=== PATIENT | male | born 1945 | race African-American/Black ===

== ENCOUNTER 2016-10-07 14:46 | Inpatient (IN) | payer MEDICARE, OTHER ==
[~2016-10-07] VITALS: Ht 180.3 cm; Wt 69.5 kg
[2016-10-07] VITALS (15 sets, daily range): BP systolic 139–225; BP diastolic 80–153; PULSE 80–150; RESP 17–20; TEMP 97.8–99; O2SAT 0–100
[~2016-10-07 14:46] MED LIST: ALUM5LIQ PO; ASPI1TAB7 PO; CLIN1CAP5 PO; DOCU1CAP39 PO; FINA5TAB77 PO; FOLI1 PO; IBUP600T26 PO; LISI-366 PO; SIME80CH CHEW; TERA10CA3 PO; TYLE3 PO; VIAG100T PO
[2016-10-07] MEDS ORDERED: SODIUM CHLOR 0.9% 1000 ML INJ 1,000 ML IV ONE (14:54)
[2016-10-07] MEDS ORDERED: SODIUM CHLORIDE 0.9% 50 ML BAG IVF ONE (15:15)
[2016-10-07] MEDS ORDERED: ALTEPLASE BOLUS 9 MG/9 ML SYR IV ONE (15:15)
[2016-10-07] MEDS ORDERED: IOHEXOL 350 MG/ML 10 ML VIAL (for RAD DIAG) IV ONE (15:15)
[2016-10-07] MEDS ORDERED: ALTEPLASE DRIP IV ONE (15:15)
[2016-10-07] MEDS ORDERED: MISCELLANEOUS NURSING INFORMATION XX PRN (15:15)
[2016-10-07] MEDS ORDERED: ASPI81CH37 PO (15:16)
--- NOTE | 2016-10-07 15:17 | RADRPT ---
EXAM DATE/TIME: 10/07/2016 14:59 [facility] COMPARISON: No previous studies available for comparison. INDICATIONS : Stroke alert, left sided facial droop. RADIATION DOSE: 38.19 CTDIvol (mGy) This report was called to Dr Shahid at 1510 hours. MEDICAL HISTORY : Non-responsive. SURGICAL HISTORY : Non-responsive. ENCOUNTER: Initial ACUITY: 1 day PAIN SCALE: Non-responsive LOCATION: Bilateral head TECHNIQUE: Multiple contiguous axial images were obtained of the head. Using automated exposure control and adj ustment of the mA and/or kV according to patient size, radiation dose was kept as low as reasonably a chievable to obtain optimal diagnostic quality images. FINDINGS: There is evidence of prior right occipital craniotomy with synthetic flap. There is a area of porenc ephaly deep to the craniotomy site which measures 2.9 cm. There are to small metallic densities ante rior to the craniotomy site. There is also a larger metallic density seen in the left lobe medial te mporal region. There is an old infarction involving the left head of the caudate nucleus and anterio r limb of internal capsule with associated ex vacuo enlargement of the left frontal horn. No evidence of midline shift. No evidence of acute blood products. No extra-axial fluid or blood. There is an air-fluid level in the sphenoid sinus. CONCLUSION: 1. No evidence of acute infarction. 2. 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 3. 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 Mio Coulter MD on October 07, 2016 at 15:08 Board Certified Radiologist. This report was verified electronically.
[2016-10-07 15:22] LABS: I-STAT POTASSIUM 3.1 MMOL/L (3.5-4.9); I-STAT SODIUM 142 MMOL/L (138-146)
[2016-10-07 15:24] LABS: AUTOMATED NEUTROPHIL # 4.1 TH/MM3 (1.8-7.7); BASOPHIL % 0.5 % (0.0-2.0); EOSINOPHIL % 0.3 % (0.0-4.0); HEMATOCRIT 42.4 % (39.0-51.0); HEMO FLAGS DIFF FINAL; LYMPH % 44.5 % (9.0-44.0); LYMPHOCYTE # 3.6 TH/MM3 (1.0-4.8); MEAN CELL VOLUME 74.4 FL (80.0-100.0); MEAN CORPUSCULAR HEMOGLOBIN 24.7 PG (27.0-34.0); MEAN CORPUSCULAR HGB CONC 33.2 % (32.0-36.0); MONO % 4.8 % (0.0-8.0); NEUT % 49.9 % (16.0-70.0); PLATELET COUNT 206 TH/MM3 (150-450); WHITE BLOOD COUNT 8.1 TH/MM3 (4.0-11.0)
[2016-10-07] MEDS: niCARdipine INJ 25 MG in SODIUM CHLOR 0.9% 250 ML INJ 250 ML IV SCH ×4 (15:24→21:29)
[2016-10-07] MEDS ORDERED: LABETALOL HCL 100 MG/20 ML VIAL IV PUSH ONE ×2 (15:30)
[2016-10-07 15:38] LABS: APTT (PATIENT) 28.2 SEC (24.3-30.1); PROTHROMBIN TIME - PATIENT 11.3 SEC (9.8-11.6)
[2016-10-07] MEDS ORDERED: hydrALAZINE HCL 20 MG/ML VIAL IV PUSH ONE (15:45)
--- NOTE | 2016-10-07 15:53 | RADRPT ---
EXAM DATE/TIME: 10/07/2016 15:12 [facility] COMPARISON: No previous studies available for comparison. INDICATIONS : Stroke alert, left sided facial droop. IV CONTRAST: 95 cc Omnipaque 350 (iohexol) IV ; Cumulative dose for multiple exams. RADIATION DOSE: 28.65 CTDIvol (mGy) ; Combined studies MEDICAL HISTORY : Non-responsive. SURGICAL HISTORY : Non-responsive. ENCOUNTER: Initial ACUITY: 1 day PAIN SCALE: Non-responsive LOCATION: Bilateral head TECHNIQUE: Volumetric scanning was performed using a multi-row detector CT scanner. The data was post processed with a variety of visualization algorithms including full volume maximum intensity projection, multi -planar sliding thin slab reformation, curved planar reformation, and surface rendering techniques. Using automated exposure control and adjustment of the mA and/or kV according to patient size, radiat ion dose was kept as low as reasonably achievable to obtain optimal diagnostic quality images. FINDINGS: There is excellent visualization of the major intracranial arteries out to the second-order branch ve ssels. There is no evidence for aneurysm, vessel truncation or stenosis, and no evidence for vascula r malformation. Flow seen in both PCOM. No flow seen in the anterior communicating artery. There are multiple metallic densities in the posterior fossa and occipital region. There is also a l arge metallic density in the left saad-pontine region which obscures a portion of the left posterior cerebral artery. The posterior cerebral artery distal to the metallic density is normal dimension an d the diameter proximal is narrowed. CONCLUSION: 1. No evidence of central truncation or aneurysm. 2. The largest intracranial metallic density, located near the left brain stem obscures a portion of the left posterior cerebral artery. The diameter of the left posterior cerebral artery distal to the metallic density is normal. Mio Coulter MD on October 07, 2016 at 15:47 Board Certified Radiologist. This report was verified electronically.
--- NOTE | 2016-10-07 15:55 | RADRPT ---
EXAM DATE/TIME: 10/07/2016 15:28 [facility] COMPARISON: No previous studies available for comparison. INDICATIONS : Stroke alert. MEDICAL HISTORY : None. SURGICAL HISTORY : None. ENCOUNTER: Initial ACUITY: 1 day PAIN SCORE: Non-responsive. LOCATION: Bilateral chest FINDINGS: A single view of the chest demonstrates the lungs to be symmetrically aerated without evidence of mas s, infiltrate or effusion. The cardiomediastinal contours are unremarkable. There is an asymmetric appearance to the anterior left 1st rib, probably old. There are several metallic densities in the l ow right neck, the largest of which is elongated and measures 1.3 cm in superior/inferior extent. Th ere is also metallic density adjacent to the lateral left 2nd rib.. CONCLUSION: 1. The lungs are clear. 2. Metallic densities in the low right neck and the upper left chest. Mio Coulter MD on October 07, 2016 at 15:52 Board Certified Radiologist. This report was verified electronically.
[2016-10-07 15:57] LABS: CREATINE KINASE 94 U/L (39-308)
--- NOTE | 2016-10-07 15:59 | PD ---
HPI Chief Complaint: Stroke Alert Time Seen by Provider: 14:54 Travel History International Travel<30 days: No Contact w/Intl Traveler<30days: No Traveled to known affect area: No History of Present Illness HPI Patient is a 71 year old male who comes in by EMS as a stroke alert. Patient had onset of left sided weakness around 2:15PM. His says that he was sitting on his porch when a friend came to get her to tell her he was not acting right. She says he was not speaking normally and he was unable to stand. She called 9--1 and he was brought here. He denies any pain. He has not had any recent trauma. He denies any strokes in the past. PFSH Past Medical History Hx Anticoagulant Therapy: Yes (ASA) Cardiovascular Problems: Yes Gastrointestinal Disorders: Yes (hep c) Genitourinary: Yes (bph) Hypertension: Yes Social History Alcohol Use: No Tobacco Use: Yes ("few a day") Substance Use: No Allergies-Medications (Allergen,Severity, Reaction): Coded Allergies: No Known Allergies (Unverified , 11/17/14) Reported Meds & Prescriptions Reported Meds & Active Scripts Active Reported [Folate] 1 Mg PO DAILY Aspirin Low Dose (Aspirin) 81 Mg Chew 81 Mg PO DAILY Review of Systems Except as stated in HPI: all other systems reviewed are Neg General / Constitutional: No: Fever Eyes: No: Blurred Vision HENT: No: Headaches Cardiovascular: No: Chest Pain or Discomfort Respiratory: No: Shortness of Breath Gastrointestinal: No: Nausea, Vomiting Musculoskeletal: No: Pain Skin: No Rash, No Change in Pigmentation Neurologic: Positive: Weakness, Focal Abnormalities, Slurred Speech Physical Exam Narrative GENERAL: Awake and alert, in no acute distress. SKIN: Focused skin assessment warm/dry. HEAD: Atraumatic. Normocephalic. EYES: Pupils equal and round. No scleral icterus. Extraocular movements intact. ENT: Mucous membranes pink and moist. NECK: Trachea midline. No JVD. CARDIOVASCULAR: Regular rate and rhythm. No murmur appreciated. RESPIRATORY: No accessory muscle use. Clear to auscultation. Breath sounds equal bilaterally. GASTROINTESTINAL: Abdomen soft, non-tender, nondistended. MUSCULOSKELETAL: No obvious deformities. No clubbing. No cyanosis. No edema. NEUROLOGICAL: Awake and alert. Left-sided facial droop. Mildly slurred speech. Left arm with no resistance to gravity. One out of 5 product marketing director strength. Left leg with some resistance to gravity. Strength is 2 out of 5 compared to the right leg. PSYCHIATRIC: Appropriate mood and affect; insight and judgment normal. Data Data Last Documented VS Vital Signs Date Time Temp Pulse Resp B/P Pulse Ox O2 Delivery O2 Flow Rate FiO2 10/07/16 16:20 96 18 156/95 100 Room Air 10/07/16 14:53 21 10/07/16 14:47 97.8 Orders Activity Bed Rest (10/07/16 ) I-Stat Creatinine (10/07/16 14:54) I-Stat Profile (10/07/16 14:54) Prothrombin Time / Inr (Pt) (10/07/16 14:54) Act Partial Throm Time (Ptt) (10/07/16 14:54) Complete Blood Count With Diff (10/07/16 14:54) Fibrinogen (10/07/16 14:54) Creatine Kinase (Cpk) (10/07/16 14:54) Troponin I (10/07/16 14:54) Ua Includes Microscopic (10/07/16 14:54) Drug Screen, Random Urine (10/07/16 14:54) Type And Screen (10/07/16 14:54) Ct Brain W/O Iv Contrast(Rout) (10/07/16 ) Chest, Single Ap (10/07/16 ) Cta Brain W Iv Contrast W 3d (10/07/16 14:54) Cta Neck W Iv Contrast W 3d (10/07/16 14:54) Consult Neurology (10/07/16 ) Blood Glucose (10/07/16 14:54) Ecg Monitoring (10/07/16 14:54) Neuro Checks Q2HX12,Q4H (10/07/16 14:54) Nursing Bedside Swallow Assess .ONCE (10/07/16 14:54) Iv Access Insert/Monitor (10/07/16 14:54) NPO (10/07/16 14:54) Oximetry (10/07/16 14:54) Oxygen Administration (10/07/16 14:54) Sodium Chlor 0.9% 1000 Ml Inj (Ns 1000 M (10/07/16 14:54) Resp Oxygen Giuseppe C Titrat 1-4 L (10/07/16 14:54) Cath For Specimen (10/07/16 14:54) Nicardipine Inj (Cardene Inj) (10/07/16 15:00) (Hub Use Only)Inp Phy Cons/Ref (10/07/16 ) Alteplase Bolus (Activase Bolus) (10/07/16 15:15) Alteplase Drip (Activase Drip) (10/07/16 15:15) Sodium Chloride 0.9% Inj (Ns Inj) (10/07/16 15:15) [facility] (10/07/16 15:15) Resp Oxygen Giuseppe C Titrat 1-4 L (10/07/16 ) Iohexol 350 Inj (Omnipaque 350 Inj) (10/07/16 15:15) Labetalol Inj (Trandate Inj) (10/07/16 15:30) Labetalol Inj (Trandate Inj) (10/07/16 15:30) Hydralazine Inj (Apresoline Inj) (10/07/16 15:45) Admit Order (Ed Use Only) (10/07/16 ) Labs Laboratory Tests Test 10/07/16 10/07/16 14:47 15:46 White Blood Count 8.1 TH/MM3 Red Blood Count 5.70 MIL/MM3 Hemoglobin 14.1 GM/DL Bedside Hemoglobin 15.3 G/DL Hematocrit 42.4 % Bedside Hematocrit 45.0 % Mean Corpuscular Volume 74.4 FL Mean Corpuscular Hemoglobin 24.7 PG Mean Corpuscular Hemoglobin 33.2 % Concent Red Cell Distribution Width 15.0 % Platelet Count 206 TH/MM3 Mean Platelet Volume 8.7 FL Neutrophils (%) (Auto) 49.9 % Lymphocytes (%) (Auto) 44.5 % Monocytes (%) (Auto) 4.8 % Eosinophils (%) (Auto) 0.3 % Basophils (%) (Auto) 0.5 % Neutrophils # (Auto) 4.1 TH/MM3 Lymphocytes # (Auto) 3.6 TH/MM3 Monocytes # (Auto) 0.4 TH/MM3 Eosinophils # (Auto) 0.0 TH/MM3 Basophils # (Auto) 0.0 TH/MM3 CBC Comment DIFF FINAL Differential Comment Prothrombin Time 11.3 SEC Prothromb Time International 1.0 RATIO Ratio Activated Partial 28.2 SEC Thromboplast Time Fibrinogen 439 mg/dL Bedside Sodium 142 MMOL/L Bedside Potassium 3.1 MMOL/L Bedside Chloride 107 MMOL/L Bedside Blood Urea Nitrogen 11 MG/DL Bedside Creatinine 1.1 MG/DL Bedside Glucose 120 MG/DL Total Creatine Kinase 94 U/L Troponin I LESS THAN 0.02 NG/ML Triglycerides Level 209 MG/DL Cholesterol Level 144 MG/DL LDL Cholesterol 69 MG/DL HDL Cholesterol 33.2 MG/DL Cholesterol/HDL Ratio 4.33 RATIO Blood Type O NEGATIVE Antibody Screen NEGATIVE Blood Bank Comment Urine Color COLORLESS Urine Turbidity CLEAR Urine pH 7.0 Urine Specific [place] 1.022 Urine Protein NEG mg/dL Urine Glucose (UA) NEG mg/dL Urine Ketones 10 mg/dL Urine Occult Blood NEG Urine Nitrite NEG Urine Bilirubin NEG Urine Urobilinogen LESS THAN 2.0 MG/DL Urine Leukocyte Esterase NEG Urine RBC 2 /hpf Urine WBC 1 /hpf Urine Squamous Epithelial <1 /hpf Cells Urine Opiates Screen NEG Urine Barbiturates Screen NEG Urine Amphetamines Screen NEG Urine Benzodiazepines Screen NEG Urine Cocaine Screen NEG Urine Cannabinoids Screen POS MDM Medical Decision Making Medical Screen Exam Complete: Yes Emergency Medical Condition: Yes Medical Record Reviewed: Yes Differential Diagnosis CVA versus TIA versus hypertensive emergency versus ICH Narrative Course Patient is a 71-year-old male who came in as a stroke alert due to left-sided weakness. Exam shows left-sided facial droop with slurring of his speech as well as weakness of his left arm and leg. Patient connected to the technical services assistant, taken to CT. CT of his head reveals no bleed. Patient was hypertensive on arrival. He was given multiple doses of labetalol and started on a Cardene drip. He was also given hydralazine push. His blood pressure improved to below 180/110. We discussed giving TPA, but when his blood pressure improved, his symptoms resolved, therefore TPA was held. Patient continued on the Cardene drip for blood pressure control. Dr. Roa at bedside for neurology. Patient admitted for hypertensive emergency. Diagnosis Primary Impression: Hypertensive emergency Admitting Information Admitting Physician Requests: Admit Condition: Stable Mariann Shahid MD Oct 07, 2016 15:58
--- NOTE | 2016-10-07 16:08 | RADRPT ---
EXAM DATE/TIME: 10/07/2016 15:12 [facility] COMPARISON: No previous studies available for comparison. INDICATIONS : Stroke alert, left sided facial droop. IV CONTRAST: 95 cc Omnipaque 350 (iohexol) IV ; Cumulative dose for multiple exams. RADIATION DOSE: 28.65 CTDIvol (mGy) ; Combined studies MEDICAL HISTORY : Non-responsive. SURGICAL HISTORY : Non-responsive. ENCOUNTER: Initial ACUITY: 1 day PAIN SCALE: Non-responsive LOCATION: Bilateral neck Elevated flow velocities and ICA/CCA ratios have been found to correlate with increased degrees of vessel stenosis, calculated as percentage of diameter relative to a normal segment of distal ICA/CCA. TECHNIQUE: Volumetric scanning was performed using a multirow detector CT scanner. The data was post processed with a variety of visualization algorithms including full-volume maximum intensity projection, multip lanar sliding thin-slab reformation, curved-planar reformation, and surface-rendering techniques. Us ing automated exposure control and adjustment of the mA and/or kV according to patient size, radiatio n dose was kept as low as reasonably achievable to obtain optimal diagnostic quality images. FINDINGS: AORTIC ARCH: There is a three-vessel origin of the great vessels from the aorta. No evidence of ostial narrowing. RIGHT CAROTID: The common carotid artery is intact. The carotid bulb has a normal configuration without ulceration o r narrowing. The internal carotid artery lumen is smooth without stenosis. The external carotid prieto ry is intact. LEFT CAROTID: The common carotid artery is intact. The carotid bulb has a normal configuration without ulceration or narrowing. There is wall calcification in the carotid bulb without narrowing. The internal carot id artery lumen is smooth without stenosis. The external carotid artery is intact. VERTEBRALS: The vertebral arteries have a symmetric diameter. No stenotic lesions are seen. CONCLUSION: Negative CTA of the carotids. Mio Coulter MD on October 07, 2016 at 16:03 Board Certified Radiologist. This report was verified electronically.
[2016-10-07] MEDS ORDERED: FOLATE PO (16:10)
[2016-10-07 16:26] LABS: BLOOD, URINE NEG (NEG); GLUCOSE,URINE NEG (NEG); KETONE, URINE 10 mg/dL (NEG); NITRITE,URINE NEG (NEG); SQUAMOUS EPITHELIAL CELL URINE <1 /hpf (0-5); URINE COLOR COLORLESS (YELLW/STRAW)
[2016-10-07 16:31] LABS: AMPHETAMINE, URINE NEG (NEG); BARBITURATES, URINE NEG (NEG); COCAINE, URINE NEG (NEG)
--- NOTE | 2016-10-07 16:35 | HHI.HP ---
HPI Service Family Medicine Primary Care Physician Unknown Admission Diagnosis Hypertensive Emergency/TIA Diagnoses: International Travel<30 Days: No Contact w/Intl Traveler<30days: No Known Affected Area: No History of Present Illness Patient is a 71-year-old male with a past medical history of poorly managed hypertension, hepatitis C, depression, PTSD, memory loss, and BPH that presents to the [facility] ED by [facility] as a stroke alert. Patient is a poor historian but based on history provided by him and his family members were at bedside, we understand that he was sitting out on his back porch with a friend, who noticed that something was not quite right with him. The friend called out to the pt's and when she came to the back porch, she saw that he was trying to get up from the chair but was unable to, his speech was slurred and the left side of his body appeared weak. The patient states that he did not black out or lose consciousness, but the weather was very hot. He denies feeling ill in the days leading up to this event and denied any complaints. Patient's states that he was recently diagnosed with [place] [facility] about 2[place]3 weeks ago. He was started on antihypertensive medication which she thinks is lisinopril but she is not sure. The medications are supposed to arrive in the mail but they haven't seen them yet. Patient does not have a clear PCP, he sees multiple people [place] the [facility] - basically whoever is available. Review of Systems Constitutional: DENIES: Fever, Chills Eyes: DENIES: Blurred vision, Vision loss Ears, nose, mouth, throat: DENIES: Nasal discharge, Throat pain, Running Nose Respiratory: DENIES: Cough, Shortness of breath Cardiovascular: COMPLAINS OF: Palpitations (sometimes), DENIES: Chest pain Gastrointestinal: DENIES: Abdominal pain, Bloody stools, Nausea, Vomiting Genitourinary: COMPLAINS OF: Urinary frequency, DENIES: Dysuria Musculoskeletal: DENIES: Joint pain, Muscle aches Integumentary: DENIES: Pruritus, Rash Neurologic: DENIES: Headache, Paresthesias, Seizures Psychiatric: COMPLAINS OF: Anxiety (chronic), DENIES: Confusion Past Family Social History Past Medical History Notably, the patient is a poor historian. Past medical history was mostly gleaned from chart review of patient's previous ED visits Hypertension Depression PTSD BPH Hepatitis C Memory loss Past Surgical History Craniectomy with metal plates placement Patient and family were unable to give additional past surgical history although they stated that he has had multiple procedures in the past Reported Medications Reported Meds & Active Scripts Active Reported [Folate] 1 Mg PO DAILY Aspirin Low Dose (Aspirin) 81 Mg Chew 81 Mg PO DAILY Allergies: Coded Allergies: No Known Allergies (Unverified , 11/17/14) Family History Strong family history of hypertension in siblings and mother Social History Lives at home with and a male family member, no pets [place] Former cigarette smoker - quit many years ago but does not remember when Smokes marijuana daily - family states he needs marijuana to deal with PTSD Physical Exam Vital Signs Vital Signs Date Time Temp Pulse Resp B/P Pulse Ox O2 Delivery O2 Flow Rate FiO2 10/07/16 16:20 96 18 156/95 100 Room Air 10/07/16 16:05 99 18 160/104 100 Room Air 10/07/16 15:50 100 18 165/102 100 Room Air 10/07/16 15:42 98 18 197/136 100 Room Air 10/07/16 15:34 97 18 200/129 100 Room Air 10/07/16 15:24 94 18 214/131 99 Room Air 10/07/16 14:53 99 21 10/07/16 14:50 112 18 100 Room Air 10/07/16 14:47 18 99 Room Air 10/07/16 14:47 97.8 123 18 225/153 99 10/07/16 14:47 99 Room Air Physical Exam GENERAL: This is a well-developed patient, in no apparent respiratory distress. SKIN: No rashes, ecchymoses or lesions. Cool and dry. HEAD: Atraumatic. Metal plate palpated in the occipital skull. No temporal or scalp tenderness. EYES: Pupils equal round and reactive. Extraocular motions intact. No scleral icterus. No injection or drainage. ENT: Nose without bleeding, purulent drainage or septal hematoma. Throat without erythema, tonsillar hypertrophy or exudate. White coating on tongue with halitosis. Uvula midline. Airway patent. NECK: Trachea midline. No JVD or lymphadenopathy. Supple, nontender, no meningeal signs. CARDIOVASCULAR: Tachycardic rate and regular rhythm without murmurs, gallops, or rubs. RESPIRATORY: Clear to auscultation. Breath sounds equal bilaterally. No wheezes , rales, or rhonchi. GASTROINTESTINAL: Abdomen soft, non-tender, nondistended. No hepato-splenomegaly , or palpable masses. No guarding. MUSCULOSKELETAL: Extremities without clubbing, cyanosis, or edema. No joint tenderness, effusion, or edema noted. No calf tenderness. Negative Homans sign bilaterally. NEUROLOGICAL: Awake and alert. Cranial nerves II through XII intact. Motor and sensory grossly within normal limits. Five out of 5 muscle strength in all muscle groups. Able to lift both upper and lower extremities against gravity and maintain against resistance. Intact [id number]. Normal speech. Laboratory Laboratory Tests Test 10/07/16 10/07/16 14:47 15:46 White Blood Count 8.1 Red Blood Count 5.70 Hemoglobin 14.1 Bedside Hemoglobin 15.3 Hematocrit 42.4 Bedside Hematocrit 45.0 Mean Corpuscular Volume 74.4 Mean Corpuscular Hemoglobin 24.7 Mean Corpuscular Hemoglobin 33.2 Concent Red Cell Distribution Width 15.0 Platelet Count 206 Mean Platelet Volume 8.7 Neutrophils (%) (Auto) 49.9 Lymphocytes (%) (Auto) 44.5 Monocytes (%) (Auto) 4.8 Eosinophils (%) (Auto) 0.3 Basophils (%) (Auto) 0.5 Neutrophils # (Auto) 4.1 Lymphocytes # (Auto) 3.6 Monocytes # (Auto) 0.4 Eosinophils # (Auto) 0.0 Basophils # (Auto) 0.0 CBC Comment DIFF FINAL Differential Comment Prothrombin Time 11.3 Prothromb Time International 1.0 Ratio Activated Partial 28.2 Thromboplast Time Fibrinogen 439 Bedside Sodium 142 Bedside Potassium 3.1 Bedside Chloride 107 Bedside Blood Urea Nitrogen 11 Bedside Creatinine 1.1 Bedside Glucose 120 Total Creatine Kinase 94 Troponin I LESS THAN 0.02 Blood Type O NEGATIVE Antibody Screen NEGATIVE Blood Bank Comment Urine Color COLORLESS Urine Turbidity CLEAR Urine pH 7.0 Urine Specific [place] 1.022 Urine Protein NEG Urine Glucose (UA) NEG Urine Ketones 10 Urine Occult Blood NEG Urine Nitrite NEG Urine Bilirubin NEG Urine Urobilinogen LESS THAN 2.0 Urine Leukocyte Esterase NEG Urine RBC 2 Urine WBC 1 Urine Squamous Epithelial <1 Cells Result Diagram: 10/07/16 1447 Imaging Last Impressions Neck CTA 10/07/16 7034 Signed Impressions: Service Date/Time: SundayOctober 07, 2016 15:12 - CONCLUSION: Negative CTA of the carotids. Mio Coulter MD Head CTA 10/07/16 1454 Signed Impressions: Service Date/Time: Friday, October 07, 2016 15:12 - CONCLUSION: 1. No evidence of central truncation or aneurysm. 2. The largest intracranial metallic density , located near the left brain stem obscures a portion of the left posterior cerebral artery. The diameter of the left posterior cerebral artery distal to the metallic density is normal. Mio Coulter MD Head CT 10/07/16 0000 Signed Impressions: Service Date/Time: Friday, October 07, 2016 14:59 - CONCLUSION: 1. No evidence of acute infarction. 2. 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 3. 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 Mio Coulter MD Chest X-Ray 10/07/16 0000 Signed Impressions: Service Date/Time: Friday, October 07, 2016 15:28 - CONCLUSION: 1. The lungs are clear. 2. Metallic densities in the low right neck and the upper left chest. Mio Coulter MD Course Report from the ED physician states that the patient arrived as a stroke alert. His blood pressure was elevated up to 225/153. A noncontrast CT scan was performed which did not show acute bleed. The decision was made to give him TPA. He was started on a nicardipine drip in order to lower his blood pressure before TPA administration. However, once his blood pressure was lowered, his symptoms spontaneously resolved with complete resolution of the slurred speech and left-sided weakness. Consequently, it is thought that he may have had an hypertensive emergency. Septic Shock Reassessment Heart: Regular rate and rhythm Lungs: Clear Skin: Warm Capillary Refill: Brisk Assessment and Plan Assessment and Plan Patient is a 71-year-old male with a past medical history of poorly managed hypertension, hepatitis C, depression, PTSD, memory loss, and BPH that presented to the [facility] ED with slurry speech and left-sided hemiparesis. Differential diagnosis includes stroke/TIA, hypertensive emergency , seizure, arrhythmia. BP on admission was 225/153 which responded to nicardipine drip with complete resolution of symptoms thereafter. The patient will be admitted to the ICU with continuation of the nicardipine drip and will be worked up for stroke during this admission. Code Status Full code Discussed Condition With Seen and discussed with Dr. Monk. Will discuss with Dr. Ash. Problem List: (1) Hypertensive emergency Status: Acute Plan: * BP 225/153 on arrival to the ED, decreased to 155/95 at 1600 * Considering left-sided hemiparesis and slurred speech at presentation, will perform stroke workup * Neurology consulted, appreciate recommendations * Lipid profile pending * Hemoglobin A1C pending * Echo pending * Initial troponin less than 0.02 * Initial EKG shows rate of 127, sinus rhythm with occasional premature ventricular contractions, no signs of ACS * Repeat Troponin, CPK, and EKG 2 at 2100 and 0300 * Continue nicardipine drip, titrate per protocol * Normal saline at 70 mLs per hour * Aspirin 81 mg by mouth daily * Tylenol 650 mg by mouth every 4 hours when necessary temperature greater than 101F, headache * Zofran 4 mg every 6 hours IV when necessary nausea vomiting * [place] when necessary for pain * Restoril 15 mg by mouth at bedtime when necessary insomnia (2) BPH (benign prostatic hyperplasia) Status: Acute Plan: * Patient reports history of urinary urgency and was incontinent of urine in the ED * Unsure of what medications he takes for BPH if any * Will consider Flomax during this hospitalization * Patient will benefit from urology consultation - family states that he may have a urologist [place] [facility] but they are not sure (3) Chronic Medical Problems Status: Acute Plan: * Hypertension: Currently on nicardipine drip. Will try to figure out what antihypertensive medication he is on at home * Hepatitis C: Will order hepatitis profile * PTSD/anxiety: Currently not on any medications. May start Ativan when necessary as needed (4) FEN/DVT PPX/GI PPX/Nursing Orders Status: Acute Plan: Fluids: NS @ 75 mls/hr IV Electrolytes: Will monitor and replace as needed Nutrition: Heart-healthy diet DVT Prophylaxis: Bilateral SCDs GI Prophylaxis: Not required -Vitals Q4h -Monitor I's and O's -Fall precautions -monitoring specialist with telemetry with continuous vital signs -Activity bed rest Disposition: Possibly in the next 1-2 days, pending neurology assessment and recommendations Case management has been consulted to assist with disposition needs PT has been consulted to assist with mobility and disposition needs Stephani Palomo MD R1 Oct 07, 2016 16:35
[2016-10-07] MEDS ORDERED: niCARdipine INJ 25 MG in SODIUM CHLOR 0.9% 250 ML INJ 250 ML IV ONE (16:45)
[2016-10-07] MEDS ORDERED: SODIUM CHLORIDE 0.9% FLUSH 10 ML FLUSH IV FLUSH PRN (16:45)
[2016-10-07] MEDS ORDERED: ACETAMINOPHEN 325 MG TAB PO PRN (16:45)
[2016-10-07] MEDS: SODIUM CHLOR 0.9% 1000 ML INJ 1,000 ML IV SCH (16:49)
[2016-10-07] MEDS ORDERED: HEPARIN SODIUM - SQ 10,000 UNITS/ML VIAL SQ SCH (17:00)
[2016-10-07] MEDS ORDERED: MAGNESIUM HYDROXIDE SUSP 30 ML CUP PO PRN (17:00)
[2016-10-07] MEDS ORDERED: SENNOSIDES 8.6 MG TAB PO PRN (17:00)
[2016-10-07] MEDS ORDERED: BISACODYL 10 MG SUPP RECTAL PRN (17:00)
[2016-10-07] MEDS ORDERED: LACTULOSE SYRUP 20 GM/30 ML CUP PO PRN (17:00)
[2016-10-07] MEDS ORDERED: ONDANSETRON HCL 4 MG/2 ML VIAL IVP PRN (17:00)
[2016-10-07 18:14] LABS: HDL CHOLESTEROL 33.2 MG/DL (40.0-60.0)
[2016-10-07] MEDS: SODIUM CHLORIDE 0.9% FLUSH 10 ML FLUSH IV FLUSH SCH (20:22)
[2016-10-07] MEDS: DOCUSATE SODIUM 50 MG/SENNA 8.6 MG TAB PO SCH (20:22)
[2016-10-07] MEDS: TEMAZEPAM 15 MG CAP PO PRN (20:22)
[2016-10-08] VITALS (14 sets, daily range): BP systolic 130–186; BP diastolic 87–116; PULSE 69–137; RESP 17–48; TEMP 97.6–98.8; O2SAT 97–100
[2016-10-08] MEDS ORDERED: LABETALOL HCL 100 MG/20 ML VIAL ONE (00:15)
[2016-10-08] MEDS ORDERED: cloNIDine HCL 0.1 MG TAB PO PRN (00:30)
[2016-10-08] MEDS ORDERED: LABETALOL HCL 100 MG/20 ML VIAL IV PRN (00:30)
[2016-10-08] MEDS ORDERED: hydrALAZINE HCL 20 MG/ML VIAL IV PRN (00:30)
--- NOTE | 2016-10-08 00:44 | HHI.FPPN ---
Addendum to progress note ADDENDUM Reason for addendum: Additonal documentation Additional information S: Residents were paged at 0000 for the patient having worsening blood pressure and complaining of worsening shortness of breath. This was concerned that he also might be showing renewed signs of left-sided facial droop and left-sided weakness. Went to evaluate the patient, while the nursing staff called the neurologist. Patient reported that he was feeling short of breath and anxious. He denied any left-sided weakness. He denied any chest pain. He said he was concerned because of his shortness of breath. Spoke with the neurologist who recommended holding the nicardipine drip and providing the patient with labetalol 10 mg IV. Neurologist also recommended consulting the mine environmental engineer. Working diagnosis is still hypertensive emergency O: GENERAL: Thin, anxious -[place] male SKIN: Warm and dry. No rash. EYES: No scleral icterus. No injection or drainage. PERRLA. EOMI. HENT: Normocephalic. Atraumatic. MMM. NECK: No visible JVD or lymphadenopathy. CARDIOVASCULAR: Tachycardic without murmurs rubs or gallops RESPIRATORY: Clear to auscultation bilaterally, increased respiratory effort GASTROINTESTINAL: Abdomen nondistended. MUSCULOSKELETAL: 4 out of 5 strength bilaterally. No notable facial droop on exam. Sensation intact in the face arms and leg. BACK: Without obvious deformity. NEURO/PSYCH: Afocal. Awake, alert, and oriented x3. A/P: Patient is a 71-year-old male with a past medical history of poorly managed hypertension, hepatitis C, depression, PTSD, memory loss, and BPH, admitted for hypertensive emergency. At time of page she was having worsening of his hypertension. * Neurology was called, and recommendations were appreciated * Started labetalol 10 mg daily 20: Patient's overall symptoms improved after delivery of 1 dose * Hydralazine per protocol * Clonidine per protocol * Held nicardipine drip * Head of bed flat * Cool compress to head and neck * Consulted critical care for hypertensive emergency * Oxygen as needed * CT pulm * DuoNebs wdw: Dr. Ash (Elan Monk MD R2) Additional information This was discussed with me at the time we examined the patient together this a.m. 10-08-16. (Nicole Ash MD) Elan Monk MD R2 Oct 08, 2016 00:44 Nicole Ash MD Oct 08, 2016 12:44
[2016-10-08] MEDS: LABETALOL HCL 100 MG/20 ML VIAL IV PUSH PRN (02:00)
[2016-10-08] MEDS ORDERED: RESP: ALBUTEROL 2.5 MG/IPRATROPIUM 0.5 MG NEB (PRN) NEB (02:15)
[2016-10-08] MEDS ORDERED: HALOPERIDOL LACTATE 5 MG/ML AMP IV ONE (03:00)
[2016-10-08] MEDS ORDERED: IOHEXOL 350 MG/ML 10 ML VIAL (for RAD DIAG) IV ONE (03:13)
--- NOTE | 2016-10-08 03:24 | RADRPT ---
EXAM DATE/TIME: 10/08/2016 02:55 [facility] COMPARISON: CT BRAIN W/O CONTRAST, October 07, 2016, 14:59. INDICATIONS : Increased left sided weakness. RADIATION DOSE: 56.35 CTDIvol (mGy) MEDICAL HISTORY : Hypertension. Hepatitis C. Cardiovascular diseaseHead trauma. SURGICAL HISTORY : None. ENCOUNTER: Subsequent ACUITY: 1 day PAIN SCALE: 0/10 LOCATION: cranial TECHNIQUE: Multiple contiguous axial images were obtained of the head. Using automated exposure control and adjustment of the mA and/or kV according to patient size, radiation dose was kept as low as reasonably achievable to obtain optimal diagnostic quality images. FINDINGS: There is no evidence for intracranial hemorrhage, mass effect, mass lesions, or edema. The visualize d bony structures appear intact. Slight degree of brain atrophy is seen. Slight periventricular whit e matter changes are seen nonspecific mostly consistent with chronic small vessel ischemic changes. There are no signs of acute infarction for technique. There is old encephalomalacia in the right occi pital lobe and evidence for prior craniotomy and metallic densities identified within the CSF space s cattered not significantly changed. CONCLUSION: Chronic changes without hemorrhage or mass effect. Jed Jacobson MD on October 08, 2016 at 3:21 Board Certified Radiologist. This report was verified electronically.
--- NOTE | 2016-10-08 03:27 | RADRPT ---
EXAM DATE/TIME: 10/08/2016 03:02 [facility] COMPARISON: No previous studies available for comparison. INDICATIONS : Short of breath. IV CONTRAST: 75 cc Omnipaque 350 (iohexol) IV RADIATION DOSE: 10.04 CTDIvol (mGy) MEDICAL HISTORY : Hepatitis C. Hypertension. Cardiovascular diseaseHead trauma. SURGICAL HISTORY : None. ENCOUNTER: Initial ACUITY: 1 day PAIN SCALE: 0/10 LOCATION: chest TECHNIQUE: Volumetric scanning of the chest was performed using a pulmonary embolism protocol MIP images were re constructed. Using automated exposure control and adjustment of the mA and/or kV according to patien t size, radiation dose was kept as low as reasonably achievable to obtain optimal diagnostic quality images. FINDINGS: The lungs are clear without infiltrate, nodule, or mass except for slight scarring in right lung base and scattered COPD changes. There is no pleural effusion. No appreciable pathological adenopathy i s seen within the mediastinum. There is no evidence for PE for technique. Coronary artery calcificati ons are seen typically seen with CAD and need to be evaluated clinically. CONCLUSION: There is no evidence for PE for technique. Jed Jacobson MD on October 08, 2016 at 3:23 Board Certified Radiologist. This report was verified electronically.
--- NOTE | 2016-10-08 03:41 | PD.CONS ---
HPI Service Critical Care Medicine Consult Requested By Primary Care Physician Unknown History of Present Illness 71-year-old male with a poorly managed hypertension, hepatitis C, depression, PTSD, memory loss, and BPH that presents as a stroke alert. He was sitting out on his back porch with a friend, who noticed that something was not quite right with him. The friend called out to the patient's and she saw that he was trying to get up from the chair but was unable to do so, his speech was slurred and the left side of his body appeared weak. [facility]. He was started on antihypertensive medication which she thinks is lisinopril. Review of Systems ROS Unable to obtain patient is poor historian Past Family Social History Allergies: Coded Allergies: No Known Allergies (Unverified , 11/17/14) Past Medical History Hypertension Depression PTSD BPH Hepatitis C Memory loss Past Surgical History Craniectomy with metal plates placement Reported Medications Reported Meds & Active Scripts Active Reported [Folate] 1 Mg PO DAILY Aspirin Low Dose (Aspirin) 81 Mg Chew 81 Mg PO DAILY Active Ordered Medications Current Medications Medications (Trade) Dose Ordered Sig/Percy Route PRN Reason Start Time Stop Time Status Last Admin Dose Admin Sodium Chloride (NS 1000 ml Inj) 1,000 ml @ 75 mls/hr [id number] IV 10/07/16 17:00 10/07/16 16:49 Sodium Chloride (NS Flush) 2 ml UNSCH PRN IV FLUSH FLUSH AFTER USING IV ACCESS 10/07/16 16:45 Sodium Chloride (NS Flush) 2 ml BID IV FLUSH 10/07/16 21:00 10/07/16 20:22 Aspirin (Aspirin Chew) 81 mg DAILY PO 10/08/16 09:00 Folic Acid (Folate) 1 mg DAILY PO 10/08/16 09:00 Acetaminophen (Tylenol) 650 mg Q4H PRN PO TEMP>101F, HEADACHE 10/07/16 16:45 Acetaminophen/ Hydrocodone Bitart ([place] 5-325 Mg) 1 tab Q6HR PRN PO PAIN SCALE 1 TO 5 10/07/16 16:45 Acetaminophen/ Hydrocodone Bitart ([place] 10-325 Mg) 1 tab Q6H PRN PO PAIN SCALE 6 TO 10 10/07/16 16:45 Ondansetron HCl (Zofran Inj) 4 mg Q6H PRN IVP NAUSEA OR VOMITING 10/07/16 17:00 Temazepam (Restoril) 15 mg HS PRN PO INSOMNIA 10/07/16 17:00 10/07/16 20:22 Senna/Docusate Sodium (Gilda-Colace) 1 tab BID PO 10/07/16 21:00 10/07/16 20:22 Magnesium Hydroxide (Milk Of Magnesia Liq) 30 ml Q12H PRN PO MILD - MODERATE CONSTIPATION 10/07/16 17:00 Sennosides (Senokot) 17.2 mg Q12H PRN PO MODERATE - SEVERE CONSTIPATION 10/07/16 17:00 Bisacodyl (Dulcolax Supp) 10 mg DAILY PRN RECTAL SEVERE CONSITIPATION 10/07/16 17:00 Lactulose (Lactulose Liq) 30 ml DAILY PRN PO SEVERE CONSITIPATION 10/07/16 17:00 Hydralazine HCl (Apresoline Inj) 10 mg Q4HR PRN IV SBP> OR = 180, DBP> OR = 100 10/08/16 00:30 10/08/16 00:51 Clonidine (Catapres) 0.1 mg Q6H PRN PO SBP> OR = 180, DBP> OR = 100 10/08/16 00:30 Labetalol HCl 10 mg 10 mg Q20M PRN IV PUSH SBP>180, DBP>100, HR>65 10/08/16 01:00 10/08/16 02:00 Nicardipine HCl/ Sodium Chloride (Cardene Inj/NS 250 ml Inj) 260 ml @ 0 mls/hr TITRATE IV 10/08/16 03:00 Family History Noncontributory Social History Tobacco use quit many years ago No alcohol or illicit drug abuse Smokes Cannabis Sativa daily in in need to treat his posttraumatic stress disorder Physical Exam Vital Signs Vital Signs Date Time Temp Pulse Resp B/P Pulse Ox O2 Delivery O2 Flow Rate FiO2 10/07/16 22:00 80 10/07/16 20:00 99.0 106 20 145/85 99 10/07/16 20:00 100 10/07/16 19:00 100 Room Air 10/07/16 18:18 96 17 148/88 100 10/07/16 17:30 98.0 94 17 139/80 100 Room Air 10/07/16 16:51 97.8 98 17 155/95 100 Room Air 10/07/16 16:35 97 17 161/93 100 Room Air 10/07/16 16:20 96 18 156/95 100 Room Air 10/07/16 16:05 99 18 160/104 100 Room Air 10/07/16 15:50 100 18 165/102 100 Room Air 10/07/16 15:42 98 18 197/136 100 Room Air 10/07/16 15:34 97 18 200/129 100 Room Air 10/07/16 15:24 94 18 214/131 99 Room Air 10/07/16 14:53 99 21 10/07/16 14:50 112 18 100 Room Air 10/07/16 14:47 18 99 Room Air 10/07/16 14:47 97.8 123 18 225/153 99 10/07/16 14:47 99 Room Air Physical Exam GENERAL: Well-nourished, well-developed patient. SKIN: Warm and dry. HEAD: Normocephalic. EYES: No scleral icterus. No injection or drainage. NECK: Supple, trachea midline. No JVD or lymphadenopathy. CARDIOVASCULAR: Regular rate and rhythm without murmurs, gallops, or rubs. RESPIRATORY: Breath sounds equal bilaterally. No accessory muscle use. GASTROINTESTINAL: Abdomen soft, non-tender, nondistended. MUSCULOSKELETAL: No cyanosis, or edema. BACK: Nontender without obvious deformity. No CVA tenderness. EXTREMITIES: No clubbing cyanosis or edema, left upper extremity weakness, Laboratory Laboratory Tests Test 10/07/16 10/07/16 10/07/16 14:47 15:46 21:18 White Blood Count 8.1 Red Blood Count 5.70 Hemoglobin 14.1 Bedside Hemoglobin 15.3 Hematocrit 42.4 Bedside Hematocrit 45.0 Mean Corpuscular Volume 74.4 Mean Corpuscular Hemoglobin 24.7 Mean Corpuscular Hemoglobin 33.2 Concent Red Cell Distribution Width 15.0 Platelet Count 206 Mean Platelet Volume 8.7 Neutrophils (%) (Auto) 49.9 Lymphocytes (%) (Auto) 44.5 Monocytes (%) (Auto) 4.8 Eosinophils (%) (Auto) 0.3 Basophils (%) (Auto) 0.5 Neutrophils # (Auto) 4.1 Lymphocytes # (Auto) 3.6 Monocytes # (Auto) 0.4 Eosinophils # (Auto) 0.0 Basophils # (Auto) 0.0 CBC Comment DIFF FINAL Differential Comment Prothrombin Time 11.3 Prothromb Time International 1.0 Ratio Activated Partial 28.2 Thromboplast Time Fibrinogen 439 Bedside Sodium 142 Bedside Potassium 3.1 Bedside Chloride 107 Bedside Blood Urea Nitrogen 11 Bedside Creatinine 1.1 Bedside Glucose 120 Total Creatine Kinase 94 110 Troponin I LESS THAN 0.02 0.07 Triglycerides Level 209 Cholesterol Level 144 LDL Cholesterol 69 HDL Cholesterol 33.2 Cholesterol/HDL Ratio 4.33 Blood Type O NEGATIVE Antibody Screen NEGATIVE Blood Bank Comment Urine Color COLORLESS Urine Turbidity CLEAR Urine pH 7.0 Urine Specific [place] 1.022 Urine Protein NEG Urine Glucose (UA) NEG Urine Ketones 10 Urine Occult Blood NEG Urine Nitrite NEG Urine Bilirubin NEG Urine Urobilinogen LESS THAN 2.0 Urine Leukocyte Esterase NEG Urine RBC 2 Urine WBC 1 Urine Squamous Epithelial <1 Cells Urine Opiates Screen NEG Urine Barbiturates Screen NEG Urine Amphetamines Screen NEG Urine Benzodiazepines Screen NEG Urine Cocaine Screen NEG Urine Cannabinoids Screen POS Result Diagram: 10/07/16 1447 Imaging Last 24 hours Impressions Neck CTA 10/07/161453 Signed Impressions: Service Date/Time: Friday, October 07, 2016 15:12 - CONCLUSION: Negative CTA of the carotids. Mio Coulter MD Head CTA 10/07/163 Signed Impressions: Service Date/Time: Friday, October 07, 2016 15:12 - CONCLUSION: 1. No evidence of central truncation or aneurysm. 2. The largest intracranial metallic density , located near the left brain stem obscures a portion of the left posterior cerebral artery. The diameter of the left posterior cerebral artery distal to the metallic density is normal. Mio Coulter MD Assessment and Plan Assessment and Plan 71-year-old gentleman with the hypertensive urgency, and altered mental status with left upper extremity weakness Hypertension - Cardene drip - Patient presented with a blood pressure initially at 220s, I would not recommend to lower the blood pressure more than by 20% in first 24 hours - SBP goal 160-180 today further lowering with the next 24 hours - Clonidine and labetalol Altered mental status - Due to uncontrolled blood pressure - Considering withdrawal from Cannabis - CT head including CTA negative - [facility] protocol - Neurology consult appreciated - Precedex for agitation Depression - Paroxetine PTSD - Start Paxil BPH - Flomax Hepatitis C - Chronic - No acute issues - Supportive care DVT GI prophylaxis - Teds SCDs - Pepcid - Subcutaneous heparin Critical Care: The total critical care time was 35 minutes. Time to perform other separately billable procedures was not included in the critical care time. Noe Painting MD Oct 08, 2016 03:41
[2016-10-08 04:19] LABS: AUTOMATED NEUTROPHIL # 9.5 TH/MM3 (1.8-7.7); BASOPHIL % 0.3 % (0.0-2.0); HEMATOCRIT 39.5 % (39.0-51.0); HEMO FLAGS DIFF FINAL; LYMPH % 8.8 % (9.0-44.0); MEAN CELL VOLUME 74.2 FL (80.0-100.0); MEAN CORPUSCULAR HEMOGLOBIN 23.8 PG (27.0-34.0); MONO % 5.2 % (0.0-8.0); NEUT % 85.7 % (16.0-70.0); PLATELET COUNT 176 TH/MM3 (150-450); RED BLOOD COUNT 5.32 MIL/MM3 (4.50-5.90); RED CELL DISTRIBUTION WIDTH 14.5 % (11.6-17.2); WHITE BLOOD COUNT 11.1 TH/MM3 (4.0-11.0)
[2016-10-08 04:57] LABS: BICARBONATE 20.3 MEQ/L (21.0-32.0); HDL CHOLESTEROL 33.2 MG/DL (40.0-60.0)
[2016-10-08 05:00] LABS: POTASSIUM 2.9 MEQ/L (3.5-5.1)
[2016-10-08] MEDS ORDERED: LORazepam 2 MG/ML VIAL IV PUSH PRN ×4 (05:30)
[2016-10-08] MEDS ORDERED: FLUMAZENIL 0.5 MG/5 ML VIAL IV PUSH PRN (05:30)
[2016-10-08] MEDS ORDERED: LORazepam 1 MG TAB PO PRN (05:30)
[2016-10-08] MEDS ORDERED: LORazepam 2 MG TAB PO PRN (05:30)
[2016-10-08] MEDS: DEXMEDETOMIDINE INJ 200 MCG in SODIUM CHLORIDE 0.9% INJ 50 ML IV SCH ×2 (05:37→14:28)
[2016-10-08] MEDS: niCARdipine 25 MG/NS 250 ML Vial2Bag or IV room IV SCH ×2 (05:37)
[2016-10-08] MEDS ORDERED: POTASSIUM CHLORIDE 25 MEQ EFFERVESCENT TAB PO PRN ×2 (06:30→06:45)
[2016-10-08] MEDS ORDERED: SODIUM PHOSPHATE INJ 30 MMOL in SODIUM CHLOR 0.9% 250 ML INJ 240 ML IV PRN ×2 (06:30→06:45)
[2016-10-08] MEDS ORDERED: POTASSIUM PHOSPHATE MONOBASIC 500 MG TAB PO PRN ×2 (06:30→06:45)
[2016-10-08] MEDS ORDERED: POTASSIUM PHOSPHATE INJ 30 MMOL in SODIUM CHLOR 0.9% 250 ML INJ 250 ML IV PRN (06:30)
[2016-10-08] MEDS ORDERED: POTASSIUM CHLOR 20 MEQ PREMIX 100 ML IV PRN ×3 (06:30→06:45)
[2016-10-08] MEDS ORDERED: MAGNESIUM SULFATE INJ 4 GM in SODIUM CHLORIDE 0.9% INJ 92 ML IV PRN ×2 (06:30→06:45)
[2016-10-08] MEDS ORDERED: MAGNESIUM SULFATE INJ 2 GM in SODIUM CHLORIDE 0.9% INJ 96 ML IV PRN ×2 (06:30→06:45)
[2016-10-08] MEDS ORDERED: POTASSIUM CHLOR 40 MEQ PREMIX 100 ML IV PRN ×4 (06:30→06:45)
[2016-10-08] MEDS ORDERED: MAGNESIUM OXIDE 400 MG TAB PO PRN ×2 (06:30→06:45)
[2016-10-08] MEDS ORDERED: POTASSIUM PHOSPHATE MONOBASIC 500 MG TAB PO/TUBE PRN ×2 (06:30→06:45)
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
[2016-10-08] MEDS: SODIUM CHLOR 0.9% 1000 ML INJ 1,000 ML IV SCH ×2 (06:44→21:21)
--- NOTE | 2016-10-08 07:59 | HHI.CCPN ---
Subjective Remarks/Hospital Course 71-year-old male with a poorly managed hypertension, hepatitis C, depression, PTSD, memory loss, and BPH that presents as a stroke alert. He was sitting out on his back porch with a friend, who noticed that something was not quite right with him. The friend called out to the patient's and she saw that he was trying to get up from the chair but was unable to do so, his speech was slurred and the left side of his body appeared weak. He was recently diagnosed with hypertension at the [place] about 2-3 weeks ago. He was started on antihypertensive medication which she thinks is lisinopril. 10/08: Flaccid left arm, weak left leg, left facial droop. Out of window for tPA and BP not easily controlled last night apparently. Objective Vital Signs Date Time Temp Pulse Resp B/P Pulse Ox O2 Delivery O2 Flow Rate FiO2 10/08/16 07:35 100 Nasal Cannula 2.00 10/08/16 06:00 93 10/08/16 04:00 98.7 40 186/115 10/07/16 14:53 21 Intake and Output 10/07/16 10/07/16 10/08/16 08:00 16:00 00:00 Intake Total 1494 ml Output Total 800 ml Balance 694 ml Result Diagram: 10/08/16 0355 10/08/16 0355 Imaging Last 24 hours Impressions Neck CTA 10/07/16 1454 Signed Impressions: Service Date/Time: Friday, October 07, 2016 15:12 - CONCLUSION: Negative CTA of the carotids. Mio Coulter MD Head CTA 10/07/16 1454 Signed Impressions: Service Date/Time: Friday, October 07, 2016 15:12 - CONCLUSION: 1. No evidence of central truncation or aneurysm. 2. The largest intracranial metallic density , located near the left brain stem obscures a portion of the left posterior cerebral artery. The diameter of the left posterior cerebral artery distal to the metallic density is normal. Mio Coulter MD Objective Remarks GENERAL: Well-nourished, well-developed patient. SKIN: Warm and dry. HEAD: Normocephalic. EYES: No scleral icterus. No injection or drainage. NECK: Supple, trachea midline. Airway open but some secretions. CARDIOVASCULAR: Regular rate and rhythm without murmurs, gallops, or rubs. RESPIRATORY: Breath sounds equal bilaterally. Few rhonchi. GASTROINTESTINAL: Abdomen soft, non-tender, nondistended. MUSCULOSKELETAL: No cyanosis, or edema. BACK: Nontender without obvious deformity. No CVA tenderness. EXTREMITIES: No clubbing cyanosis or edema, left upper extremity weakness, NEURO: Flaccid left arm, weak left leg, left facial droop. Speech slurred. Follows commands. Toes down right, up left. DTRs patellar 3+ deepa. No clonus. A/P Assessment and Plan 71-year-old gentleman with the hypertensive urgency, and altered mental status with left upper extremity weakness Hypertension - Cardene drip - Patient presented with a blood pressure initially at 220s, I would not recommend to lower the blood pressure more than by 20% in first 24 hours - SBP goal 160-180 today further lowering with the next 24 hours - Clonidine and labetalol Altered mental status - Due to uncontrolled blood pressure - Considering withdrawal from Cannabis - CT head including CTA negative - [facility] protocol - Neurology consult appreciated - Precedex for agitation Depression - Paroxetine PTSD - Start Paxil BPH - Flomax Hepatitis C - Chronic - No acute issues - Supportive care DVT GI prophylaxis - Teds SCDs - Pepcid - Subcutaneous heparin Overall impression: Right handed man with probable CVA affecting left side motor function and speech. Plate in head from [place] prevents MRI. Head CT and CTA negative. Aris Brooks MD Oct 08, 2016 07:59
[2016-10-08] MEDS: POTASSIUM CHLOR 20 MEQ PREMIX 100 ML IV PRN ×4 (08:39→12:46)
[2016-10-08] MEDS: DOCUSATE SODIUM 50 MG/SENNA 8.6 MG TAB PO SCH ×2 (09:00→21:00)
[2016-10-08] MEDS: PARoxetine HCL SUSP 20 MG/10 ML UDC NG SCH (09:00)
[2016-10-08] MEDS: FOLIC ACID 1 MG TAB PO SCH (09:00)
[2016-10-08] MEDS ORDERED: ASPIRIN 81 MG CHEW TAB PO SCH (09:00)
[2016-10-08] MEDS: SODIUM CHLORIDE 0.9% FLUSH 10 ML FLUSH IV FLUSH SCH ×2 (09:15→21:21)
[2016-10-08 10:05] LABS: HEMOGLOBIN A1a 1.6 %; HEMOGLOBIN A1b 1.6 %
[2016-10-08 10:06] LABS: HEMOGLOBIN Ao 84.9 %; HEMOGLOBIN LA1C 2.1 %; HEMOGLOBIN P3 5.5 %
[2016-10-08 10:58] LABS: AUTOMATED NEUTROPHIL # 10.2 TH/MM3 (1.8-7.7); BASOPHIL % 0.3 % (0.0-2.0); HEMATOCRIT 39.7 % (39.0-51.0); HEMO FLAGS DIFF FINAL; LYMPH % 11.8 % (9.0-44.0); LYMPHOCYTE # 1.5 TH/MM3 (1.0-4.8); MEAN CELL VOLUME 74.1 FL (80.0-100.0); MEAN CORPUSCULAR HEMOGLOBIN 24.1 PG (27.0-34.0); MEAN CORPUSCULAR HGB CONC 32.5 % (32.0-36.0); MONO % 5.4 % (0.0-8.0); NEUT % 82.5 % (16.0-70.0); PLATELET COUNT 180 TH/MM3 (150-450); RED BLOOD COUNT 5.35 MIL/MM3 (4.50-5.90); RED CELL DISTRIBUTION WIDTH 14.6 % (11.6-17.2); WHITE BLOOD COUNT 12.4 TH/MM3 (4.0-11.0)
[2016-10-08 11:26] LABS: BICARBONATE 21.5 MEQ/L (21.0-32.0); POTASSIUM 3.4 MEQ/L (3.5-5.1)
--- NOTE | 2016-10-08 11:37 | HHI.FPPN ---
Subjective Remarks Patient appeared very uncomfortable this morning. He was very restless and very incoherent speech. Positive left facial droop, left arm and left leg weakness. ( Eko,Stephani U R1) Objective Vitals Vital Signs Date Time Temp Pulse Resp B/P Pulse Ox O2 Delivery O2 Flow Rate FiO2 10/08/16 07:35 100 Nasal Cannula 2.00 10/08/16 07:00 100 Nasal Cannula 2.00 10/08/16 06:00 93 10/08/16 04:00 130 10/08/16 04:00 98.7 130 40 186/115 97 10/08/16 02:00 132 10/08/16 00:00 98.7 137 30 174/87 99 10/08/16 00:00 137 10/07/16 23:37 150 10/07/16 22:00 80 10/07/16 20:00 99.0 106 20 145/85 99 10/07/16 20:00 100 10/07/16 19:00 100 Room Air 10/07/16 18:18 96 17 148/88 100 10/07/16 17:30 98.0 94 17 139/80 100 Room Air 10/07/16 16:51 97.8 98 17 155/95 100 Room Air 10/07/16 16:35 97 17 161/93 100 Room Air 10/07/16 16:20 96 18 156/95 100 Room Air 10/07/16 16:05 99 18 160/104 100 Room Air 10/07/16 15:50 100 18 165/102 100 Room Air 10/07/16 15:42 98 18 197/136 100 Room Air 10/07/16 15:34 97 18 200/129 100 Room Air 10/07/16 15:24 94 18 214/131 99 Room Air 10/07/16 14:53 99 21 10/07/16 14:50 112 18 100 Room Air 10/07/16 14:47 18 99 Room Air 10/07/16 14:47 97.8 123 18 225/153 99 10/07/16 14:47 99 Room Air I/O 10/07/16 10/07/16 10/07/16 10/08/16 10/08/16 10/08/16 07:00 15:00 23:00 07:00 15:00 23:00 Intake Total 1494 ml 1152 ml Output Total 800 ml 800 ml Balance 694 ml 352 ml Intake Oral 720 ml 0 ml IV Total 774 ml 1152 ml Output Urine Total 800 ml 800 ml Stool Total 0 ml # Bowel Movements 0 (Eko,Stephani U R1) Result Diagram: 10/08/16 1048 10/08/[address] 10/08/16 0000 Signed Impressions: Service Date/Time: Saturday, October 08, 2016 02:55 - CONCLUSION: Chronic changes without hemorrhage or mass effect. Jed Jacobson MD CT Angiography 10/08/16 0000 Signed Impressions: Service Date/Time: Saturday, October 08, 2016 03:02 - CONCLUSION: There is no evidence for PE for technique. Jed Jacobson MD Neck CTA 10/07/16 1454 Signed Impressions: Service Date/Time: Friday, October 07, 2016 15:12 - CONCLUSION: Negative CTA of the carotids. Mio Coulter MD Head CTA 10/07/16 1454 Signed Impressions: Service Date/Time: Friday, October 07, 2016 15:12 - CONCLUSION: 1. No evidence of central truncation or aneurysm. 2. The largest intracranial metallic density , located near the left brain stem obscures a portion of the left posterior cerebral artery. The diameter of the left posterior cerebral artery distal to the metallic density is normal. Mio Coulter MD Head CT 10/07/16 0000 Signed Impressions: Service Date/Time: Friday, October 07, 2016 14:59 - CONCLUSION: 1. No evidence of acute infarction. 2. 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 3. 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 Mio Coulter MD Chest X-Ray 10/07/16 0000 Signed Impressions: Service Date/Time: Friday, October 07, 2016 15:28 - CONCLUSION: 1. The lungs are clear. 2. Metallic densities in the low right neck and the upper left chest. Mio Coulter MD Objective Remarks GENERAL: Well-developed, thin, -[place] male, appears anxious and restless SKIN: Warm and dry. No rashes. EYES: No scleral icterus. No injection or drainage. PERRLA. EOMI. HENT: Atraumatic. Dry mucous membranes with drooling down the right side of his mouth. NECK: No visible JVD or lymphadenopathy. CARDIOVASCULAR: Tachycardic without murmurs rubs or gallops RESPIRATORY: Clear to auscultation bilaterally GASTROINTESTINAL: Abdomen nondistended. MUSCULOSKELETAL: Left facial droop. Left arm and left leg weakness BACK: Without obvious deformity. NEURO/PSYCH: Afocal. Awake, alert, and oriented x3. Responds to commands with slurred, incoherent speech (Stephani Palomo MD R1) Vann insert reason: Measure Accurate Output (EkStephani knowles MD R1) A/P Assessment and Plan Patient is a 71-year-old male with a past medical history of poorly managed hypertension, hepatitis C, depression, PTSD, memory loss, and BPH that presented to the [place] ED with slurry speech and left-sided hemiparesis. Differential diagnosis includes stroke/TIA, hypertensive emergency , seizure, arrhythmia. BP on admission was 225/153 which responded to nicardipine drip with complete resolution of symptoms thereafter. The patient was be admitted to the ICU for continuation of the nicardipine drip and stroke work up. Overnight, the patient's blood pressure worsened and he complained of shortness of breath. The resident's consulted the neurologist who recommended holding Nicardipine drip and providing the patient with labetalol 10 mg IV. The ship's captain was also consulted at that time. Seen and examined with Dr. Ash, Dr. Kat, Dr. Monk, and Dr. Todd Discharge Planning Uncertain, pending clinical improvement and neurology recommendations (Stephani Palomo MD R1) Attending Attestation Patient seen and examined. Case reviewed and discussed with the resident team. Agree with plan of care as discussed with me and documented in the resident note. (Nicole Ash MD) Problem List: (1) Acute ischemic stroke Status: Acute Plan: -Evidence of left facial droop and left hemiparesis on exam -CT head 2 negative for acute bleed -CTA carotids within normal limits -Unable to perform MRI due to metallic plate in cranium -Neurology consulted for recommendations Neurochecks every hour Continuous cardiac telemetry 2-D Echo pending Maintain BP at 145/65-80 -Lipid profile only significant for 33.2 HDL, triglycerides, cholesterol, and LDL cholesterol WNL -Hemoglobin A1C mom AT 5.4 -Initial troponin less than 0.02, then 0.07, 0.10, 0.12 - suspect related to elevated BP and acute stroke, no signs of ACS on initial and repeat EKG, elevated heart rate noted -Continue normal saline at 70 mLs per hour -Aspirin 81 mg by mouth daily -Tylenol 650 mg by mouth every 4 hours when necessary temperature greater than 101F, headache -Zofran 4 mg every 6 hours IV when necessary nausea vomiting -[place] when necessary for pain -Restoril 15 mg by mouth at bedtime when necessary insomnia (2) Hypertensive emergency Status: Acute Plan: -SBP goal of 160-180 see today -Continue labetalol 10 mg IV every 20 minutes PRN SBP greater than 180, DBP greater than 100, HR >65 See plan for Acute stroke above (3) Altered mental status Status: Acute Plan: * Most likely related to acute stroke and uncontrolled blood pressure * CIWA protocol * Precedex for agitation (4) BPH (benign prostatic hyperplasia) Status: Acute Plan: * Patient reports history of urinary urgency and was incontinent of urine in the ED * Unsure of what medications he takes for BPH if any * Will consider Flomax once patient is tolerating by mouth * Patient will benefit from urology consultation - family states that he may have a urologist at the [facility] but they are not sure (5) Chronic Medical Problems Status: Acute Plan: * Hypertension: Treatment as above for hypertensive emergency. Will try to figure out what antihypertensive medication he is on at home * Hepatitis C: Hepatitis profile pending, supportive care as needed * PTSD/anxiety: Paroxetine 20mg NG daily when tolerating by mouth (6) FEN/DVT PPX/GI PPX/Nursing Orders Status: Acute Plan: Fluids: NS @ 75 mls/hr IV Electrolytes: Will monitor and replace as needed. On ICU electrolyte replacement protocol Nutrition: Nothing by mouth due to AMS DVT Prophylaxis: Bilateral SCDs GI Prophylaxis: Famotidine 20 mg IV twice a day -Vitals Q4h -Monitor I's and O's -Fall precautions -youth nutritional monitor with telemetry with continuous vital signs -Activity bed rest Case management has been consulted to assist with disposition needs PT has been consulted to assist with mobility and disposition needs (Stephani Palomo MD R1) Stephani Palomo MD R1 Oct 08, 2016 11:37 Nicole Ash MD Oct 08, 2016 13:16
--- NOTE | 2016-10-08 12:19 | HHI.FPPN ---
Subjective Remarks Patient seen, examined and discussed with the medicine team. This is a 71-year-old male who was admitted for hypertensive emergency. He has a history of hypertension, hepatitis C, BPH and tobacco use disorder. He is followed by the [facility], and has been placed on a medication for his blood pressure but the name of this medication is unknown. Apparently he developed symptoms at home and had some slurred speech and left-sided weakness but no loss of consciousness. He was brought to the emergency department and initially was thought to have a stroke but his blood pressure was managed and his symptoms resolved. Medications are folate and aspirin, he does use tobacco and marijuana. Patient is a ,, has had multiple surgeries including a craniectomy and has a metal plate in the occipital area. Thus, unable to receive MRI. At the time of admission, his blood pressure was 225/153 but he was satting on 99% on room air. He was neurologically intact with strength 5 out of 5 both upper and lower extremities. Decision was made to not give TPA. He was admitted for hypertensive emergency. See history and physical examination for this admission for additional historical details including past, family, social history and review of systems at the time of admission. When seen this morning, patient is nonverbal, exhibiting some snoring behavior, and has left-sided upper and lower extremity flaccidity as well as facial drooping on the left and deviation of his tongue to the right. Patient is unable to verbalize any symptoms, unable to move his arm or leg on the left. Per report from the resident physicians, they were called to see this patient on more than one occasion overnight, and his symptoms at this time are completely different than they were at those encounters. He has been seen by neurology and the intensivists, but because of our observation of a change in status, we ordered a stroke alert. Objective Vitals Vital Signs Date Time Temp Pulse Resp B/P Pulse Ox O2 Delivery O2 Flow Rate FiO2 10/08/16 07:35 100 Nasal Cannula 2.00 10/08/16 07:00 100 Nasal Cannula 2.00 10/08/16 06:00 93 10/08/16 04:00 130 10/08/16 04:00 98.7 130 40 186/115 97 10/08/16 02:00 132 10/08/16 00:00 98.7 137 30 174/87 99 10/08/16 00:00 137 10/07/16 23:37 150 10/07/16 22:00 80 10/07/16 20:00 99.0 106 20 145/85 99 10/07/16 20:00 100 10/07/16 19:00 100 Room Air 10/07/16 18:18 96 17 148/88 100 10/07/16 17:30 98.0 94 17 139/80 100 Room Air 10/07/16 16:51 97.8 98 17 155/95 100 Room Air 10/07/16 16:35 97 17 161/93 100 Room Air 10/07/16 16:20 96 18 156/95 100 Room Air 10/07/16 16:05 99 18 160/104 100 Room Air 10/07/16 15:50 100 18 165/102 100 Room Air 10/07/16 15:42 98 18 197/136 100 Room Air 10/07/16 15:34 97 18 200/129 100 Room Air 10/07/16 15:24 94 18 214/131 99 Room Air 10/07/16 14:53 99 21 10/07/16 14:50 112 18 100 Room Air 10/07/16 14:47 18 99 Room Air 10/07/16 14:47 97.8 123 18 225/153 99 10/07/16 14:47 99 Room Air I/O 10/07/16 10/07/16 10/07/16 10/08/16 10/08/16 10/08/16 07:00 15:00 23:00 07:00 15:00 23:00 Intake Total 1494 ml 1152 ml Output Total 800 ml 800 ml Balance 694 ml 352 ml Intake Oral 720 ml 0 ml IV Total 774 ml 1152 ml Output Urine Total 800 ml 800 ml Stool Total 0 ml # Bowel Movements 0 Result Diagram: 10/08/16 1048 10/08/16 1048 Other Results Laboratory Tests Test 10/07/16 10/07/16 10/07/16 10/08/16 14:47 15:46 21:18 03:55 White Blood Count 8.1 TH/MM3 11.1 TH/MM3 Red Blood Count 5.70 MIL/MM3 5.32 MIL/MM3 Hemoglobin 14.1 GM/DL 12.6 GM/DL Bedside Hemoglobin 15.3 G/DL Hematocrit 42.4 % 39.5 % Bedside Hematocrit 45.0 % Mean Corpuscular Volume 74.4 FL 74.2 FL Mean Corpuscular Hemoglobin 24.7 PG 23.8 PG Mean Corpuscular Hemoglobin 33.2 % 32.0 % Concent Red Cell Distribution Width 15.0 % 14.5 % Platelet Count 206 TH/MM3 176 TH/MM3 Mean Platelet Volume 8.7 FL 8.0 FL Neutrophils (%) (Auto) 49.9 % 85.7 % Lymphocytes (%) (Auto) 44.5 % 8.8 % Monocytes (%) (Auto) 4.8 % 5.2 % Eosinophils (%) (Auto) 0.3 % 0.0 % Basophils (%) (Auto) 0.5 % 0.3 % Neutrophils # (Auto) 4.1 TH/MM3 9.5 TH/MM3 Lymphocytes # (Auto) 3.6 TH/MM3 1.0 TH/MM3 Monocytes # (Auto) 0.4 TH/MM3 0.6 TH/MM3 Eosinophils # (Auto) 0.0 TH/MM3 0.0 TH/MM3 Basophils # (Auto) 0.0 TH/MM3 0.0 TH/MM3 CBC Comment DIFF FINAL DIFF FINAL Differential Comment Prothrombin Time 11.3 SEC Prothromb Time International 1.0 RATIO Ratio Activated Partial 28.2 SEC Thromboplast Time Fibrinogen 439 mg/dL Bedside Sodium 142 MMOL/L Bedside Potassium 3.1 MMOL/L Bedside Chloride 107 MMOL/L Bedside Blood Urea Nitrogen 11 MG/DL Bedside Creatinine 1.1 MG/DL Bedside Glucose 120 MG/DL Total Creatine Kinase 94 U/L 110 U/L 180 U/L Troponin I LESS THAN 0.02 0.07 NG/ML 0.10 NG/ML NG/ML Triglycerides Level 209 MG/DL 57 MG/DL Cholesterol Level 144 MG/DL 124 MG/DL LDL Cholesterol 69 MG/DL 79 MG/DL HDL Cholesterol 33.2 MG/DL 33.2 MG/DL Cholesterol/HDL Ratio 4.33 RATIO 3.73 RATIO Blood Type O NEGATIVE Antibody Screen NEGATIVE Blood Bank Comment Hemoglobin A1c 5.4 % Urine Color COLORLESS Urine Turbidity CLEAR Urine pH 7.0 Urine Specific [place] 1.022 Urine Protein NEG mg/dL Urine Glucose (UA) NEG mg/dL Urine Ketones 10 mg/dL Urine Occult Blood NEG Urine Nitrite NEG Urine Bilirubin NEG Urine Urobilinogen LESS THAN 2.0 MG/DL Urine Leukocyte Esterase NEG Urine RBC 2 /hpf Urine WBC 1 /hpf Urine Squamous Epithelial <1 /hpf Cells Urine Opiates Screen NEG Urine Barbiturates Screen NEG Urine Amphetamines Screen NEG Urine Benzodiazepines Screen NEG Urine Cocaine Screen NEG Urine Cannabinoids Screen POS Sodium Level 140 MEQ/L Potassium Level 2.9 MEQ/L Chloride Level 107 MEQ/L Carbon Dioxide Level 20.3 MEQ/L Anion Gap 13 MEQ/L Blood Urea Nitrogen 9 MG/DL Creatinine 0.96 MG/DL Estimat Glomerular Filtration 94 ML/MIN Rate Random Glucose 156 MG/DL Calcium Level 8.5 MG/DL Phosphorus Level 1.6 MG/DL Test 10/08/16 10:48 White Blood Count 12.4 TH/MM3 Red Blood Count 5.35 MIL/MM3 Hemoglobin 12.9 GM/DL Hematocrit 39.7 % Mean Corpuscular Volume 74.1 FL Mean Corpuscular Hemoglobin 24.1 PG Mean Corpuscular Hemoglobin 32.5 % Concent Red Cell Distribution Width 14.6 % Platelet Count 180 TH/MM3 Mean Platelet Volume 8.2 FL Neutrophils (%) (Auto) 82.5 % Lymphocytes (%) (Auto) 11.8 % Monocytes (%) (Auto) 5.4 % Eosinophils (%) (Auto) 0.0 % Basophils (%) (Auto) 0.3 % Neutrophils # (Auto) 10.2 TH/MM3 Lymphocytes # (Auto) 1.5 TH/MM3 Monocytes # (Auto) 0.7 TH/MM3 Eosinophils # (Auto) 0.0 TH/MM3 Basophils # (Auto) 0.0 TH/MM3 CBC Comment DIFF FINAL Differential Comment Sodium Level 140 MEQ/L Potassium Level 3.4 MEQ/L Chloride Level 110 MEQ/L Carbon Dioxide Level 21.5 MEQ/L Anion Gap 9 MEQ/L Blood Urea Nitrogen 8 MG/DL Creatinine 0.85 MG/DL Estimat Glomerular Filtration 108 ML/MIN Rate Random Glucose 122 MG/DL Calcium Level 9.0 MG/DL Phosphorus Level 1.9 MG/DL Magnesium Level 2.0 MG/DL Troponin I 0.12 NG/ML Imaging Last Impressions Head CT 10/08/16 0000 Signed Impressions: Service Date/Time: Saturday, October 08, 2016 02:55 - CONCLUSION: Chronic changes without hemorrhage or mass effect. Jed Jacobson MD CT Angiography 10/08/16 0000 Signed Impressions: Service Date/Time: Saturday, October 08, 2016 03:02 - CONCLUSION: There is no evidence for PE for avni. Rubi. Dg Jacobson MD Neck CTA 10/07/16 1454 Signed Impressions: Service Date/Time: Friday, October 07, 2016 15:12 - CONCLUSION: Negative CTA of the carotids. Mio Coulter MD Head CTA 10/07/16 1454 Signed Impressions: Service Date/Time: Friday, October 07, 2016 15:12 - CONCLUSION: 1. No evidence of central truncation or aneurysm. 2. The largest intracranial metallic density , located near the left brain stem obscures a portion of the left posterior cerebral artery. The diameter of the left posterior cerebral artery distal to the metallic density is normal. Mio Coulter MD Chest X-Ray 10/07/16 0000 Signed Impressions: Service Date/Time: Friday, October 07, 2016 15:28 - CONCLUSION: 1. The lungs are clear. 2. Metallic densities in the low right neck and the upper left chest. Mio Coulter MD Objective Remarks O. CONSTITUTIONAL/GEN: normally nourished, in obvious distress, unable to communicate with us, snoring, writhing in the bed. Eyes: conjunctiva injected, rolling his eyes ENT: Flat nasolabial fold on the left, tongue deviated to the right NECK: Supple, no mass palpable LUNGS: clear A-P, respiratory effort is normal. CARDIOVASCULAR: RR without murmur or gallop. No significant edema. GI/ABD: Difficult exam, as patient is moving around in the bed. NEURO: Left upper and lower extremities flaccid, left side of his face is drooping, speech unintelligible SKIN: color normal, no rashes noted. HEME/LYMPH: no bruising, petechia or significant adenopathy MUSC: No evidence of atrophy PSYCH/MENTAL STATUS: Unable to communicate A/P Assessment and Plan Patient is a 71-year-old male with a past medical history of poorly managed hypertension, hepatitis C, depression, PTSD, memory loss, and BPH that presented to the [place] ED with slurry speech and left-sided hemiparesis. Differential diagnosis includes stroke/TIA, hypertensive emergency , seizure, arrhythmia. BP on admission was 225/153 which responded to nicardipine drip with complete resolution of symptoms thereafter. The patient will be admitted to the ICU and will be worked up for stroke during this admission. When seen this morning, symptoms of left-sided weakness, unable to communicate with us, deviation of his tongue to the right and left facial droop prompted us to call for stroke alert. Attending Attestation Patient seen and examined. Case reviewed and discussed with the resident team. Agree with plan of care as discussed with me and documented in the resident note. Patient was seen and examined with Drs. Pooja Kat, Stephani Palomo, Elan Monk and Odin Todd. Problem List: (1) Acute left hemiparesis Status: Acute Plan: Stroke alert was called this a.m. as this is new from overnight. Requested neurology to evaluate. Patient has been seen by coil inspector. (2) Hypertensive emergency Status: Acute Plan: * BP 225/153 on arrival to the ED, decreased to 155/95 at 1600 * Considering left-sided hemiparesis and slurred speech at presentation, will perform stroke workup * Neurology consulted, appreciate recommendations * Lipid profile pending * Hemoglobin A1C 5.4 * Echo pending * Initial troponin less than 0.02 * Initial EKG shows rate of 127, sinus rhythm with occasional premature ventricular contractions, no signs of ACS * Repeat Troponin, CPK, and EKG 2 at 2100 and 0300 * Stopped nicardipine this morning * Normal saline at 70 mLs per hour * Aspirin 81 mg by mouth daily * Tylenol 650 mg by mouth every 4 hours when necessary temperature greater than 101F, headache * Zofran 4 mg every 6 hours IV when necessary nausea vomiting * [place] when necessary for pain * Restoril 15 mg by mouth at bedtime when necessary insomnia (3) BPH (benign prostatic hyperplasia) Status: Acute Plan: * Patient reports history of urinary urgency and was incontinent of urine in the ED * Unsure of what medications he takes for BPH if any * Will consider Flomax during this hospitalization * Patient will benefit from urology consultation - family states that he may have a urologist at the [facility] but they are not sure (4) Chronic Medical Problems Status: Acute Plan: * Hypertension: No longer on on nicardipine drip. Will try to figure out what antihypertensive medication he is on at home * Hepatitis C: Will order hepatitis profile * PTSD/anxiety: Currently not on any medications. May start Ativan when necessary as needed (5) FEN/DVT PPX/GI PPX/Nursing Orders Status: Acute Plan: Fluids: NS @ 75 mls/hr IV Electrolytes: Will monitor and replace as needed Nutrition: Heart-healthy diet DVT Prophylaxis: Bilateral SCDs GI Prophylaxis: Not required -Vitals Q4h -Monitor I's and O's -Fall precautions -monitor and storage bin tender with telemetry with continuous vital signs -Activity bed rest Disposition: Possibly in the next 1-2 days, pending neurology assessment and recommendations Case management has been consulted to assist with disposition needs PT has been consulted to assist with mobility and disposition needs Nicole Ash MD Oct 08, 2016 12:19
--- NOTE | 2016-10-08 12:43 | HHI.PR ---
Review/Management Diagnosis Acute ischemic stroke Hypertensive urgency. TIA. History of craniotomy, status post traumatic brain injury. Plan Neuro checks q. 1 hourly. Allow permissive hypertension, treat BP > 220/[address] scan at 4:00 pm Swallow and speech eval Cardiac echo. Telemetry. DVT prophylaxis Heprain 5000 units Q 12h GI prophylaxis. I explained to family at length the current neurologic status, plan of care, they understand and agree to intubation if patient becomes hypoxic and irritable. Diagnosis/Plan: Subjective Subjective Comments Patient with left sided weakness, slurred speech, left facial droop, agitated A spike of BP overnight Family at bed side A follow up head CT scan at midnight with no evidence of an acute intracranial abnormality Active Medications Current Medications Medications (Trade) Dose Ordered Sig/Percy Route Start Time Stop Time Status Last Admin (NS 1000 ml Inj) 1,000 ml @ 75 mls/hr [id number] IV 10/07/16 17:00 10/08/16 06:44 (NS Flush) 2 ml UNSCH PRN IV FLUSH 10/07/16 16:45 (NS Flush) 2 ml BID IV FLUSH 10/07/16 21:00 10/08/16 09:15 (Folate) 1 mg DAILY PO 10/08/16 09:00 (Tylenol) 650 mg Q4H PRN PO 10/07/16 16:45 ([place] 5-325 Mg) 1 tab Q6HR PRN PO 10/07/16 16:45 ([place] 10-325 Mg) 1 tab Q6H PRN PO 10/07/16 16:45 (Zofran Inj) 4 mg Q6H PRN IVP 10/07/16 17:00 (Restoril) 15 mg HS PRN PO 10/07/16 17:00 10/07/16 20:22 (Gilda-Colace) 1 tab BID PO 10/07/16 21:00 10/07/16 20:22 (Milk Of Magnesia Liq) 30 ml Q12H PRN PO 10/07/16 17:00 (Senokot) 17.2 mg Q12H PRN PO 10/07/16 17:00 (Dulcolax Supp) 10 mg DAILY PRN RECTAL 10/07/16 17:00 (Lactulose Liq) 30 ml DAILY PRN PO 10/07/16 17:00 (Catapres) 0.1 mg Q6H PRN PO 10/08/16 00:30 Labetalol HCl 10 mg 10 mg Q20M PRN IV PUSH 10/08/16 01:00 10/08/16 02:00 Nicardipine HCl 25 mg/Sodium Chloride 260 ml @ 0 mls/hr TITRATE IV 10/08/16 03:00 10/08/16 05:37 (Precedex Inj/NS Inj) 52 ml @ 0 mls/hr TITRATE IV 10/08/16 05:30 10/08/16 05:37 (Romazicon Inj) 0.2 mg Q1M PRN IV PUSH 10/08/16 05:30 (Ativan) 1 mg Q4H PRN PO 10/08/16 05:30 (Ativan Inj) 1 mg Q4H PRN IV PUSH 10/08/16 05:30 (Ativan) 2 mg Q2H PRN PO 10/08/16 05:30 (Ativan Inj) 2 mg Q2H PRN IV PUSH 10/08/16 05:30 (Ativan Inj) 2 mg Q1H PRN IV PUSH 10/08/16 05:30 10/08/16 05:41 (Ativan Inj) 2 mg Q15M PRN IV PUSH 10/08/16 05:30 Paroxetine HCl 20 mg 20 mg DAILY NG 10/08/16 09:00 Potassium Chloride 100 ml @ 50 mls/hr Q2H PRN IV 10/08/16 06:45 (KCl 20 Meq Premix Inj) 100 ml @ 50 mls/hr Q2H PRN IV 10/08/16 06:45 10/08/16 11:12 Potassium Bicarb/ Potassium Chloride 50 meq 50 meq UNSCH PRN PO 10/08/16 06:45 Potassium Chloride 100 ml @ 25 mls/hr UNSCH PRN IV 10/08/16 06:45 Potassium Chloride 100 ml @ 50 mls/hr Q2H PRN IV 10/08/16 06:45 (Magnesium Sulfate Inj/NS Inj) 100 ml @ 50 mls/hr UNSCH PRN IV 10/08/16 06:45 Magnesium Oxide 800 mg 800 mg UNSCH PRN PO 10/08/16 06:45 (Magnesium Sulfate Inj/NS Inj) 100 ml @ 50 mls/hr UNSCH PRN IV 10/08/16 06:45 Potassium Phosphate 2000 mg 2,000 mg Q4H PRN PO 10/08/16 06:45 (Sodium Phosphate Inj/NS 250 ml Inj) 250 ml @ 42 mls/hr UNSCH PRN IV 10/08/16 06:45 Potassium Phosphate 2000 mg 2,000 mg UNSCH PRN PO/TUBE 10/08/16 06:45 (Potassium Phosphate Inj/NS 250 ml Inj) 260 ml @ 42 mls/hr UNSCH PRN IV 10/08/16 06:45 (Heparin Inj) 5,000 units BID SQ 10/08/16 13:00 Allergies Allergies Coded Allergies No Known Allergies (Unverified11/17/14) Exam I&O / VS 10/07/16 10/07/16 10/08/16 15:00 23:00 07:00 Intake Total 1494 ml 1152 ml Output Total 800 ml 800 ml Balance 694 ml 352 ml Intake Oral 720 ml 0 ml IV Total 774 ml 1152 ml Output Urine Total 800 ml 800 ml Stool Total 0 ml # Bowel Movements 0 Vital Signs Date Time Temp Pulse Resp B/P Pulse Ox O2 Delivery O2 Flow Rate FiO2 10/08/16 07:35 100 Nasal Cannula 2.00 10/08/16 07:00 100 Nasal Cannula 2.00 10/08/16 06:00 93 10/08/16 04:00 130 10/08/16 04:00 98.7 130 40 186/115 97 10/08/16 02:00 132 10/08/16 00:00 98.7 137 30 174/87 99 10/08/16 00:00 137 10/07/16 23:37 150 10/07/16 22:00 80 10/07/16 20:00 99.0 106 20 145/85 99 10/07/16 20:00 100 10/07/16 19:00 100 Room Air 10/07/16 18:18 96 17 148/88 100 10/07/16 17:30 98.0 94 17 139/80 100 Room Air 10/07/16 16:51 97.8 98 17 155/95 100 Room Air 10/07/16 16:35 97 17 161/93 100 Room Air 10/07/16 16:20 96 18 156/95 100 Room Air 10/07/16 16:05 99 18 160/104 100 Room Air 10/07/16 15:50 100 18 165/102 100 Room Air 10/07/16 15:42 98 18 197/136 100 Room Air 10/07/16 15:34 97 18 200/129 100 Room Air 10/07/16 15:24 94 18 214/131 99 Room Air 10/07/16 14:53 99 21 10/07/16 14:50 112 18 100 Room Air 10/07/16 14:47 18 99 Room Air 10/07/16 14:47 97.8 123 18 225/153 99 10/07/16 14:47 99 Room Air Exam Comments General: Awake, alert, poor historian.agitated at times HEENT: Atraumatic, normocephalic. Injected eyes, intact hearing. Intact vision. Neck: Supple. No signs of meningeal irritation. Cardiovascular: Regular rate and rhythm. Respiratory: Clear to auscultation. No wheezes. Gastrointestinal: Soft abdomen, nontender. Musculoskeletal: Moves all extremities, no edema. No clubbing. Neurological: Awake, alert, dysarthria, dysphagia, left facial weakness, left sided hemiparesis, right side is normal. Objective Radiology Results Last [address] 10/08/16 0000 Signed Impressions: Service Date/Time: Saturday, October 08, 2016 02:55 - CONCLUSION: Chronic changes without hemorrhage or mass effect. Jed Jacobson MD CT Angiography 10/08/16 0000 Signed Impressions: Service Date/Time: Saturday, October 08, 2016 03:02 - CONCLUSION: There is no evidence for PE for technique. Jed Jacobson MD Neck CTA 10/07/16 1454 Signed Impressions: Service Date/Time: Friday, October 07, 2016 15:12 - CONCLUSION: Negative CTA of the carotids. Mio Coulter MD Head CTA 10/07/16 1454 Signed Impressions: Service Date/Time: Friday, October 07, 2016 15:12 - CONCLUSION: 1. No evidence of central truncation or aneurysm. 2. The largest intracranial metallic density , located near the left brain stem obscures a portion of the left posterior cerebral artery. The diameter of the left posterior cerebral artery distal to the metallic density is normal. Mio Coulter MD Head CT 10/07/16 0000 Signed Impressions: Service Date/Time: Friday, October 07, 2016 14:59 - CONCLUSION: 1. No evidence of acute infarction. 2. 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 3. 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 Mio Coulter MD Chest X-Ray 10/07/16 0000 Signed Impressions: Service Date/Time: Friday, October 07, 2016 15:28 - CONCLUSION: 1. The lungs are clear. 2. Metallic densities in the low right neck and the upper left chest. Mio Coulter MD Micro and Labs Laboratory Tests Test 10/07/16 10/07/16 10/07/16 10/08/16 14:47 15:46 21:18 03:55 White Blood Count 8.1 11.1 Red Blood Count 5.70 5.32 Hemoglobin 14.1 12.6 Bedside Hemoglobin 15.3 Hematocrit 42.4 39.5 Bedside Hematocrit 45.0 Mean Corpuscular Volume 74.4 74.2 Mean Corpuscular Hemoglobin 24.7 23.8 Mean Corpuscular Hemoglobin 33.2 32.0 Concent Red Cell Distribution Width 15.0 14.5 Platelet Count 206 176 Mean Platelet Volume 8.7 8.0 Neutrophils (%) (Auto) 49.9 85.7 Lymphocytes (%) (Auto) 44.5 8.8 Monocytes (%) (Auto) 4.8 5.2 Eosinophils (%) (Auto) 0.3 0.0 Basophils (%) (Auto) 0.5 0.3 Neutrophils # (Auto) 4.1 9.5 Lymphocytes # (Auto) 3.6 1.0 Monocytes # (Auto) 0.4 0.6 Eosinophils # (Auto) 0.0 0.0 Basophils # (Auto) 0.0 0.0 CBC Comment DIFF FINAL DIFF FINAL Differential Comment Prothrombin Time 11.3 Prothromb Time International 1.0 Ratio Activated Partial 28.2 Thromboplast Time Fibrinogen 439 Bedside Sodium 142 Bedside Potassium 3.1 Bedside Chloride 107 Bedside Blood Urea Nitrogen 11 Bedside Creatinine 1.1 Bedside Glucose 120 Total Creatine Kinase 94 110 180 Troponin I LESS THAN 0.02 0.07 0.10 Triglycerides Level 209 57 Cholesterol Level 144 124 LDL Cholesterol 69 79 HDL Cholesterol 33.2 33.2 Cholesterol/HDL Ratio 4.33 3.73 Blood Type O NEGATIVE Antibody Screen NEGATIVE Blood Bank Comment Hemoglobin A1c 5.4 Urine Color COLORLESS Urine Turbidity CLEAR Urine pH 7.0 Urine Specific [place] 1.022 Urine Protein NEG Urine Glucose (UA) NEG Urine Ketones 10 Urine Occult Blood NEG Urine Nitrite NEG Urine Bilirubin NEG Urine Urobilinogen LESS THAN 2.0 Urine Leukocyte Esterase NEG Urine RBC 2 Urine WBC 1 Urine Squamous Epithelial <1 Cells Urine Opiates Screen NEG Urine Barbiturates Screen NEG Urine Amphetamines Screen NEG Urine Benzodiazepines Screen NEG Urine Cocaine Screen NEG Urine Cannabinoids Screen POS Sodium Level 140 Potassium Level 2.9 Chloride Level 107 Carbon Dioxide Level 20.3 Anion Gap 13 Blood Urea Nitrogen 9 Creatinine 0.96 Estimat Glomerular Filtration 94 Rate Random Glucose 156 Calcium Level 8.5 Phosphorus Level 1.6 Test 10/08/16 10:48 White Blood Count 12.4 Red Blood Count 5.35 Hemoglobin 12.9 Hematocrit 39.7 Mean Corpuscular Volume 74.1 Mean Corpuscular Hemoglobin 24.1 Mean Corpuscular Hemoglobin 32.5 Concent Red Cell Distribution Width 14.6 Platelet Count 180 Mean Platelet Volume 8.2 Neutrophils (%) (Auto) 82.5 Lymphocytes (%) (Auto) 11.8 Monocytes (%) (Auto) 5.4 Eosinophils (%) (Auto) 0.0 Basophils (%) (Auto) 0.3 Neutrophils # (Auto) 10.2 Lymphocytes # (Auto) 1.5 Monocytes # (Auto) 0.7 Eosinophils # (Auto) 0.0 Basophils # (Auto) 0.0 CBC Comment DIFF FINAL Differential Comment Sodium Level 140 Potassium Level 3.4 Chloride Level 110 Carbon Dioxide Level 21.5 Anion Gap 9 Blood Urea Nitrogen 8 Creatinine 0.85 Estimat Glomerular Filtration 108 Rate Random Glucose 122 Calcium Level 9.0 Phosphorus Level 1.9 Magnesium Level 2.0 Troponin I 0.12 Alla Ponce MD Oct 08, 2016 12:43 Alla Ponce MD Oct 08, 2016 12:43
[2016-10-08] MEDS: FAMOTIDINE 20 MG/2 ML VIAL IV PUSH SCH (14:27)
[2016-10-08] MEDS: HEPARIN SODIUM - SQ 10,000 UNITS/ML VIAL SQ SCH ×2 (14:28→21:20)
--- NOTE | 2016-10-08 14:49 | EKG ---
Date Performed: 10/07/2016 Time Performed: 23:46:42 PTAGE: 71 years EKG: Sinus tachycardia with PVC(s). Lead(s) unsuitable for analysis: V6 Compared to PREVIOUS TRACING , no significant change Normal ECG except for rate PREVIOUS TRACIN07/2016 14.51 DOCTOR: Dayo Ovalle Interpretating Date/Time 10/08/2016 14:48:20
--- NOTE | 2016-10-08 14:49 | EKG ---
Date Performed: 10/07/2016 Time Performed: 14:51:09 PTAGE: 71 years EKG: SINUS TACHYCARDIA WITH OCCASIONAL SUPRAVENTRICULAR PREMATURE COMPLEXES NONSPECIFIC ST & [address] ABNORMALITY Compared to previous tracing, HR is faster ABNORMAL RHYTHM ECG INTERPRETATION BASED O N A DEFAULT AGE OF 42 YEARS NO PREVIOUS TRACING DOCTOR: Dayo Ovalle Interpretating Date/Time 10/08/2016 14:47:56
--- NOTE | 2016-10-08 16:09 | EC ---
Study Study Date:10/08/2016 STUDY CONCLUSIONS SUMMARY - Left ventricle: The cavity size was normal. Wall thickness was normal. Systolic function was normal. The estimated ejection fraction was in the range of 50% to 55%. Wall motion was normal; there were no regional wall motion abnormalities. Doppler parameters are consistent with abnormal left ventricular relaxation (grade 1 diastolic dysfunction). - Left atrium: The atrium was mildly dilated. - Pulmonary arteries: PA peak pressure: 32mm Hg (S). If LV function is below 40, please consider prescribing an ACEI or ARB or document rationale for non-use. PROCEDURE DATA STUDY STATUS: Elective. Procedure: Transthoracic echocardiography. Image quality was good. Scanning was performed from the parasternal, apical, and subcostal acoustic windows. Study completion: The patient tolerated the procedure well. Transthoracic echocardiography. M-mode, complete 2D, complete spectral Doppler, and color Doppler. Patient status: Inpatient. CARDIAC ANATOMY LEFT VENTRICLE: The cavity size was normal. Wall thickness was normal. Systolic function was normal. The estimated ejection fraction was in the range of 50% to 55%. Wall motion was normal; there were no regional wall motion abnormalities. Doppler parameters are consistent with abnormal left ventricular relaxation (grade 1 diastolic dysfunction). AORTIC VALVE: Trileaflet; normal thickness leaflets. Doppler: Transvalvular velocity was within the normal range. There was no stenosis. No regurgitation. AORTA: Aortic root: The aortic root was normal in size. MITRAL VALVE: Mildly thickened leaflets, . Doppler: Transvalvular velocity was within the normal range. There was no evidence for stenosis. No regurgitation. LEFT ATRIUM: The atrium was mildly dilated. RIGHT VENTRICLE: The cavity size was normal. Wall thickness was normal. PULMONIC VALVE: Doppler: Transvalvular velocity was within the normal range. There was no evidence for stenosis. No regurgitation. TRICUSPID VALVE: Structurally normal valve. Doppler: Transvalvular velocity was within the normal range. Trace regurgitation. PULMONARY ARTERY: The main pulmonary artery was normal-sized. Systolic pressure was within the normal range. RIGHT ATRIUM: The atrium was normal in size. PERICARDIUM: There was no pericardial effusion. SYSTEMIC VEINS: Inferior vena cava: The vessel was normal in size. BASIC MEASUREMENTS ADULT NORMAL Left ventricle LV internal dimension, ED, chordal level, 45.5 mm 43-52 PLAX LV internal dimension, ES, chordal level, 36 mm 23-38 PLAX Fractional shortening, chordal level, PLAX *21 % >29 LV posterior wall thickness, ED 12.3 mm IVS/LVPW ratio, ED 0.78 <1.3 Ventricular septum Septal thickness, ED 9.59 mm Aortic valve Leaflet separation 19 mm 15-26 Right ventricle RV internal dimension, ED, PLAX 22.3 mm 19-38 BASIC MEASUREMENTS ADULT NORMAL Aortic valve Leaflet separation 19 mm 15-26 Aorta Root diameter, ED 30 mm 20-37 Left atrium Anterior-posterior dimension, ES *44 mm 19-40 LA/aortic root ratio 1.47 DOPPLER MEASUREMENTS ADULT NORMAL Main pulmonary artery Pressure, S *32 mm Hg =30 Tricuspid valve Regurgitant peak velocity 232 cm/s Peak RV-RA gradient, S 22 mm Hg Maximal regurgitant velocity 232 cm/s Systemic veins Estimated CVP 10 mm Hg Right ventricle RV pressure, S *32 mm Hg <30 LEGEND: Mean values are shown as u=mean value. Asterisk (*) moulton values outside specified normal range. Prepared and signed by Elan Fuentes [id number]
--- NOTE | 2016-10-08 16:31 | RADRPT ---
EXAM DATE/TIME: 10/08/2016 16:10 [facility] COMPARISON: CT BRAIN W/O CONTRAST, October 08, 2016, 2:55. INDICATIONS : Post stroke alert; 24 hours. RADIATION DOSE: 56.35 CTDIvol (mGy) MEDICAL HISTORY : Stroke. Hypertension. SURGICAL HISTORY : None. ENCOUNTER: Initial ACUITY: 1 day PAIN SCALE: Non-responsive LOCATION: cranial TECHNIQUE: Multiple contiguous axial images were obtained of the head. Using automated exposure control and adj ustment of the mA and/or kV according to patient size, radiation dose was kept as low as reasonably a chievable to obtain optimal diagnostic quality images. FINDINGS: CEREBRUM: Common areas of low-attenuation are again seen throughout the white matter. Encephalomalacia in the r ight occipital lobe. The ventricles are normal for age. No evidence of midline shift, mass lesion, h emorrhage or acute infarction. No extra-axial fluid collections are seen. POSTERIOR FOSSA: The cerebellum and brainstem are intact. The 4th ventricle is midline. The cerebellopontine angle i s unremarkable. EXTRACRANIAL: The visualized portion of the orbits is intact. SKULL: Right-sided craniotomy posteriorly in the occipital/parietal calvarium. Metallic densities again seen adjacent to the brainstem at the skull base. CONCLUSION: 1. Prominent nonspecific white matter changes. 2. Old area of encephalomalacia in the occipital/parietal lobe. 3. No hemorrhage. Morales Pendleton MD on October 08, 2016 at 16:27 Board Certified Radiologist. This report was verified electronically.
[2016-10-09] VITALS (14 sets, daily range): BP systolic 129–199; BP diastolic 95–126; PULSE 68–126; RESP 15–28; TEMP 97.6–99.6; O2SAT 98–100
[2016-10-09] MEDS: FAMOTIDINE 20 MG/2 ML VIAL IV PUSH SCH ×2 (01:01→12:12)
[2016-10-09] MEDS: LABETALOL HCL 100 MG/20 ML VIAL IV PUSH PRN (01:51)
[2016-10-09] MEDS: DEXMEDETOMIDINE INJ 200 MCG in SODIUM CHLORIDE 0.9% INJ 50 ML IV SCH ×2 (01:51→12:16)
[2016-10-09] MEDS: POTASSIUM PHOSPHATE INJ 30 MMOL in SODIUM CHLOR 0.9% 250 ML INJ 250 ML IV PRN (03:44)
[2016-10-09 04:04] LABS: HEMATOCRIT 39.5 % (39.0-51.0); MEAN CELL VOLUME 73.2 FL (80.0-100.0); MEAN CORPUSCULAR HEMOGLOBIN 24.7 PG (27.0-34.0); MEAN CORPUSCULAR HGB CONC 33.8 % (32.0-36.0); PLATELET COUNT 194 TH/MM3 (150-450); REVIEW FLAG FINAL; WHITE BLOOD COUNT 7.6 TH/MM3 (4.0-11.0)
[2016-10-09 04:20] LABS: BICARBONATE 21.6 MEQ/L (21.0-32.0); MAGNESIUM 2.1 MG/DL (1.5-2.5); POTASSIUM 3.7 MEQ/L (3.5-5.1)
[2016-10-09] MEDS: DOCUSATE SODIUM 50 MG/SENNA 8.6 MG TAB PO SCH ×2 (09:00→22:28)
[2016-10-09] MEDS: SODIUM CHLOR 0.9% 1000 ML INJ 1,000 ML IV SCH ×2 (09:00→22:57)
[2016-10-09] MEDS: PARoxetine HCL SUSP 20 MG/10 ML UDC NG SCH (09:00)
[2016-10-09] MEDS: FOLIC ACID 1 MG TAB PO SCH (09:00)
[2016-10-09] MEDS: SODIUM CHLORIDE 0.9% FLUSH 10 ML FLUSH IV FLUSH SCH ×2 (09:00→22:28)
--- NOTE | 2016-10-09 10:12 | HHI.CCPN ---
Subjective Remarks/Hospital Course 71-year-old male with a poorly managed hypertension, hepatitis C, depression, PTSD, memory loss, and BPH that presents as a stroke alert. He was sitting out on his back porch with a friend, who noticed that something was not quite right with him. The friend called out to the patient's and she saw that he was trying to get up from the chair but was unable to do so, his speech was slurred and the left side of his body appeared weak. He was recently diagnosed with hypertension at the [facility] about 2-3 weeks ago. He was started on antihypertensive medication which she thinks is lisinopril. 10/08: Flaccid left arm, weak left leg, left facial droop. Out of window for tPA and BP not easily controlled last night apparently. Subjective 10/09: Transmitted upper airway sounds noted. He is suctioning himself using [place] with right hand. Continues flaccid left upper extremity, weak left lower extremity and left facial droop. Objective Vital Signs Date Time Temp Pulse Resp B/P Pulse Ox O2 Delivery O2 Flow Rate FiO2 10/09/16 09:00 98 21 10/09/16 06:00 79 10/09/16 04:00 97.6 22 199/126 10/08/16 19:00 Room Air 10/08/16 07:35 2.00 Intake and Output 10/08/16 10/08/16 10/09/16 08:00 16:00 00:00 Intake Total 1152 ml 948 ml 650 ml Output Total 800 ml 1275 ml 1100 ml Balance 352 ml -327 ml -450 ml Result Diagram: 10/09/16 0349 10/09/16 0349 Imaging Last Impressions Head CT 10/08/16 1600 Signed Impressions: Service Date/Time: Saturday, October 08, 2016 16:10 - CONCLUSION: 1. Prominent nonspecific white matter changes. 2. Old area of encephalomalacia in the occipital/parietal lobe. 3. No hemorrhage. Morales Pendleton MD CT Angiography 10/08/16 0000 Signed Impressions: Service Date/Time: Saturday, October 08, 2016 03:02 - CONCLUSION: There is no evidence for PE for technique. K. Dg Jacobosn MD Neck CTA 10/07/16 1454 Signed Impressions: Service Date/Time: Friday, October 07, 2016 15:12 - CONCLUSION: Negative CTA of the carotids. Mio Coulter MD Head CTA 10/07/16 1454 Signed Impressions: Service Date/Time: Friday, October 07, 2016 15:12 - CONCLUSION: 1. No evidence of central truncation or aneurysm. 2. The largest intracranial metallic density , located near the left brain stem obscures a portion of the left posterior cerebral artery. The diameter of the left posterior cerebral artery distal to the metallic density is normal. Mio Coulter MD Chest X-Ray 10/07/16 0000 Signed Impressions: Service Date/Time: Friday, October 07, 2016 15:28 - CONCLUSION: 1. The lungs are clear. 2. Metallic densities in the low right neck and the upper left chest. Mio Coulter MD Objective Remarks GENERAL: 71-year-old male, critically ill currently resting in bed SKIN: Warm and dry. HEAD: Normocephalic. EYES: Pupils are equally reactive 3 mm bilaterally. Right deviation of right eye No scleral icterus. No injection or drainage. NECK: Supple, trachea midline. Airway open but some secretions. CARDIOVASCULAR: Regular rate and rhythm without murmurs, gallops, or rubs. RESPIRATORY: Breath sounds equal bilaterally. Transmitted upper airway sounds. Few scattered rhonchi. GASTROINTESTINAL: Abdomen soft, non-tender, nondistended. MUSCULOSKELETAL: No significant peripheral edema. BACK: Nontender without obvious deformity. No CVA tenderness. EXTREMITIES: No clubbing cyanosis or edema, left upper extremity weakness, NEURO: Flaccid left arm, weak left leg, left facial droop. Vision field cut left-sided. Speech slurred. Follows commands. Toes down right, up left. DTRs patellar 3+ deepa. No clonus. 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 No acute intra-abnormality CTA head and neck 10/07 revealed no focal stenosis or aneurysms Followed by Dr. Ponce/neurology On Paxil 20 mg by mouth daily for anxiety Currently on Precedex 0.2 g [place] for pain management CV: Hypertensive urgency History dyslipidemia Likely chronic diastolic heart failure Elevated troponin 0.12 Currently on Cardene drip at 5 milligrams an hour to keep systolic blood pressure less than 180 Current systolic goal around 160-180 With CVA gentle decrease in blood pressure. 2-D echocardiogram revealed EF 50-55%. Grade 1 diastolic dysfunction. Left atrium mildly dilated. DAYAN 32 mmHg Elevated troponin likely straindemand ischemia secondary to hypertension. No indication for intervention at this time Resp: Nasal cannula to maintain saturations currently 92% Incentive or on entry while awake Strict aspiration precautions GI: Hepatitis C Gastroesophageal reflux disease Ask RN to place Dobbhoff tube to initiate tube feedings Pepcid for GI prophylaxis Gilda-Colace for bowel regimen : BPH Vann if indicated for accurate I's and O's in a critically ill patient Endo: Sliding-scale insulin if indicated to maintain euglycemia Renal: Monitor urine output Accurate I's and O's Heme: CBC within normal limits ID: Monitor for infection MSK: PT/OT evaluate and treat FEN: Hypophosphatemia 15 mmol sodium phosphorus IV 1 now. 25 mEq KCl by tube once now. Recheck in a.m. Access - Utilize peripheral IV. Central line if indicated Prophylaxis - GI - Protonix - DVT - SCD/heparin subcutaneous Critical Care: The total critical care time was 35 minutes. Time to perform other separately billable procedures was not included in the critical care time. Addendum D/W Dr. Ponce. We'll start on low-dose beta mariposa and CON inhibitor as time for permissive hypertension has past. Rickey Barraza MD Oct 09, 2016 10:12 - Paroxetine PTSD - Start Paxil BPH - Flomax Hepatitis C - Chronic - No acute issues - Supportive care DVT GI prophylaxis - Teds SCDs - Pepcid - Subcutaneous heparin Overall impression: Right handed man with probable CVA affecting left side motor function and speech. Plate in head from [place] prevents MRI. Head CT and CTA negative. Rickey Barraza MD Oct 09, 2016 10:12
[2016-10-09] MEDS ORDERED: POTASSIUM CHLORIDE 25 MEQ EFFERVESCENT TAB PO ONE (11:00)
[2016-10-09] MEDS ORDERED: SODIUM PHOSPHATE INJ 15 MMOL in SODIUM CHLORIDE 0.9% INJ 150 ML IV ONE (12:00)
[2016-10-09] MEDS: niCARdipine 25 MG/NS 250 ML Vial2Bag or IV room IV SCH ×2 (12:10)
[2016-10-09] MEDS: HEPARIN SODIUM - SQ 10,000 UNITS/ML VIAL SQ SCH ×2 (12:13→22:27)
--- NOTE | 2016-10-09 12:35 | RADRPT ---
EXAM DATE/TIME: 10/09/2016 10:07 [facility] COMPARISON: No previous studies available for comparison. INDICATIONS : Confirm nasogastric tube placement. MEDICAL HISTORY : Hepatitis C. Hypertension Cardiovascular disease. SURGICAL HISTORY : None. ENCOUNTER: Initial ACUITY: 2 days PAIN SCORE: Non-responsive. LOCATION: Bilateral abdomen FINDINGS: Single AP view of the abdomen. Feeding tube is in place with the tip in the mid stomach. CONCLUSION: Feeding tube tip in the mid stomach. Allen Hubbard MD on October 09, 2016 at 12:32 Board Certified Radiologist. This report was verified electronically.
[2016-10-09] MEDS: ASPIRIN 81 MG CHEW TAB CHEW SCH (15:00)
--- NOTE | 2016-10-09 16:02 | HHI.FPPN ---
Subjective Remarks Lying in bed, no distress. Tracking with his eyes. by bedside, reports continued left sided weakness. Had some miniscule movement of left lower extremity last night. Also attempting to talk, but not very successful. Attempted to say his 's name. Not swallowing well with plan for Dobbhoff tube placement today. (Javier Canseco MD R2) Objective Vitals Vital Signs Date Time Temp Pulse Resp B/P Pulse Ox O2 Delivery O2 Flow Rate FiO2 10/09/16 09:00 98 21 10/09/16 06:00 79 10/09/16 04:00 97.6 93 22 199/126 100 10/09/16 04:00 93 10/09/16 02:00 93 10/09/16 00:00 68 10/09/16 00:00 97.9 68 15 129/100 100 10/08/16 22:00 69 10/08/16 20:14 100 10/08/16 20:00 97.6 78 17 130/105 100 10/08/16 20:00 77 10/08/16 19:00 100 Room Air 10/08/16 18:00 80 10/08/16 16:00 82 10/08/16 16:00 97.8 84 20 156/102 100 I/O 10/08/16 10/08/16 10/08/16 10/09/16 10/09/16 10/09/16 07:00 15:00 23:00 07:00 15:00 23:00 Intake Total 1152 ml 948 ml 650 ml 871 ml Output Total 800 ml 1275 ml 1100 ml 1300 ml Balance 352 ml -327 ml -450 ml -429 ml Intake Oral 0 ml 0 ml 0 ml IV Total 1152 ml 948 ml 650 ml 871 ml Output Urine Total 800 ml 1275 ml 1100 ml 1300 ml Stool Total 0 ml # Bowel Movements 0 0 (Javier Canseco MD R2) Result Diagram: 10/09/16 03410/[id number]/16348 Objective Remarks GENERAL: Lying in bed, tracking with eyes to some degree, not verbalizing, does follow commands SKIN: Warm and dry. No rashes. EYES: No scleral icterus. No injection or drainage. PERRLA. EOMI. HENT: Atraumatic. Moist mucous membranes. NECK: No visible JVD or lymphadenopathy. CARDIOVASCULAR: Tachycardic without murmurs rubs or gallops RESPIRATORY: Clear to auscultation bilaterally. Transmitted upper airway sounds. GASTROINTESTINAL: Abdomen nondistended. MUSCULOSKELETAL: Left facial droop. Left arm and left leg weakness BACK: Without obvious deformity. NEURO/PSYCH: Afocal. Awake, alert, and oriented x3. PERRLA. Tracking with eyes. Slurred speech, not verbalizing much. Left side remains weak. Left facial droop persistent. Following simple commands. (Javier Canseco MD R2) A/P Assessment and Plan 71-year-old male with a past medical history of poorly managed hypertension, hepatitis C, depression, PTSD, memory loss, and BPH that presented to the [facility] ED with slurred speech and left-sided hemiparesis. Differential diagnosis includes stroke/TIA, hypertensive emergency, seizure, arrhythmia. BP on admission was 225/153 which responded to nicardipine drip with complete resolution of symptoms thereafter. The patient was be admitted to the ICU for continuation of the nicardipine drip and stroke work up. Overnight, the patient's blood pressure worsened and he complained of shortness of breath. The residents consulted the neurologist who recommended holding Nicardipine drip and providing the patient with labetalol 10 mg IV. The logging engineer was also consulted at that time. Discussed with Dr. Todd, Dr. Ash Discharge Planning Pending clinical improvement and neurology recommendations, will likely require intensive rehab. (Javier Canseco MD R2) Attending Attestation Patient seen and examined. Case reviewed and discussed with the resident team. Agree with plan of care as discussed with me and documented in the resident note. (Nicole Ash MD) Problem List: (1) Acute ischemic stroke Status: Acute Plan: Evidence of left facial droop and left hemiparesis on exam. CT head 2 negative for acute bleed. CTA carotids within normal limits. Unable to perform MRI due to metallic plate in cranium. ECHO with grade 1 diastolic dysfunction. Lipid profile only significant for 33.2 HDL, triglycerides, cholesterol, and LDL cholesterol WNL. A1C 5.4. - Neurology consulted - Critical care consulted - Regular neuro checks - Cardiac telemetry - Aspirin 81 mg by mouth daily - BP goal of systolic 160-180, currently on Cardene drip. Avoid aggressive blood pressure control due to ischemia. (2) Altered mental status Status: Acute Plan: * Most likely related to acute stroke and uncontrolled blood pressure * CIWA protocol * Precedex for agitation (3) Chronic Medical Problems Status: Acute Plan: * Hypertension: Will try to figure out what antihypertensive medication he is on at home * Hepatitis C: Hepatitis profile pending, supportive care as needed * PTSD/anxiety: Paroxetine 20mg NG daily when tolerating by mouth (4) FEN/DVT PPX/GI PPX/Nursing Orders Status: Acute Plan: Fluids: NS @ 75 mls/hr IV Electrolytes: Will monitor and replace as needed. On ICU electrolyte replacement protocol Nutrition: Dobhoff tube due to aspiration risk DVT Prophylaxis: Bilateral SCDs GI Prophylaxis: Famotidine 20 mg IV twice a day Case management has been consulted to assist with disposition needs PT has been consulted to assist with mobility and disposition needs (Javier Canseco MD R2) Javier Canseco MD R2 Oct 09, 2016 16:02 Nicole Ash MD Oct 09, 2016 16:18
--- NOTE | 2016-10-09 17:21 | HHI.PR ---
Review/Management Diagnosis Acute ischemic stroke Hypertensive urgency. TIA. History of craniotomy, status post traumatic brain injury. Plan Neuro checks q. 1 hourly. Treat BP, completed the period of permissive hypertension B mariposa and Lisinopril Consult cardiology, family very adamant about it Swallow and speech eval DVT prophylaxis Heprain 5000 units Q 12h GI prophylaxis. I explained to family at length the current neurologic status, plan of care, they understand and agree Diagnosis/Plan: Subjective Subjective Comments Patient failed swallow test Dobhoff tube in place Calm, reportedly slept well at night Communicates with family in writing PT/OT, was cooperative Bouts of tachycardia Cardiac ECHO EF 50% Active Medications Current Medications Medications (Trade) Dose Ordered Sig/Percy Route Start Time Stop Time Status Last Admin (NS 1000 ml Inj) 1,000 ml @ 75 mls/hr [id number] IV 10/07/16 17:00 10/09/16 09:00 (NS Flush) 2 ml UNSCH PRN IV FLUSH 10/07/16 16:45 (NS Flush) 2 ml BID IV FLUSH 10/07/16 21:00 10/09/16 09:00 (Folate) 1 mg DAILY PO 10/08/16 09:00 (Tylenol) 650 mg Q4H PRN PO 10/07/16 16:45 ([place] 5-325 Mg) 1 tab Q6HR PRN PO 10/07/16 16:45 ([place] 10-325 Mg) 1 tab Q6H PRN PO 10/07/16 16:45 (Zofran Inj) 4 mg Q6H PRN IVP 10/07/16 17:00 (Restoril) 15 mg HS PRN PO 10/07/16 17:00 10/07/16 20:22 (Gilda-Colace) 1 tab BID PO 10/07/16 21:00 10/07/16 20:22 (Milk Of Magnesia Liq) 30 ml Q12H PRN PO 10/07/16 17:00 (Senokot) 17.2 mg Q12H PRN PO 10/07/16 17:00 (Dulcolax Supp) 10 mg DAILY PRN RECTAL 10/07/16 17:00 (Lactulose Liq) 30 ml DAILY PRN PO 10/07/16 17:00 Clonidine 0.1 mg 0.1 mg Q6H PRN PO 10/08/16 00:30 (Precedex Inj/NS Inj) 52 ml @ 0 mls/hr TITRATE IV 10/08/16 05:30 10/09/16 12:16 Paroxetine HCl 20 mg 20 mg DAILY NG 10/08/16 09:00 Potassium Chloride 100 ml @ 50 mls/hr Q2H PRN IV 10/08/16 06:45 (KCl 20 Meq Premix Inj) 100 ml @ 50 mls/hr Q2H PRN IV 10/08/16 06:45 10/08/16 12:46 Potassium Bicarb/ Potassium Chloride 50 meq 50 meq UNSCH PRN PO 10/08/16 06:45 Potassium Chloride 100 ml @ 25 mls/hr UNSCH PRN IV 10/08/16 06:45 Potassium Chloride 100 ml @ 50 mls/hr Q2H PRN IV 10/08/16 06:45 (Magnesium Sulfate Inj/NS Inj) 100 ml @ 50 mls/hr UNSCH PRN IV 10/08/16 06:45 Magnesium Oxide 800 mg 800 mg UNSCH PRN PO 10/08/16 06:45 (Magnesium Sulfate Inj/NS Inj) 100 ml @ 50 mls/hr UNSCH PRN IV 10/08/16 06:45 Potassium Phosphate 2000 mg 2,000 mg Q4H PRN PO 10/08/16 06:45 (Sodium Phosphate Inj/NS 250 ml Inj) 250 ml @ 42 mls/hr UNSCH PRN IV 10/08/16 06:45 Potassium Phosphate 2000 mg 2,000 mg UNSCH PRN PO/TUBE 10/08/16 06:45 (Potassium Phosphate Inj/NS 250 ml Inj) 260 ml @ 42 mls/hr UNSCH PRN IV 10/08/16 06:45 10/09/16 03:44 (Heparin Inj) 5,000 units BID SQ 10/08/16 13:00 10/09/16 12:13 (Pepcid Inj) 20 mg Q12H IV PUSH 10/08/16 13:00 10/09/16 12:12 (Trandate Inj) 10 mg Q1HR PRN IV PUSH 10/09/16 11:00 Hydralazine HCl 10 mg 10 mg Q1HR PRN IV PUSH 10/09/16 10:30 (Cardene Inj/NS 250 ml Inj) 260 ml @ 0 mls/hr TITRATE IV 10/09/16 13:30 (Aspirin Chew) 81 mg DAILY CHEW 10/09/16 15:00 (Lipitor) 10 mg HS PO 10/09/16 21:00 Allergies Allergies Coded Allergies No Known Allergies (Unverified11/17/14) Exam I&O / VS 10/08/16 10/08/16 10/09/16 15:00 23:00 07:00 Intake Total 948 ml 650 ml 871 ml Output Total 1275 ml 1100 ml 1300 ml Balance -327 ml -450 ml -429 ml Intake Oral 0 ml 0 ml IV Total 948 ml 650 ml 871 ml Output Urine Total 1275 ml 1100 ml 1300 ml # Bowel Movements 0 0 Vital Signs Date Time Temp Pulse Resp B/P Pulse Ox O2 Delivery O2 Flow Rate FiO2 10/09/16 16:00 116 10/09/16 14:00 112 10/09/16 12:00 116 10/09/16 10:00 118 10/09/16 09:00 98 21 10/09/16 08:00 104 10/09/16 07:00 100 Room Air 10/09/16 06:00 79 10/09/16 04:00 97.6 93 22 199/126 100 10/09/16 04:00 93 10/09/16 02:00 93 10/09/16 00:00 68 10/09/16 00:00 97.9 68 15 129/100 100 10/08/16 22:00 69 10/08/16 20:14 100 10/08/16 20:00 97.6 78 17 130/105 100 10/08/16 20:00 77 10/08/16 19:00 100 Room Air 10/08/16 18:00 80 Exam Comments General: Awake, alert, poor historian.calm, Dobhoff tube in place HEENT: Atraumatic, normocephalic. Injected eyes, intact hearing. Intact vision. Neck: Supple. No signs of meningeal irritation. Cardiovascular: Regular rate and rhythm, tachycardia. Respiratory: Clear to auscultation. No wheezes. Gastrointestinal: Soft abdomen, nontender. Musculoskeletal: Moves all extremities, no edema. No clubbing. Neurological: Awake, alert, dysarthria, dysphagia, left facial weakness, left sided hemiparesis, right side is normal. Objective Radiology Results Last 72 hours Impressions Abdomen X-Ray 10/09/16 0000 Signed Impressions: Service Date/Time: Sunday, October 09, 2016 10:07 - CONCLUSION: Feeding tube tip in the mid stomach. Allen Hubbard MD Head CT 10/08/16 1600 Signed Impressions: Service Date/Time: Saturday, October 08, 2016 16:10 - CONCLUSION: 1. Prominent nonspecific white matter changes. 2. Old area of encephalomalacia in the occipital/parietal lobe. 3. No hemorrhage. Morales Pendleton MD Head CT 10/08/16 0000 Signed Impressions: Service Date/Time: Saturday, October 08, 2016 02:55 - CONCLUSION: Chronic changes without hemorrhage or mass effect. Jed Jacobson MD CT Angiography 10/08/16 0000 Signed Impressions: Service Date/Time: Saturday, October 08, 2016 03:02 - CONCLUSION: There is no evidence for PE for technique. Jed Jacobson MD Neck CTA 10/07/16 1454 Signed Impressions: Service Date/Time: Friday, October 07, 2016 15:12 - CONCLUSION: Negative CTA of the carotids. Mio Coulter MD Head CTA 10/07/16 1454 Signed Impressions: Service Date/Time: Friday, October 07, 2016 15:12 - CONCLUSION: 1. No evidence of central truncation or aneurysm. 2. The largest intracranial metallic density , located near the left brain stem obscures a portion of the left posterior cerebral artery. The diameter of the left posterior cerebral artery distal to the metallic density is normal. Mio Coulter MD Head CT 10/07/16 0000 Signed Impressions: Service Date/Time: Friday, October 07, 2016 14:59 - CONCLUSION: 1. No evidence of acute infarction. 2. 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 3. 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 Mio Coulter MD Chest X-Ray 10/07/16 0000 Signed Impressions: Service Date/Time: Friday, October 07, 2016 15:28 - CONCLUSION: 1. The lungs are clear. 2. Metallic densities in the low right neck and the upper left chest. Mio Coulter MD Micro and Labs Laboratory Tests Test 10/08/16 10/08/16 10/09/16 21:18 21:22 03:49 Potassium Level 3.9 3.7 Lab Scanned Report Lab Reports - Other White Blood Count 7.6 Red Blood Count 5.40 Hemoglobin 13.4 Hematocrit 39.5 Mean Corpuscular Volume 73.2 Mean Corpuscular Hemoglobin 24.7 Mean Corpuscular Hemoglobin 33.8 Concent Red Cell Distribution Width 15.0 Platelet Count 194 Mean Platelet Volume 8.5 Sodium Level 143 Chloride Level 113 Carbon Dioxide Level 21.6 Anion Gap 8 Blood Urea Nitrogen 8 Creatinine 0.89 Estimat Glomerular Filtration 103 Rate Random Glucose 99 Calcium Level 9.1 Phosphorus Level 2.4 Magnesium Level 2.1 Alla Ponce MD Oct 09, 2016 17:21
[2016-10-09] MEDS: LISINOPRIL 5 MG TAB PO SCH (17:30)
[2016-10-09] MEDS: niCARdipine INJ 25 MG in SODIUM CHLOR 0.9% 250 ML INJ 250 ML IV SCH (17:35)
--- NOTE | 2016-10-09 17:37 | RADRPT ---
EXAM DATE/TIME: 10/09/2016 16:54 [facility] COMPARISON: ABDOMEN SINGLE VIEW, October 09, 2016, 10:07. INDICATIONS : Evaluate nasogastric tube placement MEDICAL HISTORY : Hepatitis C. Hypertension Cardiovascular disease. SURGICAL HISTORY : None. ENCOUNTER: Initial ACUITY: 2 days PAIN SCORE: Non-responsive. LOCATION: Bilateral Abdomen FINDINGS: The examination demonstrates a weighted feeding tube within the abdomen. The distal tip of the tube i s in the distal antrum. The bowel gas pattern is within normal limits There degenerative changes within the spine. CONCLUSION: 1. The tip of the feeding tube is in the distal antrum. Reggie Conner MD on October 09, 2016 at 17:34 Board Certified Radiologist. This report was verified electronically.
[2016-10-09] MEDS ORDERED: PILL SPLITTER OTHER PRN (18:00)
[2016-10-09] MEDS: METOPROLOL TARTRATE 5 MG/5 ML VIAL IV PUSH SCH (18:00)
[2016-10-09] MEDS ORDERED: ATORVASTATIN 10 MG TAB PO SCH (21:00)
[2016-10-10] VITALS (14 sets, daily range): BP systolic 133–181; BP diastolic 87–115; PULSE 64–92; RESP 16–24; TEMP 98.4–99.4; O2SAT 98–100
[2016-10-10] MEDS: METOPROLOL TARTRATE 5 MG/5 ML VIAL IV PUSH SCH ×4 (01:29→17:26)
[2016-10-10] MEDS: FAMOTIDINE 20 MG/2 ML VIAL IV PUSH SCH ×2 (01:29→13:48)
[2016-10-10] MEDS: DEXMEDETOMIDINE INJ 200 MCG in SODIUM CHLORIDE 0.9% INJ 50 ML IV SCH ×3 (01:57→20:24)
[2016-10-10 04:35] LABS: HEMATOCRIT 38.5 % (39.0-51.0); MEAN CELL VOLUME 73.5 FL (80.0-100.0); MEAN CORPUSCULAR HEMOGLOBIN 24.4 PG (27.0-34.0); MEAN CORPUSCULAR HGB CONC 33.3 % (32.0-36.0); PLATELET COUNT 188 TH/MM3 (150-450); RED BLOOD COUNT 5.24 MIL/MM3 (4.50-5.90); RED CELL DISTRIBUTION WIDTH 14.7 % (11.6-17.2); REVIEW FLAG FINAL; WHITE BLOOD COUNT 8.8 TH/MM3 (4.0-11.0)
[2016-10-10 04:59] LABS: BICARBONATE 21.6 MEQ/L (21.0-32.0); MAGNESIUM 2.2 MG/DL (1.5-2.5); POTASSIUM 3.7 MEQ/L (3.5-5.1)
[2016-10-10 05:01] LABS: INDIRECT BILIRUBIN 0.6 MG/DL (0.0-0.8); TOTAL BILIRUBIN ADULT 0.8 MG/DL (0.2-1.0)
--- NOTE | 2016-10-10 06:23 | RADRPT ---
EXAM DATE/TIME: 10/10/2016 04:51 [facility] COMPARISON: CHEST SINGLE AP, October 07, 2016, 15:28. INDICATIONS : Shortness of breath. MEDICAL HISTORY : Hepatitis C. Hypertension. Cardiovascular disease. SURGICAL HISTORY : None. ENCOUNTER: Subsequent ACUITY: 4 - 6 days PAIN SCORE: Non-responsive. LOCATION: Bilateral chest FINDINGS: A single view of the chest demonstrates the lungs to be symmetrically aerated without evidence of mas s, infiltrate or effusion. The cardiomediastinal contours are unremarkable. Osseous structures are intact. CONCLUSION: Normal examination. Feeding tube enters the stomach. Apolinar Koch MD on October 10, 2016 at 6:21 Board Certified Radiologist. This report was verified electronically.
--- NOTE | 2016-10-10 06:23 | RADRPT ---
EXAM DATE/TIME: 10/10/2016 04:56 [facility] COMPARISON: ABDOMEN SINGLE VIEW, October 09, 2016, 16:54. INDICATIONS : Dobhoff placement. MEDICAL HISTORY : Hepatitis C. Hypertension Cardiovascular disease. SURGICAL HISTORY : None. ENCOUNTER: Subsequent ACUITY: 3 days PAIN SCORE: Non-responsive. LOCATION: Bilateral abdomen FINDINGS: Examination of the abdomen demonstrates a normal bowel gas pattern. No free air is identified. No o rganomegaly is evident. Osseous structures are intact. CONCLUSION: No evidence of obstruction. Feeding tube enters the stomach. Apolinar Koch MD on October 10, 2016 at 6:22 Board Certified Radiologist. This report was verified electronically.
[2016-10-10] MEDS: DOCUSATE SODIUM 50 MG/SENNA 8.6 MG TAB PO SCH ×2 (09:00→20:26)
[2016-10-10] MEDS: SODIUM CHLORIDE 0.9% FLUSH 10 ML FLUSH IV FLUSH SCH ×2 (09:00→20:26)
[2016-10-10] MEDS: LISINOPRIL 5 MG TAB PO SCH (09:24)
[2016-10-10] MEDS: FOLIC ACID 1 MG TAB PO SCH (09:24)
[2016-10-10] MEDS: ASPIRIN 81 MG CHEW TAB CHEW SCH (09:25)
[2016-10-10] MEDS: HEPARIN SODIUM - SQ 10,000 UNITS/ML VIAL SQ SCH ×2 (09:25→20:24)
[2016-10-10] MEDS: PARoxetine HCL SUSP 20 MG/10 ML UDC NG SCH (09:26)
--- NOTE | 2016-10-10 10:40 | HHI.FPPN ---
Subjective Remarks Patient not verbalizing much, continues to have drooling and left facial droop. Writing to communicate. Tracking on right side of body. Attempting to communicate with hand motions. Moving right side, left side remains weak. Has in Dobhoff tube. (Javier Canseco MD R2) Objective Vitals Vital Signs Date Time Temp Pulse Resp B/P Pulse Ox O2 Delivery O2 Flow Rate FiO2 10/10/16 08:13 99 Nasal Cannula 1.50 10/10/16 08:00 64 10/10/16 07:00 100 Nasal Cannula 2.00 10/10/16 06:00 64 10/10/16 04:00 66 10/10/16 04:00 98.7 66 16 139/87 100 10/10/16 02:00 74 10/10/16 00:00 99.4 92 22 133/93 100 10/10/16 00:00 92 10/10/16 00:00 99 Nasal Cannula 2.00 10/09/16 22:00 110 10/09/16 20:35 98 10/09/16 20:00 103 10/09/16 20:00 99.6 110 20 140/95 98 10/09/16 19:00 98 Room Air 10/09/16 18:00 100 10/09/16 16:00 99.0 116 22 159/114 100 10/09/16 16:00 116 10/09/16 14:00 112 10/09/16 12:00 116 10/09/16 12:00 99.2 126 28 165/114 100 I/O 10/09/16 10/09/16 10/09/16 10/10/16 10/10/16 10/10/16 07:00 15:00 23:00 07:00 15:00 23:00 Intake Total 871 ml 1192 ml 1010 ml 664 ml Output Total 1300 ml 950 ml 500 ml 300 ml Balance -429 ml 242 ml 510 ml 364 ml Intake Oral 0 ml 0 ml IV Total 871 ml 1192 ml 1010 ml 664 ml Output Urine Total 1300 ml 950 ml 500 ml 300 ml # Bowel Movements 0 0 0 0 (Javier Canseco MD R2) Result Diagram: 10/10/16 0338 10/10/16 0338 Objective Remarks GENERAL: Lying in bed, tracking with eyes on right side, following commands, writes to communicate SKIN: Warm and dry. No rashes. EYES: No scleral icterus. No injection or drainage. PERRLA. EOMI. HENT: Atraumatic. Moist mucous membranes. NECK: No visible JVD or lymphadenopathy. CARDIOVASCULAR: Tachycardic without murmurs rubs or gallops RESPIRATORY: Clear to auscultation bilaterally. Transmitted upper airway sounds. GASTROINTESTINAL: Abdomen nondistended. MUSCULOSKELETAL: Left facial droop. Left arm and left leg weakness BACK: Without obvious deformity. NEURO/PSYCH: Afocal. Awake, alert, and oriented x3. PERRLA. Tracking with eyes. Slurred speech, not verbalizing much. Left side remains weak. Left facial droop persistent. Minimal twitching of left foot. Not moving left arm. Following simple commands. (Javier Canseco MD R2) A/P Assessment and Plan 71-year-old male with a past medical history of poorly managed hypertension, hepatitis C, depression, PTSD, memory loss, and BPH that presented to the [facility] ED with slurred speech and left-sided hemiparesis. Differential diagnosis includes stroke/TIA, hypertensive emergency, seizure, arrhythmia. BP on admission was 225/153 which responded to nicardipine drip with complete resolution of symptoms thereafter. The patient was be admitted to the ICU for continuation of the nicardipine drip and stroke work up. Overnight, the patient's blood pressure worsened and he complained of shortness of breath. The residents consulted the neurologist who recommended holding Nicardipine drip and providing the patient with labetalol 10 mg IV. The pipe organ mechanic apprentice was also consulted at that time. Discussed with Dr. Todd, Dr. Ash Discharge Planning Pending clinical improvement and neurology recommendations, will likely require intensive rehab. (Javier Canseco MD R2) Attending Attestation Patient seen and examined. Case reviewed and discussed with the resident team. Agree with plan of care as discussed with me and documented in the resident note. Patient sister in the room and reports a little bit of improvement. Their goal is to ultimately take him home so that he can sit on his back porch and enjoy his backyard. (Nicole Ash MD) Problem List: (1) Acute ischemic stroke Status: Acute Plan: Evidence of left facial droop and left hemiparesis on exam. CT head 2 negative for acute bleed. CTA carotids within normal limits. Unable to perform MRI due to metallic plate in cranium. ECHO with grade 1 diastolic dysfunction. Lipid profile only significant for 33.2 HDL, triglycerides, cholesterol, and LDL cholesterol WNL. A1C 5.4. - Neurology consulted - Critical care consulted - Cardiology consulted - Regular neuro checks - Cardiac telemetry - Aspirin 81 mg by mouth daily - Started beta [place], lisinopril - Cardene drip discontinued - Requiring Dobhoff for feeding due to swallowing difficulties - Aspiration precautions, speech therapy on board - Discontinue restraints as much as possible - Blinds open in day, dark and quiet at night - Likely rehab at discharge (2) Chronic Medical Problems Status: Acute Plan: * Hepatitis C: Hepatitis C positive * PTSD/anxiety: Paroxetine 20mg NG daily when tolerating by mouth (3) FEN/DVT PPX/GI PPX/Nursing Orders Status: Acute Plan: Fluids: NS @ 75 mls/hr IV Electrolytes: Will monitor and replace as needed. On ICU electrolyte replacement protocol Nutrition: Dobhoff tube due to aspiration risk DVT Prophylaxis: Bilateral SCDs GI Prophylaxis: Famotidine 20 mg IV twice a day Case management has been consulted to assist with disposition needs PT has been consulted to assist with mobility and disposition needs (Javier Canseco MD R2) Javier Canseco MD R2 Oct 10, 2016 10:40 Nicole Ash MD Oct 10, 2016 15:23
[2016-10-10] MEDS: SODIUM CHLOR 0.9% 1000 ML INJ 1,000 ML IV SCH (11:40)
[2016-10-10] MEDS: amLODIPine BESYLATE 5 MG TAB PO SCH (11:46)
--- NOTE | 2016-10-10 11:55 | MB ---
cc: DAMIAN AMOS DO DATE OF CONSULTATION October 10, 2016 REASON FOR CONSULTATION CVA. Elevated troponin. HISTORY OF PRESENT ILLNESS Cb Garcia is a pleasant 71-year-old male who originally presented to [facility] on October 07, 2016, as a Stroke Alert. He started having left-sided weakness as he was sitting on the porch. He started not acting right and so a friend came in and got his . She states that he was not speaking normally at the time and was unable to stand. 9-1-1 was called. On arrival it was felt that he had hypertensive urgency with possibility of CVA versus TIA. Since that time he has been admitted to the ICU and still has flaccid left arm and left leg with left-sided facial droop. A Dobbhoff tube has been placed as he has failed a swallow test. He previously was on a Cardene drip but this has been stopped. His blood pressure has been somewhat better controlled. Labs were checked during the event and he was found to have an elevated troponin 0.12. PAST MEDICAL HISTORY 1. Hypertension which was newly diagnosed at the [facility] around [id number] weeks ago. 2. Depression. 3. PTSD. 4. BPH. 5. Hepatitis C. PAST SURGICAL HISTORY Craniectomy with metal plates placed. ALLERGIES No known drug allergies. MEDICATIONS 1. Aspirin 81 mg daily 2. The patient's believed that he was started on lisinopril for antihypertensive medication. FAMILY HISTORY Positive for hypertension in his siblings and his mother. Denies premature coronary artery disease or sudden cardiac within the family. SOCIAL HISTORY The patient is a [place] . He lives at home with his . Previously he smoked but quit many years ago. He smokes marijuana daily. Marijuana is used to deal with his PTSD. REVIEW OF SYSTEMS 14-systems were reviewed including osteopathic pertinent positives and negatives above, otherwise negative. PHYSICAL EXAMINATION VITAL SIGNS: Temperature 98.7, heart rate 66, blood pressure 138/90, respirations 18, pulse ox 99% on 2 liters. IN GENERAL: The patient appears well, in no acute distress. Extraocular muscles intact. Mucous membranes moist. Dobbhoff tube in place. NECK: Supple. No JVD at 45 degrees. No carotid bruits heard bilaterally. Carotid upstroke is brisk in nature. HEART: Regular rate and rhythm. Positive first and second heart sounds with a 1/6 crescendo-decrescendo murmur to the right sternal border. LUNGS: Clear to auscultation bilaterally. No wheezes, rales or rhonchi. ABDOMEN: Soft, non-tender, non-distended. No organomegaly noted. EXTREMITIES: No clubbing, cyanosis or edema. SKIN: Warm dry and intact. NEUROLOGIC: Left-sided facial droop with left arm and left leg flaccid. OSTEOPATHIC EXAM: No kyphoscoliosis, lordosis or paraspinal tender points. LABORATORY FINDINGS Hemoglobin 12.8, hematocrit 38.5, platelets 188. Potassium 3.7, BUN 9, creatinine 0.9. Troponin 0.12. Triglycerides 57, total cholesterol 124, LDL 79, HDL 33.2. ELECTROCARDIOGRAM (October 07, 2016, at a 23:46) Sinus tachycardia with PVCs, V6 not recorded, no acute ST-T wave changes. IMPRESSIONS 1. Acute CVA most likely of the middle cerebral artery on the right side. 2. History of traumatic brain injury. 3. Elevated troponin type 2 in nature. 4. Post-traumatic stress disorder. 5. Marijuana use. 6. Hypertensive urgency. 7. History of dyslipidemia. 8. Hepatitis C. 9. BPH. 10. Remote history of tobacco abuse, quitting a number of years ago. 11. Ejection fraction 50-55% with normal wall motion. Grade 1 diastolic dysfunction by echocardiogram (October 08, 2016). RECOMMENDATIONS 1. Mr. Garcia appears to have an ischemic stroke due to his hypertensive urgency. We will continue with blood pressure control. 2. Per Neurology, he is through his period of permissive hypertension and so we will plan on adding Norvasc to help with blood pressure as well as vascular disease. 3. Elevated troponin secondary to overall acute neurologic disease with CVA. No further workup of this is needed at this time. 4. We will continue him on aspirin 81 mg daily. 5. Overall consider increasing his statin therapy to Lipitor 80 mg daily. 6. Further recommendations will be made based on the hospital course. Thank you for allowing me to see Cb Garcia. If there are any questions, please do not hesitate to call. Damian Amos DO VGP/SSB /10:59 AM /11:40 AM
--- NOTE | 2016-10-10 12:16 | HHI.CCPN ---
Subjective Remarks/Hospital Course 71-year-old male with a poorly managed hypertension, hepatitis C, depression, PTSD, memory loss, and BPH that presents as a stroke alert. He was sitting out on his back porch with a friend, who noticed that something was not quite right with him. The friend called out to the patient's and she saw that he was trying to get up from the chair but was unable to do so, his speech was slurred and the left side of his body appeared weak. He was recently diagnosed with hypertension at the [facility] about 2-3 weeks ago. He was started on antihypertensive medication which she thinks is lisinopril. 10/08: Flaccid left arm, weak left leg, left facial droop. Out of window for tPA and BP not easily controlled last night apparently. 10/09: Transmitted upper airway sounds noted. He is suctioning himself using Yankauer with right hand. Continues flaccid left upper extremity, weak left lower extremity and left facial droop. Subjective 10/10: Required additional Precedex overnight due to agitation but slept well. Protecting airway adequately. Denies chest pain. Seen by Dr. Stoner/ cardiology this AM. Added Norvasc. Objective Vital Signs Date Time Temp Pulse Resp B/P Pulse Ox O2 Delivery O2 Flow Rate FiO2 10/10/16 10:00 66 10/10/16 08:13 99 Nasal Cannula 1.50 10/10/16 08:00 98.7 18 138/90 10/09/16 09:00 21 Intake and Output 10/09/16 10/09/16 10/10/16 08:00 16:00 00:00 Intake Total 871 ml 1192 ml 1010 ml Output Total 1300 ml 950 ml 500 ml Balance -429 ml 242 ml 510 ml Result Diagram: 10/10/16 0338 10/10/16 0338 Imaging Last Impressions Chest X-Ray 10/10/16 0600 Signed Impressions: Service Date/Time: Monday, October 10, 2016 04:51 - CONCLUSION: Normal examination. Feeding tube enters the stomach. Apolinar Koch MD Abdomen X-Ray 10/10/16 0000 Signed Impressions: Service Date/Time: Monday, October 10, 2016 04:56 - CONCLUSION: No evidence of obstruction. Feeding tube enters the stomach. Apolinar Koch MD Head CT 10/08/16 1600 Signed Impressions: Service Date/Time: Saturday, October 08, 2016 16:10 - CONCLUSION: 1. Prominent nonspecific white matter changes. 2. Old area of encephalomalacia in the occipital/parietal lobe. 3. No hemorrhage. Morales Pendleton MD CT Angiography 10/08/16 0000 Signed Impressions: Service Date/Time: Saturday, October 08, 2016 03:02 - CONCLUSION: There is no evidence for PE for technique. RubiMatt Jacobson MD Neck CTA 10/07/16 1454 Signed Impressions: Service Date/Time: Friday, October 07, 2016 15:12 - CONCLUSION: Negative CTA of the carotids. Mio Coulter MD Head CTA 10/07/16 1454 Signed Impressions: Service Date/Time: Friday, October 07, 2016 15:12 - CONCLUSION: 1. No evidence of central truncation or aneurysm. 2. The largest intracranial metallic density , located near the left brain stem obscures a portion of the left posterior cerebral artery. The diameter of the left posterior cerebral artery distal to the metallic density is normal. Mio Coulter MD Objective Remarks GENERAL: 71-year-old male, critically ill currently resting in bed SKIN: Warm and dry. HEAD: Normocephalic. EYES: Pupils are equally reactive 3 mm bilaterally. Right deviation of right eye No scleral icterus. No injection or drainage. NECK: Supple, trachea midline. Airway open but some secretions. CARDIOVASCULAR: Regular rate and rhythm without murmurs, gallops, or rubs. RESPIRATORY: Breath sounds equal bilaterally. Transmitted upper airway sounds. Few scattered rhonchi. GASTROINTESTINAL: Abdomen soft, non-tender, nondistended. MUSCULOSKELETAL: No significant peripheral edema. BACK: Nontender without obvious deformity. No CVA tenderness. EXTREMITIES: No clubbing cyanosis or edema, left upper extremity weakness, NEURO: Flaccid left arm, weak left leg, left facial droop. Vision field cut left-sided. Speech slurred. Follows commands. Toes down right, up left. DTRs patellar 3+ deepa. No clonus. 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 No acute intra-abnormality CTA head and neck 10/07 revealed no focal stenosis or aneurysms Followed by Dr. Ponce/neurology On Paxil 20 mg by mouth daily for anxiety Currently on Precedex 0.5 g Aspirin 81 mg by mouth daily [place] for pain management CV: Hypertensive urgency History dyslipidemia Likely chronic diastolic heart failure Elevated troponin 0.12 Off Cardene drip to keep systolic blood pressure less than 180 Current allow permissive hypertension On Lopressor 2.5 IV every 6, Norvasc 5 daily and lisinopril 2.5 daily. With CVA gentle decrease in blood pressure. 2-D echocardiogram revealed EF 50-55%. Grade 1 diastolic dysfunction. Left atrium mildly dilated. DAYAN 32 mmHg Elevated troponin likely straindemand ischemia secondary to hypertension. No indication for intervention at this time Seen by DR. Chaidez.cardiology. Start Lipitor 80 mg at night for dyslipidemia Resp: Nasal cannula to maintain saturations currently 92% Incentive or on entry while awake Strict aspiration precautions GI: Hepatitis C Gastroesophageal reflux disease Continue Dobbhoff tube to initiate tube feedings vital 1.5 goal 55 cc an hour Dietary consultation tube feed recommendations. As above Pepcid for GI prophylaxis Gilda-Colace for bowel regimen : BPH Vann if indicated for accurate I's and O's in a critically ill patient Endo: Sliding-scale insulin if indicated to maintain euglycemia Renal: Monitor urine output Accurate I's and O's Heme: Microcytic anemia CBC recheck in a.m. ID: Monitor for infection MSK: PT/OT evaluate and treat FEN: Electrolytes Recheck in a.m. Access - Utilize peripheral IV. Central line if indicated Prophylaxis - GI - Protonix - DVT - SCD/heparin subcutaneous Critical Care: The totall care time was 35 minutes. Time to perform other separately billable procedures was not included in the critical care time. Rickey Barraza MD Oct 10, 2016 12:15 Rickey Barraza MD Oct 10, 2016 12:15
[2016-10-10] MEDS: hydrALAZINE HCL 20 MG/ML VIAL IV PUSH PRN (16:12)
--- NOTE | 2016-10-10 18:01 | HHI.PR ---
Review/Management Diagnosis Acute ischemic stroke Hypertensive urgency. TIA. History of craniotomy, status post traumatic brain injury. Plan Neuro checks q. 1 hourly. Continue antihypertensive medications B mariposa and Lisinopril, Amlodipine added by cardiology Swallow and speech evaluation DVT prophylaxis, Heprain 5000 units Q 12h GI prophylaxis. 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 with periods of agitation Still legibly communicates by writing, as per , does not like to talk Active Medications Current Medications Medications (Trade) Dose Ordered Sig/Percy Route Start Time Stop Time Status Last Admin (NS 1000 ml Inj) 1,000 ml @ 75 mls/hr [id number] IV 10/07/16 17:00 10/10/16 11:40 (NS Flush) 2 ml UNSCH PRN IV FLUSH 10/07/16 16:45 (NS Flush) 2 ml BID IV FLUSH 10/07/16 21:00 10/09/16 22:28 (Folate) 1 mg DAILY PO 10/08/16 09:00 10/10/16 09:24 (Tylenol) 650 mg Q4H PRN PO 10/07/16 16:45 ([place] 5-325 Mg) 1 tab Q6HR PRN PO 10/07/16 16:45 ([place] 10-325 Mg) 1 tab Q6H PRN PO 10/07/16 16:45 (Zofran Inj) 4 mg Q6H PRN IVP 10/07/16 17:00 (Restoril) 15 mg HS PRN PO 10/07/16 17:00 10/07/16 20:22 (Gilda-Colace) 1 tab BID PO 10/07/16 21:00 10/10/16 09:00 (Milk Of Magnesia Liq) 30 ml Q12H PRN PO 10/07/16 17:00 (Senokot) 17.2 mg Q12H PRN PO 10/07/16 17:00 (Dulcolax Supp) 10 mg DAILY PRN RECTAL 10/07/16 17:00 (Lactulose Liq) 30 ml DAILY PRN PO 10/07/16 17:00 Clonidine 0.1 mg 0.1 mg Q6H PRN PO 10/08/16 00:30 (Precedex Inj/NS Inj) 52 ml @ 0 mls/hr TITRATE IV 10/08/16 05:30 10/10/16 10:52 Paroxetine HCl 20 mg 20 mg DAILY NG 10/08/16 09:00 10/10/16 09:26 Potassium Chloride 100 ml @ 50 mls/hr Q2H PRN IV 10/08/16 06:45 (KCl 20 Meq Premix Inj) 100 ml @ 50 mls/hr Q2H PRN IV 10/08/16 06:45 10/08/16 12:46 Potassium Bicarb/ Potassium Chloride 50 meq 50 meq UNSCH PRN PO 10/08/16 06:45 Potassium Chloride 100 ml @ 25 mls/hr UNSCH PRN IV 10/08/16 06:45 Potassium Chloride 100 ml @ 50 mls/hr Q2H PRN IV 10/08/16 06:45 (Magnesium Sulfate Inj/NS Inj) 100 ml @ 50 mls/hr UNSCH PRN IV 10/08/16 06:45 Magnesium Oxide 800 mg 800 mg UNSCH PRN PO 10/08/16 06:45 (Magnesium Sulfate Inj/NS Inj) 100 ml @ 50 mls/hr UNSCH PRN IV 10/08/16 06:45 Potassium Phosphate 2000 mg 2,000 mg Q4H PRN PO 10/08/16 06:45 (Sodium Phosphate Inj/NS 250 ml Inj) 250 ml @ 42 mls/hr UNSCH PRN IV 10/08/16 06:45 Potassium Phosphate 2000 mg 2,000 mg UNSCH PRN PO/TUBE 10/08/16 06:45 (Potassium Phosphate Inj/NS 250 ml Inj) 260 ml @ 42 mls/hr UNSCH PRN IV 10/08/16 06:45 10/09/16 03:44 (Heparin Inj) 5,000 units BID SQ 10/08/16 13:00 10/10/16 09:25 (Pepcid Inj) 20 mg Q12H IV PUSH 10/08/16 13:00 10/10/16 13:48 (Trandate Inj) 10 mg Q1HR PRN IV PUSH 10/09/16 11:00 Hydralazine HCl 10 mg 10 mg Q1HR PRN IV PUSH 10/09/16 10:30 10/10/16 16:12 (Cardene Inj/NS 250 ml Inj) 260 ml @ 0 mls/hr TITRATE IV 10/09/16 13:30 10/09/16 17:35 (Aspirin Chew) 81 mg DAILY CHEW 10/09/16 15:00 10/10/16 09:25 (Lopressor Inj) 2.5 mg Q6H IV PUSH 10/09/16 18:00 10/10/16 17:26 (Prinivil) 2.5 mg DAILY PO 10/09/16 17:30 10/10/16 09:24 (Pill Splitter) 1 ea UNSCH PRN OTHER 10/09/16 18:00 (Lipitor) 80 mg HS PO 10/10/16 21:00 (Norvasc) 5 mg DAILY PO 10/10/16 12:00 10/10/16 11:46 Allergies Allergies Coded Allergies No Known Allergies (Unverified11/17/14) Exam I&O / VS 10/09/16 10/09/16 10/10/16 15:00 23:00 07:00 Intake Total 1192 ml 1010 ml 664 ml Output Total 950 ml 500 ml 300 ml Balance 242 ml 510 ml 364 ml Intake Oral 0 ml IV Total 1192 ml 1010 ml 664 ml Output Urine Total 950 ml 500 ml 300 ml # Bowel Movements 0 0 0 Vital Signs Date Time Temp Pulse Resp B/P Pulse Ox O2 Delivery O2 Flow Rate FiO2 10/10/16 16:00 64 10/10/16 16:00 98.4 84 24 147/87 100 10/10/16 14:00 66 10/10/16 12:00 91 10/10/16 12:00 98.4 91 24 181/115 100 10/10/16 10:00 66 10/10/16 08:13 99 Nasal Cannula 1.50 10/10/16 08:00 98.7 66 18 138/90 100 10/10/16 08:00 64 10/10/16 07:00 100 Nasal Cannula 2.00 10/10/16 06:00 64 10/10/16 04:00 66 10/10/16 04:00 98.7 66 16 139/87 100 10/10/16 02:00 74 10/10/16 00:00 99.4 92 22 133/93 100 10/10/16 00:00 92 10/10/16 00:00 99 Nasal Cannula 2.00 10/09/16 22:00 110 10/09/16 20:35 98 10/09/16 20:00 103 10/09/16 20:00 99.6 110 20 140/95 98 10/09/16 19:00 98 Room Air Exam Comments General: Sleepy during most of the encounter, Dobhoff tube in place HEENT: Atraumatic, normocephalic. Injected eyes, intact hearing. Intact vision. Neck: Supple. No signs of meningeal irritation. Cardiovascular: Regular rate and rhythm, tachycardia. Respiratory: Clear to auscultation. No wheezes. Gastrointestinal: Soft abdomen, nontender. Musculoskeletal: Moves extremities on the right side, hemiplegic on the right. Neurological: Sleeping [received Precedex ], dysarthria, dysphagia, left facial weakness, left sided hemiparesis, right side is normal. Objective Radiology Results Last 72 hours Impressions Chest X-Ray 10/10/16 0600 Signed Impressions: Service Date/Time: Monday, October 10, 2016 04:51 - CONCLUSION: Normal examination. Feeding tube enters the stomach. Apolinar Koch MD Abdomen X-Ray 10/10/16 0000 Signed Impressions: Service Date/Time: Monday, October 10, 2016 04:56 - CONCLUSION: No evidence of obstruction. Feeding tube enters the stomach. Apolinar Koch MD Abdomen X-Ray 10/09/16 0000 Signed Impressions: Service Date/Time: Sunday, October 09, 2016 16:54 - CONCLUSION: 1. The tip of the feeding tube is in the distal antrum. Reggie Conner MD Abdomen X-Ray 10/09/16 0000 Signed Impressions: Service Date/Time: Sunday, October 09, 2016 10:07 - CONCLUSION: Feeding tube tip in the mid stomach. Allen Hubbard MD Head CT 10/08/16 1600 Signed Impressions: Service Date/Time: Saturday, October 08, 2016 16:10 - CONCLUSION: 1. Prominent nonspecific white matter changes. 2. Old area of encephalomalacia in the occipital/parietal lobe. 3. No hemorrhage. Morales Pendleton MD Head CT 10/08/16 0000 Signed Impressions: Service Date/Time: Saturday, October 08, 2016 02:55 - CONCLUSION: Chronic changes without hemorrhage or mass effect. Jed Jacobson MD CT Angiography 10/08/16 0000 Signed Impressions: Service Date/Time: Saturday, October 08, 2016 03:02 - CONCLUSION: There is no evidence for PE for technique. Jed Jacobson MD Micro and Labs Laboratory Tests Test 10/10/16 03:38 White Blood Count 8.8 Red Blood Count 5.24 Hemoglobin 12.8 Hematocrit 38.5 Mean Corpuscular Volume 73.5 Mean Corpuscular Hemoglobin 24.4 Mean Corpuscular Hemoglobin 33.3 Concent Red Cell Distribution Width 14.7 Platelet Count 188 Mean Platelet Volume 9.0 Sodium Level 144 Potassium Level 3.7 Chloride Level 114 Carbon Dioxide Level 21.6 Anion Gap 8 Blood Urea Nitrogen 9 Creatinine 0.90 Estimat Glomerular Filtration 101 Rate Random Glucose 109 Calcium Level 8.6 Phosphorus Level 2.6 Magnesium Level 2.2 Total Bilirubin 0.8 Direct Bilirubin 0.2 Indirect Bilirubin 0.6 Aspartate Amino Transf 22 (AST/SGOT) Alanine Aminotransferase 13 (ALT/SGPT) Alkaline Phosphatase 73 Total Protein 7.0 Albumin 3.1 Alla Ponce MD Oct 10, 2016 18:00
[2016-10-10] MEDS: ATORVASTATIN 80 MG TAB PO SCH (20:25)
[2016-10-10] MEDS: niCARdipine INJ 25 MG in SODIUM CHLOR 0.9% 250 ML INJ 250 ML IV SCH (20:25)
[2016-10-10] MEDS ORDERED: FOLI1TAB6 PO (22:24)
[2016-10-11] VITALS (14 sets, daily range): BP systolic 117–166; BP diastolic 89–104; PULSE 54–93; RESP 12–22; TEMP 97.7–99.4; O2SAT 99–100
[2016-10-11] MEDS: SODIUM CHLOR 0.9% 1000 ML INJ 1,000 ML IV SCH ×2 (01:25→15:07)
[2016-10-11] MEDS: FAMOTIDINE 20 MG/2 ML VIAL IV PUSH SCH ×2 (02:38→12:21)
[2016-10-11] MEDS: DEXMEDETOMIDINE INJ 200 MCG in SODIUM CHLORIDE 0.9% INJ 50 ML IV SCH ×2 (02:41→15:04)
[2016-10-11 05:03] LABS: AUTOMATED NEUTROPHIL # 5.8 TH/MM3 (1.8-7.7); BASOPHIL % 0.3 % (0.0-2.0); EOSINOPHIL % 0.1 % (0.0-4.0); HEMATOCRIT 38.4 % (39.0-51.0); HEMO FLAGS DIFF FINAL; LYMPH % 22.4 % (9.0-44.0); LYMPHOCYTE # 1.8 TH/MM3 (1.0-4.8); MEAN CELL VOLUME 74.4 FL (80.0-100.0); MEAN CORPUSCULAR HEMOGLOBIN 23.7 PG (27.0-34.0); MEAN CORPUSCULAR HGB CONC 31.9 % (32.0-36.0); MONO % 6.8 % (0.0-8.0); NEUT % 70.4 % (16.0-70.0); PLATELET COUNT 159 TH/MM3 (150-450); RED BLOOD COUNT 5.16 MIL/MM3 (4.50-5.90); RED CELL DISTRIBUTION WIDTH 14.5 % (11.6-17.2); WHITE BLOOD COUNT 8.3 TH/MM3 (4.0-11.0)
[2016-10-11 05:27] LABS: MAGNESIUM 2.3 MG/DL (1.5-2.5); POTASSIUM 3.5 MEQ/L (3.5-5.1)
--- NOTE | 2016-10-11 05:58 | RADRPT ---
EXAM DATE/TIME: 10/11/2016 04:28 [place] COMPARISON: CHEST SINGLE AP, October 10, 2016, 4:51. INDICATIONS : Shortness of breath. MEDICAL HISTORY : Hypertension. Hepatitis C. Cardiovascular disease. SURGICAL HISTORY : None. ENCOUNTER: Subsequent ACUITY: 4 - 6 days PAIN SCORE: Non-responsive. LOCATION: Bilateral chest FINDINGS: A single view of the chest demonstrates the lungs to be symmetrically aerated without evidence of mas s, infiltrate or effusion. The cardiomediastinal contours are unremarkable. Osseous structures are intact. CONCLUSION: Normal examination. Feeding tube in good position Apolinar Koch MD on October 11, 2016 at 5:57 Board Certified Radiologist. This report was verified electronically.
[2016-10-11] MEDS: METOPROLOL TARTRATE 5 MG/5 ML VIAL IV PUSH SCH ×4 (06:00→18:33)
[2016-10-11] MEDS: amLODIPine BESYLATE 5 MG TAB PO SCH (08:33)
[2016-10-11] MEDS: ASPIRIN 81 MG CHEW TAB CHEW SCH (08:33)
[2016-10-11] MEDS: HEPARIN SODIUM - SQ 10,000 UNITS/ML VIAL SQ SCH ×2 (08:33→20:54)
[2016-10-11] MEDS: LISINOPRIL 5 MG TAB PO SCH (08:33)
[2016-10-11] MEDS: PARoxetine HCL SUSP 20 MG/10 ML UDC NG SCH (08:33)
[2016-10-11] MEDS: SODIUM CHLORIDE 0.9% FLUSH 10 ML FLUSH IV FLUSH SCH ×2 (08:34→20:55)
[2016-10-11] MEDS: FOLIC ACID 1 MG TAB PO SCH (08:34)
[2016-10-11] MEDS: DOCUSATE SODIUM 50 MG/SENNA 8.6 MG TAB PO SCH ×2 (08:34→20:54)
--- NOTE | 2016-10-11 08:46 | HHI.PR ---
Review/Management Diagnosis Acute ischemic stroke Hypertensive urgency. TIA. History of craniotomy, status post traumatic brain injury. Plan Neuro checks q. 1 hourly. Continue antihypertensive medications B mariposa and Lisinopril, Amlodipine added by cardiology Swallow and speech evaluation DVT prophylaxis, Heprain 5000 units Q 12h GI prophylaxis. PT/OT, recommendations are appreciated Gradually wean off Precedex May add Seroquel 25mg for bouts of agitation Diagnosis/Plan: Subjective Subjective Comments No acute events reported overnight Calm, responds by talking, and voicing words Moves right sie , flaccid left side DobHoff in place No breathing difficulty Active Medications Current Medications Medications (Trade) Dose Ordered Sig/Percy Route Start Time Stop Time Status Last Admin (NS 1000 ml Inj) 1,000 ml @ 75 mls/hr [id number] IV 10/07/16 17:00 10/11/16 01:25 (NS Flush) 2 ml UNSCH PRN IV FLUSH 10/07/16 16:45 (NS Flush) 2 ml BID IV FLUSH 10/07/16 21:00 10/10/16 20:26 (Folate) 1 mg DAILY PO 10/08/16 09:00 10/11/16 08:34 (Tylenol) 650 mg Q4H PRN PO 10/07/16 16:45 ([place] 5-325 Mg) 1 tab Q6HR PRN PO 10/07/16 16:45 ([place] 10-325 Mg) 1 tab Q6H PRN PO 10/07/16 16:45 (Zofran Inj) 4 mg Q6H PRN IVP 10/07/16 17:00 (Restoril) 15 mg HS PRN PO 10/07/16 17:00 10/07/16 20:22 (Gilda-Colace) 1 tab BID PO 10/07/16 21:00 10/10/16 20:26 (Milk Of Magnesia Liq) 30 ml Q12H PRN PO 10/07/16 17:00 (Senokot) 17.2 mg Q12H PRN PO 10/07/16 17:00 (Dulcolax Supp) 10 mg DAILY PRN RECTAL 10/07/16 17:00 (Lactulose Liq) 30 ml DAILY PRN PO 10/07/16 17:00 Clonidine 0.1 mg 0.1 mg Q6H PRN PO 10/08/16 00:30 (Precedex Inj/NS Inj) 52 ml @ 0 mls/hr TITRATE IV 10/08/16 05:30 10/11/16 02:41 Paroxetine HCl 20 mg 20 mg DAILY NG 10/08/16 09:00 10/11/16 08:33 Potassium Chloride 100 ml @ 50 mls/hr Q2H PRN IV 10/08/16 06:45 (KCl 20 Meq Premix Inj) 100 ml @ 50 mls/hr Q2H PRN IV 10/08/16 06:45 10/08/16 12:46 Potassium Bicarb/ Potassium Chloride 50 meq 50 meq UNSCH PRN PO 10/08/16 06:45 Potassium Chloride 100 ml @ 25 mls/hr UNSCH PRN IV 10/08/16 06:45 Potassium Chloride 100 ml @ 50 mls/hr Q2H PRN IV 10/08/16 06:45 (Magnesium Sulfate Inj/NS Inj) 100 ml @ 50 mls/hr UNSCH PRN IV 10/08/16 06:45 Magnesium Oxide 800 mg 800 mg UNSCH PRN PO 10/08/16 06:45 (Magnesium Sulfate Inj/NS Inj) 100 ml @ 50 mls/hr UNSCH PRN IV 10/08/16 06:45 Potassium Phosphate 2000 mg 2,000 mg Q4H PRN PO 10/08/16 06:45 (Sodium Phosphate Inj/NS 250 ml Inj) 250 ml @ 42 mls/hr UNSCH PRN IV 10/08/16 06:45 Potassium Phosphate 2000 mg 2,000 mg UNSCH PRN PO/TUBE 10/08/16 06:45 (Potassium Phosphate Inj/NS 250 ml Inj) 260 ml @ 42 mls/hr UNSCH PRN IV 10/08/16 06:45 10/09/16 03:44 (Heparin Inj) 5,000 units BID SQ 10/08/16 13:00 10/11/16 08:33 (Pepcid Inj) 20 mg Q12H IV PUSH 10/08/16 13:00 10/11/16 02:38 (Trandate Inj) 10 mg Q1HR PRN IV PUSH 10/09/16 11:00 Hydralazine HCl 10 mg 10 mg Q1HR PRN IV PUSH 10/09/16 10:30 10/10/16 16:12 (Cardene Inj/NS 250 ml Inj) 260 ml @ 0 mls/hr TITRATE IV 10/09/16 13:30 10/10/16 20:25 (Aspirin Chew) 81 mg DAILY CHEW 10/09/16 15:00 10/11/16 08:33 (Lopressor Inj) 2.5 mg Q6H IV PUSH 10/09/16 18:00 10/10/16 17:26 (Prinivil) 2.5 mg DAILY PO 10/09/16 17:30 10/11/16 08:33 (Pill Splitter) 1 ea UNSCH PRN OTHER 10/09/16 18:00 (Lipitor) 80 mg HS PO 10/10/16 21:00 10/10/16 20:25 (Norvasc) 5 mg DAILY PO 10/10/16 12:00 10/11/16 08:33 Allergies Allergies Coded Allergies No Known Allergies (Unverified11/17/14) Exam I&O / VS 10/10/16 10/10/16 10/11/16 15:00 23:00 07:00 Intake Total 582 ml 1016 ml 858 ml Output Total 575 ml 900 ml 350 ml Balance 7 ml 116 ml 508 ml IV Total 582 ml 710 ml 631 ml Tube Feeding 216 ml 227 ml Other 90 ml 0 ml Output Urine Total 575 ml 900 ml 350 ml # Bowel Movements 1 0 0 Vital Signs Date Time Temp Pulse Resp B/P Pulse Ox O2 Delivery O2 Flow Rate FiO2 10/11/16 08:18 100 Nasal Cannula 2.00 10/11/16 07:00 100 Nasal Cannula 2.00 10/11/16 06:00 57 10/11/16 04:00 57 10/11/16 04:00 97.9 57 12 117/89 100 10/11/16 02:00 60 10/11/16 00:00 54 10/11/16 00:00 97.7 54 14 135/93 99 10/10/16 22:00 65 10/10/16 20:00 72 10/10/16 20:00 98.7 92 22 142/90 99 10/10/16 19:15 98 2.00 10/10/16 19:00 100 Nasal Cannula 2.00 10/10/16 18:00 67 10/10/16 16:00 64 10/10/16 16:00 98.4 84 24 147/87 100 10/10/16 14:00 66 10/10/16 12:00 91 10/10/16 12:00 98.4 91 24 181/115 100 10/10/16 10:00 66 Exam Comments General: Sleepy during most of the encounter, Dobhoff tube in place HEENT: Atraumatic, normocephalic. Injected eyes, intact hearing. Intact vision. Neck: Supple. No signs of meningeal irritation. Cardiovascular: Regular rate and rhythm, tachycardia. Respiratory: Clear to auscultation. No wheezes. Gastrointestinal: Soft abdomen, nontender. Musculoskeletal: Moves extremities on the right side, hemiplegic on the right. Neurological: awake, alert, speaks and voice words, soft voice, mild dysarthria , dysphagia, left facial weakness, left sided hemiparesis, right side is normal. Objective Radiology Results Last 72 hours Impressions Chest X-Ray 10/11/16 0600 Signed Impressions: Service Date/Time: Tuesday, October 11, 2016 04:28 - CONCLUSION: Normal examination. Feeding tube in good position Apolinar Koch MD Chest X-Ray 10/10/16 0600 Signed Impressions: Service Date/Time: Monday, October 10, 2016 04:51 - CONCLUSION: Normal examination. Feeding tube enters the stomach. Apolinar Koch MD Abdomen X-Ray 10/10/16 0000 Signed Impressions: Service Date/Time: Monday, October 10, 2016 04:56 - CONCLUSION: No evidence of obstruction. Feeding tube enters the stomach. Apolinar Koch MD Abdomen X-Ray 10/09/16 0000 Signed Impressions: Service Date/Time: Sunday, October 09, 2016 16:54 - CONCLUSION: 1. The tip of the feeding tube is in the distal antrum. Reggie Conner MD Abdomen X-Ray 10/09/16 0000 Signed Impressions: Service Date/Time: Sunday, October 09, 2016 10:07 - CONCLUSION: Feeding tube tip in the mid stomach. Allen Hubbard MD Head CT 10/08/16 1600 Signed Impressions: Service Date/Time: Saturday, October 08, 2016 16:10 - CONCLUSION: 1. Prominent nonspecific white matter changes. 2. Old area of encephalomalacia in the occipital/parietal lobe. 3. No hemorrhage. Morales Pendleton MD Micro and Labs Laboratory Tests Test 10/11/16 04:00 White Blood Count 8.3 Red Blood Count 5.16 Hemoglobin 12.2 Hematocrit 38.4 Mean Corpuscular Volume 74.4 Mean Corpuscular Hemoglobin 23.7 Mean Corpuscular Hemoglobin 31.9 Concent Red Cell Distribution Width 14.5 Platelet Count 159 Mean Platelet Volume 9.0 Neutrophils (%) (Auto) 70.4 Lymphocytes (%) (Auto) 22.4 Monocytes (%) (Auto) 6.8 Eosinophils (%) (Auto) 0.1 Basophils (%) (Auto) 0.3 Neutrophils # (Auto) 5.8 Lymphocytes # (Auto) 1.8 Monocytes # (Auto) 0.6 Eosinophils # (Auto) 0.0 Basophils # (Auto) 0.0 CBC Comment DIFF FINAL Differential Comment Sodium Level 143 Potassium Level 3.5 Chloride Level 113 Carbon Dioxide Level 22.0 Anion Gap 8 Blood Urea Nitrogen 13 Creatinine 0.89 Estimat Glomerular Filtration 103 Rate Random Glucose 125 Calcium Level 8.9 Phosphorus Level 2.3 Magnesium Level 2.3 Alla Ponce MD Oct 11, 2016 08:46
[2016-10-11] MEDS: POTASSIUM PHOSPHATE INJ 30 MMOL in SODIUM CHLOR 0.9% 250 ML INJ 250 ML IV PRN (10:14)
--- NOTE | 2016-10-11 10:26 | HHI.CCPN ---
Subjective Remarks/Hospital Course 71-year-old male with a poorly managed hypertension, hepatitis C, depression, PTSD, memory loss, and BPH that presents as a stroke alert. He was sitting out on his back porch with a friend, who noticed that something was not quite right with him. The friend called out to the patient's and she saw that he was trying to get up from the chair but was unable to do so, his speech was slurred and the left side of his body appeared weak. He was recently diagnosed with hypertension at the [facility] about 2-3 weeks ago. He was started on antihypertensive medication which she thinks is lisinopril. 10/08: Flaccid left arm, weak left leg, left facial droop. Out of window for tPA and BP not easily controlled last night apparently. 10/09: Transmitted upper airway sounds noted. He is suctioning himself using Y[place]auer with right hand. Continues flaccid left upper extremity, weak left lower extremity and left facial droop. 10/10: Required additional Precedex overnight due to agitation but slept well. Protecting airway adequately. Denies chest pain. Seen by Dr. Chaidez/ cardiology this AM. Added Norvasc. Subjective 10/11: Continues on low-dose Precedex at 0.3. Left upper extremity s remains o flaccid. Flat affect. Tolerating tube feeding. Objective Vital Signs Date Time Temp Pulse Resp B/P Pulse Ox O2 Delivery O2 Flow Rate FiO2 10/11/16 10:00 93 10/11/16 08:18 100 Nasal Cannula 2.00 10/11/16 08:00 97.8 17 166/99 10/09/16 09:00 21 Intake and Output 10/10/16 10/10/16 10/11/16 08:00 16:00 00:00 Intake Total 664 ml 582 ml 1016 ml Output Total 300 ml 575 ml 900 ml Balance 364 ml 7 ml 116 ml Result Diagram: 10/11/16 0400 10/11/16 0400 Imaging Last Impressions Chest X-Ray 10/11/16 0600 Signed Impressions: Service Date/Time: Tuesday, October 11, 2016 04:28 - CONCLUSION: Normal examination. Feeding tube in good position Apolinar Koch MD Abdomen X-Ray 10/10/16 0000 Signed Impressions: Service Date/Time: Monday, October 10, 2016 04:56 - CONCLUSION: No evidence of obstruction. Feeding tube enters the stomach. Apolinar Koch MD Head CT 10/08/16 1600 Signed Impressions: Service Date/Time: Saturday, October 08, 2016 16:10 - CONCLUSION: 1. Prominent nonspecific white matter changes. 2. Old area of encephalomalacia in the occipital/parietal lobe. 3. No hemorrhage. Morales Pendleton MD CT Angiography 10/08/16 0000 Signed Impressions: Service Date/Time: Saturday, October 08, 2016 03:02 - CONCLUSION: There is no evidence for PE for technique. KMatt Jacobson MD Neck CTA 10/07/16 1454 Signed Impressions: Service Date/Time: Friday, October 07, 2016 15:12 - CONCLUSION: Negative CTA of the carotids. Mio Coulter MD Head CTA 10/07/16 1454 Signed Impressions: Service Date/Time: Friday, October 07, 2016 15:12 - CONCLUSION: 1. No evidence of central truncation or aneurysm. 2. The largest intracranial metallic density , located near the left brain stem obscures a portion of the left posterior cerebral artery. The diameter of the left posterior cerebral artery distal to the metallic density is normal. Mio Coulter MD Objective Remarks GENERAL: 71-year-old male, critically ill currently resting in bed SKIN: Warm and dry. HEAD: Normocephalic. EYES: Pupils are equally reactive 3 mm bilaterally. Right deviation of right eye No scleral icterus. No injection or drainage. NECK: Supple, trachea midline. Airway open but some secretions. CARDIOVASCULAR: Regular rate and rhythm without murmurs, gallops, or rubs. RESPIRATORY: Breath sounds equal bilaterally. Transmitted upper airway sounds. Few scattered rhonchi. GASTROINTESTINAL: Abdomen soft, non-tender, nondistended. MUSCULOSKELETAL: No significant peripheral edema. BACK: Nontender without obvious deformity. No CVA tenderness. EXTREMITIES: No clubbing cyanosis or edema, left upper extremity weakness, NEURO: Flaccid left arm, weak left leg, left facial droop. Vision field cut left-sided. Speech slurred. Follows commands. Toes down right, up left. DTRs patellar 3+ deepa. No clonus. 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 No acute intra-abnormality CTA head and neck 10/07 revealed no focal stenosis or aneurysms Followed by Dr. Ponce/neurology On Paxil 20 mg by mouth daily for anxiety Currently on Precedex 0.3 g Aspirin 81 mg by mouth daily [place] for pain management Discuss with neurology. Acute for low-dose Seroquel started 25 twice a day for agitation attempt to wean off Precedex. CV: Hypertensive urgency History dyslipidemia Likely chronic diastolic heart failure Elevated troponin 0.12 Off Cardene drip to keep systolic blood pressure less than 180 Current allow permissive hypertension On Lopressor 2.5 IV every 6, Norvasc 5 daily and lisinopril 2.5 daily. With CVA gentle decrease in blood pressure. 2-D echocardiogram revealed EF 50-55%. Grade 1 diastolic dysfunction. Left atrium mildly dilated. DAYAN 32 mmHg Elevated troponin likely straindemand ischemia secondary to hypertension. No indication for intervention at this time Seen by DR. Chaidez.cardiology. Continue Lipitor 80 mg at night for dyslipidemia Resp: Nasal cannula to maintain saturations currently 92% Incentive or on entry while awake Strict aspiration precautions GI: Hepatitis C Gastroesophageal reflux disease Continue Dobbhoff tube to initiate tube feedings vital 1.5 goal 55 cc an hour Dietary consultation tube feed recommendations. As above Pepcid for GI prophylaxis Gilda-Colace for bowel regimen Speech therapy swallow evaluation : BPH Vann if indicated for accurate I's and O's in a critically ill patient Endo: Sliding-scale insulin if indicated to maintain euglycemia Renal: Monitor urine output Accurate I's and O's Heme: Microcytic anemia CBC recheck in a.m. ID: Monitor for infection MSK: PT/OT evaluate and treat FEN: Electrolytes Recheck in a.m. Access - Utilize peripheral IV. Central line if indicated Prophylaxis - GI - Protonix - DVT - SCD/heparin subcutaneous Critical Care: The totall care time was 35 minutes. Time to perform other separately billable procedures was not included in the critical care time. Rickey Barraza MD Oct 11, 2016 10:26
--- NOTE | 2016-10-11 10:29 | PD.CARD.PN ---
Subjective Subjective Remarks No events over night Denies chest pain, no shortness of breath Objective Medications Current Medications Medications (Trade) Dose Ordered Sig/Percy Route Start Time Stop Time Status Last Admin (NS 1000 ml Inj) 1,000 ml @ 75 mls/hr [id number] IV 10/07/16 17:00 10/11/16 01:25 (NS Flush) 2 ml UNSCH PRN IV FLUSH 10/07/16 16:45 (NS Flush) 2 ml BID IV FLUSH 10/07/16 21:00 10/10/16 20:26 (Folate) 1 mg DAILY PO 10/08/16 09:00 10/11/16 08:34 (Tylenol) 650 mg Q4H PRN PO 10/07/16 16:45 ([place] 5-325 Mg) 1 tab Q6HR PRN PO 10/07/16 16:45 ([place] 10-325 Mg) 1 tab Q6H PRN PO 10/07/16 16:45 (Zofran Inj) 4 mg Q6H PRN IVP 10/07/16 17:00 (Restoril) 15 mg HS PRN PO 10/07/16 17:00 10/07/16 20:22 (Gilda-Colace) 1 tab BID PO 10/07/16 21:00 10/10/16 20:26 (Milk Of Magnesia Liq) 30 ml Q12H PRN PO 10/07/16 17:00 (Senokot) 17.2 mg Q12H PRN PO 10/07/16 17:00 (Dulcolax Supp) 10 mg DAILY PRN RECTAL 10/07/16 17:00 (Lactulose Liq) 30 ml DAILY PRN PO 10/07/16 17:00 Clonidine 0.1 mg 0.1 mg Q6H PRN PO 10/08/16 00:30 (Precedex Inj/NS Inj) 52 ml @ 0 mls/hr TITRATE IV 10/08/16 05:30 10/11/16 02:41 Paroxetine HCl 20 mg 20 mg DAILY NG 10/08/16 09:00 10/11/16 08:33 Potassium Chloride 100 ml @ 50 mls/hr Q2H PRN IV 10/08/16 06:45 (KCl 20 Meq Premix Inj) 100 ml @ 50 mls/hr Q2H PRN IV 10/08/16 06:45 10/08/16 12:46 Potassium Bicarb/ Potassium Chloride 50 meq 50 meq UNSCH PRN PO 10/08/16 06:45 Potassium Chloride 100 ml @ 25 mls/hr UNSCH PRN IV 10/08/16 06:45 Potassium Chloride 100 ml @ 50 mls/hr Q2H PRN IV 10/08/16 06:45 (Magnesium Sulfate Inj/NS Inj) 100 ml @ 50 mls/hr UNSCH PRN IV 10/08/16 06:45 Magnesium Oxide 800 mg 800 mg UNSCH PRN PO 10/08/16 06:45 (Magnesium Sulfate Inj/NS Inj) 100 ml @ 50 mls/hr UNSCH PRN IV 10/08/16 06:45 Potassium Phosphate 2000 mg 2,000 mg Q4H PRN PO 10/08/16 06:45 (Sodium Phosphate Inj/NS 250 ml Inj) 250 ml @ 42 mls/hr UNSCH PRN IV 10/08/16 06:45 Potassium Phosphate 2000 mg 2,000 mg UNSCH PRN PO/TUBE 10/08/16 06:45 (Potassium Phosphate Inj/NS 250 ml Inj) 260 ml @ 42 mls/hr UNSCH PRN IV 10/08/16 06:45 10/11/16 10:14 (Heparin Inj) 5,000 units BID SQ 10/08/16 13:00 10/11/16 08:33 (Pepcid Inj) 20 mg Q12H IV PUSH 10/08/16 13:00 10/11/16 02:38 (Trandate Inj) 10 mg Q1HR PRN IV PUSH 10/09/16 11:00 Hydralazine HCl 10 mg 10 mg Q1HR PRN IV PUSH 10/09/16 10:30 10/10/16 16:12 (Cardene Inj/NS 250 ml Inj) 260 ml @ 0 mls/hr TITRATE IV 10/09/16 13:30 10/10/16 20:25 (Aspirin Chew) 81 mg DAILY CHEW 10/09/16 15:00 10/11/16 08:33 (Lopressor Inj) 2.5 mg Q6H IV PUSH 10/09/16 18:00 10/10/16 17:26 (Prinivil) 2.5 mg DAILY PO 10/09/16 17:30 10/11/16 08:33 (Pill Splitter) 1 ea UNSCH PRN OTHER 10/09/16 18:00 (Lipitor) 80 mg HS PO 10/10/16 21:00 10/10/16 20:25 (Norvasc) 5 mg DAILY PO 10/10/16 12:00 10/11/16 08:33 (SEROquel) 25 mg BID PO 10/11/16 10:30 UNV Vital Signs / I&O Vital Signs Date Time Temp Pulse Resp B/P Pulse Ox O2 Delivery O2 Flow Rate FiO2 10/11/16 10:00 93 10/11/16 08:18 100 Nasal Cannula 2.00 10/11/16 08:00 62 10/11/16 08:00 97.8 62 17 166/99 100 10/11/16 07:00 100 Nasal Cannula 2.00 10/11/16 06:00 57 10/11/16 04:00 57 10/11/16 04:00 97.9 57 12 117/89 100 10/11/16 02:00 60 10/11/16 00:00 54 10/11/16 00:00 97.7 54 14 135/93 99 10/10/16 22:00 65 10/10/16 20:00 72 10/10/16 20:00 98.7 92 22 142/90 99 10/10/16 19:15 98 2.00 10/10/16 19:00 100 Nasal Cannula 2.00 10/10/16 18:00 67 10/10/16 16:00 64 10/10/16 16:00 98.4 84 24 147/87 100 10/10/16 14:00 66 10/10/16 12:00 91 10/10/16 12:00 98.4 91 24 181/115 100 I/O 10/10/16 10/10/16 10/10/16 10/11/16 10/11/16 10/11/16 07:00 15:00 23:00 07:00 15:00 23:00 Intake Total 664 ml 582 ml 1016 ml 858 ml Output Total 300 ml 575 ml 900 ml 350 ml Balance 364 ml 7 ml 116 ml 508 ml IV Total 664 ml 582 ml 710 ml 631 ml Tube Feeding 216 ml 227 ml Other 90 ml 0 ml Output Urine Total 300 ml 575 ml 900 ml 350 ml # Bowel Movements 0 1 0 0 Physical Exam GENERAL: NAD SKIN: Warm and dry. HEAD: Atraumatic. Normocephalic. EYES: Pupils equal and round. No scleral icterus. No injection or drainage. ENT: No nasal bleeding or discharge. Mucous membranes pink and moist. NECK: Trachea midline. No JVD. CARDIOVASCULAR: Regular rate and rhythm. RESPIRATORY: No accessory muscle use. Clear to auscultation. Breath sounds equal bilaterally. GASTROINTESTINAL: Abdomen soft, non-tender, nondistended. Hepatic and splenic margins not palpable. MUSCULOSKELETAL: Extremities without clubbing, cyanosis, or edema. No obvious deformities. NEUROLOGICAL: Awake and alert. Left facial droop. Left arm/leg flaccid PSYCHIATRIC: Appropriate mood and affect; insight and judgment normal. Laboratory Laboratory Tests Test 10/11/16 04:00 White Blood Count 8.3 TH/MM3 Red Blood Count 5.16 MIL/MM3 Hemoglobin 12.2 GM/DL Hematocrit 38.4 % Mean Corpuscular Volume 74.4 FL Mean Corpuscular Hemoglobin 23.7 PG Mean Corpuscular Hemoglobin 31.9 % Concent Red Cell Distribution Width 14.5 % Platelet Count 159 TH/MM3 Mean Platelet Volume 9.0 FL Neutrophils (%) (Auto) 70.4 % Lymphocytes (%) (Auto) 22.4 % Monocytes (%) (Auto) 6.8 % Eosinophils (%) (Auto) 0.1 % Basophils (%) (Auto) 0.3 % Neutrophils # (Auto) 5.8 TH/MM3 Lymphocytes # (Auto) 1.8 TH/MM3 Monocytes # (Auto) 0.6 TH/MM3 Eosinophils # (Auto) 0.0 TH/MM3 Basophils # (Auto) 0.0 TH/MM3 CBC Comment DIFF FINAL Differential Comment Sodium Level 143 MEQ/L Potassium Level 3.5 MEQ/L Chloride Level 113 MEQ/L Carbon Dioxide Level 22.0 MEQ/L Anion Gap 8 MEQ/L Blood Urea Nitrogen 13 MG/DL Creatinine 0.89 MG/DL Estimat Glomerular Filtration 103 ML/MIN Rate Random Glucose 125 MG/DL Calcium Level 8.9 MG/DL Phosphorus Level 2.3 MG/DL Magnesium Level 2.3 MG/DL Assessment and Plan Problem List: (1) Acute ischemic stroke (2) Acute left hemiparesis (3) Hypertensive emergency (4) BPH (benign prostatic hyperplasia) (5) Elevated troponin Assessment and Plan 1) HTN emergency/Acute ischemic CVA 2) Attempt BP control, added Norvasc yesterday Continue to watch, still somewhat elevated today If still elevated, Norvasc or Lisinopril can be increased 3) Troponin elevation Type 2 due to emergency HTN/Acute CVA 4) EF 50-55%, Stage 1 DD Damian Chaidez DO Oct 11, 2016 10:29
[2016-10-11] MEDS: QUEtiapine FUMARATE 25 MG TAB PO SCH ×2 (11:05→20:54)
[2016-10-11] MEDS: hydrALAZINE HCL 20 MG/ML VIAL IV PUSH PRN (12:37)
[2016-10-11] MEDS ORDERED: ZIPRASIDONE MESYLATE 20 MG VIAL IM ONE (13:45)
--- NOTE | 2016-10-11 15:01 | RADRPT ---
EXAM DATE/TIME: 10/11/2016 13:45 [facility] COMPARISON: CHEST SINGLE AP, October 11, 2016, 4:28. INDICATIONS : Short of breath. Best image possible due to patient condition and per Dr. Barraza no repeat necessary. MEDICAL HISTORY : Hepatitis C. Hypertension Cardiovascular disease. SURGICAL HISTORY : None. ENCOUNTER: Subsequent ACUITY: 4 - 6 days PAIN SCORE: 0/10 LOCATION: Bilateral chest FINDINGS: Interval removal of feeding type nasoenteric catheter. No significant new pleural or parenchymal opac ities. Cardiomediastinal contours are within normal limits. Remainder of the exam is unchanged. CONCLUSION: 1. Interval removal of feeding type nasoenteric catheter. 2. Otherwise, no significant interval change. Aaron Mejia MD on October 11, 2016 at 14:57 Board Certified Radiologist. This report was verified electronically.
--- NOTE | 2016-10-11 15:42 | HHI.FPPN ---
Subjective Remarks No acute events. Patient still not moving left side much at all. He is starting to acknowledge the left side of the room more. He is communicating by writing. Still not verbalizing much. Still has left face drooping. He has Dobhoff tube in place and is tolerating feeds. Plan is to wean off Precedex and start Seroquel at night for agitation. He did well overnight and did not have significant agitation. (Javier Canseco MD R2) Objective Vitals Vital Signs Date Time Temp Pulse Resp B/P Pulse Ox O2 Delivery O2 Flow Rate FiO2 10/11/16 14:00 85 10/11/16 12:00 68 10/11/16 12:00 99.1 68 15 160/102 100 10/11/16 10:00 93 10/11/16 08:18 100 Nasal Cannula 2.00 10/11/16 08:00 62 10/11/16 08:00 97.8 62 17 166/99 100 10/11/16 07:00 100 Nasal Cannula 2.00 10/11/16 06:00 57 10/11/16 04:00 57 10/11/16 04:00 97.9 57 12 117/89 100 10/11/16 02:00 60 10/11/16 00:00 54 10/11/16 00:00 97.7 54 14 135/93 99 10/10/16 22:00 65 10/10/16 20:00 72 10/10/16 20:00 98.7 92 22 142/90 99 10/10/16 19:15 98 2.00 10/10/16 19:00 100 Nasal Cannula 2.00 10/10/16 18:00 67 10/10/16 16:00 64 10/10/16 16:00 98.4 84 24 147/87 100 I/O 10/10/16 10/10/16 10/10/16 10/11/16 10/11/16 10/11/16 07:00 15:00 23:00 07:00 15:00 23:00 Intake Total 664 ml 582 ml 1016 ml 858 ml 1352 ml Output Total 300 ml 575 ml 900 ml 350 ml 1100 ml Balance 364 ml 7 ml 116 ml 508 ml 252 ml IV Total 664 ml 582 ml 710 ml 631 ml 983 ml Tube Feeding 216 ml 227 ml 369 ml Other 90 ml 0 ml Output Urine Total 300 ml 575 ml 900 ml 350 ml 1100 ml # Bowel Movements 0 1 0 0 0 (Javier Canseco MD R2) Result Diagram: 10/11/16 0400 10/11/16 0400 Imaging Last 72 hours Impressions Chest X-Ray 10/11/16 0600 Signed Impressions: Service Date/Time: Tuesday, October 11, 2016 04:28 - CONCLUSION: Normal examination. Feeding tube in good position Apolinar Koch MD Chest X-Ray 10/11/16 0000 Signed Impressions: Service Date/Time: Tuesday, October 11, 2016 13:45 - CONCLUSION: 1. Interval removal of feeding type nasoenteric catheter. 2. Otherwise, no significant interval change. Aaron Mejia MD Chest X-Ray 10/10/16 0600 Signed Impressions: Service Date/Time: Monday, October 10, 2016 04:51 - CONCLUSION: Normal examination. Feeding tube enters the stomach. Apolinar Koch MD Abdomen X-Ray 10/10/16 0000 Signed Impressions: Service Date/Time: Monday, October 10, 2016 04:56 - CONCLUSION: No evidence of obstruction. Feeding tube enters the stomach. Apolinar Koch MD Abdomen X-Ray 10/09/16 0000 Signed Impressions: Service Date/Time: Sunday, October 09, 2016 16:54 - CONCLUSION: 1. The tip of the feeding tube is in the distal antrum. Reggie Conner MD Abdomen X-Ray 10/09/16 0000 Signed Impressions: Service Date/Time: Sunday, October 09, 2016 10:07 - CONCLUSION: Feeding tube tip in the mid stomach. Allen Hubbard MD Head CT 10/08/16 1600 Signed Impressions: Service Date/Time: Saturday, October 08, 2016 16:10 - CONCLUSION: 1. Prominent nonspecific white matter changes. 2. Old area of encephalomalacia in the occipital/parietal lobe. 3. No hemorrhage. Morales Pendleton MD Objective Remarks GENERAL: Lying in bed, tracking with eyes on right side, some on the left side now, following commands, writes to communicate SKIN: Warm and dry. No rashes. EYES: No scleral icterus. No injection or drainage. PERRLA. EOMI. HENT: Atraumatic. Moist mucous membranes. NECK: No visible JVD or lymphadenopathy. CARDIOVASCULAR: Tachycardic without murmurs rubs or gallops RESPIRATORY: Clear to auscultation bilaterally. Transmitted upper airway sounds. GASTROINTESTINAL: Abdomen nondistended. MUSCULOSKELETAL: Left facial droop. Left arm and left leg weakness BACK: Without obvious deformity. NEURO/PSYCH: Awake, alert, and oriented x3. PERRLA. Tracking with eyes. Slurred speech, not verbalizing much. Left side upper and lower extremity not moving much. Left facial droop persistent. Minimal twitching of left foot. Not moving left arm. Following commands. (Javier Canseco MD R2) A/P Assessment and Plan 71-year-old male with acute CVA and left sided weakness. Discussed with Dr. Todd, Dr. Ash Discharge Planning Pending clinical improvement and neurology recommendations, will likely require intensive rehab. (Javier Canseco MD R2) Attending Attestation Patient seen and examined. Case reviewed and discussed with the resident team. Agree with plan of care as discussed with me and documented in the resident note. Family requested that we obtain medication list from [place]. Consent was obtained; given to cemetery warden to fax to [place]. (Nicole Ash MD) Problem List: (1) Acute ischemic stroke Status: Acute Plan: Evidence of left facial droop and left hemiparesis on exam. CT head 2 negative for acute bleed. CTA carotids within normal limits. Unable to perform MRI due to metallic plate in cranium. ECHO with grade 1 diastolic dysfunction. Lipid profile only significant for 33.2 HDL, triglycerides, cholesterol, and LDL cholesterol WNL. A1C 5.4. - Neurology consulted - Critical care consulted - Cardiology consulted - Regular neuro checks - Cardiac telemetry - Aspirin 81 mg by mouth daily - Started beta mariposa, lisinopril, amlodipine. Titrate up to effect. - Requiring Dobhoff for feeding due to swallowing difficulties. Speech therapy on board. - Aspiration precautions - Avoid restraints as much as possible - Blinds open in day, dark and quiet at night - Wean off Precedex drip and start on low dose Seroquel - Likely rehab at discharge (2) Chronic Medical Problems Status: Acute Plan: * Hepatitis C: Hepatitis C positive * PTSD/anxiety: Paroxetine 20mg NG daily when tolerating by mouth, Seroquel low dose started today (3) FEN/DVT PPX/GI PPX/Nursing Orders Status: Acute Plan: Fluids: NS @ 75 mls/hr IV Electrolytes: Will monitor and replace as needed. On ICU electrolyte replacement protocol Nutrition: Dobhoff tube due to aspiration risk, speech therapy on board DVT Prophylaxis: Bilateral SCDs GI Prophylaxis: Famotidine 20 mg IV twice a day Case management has been consulted to assist with disposition needs PT has been consulted to assist with mobility and disposition needs Likely will need PT at rehab (Javier Canseco MD R2) Javier Canseco MD R2 Oct 11, 2016 15:42 Nicole Ash MD Oct 11, 2016 15:53
[2016-10-11] MEDS: LABETALOL HCL 100 MG/20 ML VIAL IV PUSH PRN (16:44)
--- NOTE | 2016-10-11 18:34 | RADRPT ---
EXAM DATE/TIME: 10/11/2016 17:20 [facility] COMPARISON: ABDOMEN SINGLE VIEW, October 10, 2016, 4:56. INDICATIONS : Dobhoff tube placement. MEDICAL HISTORY : None. SURGICAL HISTORY : None. ENCOUNTER: Initial ACUITY: 1 day PAIN SCORE: Non-responsive. LOCATION: Bilateral upper quadrant abdomen. FINDINGS: A single AP supine portable view of the upper abdomen was obtained and demonstrates a Dobbhoff feedin g tube with the tip coiled in the stomach. The bowel gas pattern remains unremarkable. There is mild patchy opacity at the left lung base. There is no free air. The bony structures are intact. CONCLUSION: Feeding tube with the tip coiled in the stomach. Javier Baltazar MD on October 11, 2016 at 18:31 Board Certified Radiologist. This report was verified electronically.
--- NOTE | 2016-10-11 20:13 | EKG ---
Date Performed: 10/10/2016 Time Performed: 09:38:32 PTAGE: 71 years EKG: Sinus rhythm . Poor R wave progression - probable normal variant Lateral ST elevation, consider acute infarct vs e ortiz repolarization Abnormal ECG Compared to the PREVIOUS TRACING from 10/07/16, previously sinus tachycardia with baseline artifact affect ing comparison DOCTOR: Damian Chaidez Interpretating Date/Time 10/11/2016 20:13:14
[2016-10-11] MEDS: ATORVASTATIN 80 MG TAB PO SCH (20:54)
[2016-10-11] MEDS: GABAPENTIN 250 MG/5 ML UDC NG SCH (20:57)
[2016-10-12] VITALS (15 sets, daily range): BP systolic 81–210; BP diastolic 48–107; PULSE 51–80; RESP 12–24; TEMP 98–99; O2SAT 97–100
[2016-10-12] MEDS: METOPROLOL TARTRATE 5 MG/5 ML VIAL IV PUSH SCH ×2 (00:29→05:57)
[2016-10-12] MEDS: FAMOTIDINE 20 MG/2 ML VIAL IV PUSH SCH (00:36)
[2016-10-12] MEDS: SODIUM CHLOR 0.9% 1000 ML INJ 1,000 ML IV SCH ×2 (01:30→15:43)
[2016-10-12 04:12] LABS: HEMATOCRIT 37.6 % (39.0-51.0); MEAN CELL VOLUME 74.8 FL (80.0-100.0); MEAN CORPUSCULAR HEMOGLOBIN 24.4 PG (27.0-34.0); MEAN CORPUSCULAR HGB CONC 32.6 % (32.0-36.0); PLATELET COUNT 167 TH/MM3 (150-450); RED BLOOD COUNT 5.03 MIL/MM3 (4.50-5.90); RED CELL DISTRIBUTION WIDTH 14.6 % (11.6-17.2); REVIEW FLAG FINAL; WHITE BLOOD COUNT 8.6 TH/MM3 (4.0-11.0)
[2016-10-12 04:46] LABS: POTASSIUM 3.5 MEQ/L (3.5-5.1)
[2016-10-12] MEDS: DEXMEDETOMIDINE INJ 200 MCG in SODIUM CHLORIDE 0.9% INJ 50 ML IV SCH ×3 (07:18→23:24)
[2016-10-12] MEDS: SODIUM CHLORIDE 0.9% FLUSH 10 ML FLUSH IV FLUSH SCH ×2 (09:00→21:21)
--- NOTE | 2016-10-12 09:05 | HHI.PR ---
Review/Management Diagnosis Acute ischemic stroke Hypertensive urgency. TIA. History of craniotomy, status post traumatic brain injury. Plan Neuro checks q. 1 hourly. Continue antihypertensive medications B mariposa and Lisinopril, Amlodipine Swallow and speech evaluation DVT prophylaxis, Heprain 5000 units Q 12h GI prophylaxis. PT/OT, recommendations are appreciated Gradually wean off Precedex Seroquel 25mg bid I discussed the case and plan of care with Operations Asst, Dr. Barraza. Diagnosis/Plan: Subjective Subjective Comments No acute events reported Awake, calm Voices a few words NG tube in place Low dose of Precedex BP and HR under good control overnight Active Medications Current Medications Medications (Trade) Dose Ordered Sig/Percy Route Start Time Stop Time Status Last Admin (NS 1000 ml Inj) 1,000 ml @ 75 mls/hr [id number] IV 10/07/16 17:00 10/12/16 01:30 (NS Flush) 2 ml UNSCH PRN IV FLUSH 10/07/16 16:45 (NS Flush) 2 ml BID IV FLUSH 10/07/16 21:00 10/11/16 20:55 (Folate) 1 mg DAILY PO 10/08/16 09:00 10/11/16 08:34 (Tylenol) 650 mg Q4H PRN PO 10/07/16 16:45 ([place] 5-325 Mg) 1 tab Q6HR PRN PO 10/07/16 16:45 ([place] 10-325 Mg) 1 tab Q6H PRN PO 10/07/16 16:45 (Zofran Inj) 4 mg Q6H PRN IVP 10/07/16 17:00 (Restoril) 15 mg HS PRN PO 10/07/16 17:00 10/07/16 20:22 (Gilda-Colace) 1 tab BID PO 10/07/16 21:00 10/11/16 20:54 (Milk Of Magnesia Liq) 30 ml Q12H PRN PO 10/07/16 17:00 (Senokot) 17.2 mg Q12H PRN PO 10/07/16 17:00 (Dulcolax Supp) 10 mg DAILY PRN RECTAL 10/07/16 17:00 (Lactulose Liq) 30 ml DAILY PRN PO 10/07/16 17:00 Clonidine 0.1 mg 0.1 mg Q6H PRN PO 10/08/16 00:30 (Precedex Inj/NS Inj) 52 ml @ 0 mls/hr TITRATE IV 10/08/16 05:30 10/12/16 07:18 Paroxetine HCl 20 mg 20 mg DAILY NG 10/08/16 09:00 10/11/16 08:33 Potassium Chloride 100 ml @ 50 mls/hr Q2H PRN IV 10/08/16 06:45 (KCl 20 Meq Premix Inj) 100 ml @ 50 mls/hr Q2H PRN IV 10/08/16 06:45 10/08/16 12:46 Potassium Bicarb/ Potassium Chloride 50 meq 50 meq UNSCH PRN PO 10/08/16 06:45 Potassium Chloride 100 ml @ 25 mls/hr UNSCH PRN IV 10/08/16 06:45 Potassium Chloride 100 ml @ 50 mls/hr Q2H PRN IV 10/08/16 06:45 (Magnesium Sulfate Inj/NS Inj) 100 ml @ 50 mls/hr UNSCH PRN IV 10/08/16 06:45 Magnesium Oxide 800 mg 800 mg UNSCH PRN PO 10/08/16 06:45 (Magnesium Sulfate Inj/NS Inj) 100 ml @ 50 mls/hr UNSCH PRN IV 10/08/16 06:45 Potassium Phosphate 2000 mg 2,000 mg Q4H PRN PO 10/08/16 06:45 (Sodium Phosphate Inj/NS 250 ml Inj) 250 ml @ 42 mls/hr UNSCH PRN IV 10/08/16 06:45 Potassium Phosphate 2000 mg 2,000 mg UNSCH PRN PO/TUBE 10/08/16 06:45 (Potassium Phosphate Inj/NS 250 ml Inj) 260 ml @ 42 mls/hr UNSCH PRN IV 10/08/16 06:45 10/11/16 10:14 (Heparin Inj) 5,000 units BID SQ 10/08/16 13:00 10/11/16 20:54 (Pepcid Inj) 20 mg Q12H IV PUSH 10/08/16 13:00 10/12/16 00:36 (Trandate Inj) 10 mg Q1HR PRN IV PUSH 10/09/16 11:00 10/11/16 16:44 Hydralazine HCl 10 mg 10 mg Q1HR PRN IV PUSH 10/09/16 10:30 10/11/16 12:37 (Cardene Inj/NS 250 ml Inj) 260 ml @ 0 mls/hr TITRATE IV 10/09/16 13:30 10/10/16 20:25 (Aspirin Chew) 81 mg DAILY CHEW 10/09/16 15:00 10/11/16 08:33 (Lopressor Inj) 2.5 mg Q6H IV PUSH 10/09/16 18:00 10/12/16 05:57 (Prinivil) 2.5 mg DAILY PO 10/09/16 17:30 10/11/16 08:33 (Pill Splitter) 1 ea UNSCH PRN OTHER 10/09/16 18:00 (Lipitor) 80 mg HS PO 10/10/16 21:00 10/11/16 20:54 (Norvasc) 5 mg DAILY PO 10/10/16 12:00 10/11/16 08:33 (SEROquel) 25 mg BID PO 10/11/16 11:00 10/11/16 20:54 (Neurontin Liq) 600 mg DAILY@1600 NG 10/11/16 16:00 10/11/16 20:57 (Neurontin Liq) 300 mg DAILY NG 10/12/16 09:00 (Neurontin Liq) 300 mg DAILY@12 NG 10/12/16 12:00 Allergies Allergies Coded Allergies No Known Allergies (Unverified11/17/14) Exam I&O / VS 10/11/16 10/11/16 10/12/16 15:00 23:00 07:00 Intake Total 1352 ml 659 ml 1114 ml Output Total 1100 ml Balance 252 ml 659 ml 1114 ml IV Total 983 ml 659 ml 1114 ml Tube Feeding 369 ml 0 ml Output Urine Total 1100 ml # Bowel Movements 0 1 2 Vital Signs Date Time Temp Pulse Resp B/P Pulse Ox O2 Delivery O2 Flow Rate FiO2 10/12/16 08:19 100 Nasal Cannula 2.00 10/12/16 07:00 100 Nasal Cannula 2.00 10/12/16 06:00 62 10/12/16 04:00 62 10/12/16 04:00 98.0 60 20 120/82 100 10/12/16 02:00 59 10/12/16 00:00 66 10/12/16 00:00 99.0 62 12 108/64 100 10/11/16 22:00 61 10/11/16 20:00 61 10/11/16 20:00 99.4 61 22 144/92 100 10/11/16 19:13 100 Nasal Cannula 2.00 10/11/16 19:00 100 Nasal Cannula 2.00 10/11/16 18:00 62 10/11/16 16:00 98.0 70 16 152/104 100 10/11/16 16:00 70 10/11/16 14:00 85 10/11/16 12:00 68 10/11/16 12:00 99.1 68 15 160/102 100 10/11/16 10:00 93 Exam Comments General: awake, alert, voices a few words,Dobhoff tube in place HEENT: Atraumatic, normocephalic. Injected eyes, intact hearing. Intact vision. Neck: Supple. No signs of meningeal irritation. Cardiovascular: Regular rate and rhythm, tachycardia. Respiratory: Clear to auscultation. No wheezes. Gastrointestinal: Soft abdomen, nontender. Musculoskeletal: Moves extremities on the right side, hemiplegic on the right. Neurological: awake, alert, speaks and voices words, soft voice, mild dysarthria , dysphagia, less pronounced left facial weakness, left sided hemiparesis, right side is normal. Objective Radiology Results Last 72 hours Impressions Chest X-Ray 10/11/16 06 Signed Impressions: Service Date/Time: Tuesday, October 11, 2016 04:28 - CONCLUSION: Normal examination. Feeding tube in good position Apolinar Koch MD Chest X-Ray 10/11/16 0000 Signed Impressions: Service Date/Time: Tuesday, October 11, 2016 13:45 - CONCLUSION: 1. Interval removal of feeding type nasoenteric catheter. 2. Otherwise, no significant interval change. Aaron Mejia MD Abdomen X-Ray 10/11/16 0000 Signed Impressions: Service Date/Time: Tuesday, October 11, 2016 17:20 - CONCLUSION: Feeding tube with the tip coiled in the stomach. Javier Baltazar MD Chest X-Ray 10/10/16 0600 Signed Impressions: Service Date/Time: Monday, October 10, 2016 04:51 - CONCLUSION: Normal examination. Feeding tube enters the stomach. Apolinar Koch MD Abdomen X-Ray 10/10/16 0000 Signed Impressions: Service Date/Time: Monday, October 10, 2016 04:56 - CONCLUSION: No evidence of obstruction. Feeding tube enters the stomach. Apolinar Koch MD Micro and Labs Laboratory Tests Test 10/11/16 10/12/16 16:01 03:42 Troponin I 0.02 White Blood Count 8.6 Red Blood Count 5.03 Hemoglobin 12.3 Hematocrit 37.6 Mean Corpuscular Volume 74.8 Mean Corpuscular Hemoglobin 24.4 Mean Corpuscular Hemoglobin 32.6 Concent Red Cell Distribution Width 14.6 Platelet Count 167 Mean Platelet Volume 8.5 Sodium Level 145 Potassium Level 3.5 Chloride Level 111 Carbon Dioxide Level 24.0 Anion Gap 10 Blood Urea Nitrogen 11 Creatinine 0.92 Estimat Glomerular Filtration 99 Rate Random Glucose 97 Calcium Level 8.7 Alla Ponce MD Oct 12, 2016 09:05
--- NOTE | 2016-10-12 09:08 | HHI.CCPN ---
Subjective Remarks/Hospital Course 71-year-old male with a poorly managed hypertension, hepatitis C, depression, PTSD, memory loss, and BPH that presents as a stroke alert. He was sitting out on his back porch with a friend, who noticed that something was not quite right with him. The friend called out to the patient's and she saw that he was trying to get up from the chair but was unable to do so, his speech was slurred and the left side of his body appeared weak. He was recently diagnosed with hypertension at the [place] about 2-3 weeks ago. He was started on antihypertensive medication which she thinks is lisinopril. 10/08: Flaccid left arm, weak left leg, left facial droop. Out of window for tPA and BP not easily controlled last night apparently. 10/09: Transmitted upper airway sounds noted. He is suctioning himself using Yankauer with right hand. Continues flaccid left upper extremity, weak left lower extremity and left facial droop. 10/10: Required additional Precedex overnight due to agitation but slept well. Protecting airway adequately. Denies chest pain. Seen by Dr. Chaidez/ cardiology this AM. Added Norvasc. 10/11: Continues on low-dose Precedex at 0.3. Left upper extremity s remains o flaccid. Flat affect. Tolerating tube feeding. Subjective 10/12: Continues on low-dose Precedex. Mentation improved today. He was agitated yesterday lasting out requiring Geodon IM 10 milligrams 1. Family convinced going to cannabis withdrawal. Objective Vital Signs Date Time Temp Pulse Resp B/P Pulse Ox O2 Delivery O2 Flow Rate FiO2 10/12/16 08:19 100 Nasal Cannula 2.00 10/12/16 06:00 62 10/12/16 04:00 98.0 20 120/82 10/09/16 09:00 21 Intake and Output 10/11/16 10/11/16 10/12/16 08:00 16:00 00:00 Intake Total 858 ml 1352 ml 659 ml Output Total 350 ml 1100 ml Balance 508 ml 252 ml 659 ml Result Diagram: 10/12/16 0342 10/12/16 0342 Imaging Last Impressions Chest X-Ray 10/11/16 0600 Signed Impressions: Service Date/Time: SundayOctober 11, 2016 04:28 - CONCLUSION: Normal examination. Feeding tube in good position Apolinar Koch MD Abdomen X-Ray 10/11/16 0000 Signed Impressions: Service Date/Time: Tuesday, October 11, 2016 17:20 - CONCLUSION: Feeding tube with the tip coiled in the stomach. Javier Baltazar MD Head CT 10/08/16 1600 Signed Impressions: Service Date/Time: Saturday, October 08, 2016 16:10 - CONCLUSION: 1. Prominent nonspecific white matter changes. 2. Old area of encephalomalacia in the occipital/parietal lobe. 3. No hemorrhage. Morales Pendleton MD CT Angiography 10/08/16 0000 Signed Impressions: Service Date/Time: Saturday, October 08, 2016 03:02 - CONCLUSION: There is no evidence for PE for technique. Jed Jacobson MD Neck CTA 10/07/16 1454 Signed Impressions: Service Date/Time: Friday, October 07, 2016 15:12 - CONCLUSION: Negative CTA of the carotids. Mio Coulter MD Head CTA 10/07/16 1454 Signed Impressions: Service Date/Time: Friday, October 07, 2016 15:12 - CONCLUSION: 1. No evidence of central truncation or aneurysm. 2. The largest intracranial metallic density , located near the left brain stem obscures a portion of the left posterior cerebral artery. The diameter of the left posterior cerebral artery distal to the metallic density is normal. Mio Coulter MD Objective Remarks GENERAL: 71-year-old male, critically ill currently resting in bed SKIN: Warm and dry. HEAD: Normocephalic. EYES: Pupils are equally reactive 3 mm bilaterally. Right deviation of right eye No scleral icterus. No injection or drainage. NECK: Supple, trachea midline. Airway open but some secretions. CARDIOVASCULAR: Regular rate and rhythm without murmurs, gallops, or rubs. RESPIRATORY: Breath sounds equal bilaterally. Transmitted upper airway sounds. Few scattered rhonchi. GASTROINTESTINAL: Abdomen soft, non-tender, nondistended. MUSCULOSKELETAL: No significant peripheral edema. BACK: Nontender without obvious deformity. No CVA tenderness. EXTREMITIES: No clubbing cyanosis or edema, left upper extremity weakness, NEURO: Flaccid left arm, weak left leg, left facial droop. Vision field cut left-sided. Speech slurred. Follows commands. Toes down right, up left. DTRs patellar 3+ deepa. No clonus. 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 No acute intra-abnormality CTA head and neck 10/07 revealed no focal stenosis or aneurysms Followed by Dr. Ponce/neurology On Paxil 20 mg by mouth daily for anxiety Currently on Precedex 0.4 g Aspirin 81 mg by mouth daily [place] for pain management Discuss with neurology. Started low-dose Seroquel started 25 twice a day for agitation attempt to wean off Precedex. On Neurontin 300 mg a.m., 3 mg in 600 mg at night for cannabis withdrawal CV: Hypertensive urgency History dyslipidemia Likely chronic diastolic heart failure Elevated troponin 0.12 Off Cardene drip to keep systolic blood pressure less than 180 Current allow permissive hypertension On Norvasc 5 twice a day and lisinopril 2.5 daily. With CVA gentle decrease in blood pressure. 2-D echocardiogram revealed EF 50-55%. Grade 1 diastolic dysfunction. Left atrium mildly dilated. DAYAN 32 mmHg Elevated troponin likely straindemand ischemia secondary to hypertension. No indication for intervention at this time Seen by Dr. Chaidez.cardiology. Continue Lipitor 80 mg at night for dyslipidemia Resp: Nasal cannula to maintain saturations currently 92% Incentive or on entry while awake Strict aspiration precautions GI: Hepatitis C Gastroesophageal reflux disease Continue Dobbhoff tube to initiate tube feedings vital 1.5 goal 55 cc an hour Dietary consultation tube feed recommendations. As above Pepcid for GI prophylaxis Gilda-Colace for bowel regimen Speech therapy swallow evaluation : BPH Vann if indicated for accurate I's and O's in a critically ill patient Endo: Sliding-scale insulin if indicated to maintain euglycemia Renal: Monitor urine output Accurate I's and O's Heme: Microcytic anemia CBC recheck in a.m. ID: Monitor for infection MSK: PT/OT evaluate and treat FEN: Electrolytes Recheck in a.m. Access - Utilize peripheral IV. Central line if indicated Prophylaxis - GI - Protonix - DVT - SCD/heparin subcutaneous Critical Care: The totall care time was 35 minutes. Time to perform other separately billable procedures was not included in the critical care time. Rickey Barraza MD Oct 12, 2016 09:08
[2016-10-12] MEDS ORDERED: POTASSIUM CHLORIDE 25 MEQ EFFERVESCENT TAB NG ONE (09:15)
[2016-10-12] MEDS: DOCUSATE SODIUM 50 MG/SENNA 8.6 MG TAB PO SCH ×2 (10:07→21:20)
[2016-10-12] MEDS: LISINOPRIL 5 MG TAB PO SCH (10:08)
[2016-10-12] MEDS: QUEtiapine FUMARATE 25 MG TAB PO SCH ×2 (10:08→21:20)
[2016-10-12] MEDS: ASPIRIN 81 MG CHEW TAB CHEW SCH (10:08)
[2016-10-12] MEDS: FOLIC ACID 1 MG TAB PO SCH (10:08)
[2016-10-12] MEDS: HEPARIN SODIUM - SQ 10,000 UNITS/ML VIAL SQ SCH ×2 (10:08→21:20)
[2016-10-12] MEDS: PARoxetine HCL SUSP 20 MG/10 ML UDC NG SCH (10:09)
[2016-10-12] MEDS: GABAPENTIN 250 MG/5 ML UDC NG SCH ×3 (10:09→15:43)
--- NOTE | 2016-10-12 11:12 | RADRPT ---
EXAM DATE/TIME: 10/12/2016 10:24 [place] COMPARISON: ABDOMEN SINGLE VIEW, October 11, 2016, 17:20. INDICATIONS : Confirm NG tube placement. MEDICAL HISTORY : Stroke. Hypertension. SURGICAL HISTORY : None. ENCOUNTER: Subsequent ACUITY: 1 day PAIN SCORE: Non-responsive. LOCATION: Abdomen, upper quadrant. FINDINGS: Dobbhoff catheter is coiled in the stomach with the metallic tip directed superior new the region of the fundus. Gas is seen in nondistended loops of small and large bowel. CONCLUSION: Dobbhoff catheter tip remains within the stomach. Mio Coulter MD on October 12, 2016 at 11:07 Board Certified Radiologist. This report was verified electronically.
--- NOTE | 2016-10-12 12:41 | PD.CARD.PN ---
Subjective Subjective Remarks More lethargic today but arousable No chest pain, no shortness of breath Objective Medications Current Medications Medications (Trade) Dose Ordered Sig/Percy Route Start Time Stop Time Status Last Admin (NS 1000 ml Inj) 1,000 ml @ 75 mls/hr [id number] IV 10/07/16 17:00 10/12/16 01:30 (NS Flush) 2 ml UNSCH PRN IV FLUSH 10/07/16 16:45 (NS Flush) 2 ml BID IV FLUSH 10/07/16 21:00 10/11/16 20:55 (Folate) 1 mg DAILY PO 10/08/16 09:00 10/12/16 10:08 (Tylenol) 650 mg Q4H PRN PO 10/07/16 16:45 ([place] 5-325 Mg) 1 tab Q6HR PRN PO 10/07/16 16:45 ([place] 10-325 Mg) 1 tab Q6H PRN PO 10/07/16 16:45 (Zofran Inj) 4 mg Q6H PRN IVP 10/07/16 17:00 (Restoril) 15 mg HS PRN PO 10/07/16 17:00 10/07/16 20:22 (Gilda-Colace) 1 tab BID PO 10/07/16 21:00 10/12/16 10:07 (Milk Of Magnesia Liq) 30 ml Q12H PRN PO 10/07/16 17:00 (Senokot) 17.2 mg Q12H PRN PO 10/07/16 17:00 (Dulcolax Supp) 10 mg DAILY PRN RECTAL 10/07/16 17:00 (Lactulose Liq) 30 ml DAILY PRN PO 10/07/16 17:00 Clonidine 0.1 mg 0.1 mg Q6H PRN PO 10/08/16 00:30 (Precedex Inj/NS Inj) 52 ml @ 0 mls/hr TITRATE IV 10/08/16 05:30 10/12/16 07:18 Paroxetine HCl 20 mg 20 mg DAILY NG 10/08/16 09:00 10/12/16 10:09 Potassium Chloride 100 ml @ 50 mls/hr Q2H PRN IV 10/08/16 06:45 (KCl 20 Meq Premix Inj) 100 ml @ 50 mls/hr Q2H PRN IV 10/08/16 06:45 10/08/16 12:46 Potassium Bicarb/ Potassium Chloride 50 meq 50 meq UNSCH PRN PO 10/08/16 06:45 Potassium Chloride 100 ml @ 25 mls/hr UNSCH PRN IV 10/08/16 06:45 Potassium Chloride 100 ml @ 50 mls/hr Q2H PRN IV 10/08/16 06:45 (Magnesium Sulfate Inj/NS Inj) 100 ml @ 50 mls/hr UNSCH PRN IV 10/08/16 06:45 Magnesium Oxide 800 mg 800 mg UNSCH PRN PO 10/08/16 06:45 (Magnesium Sulfate Inj/NS Inj) 100 ml @ 50 mls/hr UNSCH PRN IV 10/08/16 06:45 Potassium Phosphate 2000 mg 2,000 mg Q4H PRN PO 10/08/16 06:45 (Sodium Phosphate Inj/NS 250 ml Inj) 250 ml @ 42 mls/hr UNSCH PRN IV 10/08/16 06:45 Potassium Phosphate 2000 mg 2,000 mg UNSCH PRN PO/TUBE 10/08/16 06:45 (Potassium Phosphate Inj/NS 250 ml Inj) 260 ml @ 42 mls/hr UNSCH PRN IV 10/08/16 06:45 10/11/16 10:14 (Heparin Inj) 5,000 units BID SQ 10/08/16 13:00 10/12/16 10:08 (Trandate Inj) 10 mg Q1HR PRN IV PUSH 10/09/16 11:00 10/11/16 16:44 Hydralazine HCl 10 mg 10 mg Q1HR PRN IV PUSH 10/09/16 10:30 10/11/16 12:37 (Cardene Inj/NS 250 ml Inj) 260 ml @ 0 mls/hr TITRATE IV 10/09/16 13:30 10/10/16 20:25 (Aspirin Chew) 81 mg DAILY CHEW 10/09/16 15:00 10/12/16 10:08 (Prinivil) 2.5 mg DAILY PO 10/09/16 17:30 10/12/16 10:08 (Pill Splitter) 1 ea UNSCH PRN OTHER 10/09/16 18:00 (Lipitor) 80 mg HS PO 10/10/16 21:00 10/11/16 20:54 (SEROquel) 25 mg BID PO 10/11/16 11:00 10/12/16 10:08 (Neurontin Liq) 600 mg DAILY@1600 NG 10/11/16 16:00 10/11/16 20:57 (Neurontin Liq) 300 mg DAILY NG 10/12/16 09:00 10/12/16 10:09 (Neurontin Liq) 300 mg DAILY@12 NG 10/12/16 12:00 (Norvasc) 5 mg BID PO 10/12/16 21:00 (Prevacid Odt) 30 mg DAILY NG 10/13/16 09:00 Vital Signs / I&O Vital Signs Date Time Temp Pulse Resp B/P Pulse Ox O2 Delivery O2 Flow Rate FiO2 10/12/16 12:00 70 10/12/16 12:00 98.0 70 19 146/101 100 10/12/16 10:00 69 10/12/16 08:19 100 Nasal Cannula 2.00 10/12/16 08:00 51 10/12/16 08:00 98.2 51 15 149/80 100 10/12/16 07:00 100 Nasal Cannula 2.00 10/12/16 06:00 62 10/12/16 04:00 62 10/12/16 04:00 98.0 60 20 120/82 100 10/12/16 02:00 59 10/12/16 00:00 66 10/12/16 00:00 99.0 62 12 108/64 100 10/11/16 22:00 61 10/11/16 20:00 61 10/11/16 20:00 99.4 61 22 144/92 100 10/11/16 19:13 100 Nasal Cannula 2.00 10/11/16 19:00 100 Nasal Cannula 2.00 10/11/16 18:00 62 10/11/16 16:00 98.0 70 16 152/104 100 10/11/16 16:00 70 10/11/16 14:00 85 I/O 10/11/16 10/11/16 10/11/16 10/12/16 10/12/16 10/12/16 07:00 15:00 23:00 07:00 15:00 23:00 Intake Total 858 ml 1352 ml 659 ml 1114 ml Output Total 350 ml 1100 ml Balance 508 ml 252 ml 659 ml 1114 ml IV Total 631 ml 983 ml 659 ml 1114 ml Tube Feeding 227 ml 369 ml 0 ml Other 0 ml Output Urine Total 350 ml 1100 ml # Bowel Movements 0 0 1 2 Physical Exam GENERAL: NAD SKIN: Warm and dry. HEAD: Atraumatic. Normocephalic. EYES: Pupils equal and round. No scleral icterus. No injection or drainage. ENT: No nasal bleeding or discharge. Mucous membranes pink and moist. NECK: Trachea midline. No JVD. CARDIOVASCULAR: Regular rate and rhythm. RESPIRATORY: No accessory muscle use. Clear to auscultation. Breath sounds equal bilaterally. GASTROINTESTINAL: Abdomen soft, non-tender, nondistended. Hepatic and splenic margins not palpable. MUSCULOSKELETAL: Extremities without clubbing, cyanosis, or edema. No obvious deformities. NEUROLOGICAL: Awake and alert. Left facial droop. Left arm/leg flaccid PSYCHIATRIC: Appropriate mood and affect; insight and judgment normal. Laboratory Laboratory Tests Test 10/11/16 10/12/16 16:01 03:42 Troponin I 0.02 NG/ML White Blood Count 8.6 TH/MM3 Red Blood Count 5.03 MIL/MM3 Hemoglobin 12.3 GM/DL Hematocrit 37.6 % Mean Corpuscular Volume 74.8 FL Mean Corpuscular Hemoglobin 24.4 PG Mean Corpuscular Hemoglobin 32.6 % Concent Red Cell Distribution Width 14.6 % Platelet Count 167 TH/MM3 Mean Platelet Volume 8.5 FL Sodium Level 145 MEQ/L Potassium Level 3.5 MEQ/L Chloride Level 111 MEQ/L Carbon Dioxide Level 24.0 MEQ/L Anion Gap 10 MEQ/L Blood Urea Nitrogen 11 MG/DL Creatinine 0.92 MG/DL Estimat Glomerular Filtration 99 ML/MIN Rate Random Glucose 97 MG/DL Calcium Level 8.7 MG/DL Assessment and Plan Problem List: (1) Acute ischemic stroke (2) Acute left hemiparesis (3) Hypertensive emergency (4) BPH (benign prostatic hyperplasia) (5) Elevated troponin Assessment and Plan 1) HTN emergency/Acute ischemic CVA 2) Attempt BP control Mostly controlled, will not change meds at this time to avoid hypotension If still elevated, Norvasc or Lisinopril can be increased 3) Troponin elevation Type 2 due to emergency HTN/Acute CVA 4) EF 50-55%, Stage 1 DD 5) Will see PRN, call with questions Damian Chaidez DO Oct 12, 2016 12:41
--- NOTE | 2016-10-12 14:34 | EKG ---
Date Performed: 10/11/2016 Time Performed: 15:47:10 PTAGE: 71 years EKG: Sinus rhythm POSSIBLE RIGHT VENTRICULAR CONDUCTION DELAY VOLTAGE CRITERIA FOR LVH ABNORMAL ECG PREVIOUS TRACING : 10/10/2016 09.38 J point elevation is seen in leads V3-V6, also seen on prio r EKG. Likely due to early repolarization, but consider acute infarct.DOCTOR: Elan Fuentes In terpretating Date/Time 10/12/2016 14:32:50
[2016-10-12] MEDS: LABETALOL HCL 100 MG/20 ML VIAL IV PUSH PRN ×2 (15:21→19:03)
--- NOTE | 2016-10-12 15:45 | HHI.FPPN ---
Subjective Remarks Patient seen and evaluated this morning by medical team with family at bedside this morning. No acute events overnight with vital signs stable. Family reports patient moved left upper extremity spontaneously very short distance this morning, however during medical team's interview patient does not move with his left side at all. He doesn't knowledge examine her standing on left side of the bed. He is still unable to verbalize, but does communicate by writing. Dobbhoff tube in place and tolerating feeds well. Patient currently on Precedex with one episode of agitation yesterday requiring Geodon administration. (Odin Todd MD R1) Objective Vitals Vital Signs Date Time Temp Pulse Resp B/P Pulse Ox O2 Delivery O2 Flow Rate FiO2 10/12/16 14:00 56 10/12/16 12:00 70 10/12/16 12:00 98.0 70 19 146/101 100 10/12/16 10:00 69 10/12/16 08:19 100 Nasal Cannula 2.00 10/12/16 08:00 51 10/12/16 08:00 98.2 51 15 149/80 100 10/12/16 07:00 100 Nasal Cannula 2.00 10/12/16 06:00 62 10/12/16 04:00 62 10/12/16 04:00 98.0 60 20 120/82 100 10/12/16 02:00 59 10/12/16 00:00 66 10/12/16 00:00 99.0 62 12 108/64 100 10/11/16 22:00 61 10/11/16 20:00 61 10/11/16 20:00 99.4 61 22 144/92 100 10/11/16 19:13 100 Nasal Cannula 2.00 10/11/16 19:00 100 Nasal Cannula 2.00 10/11/16 18:00 62 10/11/16 16:00 98.0 70 16 152/104 100 10/11/16 16:00 70 I/O 10/11/16 10/11/16 10/11/16 10/12/16 10/12/16 10/12/16 07:00 15:00 23:00 07:00 15:00 23:00 Intake Total 858 ml 1352 ml 659 ml 1114 ml 857 ml Output Total 350 ml 1100 ml Balance 508 ml 252 ml 659 ml 1114 ml 857 ml IV Total 631 ml 983 ml 659 ml 1114 ml 738 ml Tube Feeding 227 ml 369 ml 0 ml 59 ml Tube Irrigant 60 ml Other 0 ml Output Urine Total 350 ml 1100 ml # Voids 3 # Bowel Movements 0 0 1 2 (Odin Todd MD R1) Result Diagram: 10/12/1634110/12/16341 Objective Remarks GENERAL: Lying in bed, tracking with eyes on right side, some on the left side now, following commands, writes to communicate. SKIN: Warm and dry. No rashes. EYES: No scleral icterus. No injection or drainage. PERRLA. EOMI. HENT: Atraumatic. Moist mucous membranes. NECK: No visible JVD or lymphadenopathy. CARDIOVASCULAR:RRR without murmurs rubs or gallops RESPIRATORY: Clear to auscultation bilaterally. Transmitted upper airway sounds. GASTROINTESTINAL: Abdomen nondistended, nontender with +BS. MUSCULOSKELETAL: Left facial droop. Left arm and left leg weakness BACK: Without obvious deformity. NEURO/PSYCH: Awake, alert, and oriented x3. PERRLA. Tracking with eyes. Slurred speech, not verbalizing unless instructed to. Left side upper and lower extremity not moving much. Left facial droop persistent. Minimal twitching of left foot. Not moving left arm. Following commands. (Odin Todd MD R1) A/P Assessment and Plan 71-year-old male with acute CVA and left sided weakness. Discharge Planning Pending clinical improvement and neurology recommendations, will likely require intensive rehab. (Odin Todd MD R1) Attending Attestation Patient seen and examined. Case reviewed and discussed with the resident team. Agree with plan of care as discussed with me and documented in the resident note. (Nicole Ash MD) Problem List: (1) Acute ischemic stroke Status: Acute Plan: Evidence of left facial droop and left hemiparesis on exam. CT head 2 negative for acute bleed. CTA carotids within normal limits. Unable to perform MRI due to metallic plate in cranium. ECHO with grade 1 diastolic dysfunction. Lipid profile only significant for 33.2 HDL, triglycerides, cholesterol, and LDL cholesterol WNL. A1C 5.4. - Neurology consulted - Critical care consulted - Cardiology consulted - Regular neuro checks - Cardiac telemetry - Aspirin 81 mg by mouth daily - Started beta [place], lisinopril, amlodipine. Titrate up to effect. - Requiring Dobhoff for feeding due to swallowing difficulties. Speech therapy on board. - Aspiration precautions - Avoid restraints as much as possible - Blinds open in day, dark and quiet at night - Wean off Precedex drip and start on low dose Seroquel with Geodon when necessary - Likely rehab at discharge (2) Chronic Medical Problems Status: Acute Plan: * Hepatitis C: Hepatitis C positive * PTSD/anxiety: Paroxetine 20mg NG daily when tolerating by mouth, Seroquel low dose started today (3) FEN/DVT PPX/GI PPX/Nursing Orders Status: Acute Plan: Fluids: NS @ 75 mls/hr IV Electrolytes: Will monitor and replace as needed. On ICU electrolyte replacement protocol Nutrition: Dobhoff tube due to aspiration risk, speech therapy on board DVT Prophylaxis: Bilateral SCDs GI Prophylaxis: Famotidine 20 mg IV twice a day Cannabis withdrawal: Neurontin 300 mg every morning and 600 mg at 1600 Case management has been consulted to assist with disposition needs PT has been consulted to assist with mobility and disposition needs Likely will need PT at rehab (Odin Todd MD R1) Odin Todd MD R1 Oct 12, 2016 15:45 Nicole Ash MD Oct 12, 2016 17:55
[2016-10-12] MEDS: hydrALAZINE HCL 20 MG/ML VIAL IV PUSH PRN ×2 (16:10→17:21)
[2016-10-12] MEDS ORDERED: ZIPRASIDONE MESYLATE 20 MG VIAL IM ONE (17:00)
[2016-10-12] MEDS: niCARdipine INJ 25 MG in SODIUM CHLOR 0.9% 250 ML INJ 250 ML IV SCH (17:21)
[2016-10-12] MEDS: amLODIPine BESYLATE 5 MG TAB PO SCH (21:00)
[2016-10-12] MEDS: ATORVASTATIN 80 MG TAB PO SCH (21:20)
[2016-10-13] VITALS (14 sets, daily range): BP systolic 97–168; BP diastolic 57–109; PULSE 62–91; RESP 16–25; TEMP 97.8–99; O2SAT 99–100
[2016-10-13] MEDS ORDERED: NITROGLYCERIN 2% OINT 1 GM PACKET TOPICAL PRN (06:30)
--- NOTE | 2016-10-13 06:32 | HHI.CCPN ---
Subjective Remarks/Hospital Course 71-year-old male with a poorly managed hypertension, hepatitis C, depression, PTSD, memory loss, and BPH that presents as a stroke alert. He was sitting out on his back porch with a friend, who noticed that something was not quite right with him. The friend called out to the patient's and she saw that he was trying to get up from the chair but was unable to do so, his speech was slurred and the left side of his body appeared weak. He was recently diagnosed with hypertension at the [facility] about 2-3 weeks ago. He was started on antihypertensive medication which she thinks is lisinopril. 10/08: Flaccid left arm, weak left leg, left facial droop. Out of window for tPA and BP not easily controlled last night apparently. 10/09: Transmitted upper airway sounds noted. He is suctioning himself using Yankauer with right hand. Continues flaccid left upper extremity, weak left lower extremity and left facial droop. 10/10: Required additional Precedex overnight due to agitation but slept well. Protecting airway adequately. Denies chest pain. Seen by Dr. Chaidez/ cardiology this AM. Added Norvasc. 10/11: Continues on low-dose Precedex at 0.3. Left upper extremity s remains o flaccid. Flat affect. Tolerating tube feeding. 10/12: Continues on low-dose Precedex. Mentation improved today. He was agitated yesterday lasting out requiring Geodon IM 10 milligrams 1. Family convinced going to cannabis withdrawal. Subjective 10/13: Afebrile. Precedex reinitiated last night due to severe agitation. Seroquel increased to 50 twice a day. 1 dose of Geodon last night. Remains on Neurontin for cannabis withdrawal protocol. Tolerating tube feeding. Positive BM. Objective Vital Signs Date Time Temp Pulse Resp B/P Pulse Ox O2 Delivery O2 Flow Rate FiO2 10/13/16 04:00 64 10/13/16 04:00 98.0 20 97/60 99 10/12/16 21:35 21 10/12/16 19:00 Nasal Cannula 2.00 Intake and Output 10/12/16 10/12/16 10/13/16 08:00 16:00 00:00 Intake Total 1114 ml 857 ml 778 ml Output Total 200 ml Balance 1114 ml 857 ml 578 ml Result Diagram: 10/12/16 0342 10/12/16 0342 Imaging Last Impressions Chest X-Ray 10/11/16 0600 Signed Impressions: Service Date/Time: Tuesday, October 11, 2016 04:28 - CONCLUSION: Normal examination. Feeding tube in good position Apolinar Koch MD Abdomen X-Ray 10/11/16 0000 Signed Impressions: Service Date/Time: Tuesday, October 11, 2016 17:20 - CONCLUSION: Feeding tube with the tip coiled in the stomach. Javier Baltazar MD Head CT 10/08/16 1600 Signed Impressions: Service Date/Time: Saturday, October 08, 2016 16:10 - CONCLUSION: 1. Prominent nonspecific white matter changes. 2. Old area of encephalomalacia in the occipital/parietal lobe. 3. No hemorrhage. Morales Pendleton MD CT Angiography 10/08/16 0000 Signed Impressions: Service Date/Time: Saturday, October 08, 2016 03:02 - CONCLUSION: There is no evidence for PE for technique. K. Dg Jacobson MD Neck CTA 10/07/16 1454 Signed Impressions: Service Date/Time: Friday, October 07, 2016 15:12 - CONCLUSION: Negative CTA of the carotids. Mio Coulter MD Head CTA 10/07/16 1454 Signed Impressions: Service Date/Time: Friday, October 07, 2016 15:12 - CONCLUSION: 1. No evidence of central truncation or aneurysm. 2. The largest intracranial metallic density , located near the left brain stem obscures a portion of the left posterior cerebral artery. The diameter of the left posterior cerebral artery distal to the metallic density is normal. Mio Coulter MD Objective Remarks GENERAL: 71-year-old male, critically ill currently resting in bed SKIN: Warm and dry. HEAD: Normocephalic. EYES: Pupils are equally reactive 3 mm bilaterally. Right deviation of right eye No scleral icterus. No injection or drainage. NECK: Supple, trachea midline. Airway open but some secretions. CARDIOVASCULAR: Regular rate and rhythm without murmurs, gallops, or rubs. RESPIRATORY: Breath sounds equal bilaterally. Transmitted upper airway sounds. Few scattered rhonchi. GASTROINTESTINAL: Abdomen soft, non-tender, nondistended. MUSCULOSKELETAL: No significant peripheral edema. BACK: Nontender without obvious deformity. No CVA tenderness. EXTREMITIES: No clubbing cyanosis or edema, left upper extremity weakness, NEURO: Flaccid left arm, weak left leg, left facial droop. Vision field cut left-sided. Speech slurred. Follows commands. Toes down right, up left. DTRs patellar 3+ deepa. No clonus. 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 No acute intra-abnormality CTA head and neck 10/07 revealed no focal stenosis or aneurysms Followed by Dr. Ponce/neurology On Paxil 20 mg by mouth daily for anxiety Currently on Precedex 0.4 g Aspirin 81 mg by mouth daily [facility] for pain management Discuss with neurology. Started low-dose Seroquel started 25 twice a day for agitation attempt to wean off Precedex. On 10/11. Increased to 50 twice a day by 10/13 On Neurontin 300 mg a.m., 300 mg at noon and 600 mg at night for cannabis withdrawal CV: Hypertensive urgency History dyslipidemia Likely chronic diastolic heart failure Elevated troponin 0.12 On Norvasc 5 twice a day and lisinopril 2.5 daily. With CVA gentle decrease in blood pressure. 2-D echocardiogram revealed EF 50-55%. Grade 1 diastolic dysfunction. Left atrium mildly dilated. DAYAN 32 mmHg Elevated troponin likely straindemand ischemia secondary to hypertension. No indication for intervention at this time Seen by Dr. Chaidez.cardiology. Continue Lipitor 80 mg at night for dyslipidemia Resp: Nasal cannula to maintain saturations currently 92% Incentive or on entry while awake Strict aspiration precautions GI: Hepatitis C Gastroesophageal reflux disease Continue Dobbhoff tube to initiate tube feedings vital 1.5 goal 55 cc an hour Dietary consultation tube feed recommendations. As above Pepcid for GI prophylaxis Gilda-Colace for bowel regimen Speech therapy swallow evaluation : BPH Vann if indicated for accurate I's and O's in a critically ill patient Endo: Sliding-scale insulin if indicated to maintain euglycemia Renal: Monitor urine output Accurate I's and O's Heme: Microcytic anemia CBC recheck in a.m. ID: Monitor for infection MSK: PT/OT evaluate and treat FEN: Electrolytes Recheck in a.m. Access - Utilize peripheral IV. Central line if indicated Prophylaxis - GI - Protonix - DVT - SCD/heparin subcutaneous Critical Care: The totall care time was 35 minutes. Time to perform other separately billable procedures was not included in the critical care time. Level II Rickey Barraza MD Oct 13, 2016 06:32
[2016-10-13] MEDS: DEXMEDETOMIDINE INJ 200 MCG in SODIUM CHLORIDE 0.9% INJ 50 ML IV SCH (06:55)
[2016-10-13] MEDS: SODIUM CHLORIDE 0.9% FLUSH 10 ML FLUSH IV FLUSH SCH ×2 (08:06→20:13)
[2016-10-13] MEDS: HEPARIN SODIUM - SQ 10,000 UNITS/ML VIAL SQ SCH ×2 (08:07→20:12)
[2016-10-13] MEDS: GABAPENTIN 250 MG/5 ML UDC NG SCH ×3 (08:07→15:09)
[2016-10-13] MEDS: PARoxetine HCL SUSP 20 MG/10 ML UDC NG SCH (08:07)
[2016-10-13] MEDS: FOLIC ACID 1 MG TAB PO SCH (08:08)
[2016-10-13] MEDS: LANSOPRAZOLE SOLUTAB 30 MG TAB NG SCH (08:08)
[2016-10-13] MEDS: DOCUSATE SODIUM 50 MG/SENNA 8.6 MG TAB PO SCH ×2 (08:09→20:13)
[2016-10-13] MEDS: LISINOPRIL 5 MG TAB PO SCH (08:09)
[2016-10-13] MEDS: amLODIPine BESYLATE 5 MG TAB PO SCH ×2 (08:09→20:12)
[2016-10-13] MEDS: QUEtiapine FUMARATE 25 MG TAB PO SCH ×2 (08:09→20:13)
[2016-10-13] MEDS: ASPIRIN 81 MG CHEW TAB CHEW SCH (08:09)
[2016-10-13 10:19] LABS: HEMATOCRIT 37.3 % (39.0-51.0); MEAN CELL VOLUME 73.7 FL (80.0-100.0); MEAN CORPUSCULAR HEMOGLOBIN 24.4 PG (27.0-34.0); MEAN CORPUSCULAR HGB CONC 33.1 % (32.0-36.0); PLATELET COUNT 166 TH/MM3 (150-450); RED BLOOD COUNT 5.06 MIL/MM3 (4.50-5.90); RED CELL DISTRIBUTION WIDTH 14.6 % (11.6-17.2); REVIEW FLAG FINAL; WHITE BLOOD COUNT 7.5 TH/MM3 (4.0-11.0)
[2016-10-13 10:40] LABS: BICARBONATE 25.4 MEQ/L (21.0-32.0); POTASSIUM 3.2 MEQ/L (3.5-5.1)
--- NOTE | 2016-10-13 14:09 | HHI.FPPN ---
Subjective Remarks No acute events. Still minimal function of the left arm and leg. Has left side facial drooping, appears slightly better. Continued agitation at night. Seroquel increased, and back on Precedex drip. Patient is awake and alert, and attempting to communicate via body language. He is tracking well and following all commands. Continued drooling from the mouth, and has Dobhoff tube for feedings. Tolerating feeds. Placed on THC withdrawal protocol with neurontin. ( Javier Canseco MD R2) Objective Vitals Vital Signs Date Time Temp Pulse Resp B/P Pulse Ox O2 Delivery O2 Flow Rate FiO2 10/13/16 12:00 64 10/13/16 12:00 98.2 66 18 143/71 100 10/13/16 11:02 100 21 10/13/16 10:00 72 10/13/16 08:00 99.0 77 22 157/85 99 10/13/16 08:00 72 10/13/16 07:00 98 Room Air 10/13/16 06:00 62 10/13/16 04:00 64 10/13/16 04:00 98.0 64 20 97/60 99 10/13/16 02:00 67 10/13/16 00:00 97.8 69 16 97/57 99 10/13/16 00:00 69 10/12/16 22:30 91/63 10/12/16 22:00 62 14 81/54 98 10/12/16 22:00 62 10/12/16 21:35 97 21 10/12/16 20:00 98.0 66 18 129/48 97 10/12/16 20:00 72 10/12/16 19:00 100 Nasal Cannula 2.00 10/12/16 18:00 79 10/12/16 16:00 98.3 80 24 210/107 100 10/12/16 16:00 80 I/O 10/12/16 10/12/16 10/12/16 10/13/16 10/13/16 10/13/16 07:00 15:00 23:00 07:00 15:00 23:00 Intake Total 1114 ml 857 ml 778 ml 664 ml Output Total 200 ml 400 ml Balance 1114 ml 857 ml 578 ml 264 ml IV Total 1114 ml 738 ml 536 ml 262 ml Tube Feeding 59 ml 182 ml 342 ml Tube Irrigant 60 ml Other 60 ml 60 ml Output Urine Total 200 ml 400 ml # Voids 3 1 # Bowel Movements 2 1 0 0 (Javier Canseco MD R2) Result Diagram: 10/13/16 0945 10/13/16 0945 Imaging Last 72 hours Impressions Abdomen X-Ray 10/12/16 0000 Signed Impressions: Service Date/Time: October 10:24 - CONCLUSION: Dobbhoff catheter tip remains within the stomach. Mio Coulter MD Chest X-Ray 10/11/16 0600 Signed Impressions: Service Date/Time: Tuesday, October 11, 2016 04:28 - CONCLUSION: Normal examination. Feeding tube in good position Apolinar Koch MD Chest X-Ray 10/11/16 0000 Signed Impressions: Service Date/Time: Tuesday, October 11, 2016 13:45 - CONCLUSION: 1. Interval removal of feeding type nasoenteric catheter. 2. Otherwise, no significant interval change. Aaron Mejia MD Abdomen X-Ray 10/11/16 0000 Signed Impressions: Service Date/Time: Tuesday, October 11, 2016 17:20 - CONCLUSION: Feeding tube with the tip coiled in the stomach. Javier Baltazar MD Objective Remarks GENERAL: Lying in bed, tracking with eyes on right side, some on the left side now, following commands, writes to communicate, using body language. SKIN: Warm and dry. No rashes. EYES: No scleral icterus. No injection or drainage. PERRLA. EOMI. HENT: Atraumatic. Moist mucous membranes. NECK: No visible JVD or lymphadenopathy. CARDIOVASCULAR:RRR without murmurs rubs or gallops RESPIRATORY: Clear to auscultation bilaterally. Transmitted upper airway sounds. GASTROINTESTINAL: Abdomen nondistended, nontender with +BS. MUSCULOSKELETAL: Left facial droop. Left arm and left leg weakness that is significant. BACK: Without obvious deformity. NEURO/PSYCH: Awake, alert, and oriented x3. PERRLA. Tracking with eyes. Slurred speech, not verbalizing unless instructed to. Left side upper and lower extremity not moving much, strength 1/5. Left facial droop persistent. Minimal twitching of left foot. Not moving left arm. Following commands. (Javier Canseco MD R2) A/P Assessment and Plan 71-year-old male with acute CVA and left sided weakness. Discharge Planning Pending clinical improvement and neurology recommendations, will likely require intensive rehab. (Javier Canseco MD R2) Attending Attestation Patient seen and examined. Case reviewed and discussed with the resident team. Agree with plan of care as discussed with me and documented in the resident note. (Nicole Ash MD) Problem List: (1) Acute ischemic stroke Status: Acute Plan: Evidence of left facial droop and left hemiparesis on exam. CT head 2 negative for acute bleed. CTA carotids within normal limits. Unable to perform MRI due to metallic plate in cranium. ECHO with grade 1 diastolic dysfunction. Lipid profile only significant for 33.2 HDL, triglycerides, cholesterol, and LDL cholesterol WNL. A1C 5.4. - Neurology consulted - Critical care consulted - Cardiology consulted - Regular neuro checks - Cardiac telemetry - Aspirin 81 mg by mouth daily - Started beta mariposa, lisinopril, amlodipine. Titrate up to effect. - Requiring Dobhoff for feeding due to swallowing difficulties. Speech therapy on board. - Aspiration precautions - Avoid restraints as much as possible - Blinds open in day, dark and quiet at night - Precedex drip, and increased Seroquel (50 mg bid) for agitation (history of PTSD, also some delirium) - Delirium precautions - THC withdrawal protocol with Neurontin - Likely rehab at discharge (2) Chronic Medical Problems Status: Acute Plan: * Hepatitis C: Hepatitis C positive * PTSD/anxiety: Paroxetine 20mg NG daily when tolerating by mouth, Seroquel, Geodon (3) FEN/DVT PPX/GI PPX/Nursing Orders Status: Acute Plan: Fluids: NS @ 75 mls/hr IV Electrolytes: Will monitor and replace as needed. On ICU electrolyte replacement protocol Nutrition: Dobhoff tube due to aspiration risk, speech therapy on board DVT Prophylaxis: Bilateral SCDs GI Prophylaxis: Famotidine 20 mg IV twice a day Cannabis withdrawal: Neurontin 300 mg every morning and 600 mg at 1600 Case management has been consulted to assist with disposition needs PT has been consulted to assist with mobility and disposition needs Likely will need PT at rehab (Javier Canseco MD R2) Javier Canseco MD R2 Oct 13, 2016 14:08 Nicole Ash MD Oct 13, 2016 15:48
[2016-10-13] MEDS: hydrALAZINE HCL 20 MG/ML VIAL IV PUSH PRN (15:09)
[2016-10-13] MEDS: POTASSIUM CHLOR 20 MEQ PREMIX 100 ML IV PRN (15:12)
--- NOTE | 2016-10-13 17:49 | HHI.PR ---
Review/Management Diagnosis Acute ischemic stroke Hypertensive urgency, resolved. TIA. History of craniotomy, status post traumatic brain injury Cannabis Withdrawal Plan Neuro checks q. 1 hourly. Continue antihypertensive medications B mariposa and Lisinopril, Amlodipine Swallow and speech evaluation DVT prophylaxis, Heprain 5000 units Q 12h GI prophylaxis. PT/OT, recommendations are appreciated Gradually wean off Precedex Seroquel 25mg bid Diagnosis/Plan: Subjective Subjective Comments An episode of agitation last night Precedex was reinitiated Stable Still not able to swallow Communicates by writing at bed side Sleepy during the encounter Active Medications Current Medications Medications (Trade) Dose Ordered Sig/Percy Route Start Time Stop Time Status Last Admin (NS Flush) 2 ml UNSCH PRN IV FLUSH 10/07/16 16:45 (NS Flush) 2 ml BID IV FLUSH 10/07/16 21:00 10/13/16 08:06 (Folate) 1 mg DAILY PO 10/08/16 09:00 10/13/16 08:08 (Tylenol) 650 mg Q4H PRN PO 10/07/16 16:45 ([place] 5-325 Mg) 1 tab Q6HR PRN PO 10/07/16 16:45 ([place] 10-325 Mg) 1 tab Q6H PRN PO 10/07/16 16:45 (Zofran Inj) 4 mg Q6H PRN IVP 10/07/16 17:00 (Restoril) 15 mg HS PRN PO 10/07/16 17:00 10/07/16 20:22 (Gilda-Colace) 1 tab BID PO 10/07/16 21:00 10/13/16 08:09 (Milk Of Magnesia Liq) 30 ml Q12H PRN PO 10/07/16 17:00 (Senokot) 17.2 mg Q12H PRN PO 10/07/16 17:00 (Dulcolax Supp) 10 mg DAILY PRN RECTAL 10/07/16 17:00 (Lactulose Liq) 30 ml DAILY PRN PO 10/07/16 17:00 Clonidine 0.1 mg 0.1 mg Q6H PRN PO 10/08/16 00:30 (Precedex Inj/NS Inj) 52 ml @ 0 mls/hr TITRATE IV 10/08/16 05:30 10/13/16 06:55 Paroxetine HCl 20 mg 20 mg DAILY NG 10/08/16 09:00 10/13/16 08:07 Potassium Chloride 100 ml @ 50 mls/hr Q2H PRN IV 10/08/16 06:45 (KCl 20 Meq Premix Inj) 100 ml @ 50 mls/hr Q2H PRN IV 10/08/16 06:45 10/13/16 15:12 Potassium Bicarb/ Potassium Chloride 50 meq 50 meq UNSCH PRN PO 10/08/16 06:45 Potassium Chloride 100 ml @ 25 mls/hr UNSCH PRN IV 10/08/16 06:45 Potassium Chloride 100 ml @ 50 mls/hr Q2H PRN IV 10/08/16 06:45 (Magnesium Sulfate Inj/NS Inj) 100 ml @ 50 mls/hr UNSCH PRN IV 10/08/16 06:45 Magnesium Oxide 800 mg 800 mg UNSCH PRN PO 10/08/16 06:45 (Magnesium Sulfate Inj/NS Inj) 100 ml @ 50 mls/hr UNSCH PRN IV 10/08/16 06:45 Potassium Phosphate 2000 mg 2,000 mg Q4H PRN PO 10/08/16 06:45 (Sodium Phosphate Inj/NS 250 ml Inj) 250 ml @ 42 mls/hr UNSCH PRN IV 10/08/16 06:45 Potassium Phosphate 2000 mg 2,000 mg UNSCH PRN PO/TUBE 10/08/16 06:45 (Potassium Phosphate Inj/NS 250 ml Inj) 260 ml @ 42 mls/hr UNSCH PRN IV 10/08/16 06:45 10/11/16 10:14 (Heparin Inj) 5,000 units BID SQ 10/08/16 13:00 10/13/16 08:07 (Trandate Inj) 10 mg Q1HR PRN IV PUSH 10/09/16 11:00 10/12/16 19:03 Hydralazine HCl 10 mg 10 mg Q1HR PRN IV PUSH 10/09/16 10:30 10/13/16 15:09 (Cardene Inj/NS 250 ml Inj) 260 ml @ 0 mls/hr TITRATE IV 10/09/16 13:30 10/12/16 17:21 (Aspirin Chew) 81 mg DAILY CHEW 10/09/16 15:00 10/13/16 08:09 (Prinivil) 2.5 mg DAILY PO 10/09/16 17:30 10/13/16 08:09 (Pill Splitter) 1 ea UNSCH PRN OTHER 10/09/16 18:00 (Lipitor) 80 mg HS PO 10/10/16 21:00 10/12/16 21:20 (Neurontin Liq) 600 mg DAILY@1600 NG 10/11/16 16:00 10/13/16 15:09 (Neurontin Liq) 300 mg DAILY NG 10/12/16 09:00 10/13/16 08:07 (Neurontin Liq) 300 mg DAILY@12 NG 10/12/16 12:00 10/13/16 11:15 (Norvasc) 5 mg BID PO 10/12/16 21:00 10/13/16 08:09 (Prevacid Odt) 30 mg DAILY NG 10/13/16 09:00 10/13/16 08:08 (SEROquel) 50 mg BID PO 10/12/16 21:00 10/13/16 08:09 (Nitroglycerin 2% Oint) 2 inch Q6HR PRN TOPICAL 10/13/16 06:30 Allergies Allergies Coded Allergies No Known Allergies (Unverified11/17/14) Exam I&O / VS 10/12/16 10/12/16 10/13/16 15:00 23:00 07:00 Intake Total 857 ml 778 ml 664 ml Output Total 200 ml 400 ml Balance 857 ml 578 ml 264 ml IV Total 738 ml 536 ml 262 ml Tube Feeding 59 ml 182 ml 342 ml Tube Irrigant 60 ml Other 60 ml 60 ml Output Urine Total 200 ml 400 ml # Voids 3 1 # Bowel Movements 1 0 0 Vital Signs Date Time Temp Pulse Resp B/P Pulse Ox O2 Delivery O2 Flow Rate FiO2 10/13/16 16:00 83 10/13/16 16:00 98.7 81 25 168/109 100 10/13/16 14:00 91 10/13/16 12:00 64 10/13/16 12:00 98.2 66 18 143/71 100 10/13/16 11:02 100 21 10/13/16 10:00 72 10/13/16 08:00 99.0 77 22 157/85 99 10/13/16 08:00 72 10/13/16 07:00 98 Room Air 6/9/17 06:00 62 10/13/16 04:00 64 10/13/16 04:00 98.0 64 20 97/60 99 10/13/16 02:00 67 10/13/16 00:00 97.8 69 16 97/57 99 10/13/16 00:00 69 10/12/16 22:30 91/63 10/12/16 22:00 62 14 81/54 98 10/12/16 22:00 62 10/12/16 21:35 97 21 10/12/16 20:00 98.0 66 18 129/48 97 10/12/16 20:00 72 10/12/16 19:00 100 Nasal Cannula 2.00 10/12/16 18:00 79 Exam Comments General: awake, alert, voices a few words,Dobhoff tube in place HEENT: Atraumatic, normocephalic. Injected eyes, intact hearing. Intact vision. Neck: Supple. No signs of meningeal irritation. Cardiovascular: Regular rate and rhythm, tachycardia. Respiratory: Clear to auscultation. No wheezes. Gastrointestinal: Soft abdomen, nontender. Musculoskeletal: Moves extremities on the right side, hemiplegic on the right. Neurological: awake, alert, speaks and voices words, soft voice, mild dysarthria , dysphagia, less pronounced left facial weakness, left sided hemiparesis, right side is normal. Objective Micro and Labs Laboratory Tests Test 10/13/16 09:45 White Blood Count 7.5 Red Blood Count 5.06 Hemoglobin 12.3 Hematocrit 37.3 Mean Corpuscular Volume 73.7 Mean Corpuscular Hemoglobin 24.4 Mean Corpuscular Hemoglobin 33.1 Concent Red Cell Distribution Width 14.6 Platelet Count 166 Mean Platelet Volume 8.4 Sodium Level 145 Potassium Level 3.2 Chloride Level 111 Carbon Dioxide Level 25.4 Anion Gap 9 Blood Urea Nitrogen 27 Creatinine 1.43 Estimat Glomerular Filtration 59 Rate Random Glucose 114 Calcium Level 9.0 Diagnostic Tests Last 72 hours Impressions Abdomen X-Ray 10/12/16 0000 Signed Impressions: Service Date/Time: October 10:24 - CONCLUSION: Dobbhoff catheter tip remains within the stomach. Mio Coulter MD Chest X-Ray 10/11/16 0600 Signed Impressions: Service Date/Time: Tuesday, October 11, 2016 04:28 - CONCLUSION: Normal examination. Feeding tube in good position Apolinar Koch MD Chest X-Ray 10/11/16 0000 Signed Impressions: Service Date/Time: Tuesday, October 11, 2016 13:45 - CONCLUSION: 1. Interval removal of feeding type nasoenteric catheter. 2. Otherwise, no significant interval change. Aaron Mejia MD Abdomen X-Ray 10/11/16 0000 Signed Impressions: Service Date/Time: Tuesday, October 11, 2016 17:20 - CONCLUSION: Feeding tube with the tip coiled in the stomach. Javier Baltazar MD OssiAlla MD Oct 13, 2016 17:49
[2016-10-13] MEDS: ATORVASTATIN 80 MG TAB PO SCH (20:12)
[2016-10-14] VITALS (16 sets, daily range): BP systolic 107–192; BP diastolic 66–114; PULSE 58–95; RESP 14–21; TEMP 98–98.7; O2SAT 96–100
[2016-10-14] MEDS: DEXMEDETOMIDINE INJ 200 MCG in SODIUM CHLORIDE 0.9% INJ 50 ML IV SCH ×2 (01:22→07:09)
[2016-10-14 04:30] LABS: HEMATOCRIT 37.4 % (39.0-51.0); MEAN CELL VOLUME 75.1 FL (80.0-100.0); MEAN CORPUSCULAR HEMOGLOBIN 23.7 PG (27.0-34.0); MEAN CORPUSCULAR HGB CONC 31.6 % (32.0-36.0); PLATELET COUNT 167 TH/MM3 (150-450); RED BLOOD COUNT 4.98 MIL/MM3 (4.50-5.90); RED CELL DISTRIBUTION WIDTH 14.6 % (11.6-17.2); REVIEW FLAG FINAL; WHITE BLOOD COUNT 7.2 TH/MM3 (4.0-11.0)
[2016-10-14 04:58] LABS: POTASSIUM 3.8 MEQ/L (3.5-5.1)
--- NOTE | 2016-10-14 08:21 | HHI.CCPN ---
Subjective Remarks/Hospital Course 71-year-old male with a poorly managed hypertension, hepatitis C, depression, PTSD, memory loss, and BPH that presents as a stroke alert. He was sitting out on his back porch with a friend, who noticed that something was not quite right with him. The friend called out to the patient's and she saw that he was trying to get up from the chair but was unable to do so, his speech was slurred and the left side of his body appeared weak. He was recently diagnosed with hypertension at the OR about 2-3 weeks ago. He was started on antihypertensive medication which she thinks is lisinopril. 10/08: Flaccid left arm, weak left leg, left facial droop. Out of window for tPA and BP not easily controlled last night apparently. 10/09: Transmitted upper airway sounds noted. He is suctioning himself using Yankauer with right hand. Continues flaccid left upper extremity, weak left lower extremity and left facial droop. 10/10: Required additional Precedex overnight due to agitation but slept well. Protecting airway adequately. Denies chest pain. Seen by Dr. Chaidez/ cardiology this AM. Added Norvasc. 10/11: Continues on low-dose Precedex at 0.3. Left upper extremity s remains o flaccid. Flat affect. Tolerating tube feeding. 10/12: Continues on low-dose Precedex. Mentation improved today. He was agitated yesterday lasting out requiring Geodon IM 10 milligrams 1. Family convinced going to cannabis withdrawal. 10/13: Afebrile. Precedex reinitiated last night due to severe agitation. Seroquel increased to 50 twice a day. 1 dose of Geodon last night. Remains on Neurontin for cannabis withdrawal protocol. Tolerating tube feeding. Positive BM. Subjective 10/14: Afebrile. Precedex at 0.4. Becomes agitated intermittently with systolic blood pressure rising to the 200s. We'll attempt again to wean office Precedex as he did yesterday for short period of time. Tolerating tube feeding. Positive BM. Objective Vital Signs Date Time Temp Pulse Resp B/P Pulse Ox O2 Delivery O2 Flow Rate FiO2 10/14/16 06:00 62 10/14/16 04:00 98.3 18 122/78 100 10/13/16 19:00 Room Air 6/9/17 11:02 21 10/12/16 19:00 2.00 Intake and Output 10/13/16 10/13/16 10/14/16 08:00 16:00 00:00 Intake Total 664 ml 560 ml 1681 ml Output Total 400 ml 500 ml 450 ml Balance 264 ml 60 ml 1231 ml Result Diagram: 10/14/16 0402 10/14/16 0402 Imaging Last Impressions Abdomen X-Ray 10/12/16 0000 Signed Impressions: Service Date/Time: October 10:24 - CONCLUSION: Dobbhoff catheter tip remains within the stomach. Mio Coulter MD Chest X-Ray 10/11/16 0600 Signed Impressions: Service Date/Time: Tuesday, October 11, 2016 04:28 - CONCLUSION: Normal examination. Feeding tube in good position Apolinar Koch MD Head CT 10/08/16 1600 Signed Impressions: Service Date/Time: Saturday, October 08, 2016 16:10 - CONCLUSION: 1. Prominent nonspecific white matter changes. 2. Old area of encephalomalacia in the occipital/parietal lobe. 3. No hemorrhage. Morales Pendleton MD CT Angiography 10/08/16 0000 Signed Impressions: Service Date/Time: Saturday, October 08, 2016 03:02 - CONCLUSION: There is no evidence for PE for technique. KMatt Jacobson MD Neck CTA 10/07/16 1454 Signed Impressions: Service Date/Time: Friday, October 07, 2016 15:12 - CONCLUSION: Negative CTA of the carotids. Mio Coulter MD Head CTA 10/07/16 1454 Signed Impressions: Service Date/Time: Friday, October 07, 2016 15:12 - CONCLUSION: 1. No evidence of central truncation or aneurysm. 2. The largest intracranial metallic density , located near the left brain stem obscures a portion of the left posterior cerebral artery. The diameter of the left posterior cerebral artery distal to the metallic density is normal. Mio Coulter MD Objective Remarks GENERAL: 71-year-old male, critically ill currently resting in bed SKIN: Warm and dry. HEAD: Normocephalic. EYES: Pupils are equally reactive 3 mm bilaterally. Right deviation of right eye No scleral icterus. No injection or drainage. NECK: Supple, trachea midline. Airway open but some secretions. CARDIOVASCULAR: Regular rate and rhythm without murmurs, gallops, or rubs. RESPIRATORY: Breath sounds equal bilaterally. Transmitted upper airway sounds. Few scattered rhonchi. GASTROINTESTINAL: Abdomen soft, non-tender, nondistended. MUSCULOSKELETAL: No significant peripheral edema. BACK: Nontender without obvious deformity. No CVA tenderness. EXTREMITIES: No clubbing cyanosis or edema, left upper extremity weakness, NEURO: Flaccid left arm, weak left leg, left facial droop. Vision field cut left-sided. Speech slurred. Follows commands. Toes down right, up left. DTRs patellar 3+ deepa. No clonus. 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 No acute intra-abnormality CTA head and neck 10/07 revealed no focal stenosis or aneurysms Followed by Dr. Ponce/neurology On Paxil 20 mg by mouth daily for anxiety Currently on Precedex 0.4 g given overnight. Aspirin 81 mg by mouth daily [place] for pain management Discussed with neurology. Started low-dose Seroquel started 25 twice a day for agitation attempt to wean off Precedex on 10/11. Increased to 50 milligrams twice a day on 10/13 On Neurontin 300 mg a.m., 300 mg at noon and 600 mg at night for cannabis withdrawal CV: Hypertensive urgency History dyslipidemia Likely chronic diastolic heart failure Elevated troponin 0.12 On Norvasc 5 twice a day and lisinopril 2.5 daily. With CVA gentle decrease in blood pressure. 2-D echocardiogram revealed EF 50-55%. Grade 1 diastolic dysfunction. Left atrium mildly dilated. DAYAN 32 mmHg Elevated troponin likely straindemand ischemia secondary to hypertension. No indication for intervention at this time Seen by Dr. Chaidez.cardiology. Continue Lipitor 80 mg at night for dyslipidemia Resp: Nasal cannula to maintain saturations currently 92% Incentive or on entry while awake Strict aspiration precautions GI: Hepatitis C Gastroesophageal reflux disease Continue Dobbhoff tube to initiate tube feedings vital 1.5 goal 55 cc an hour Dietary consultation tube feed recommendations. As above Pepcid for GI prophylaxis Gilda-Colace for bowel regimen. Adequate bowel movements Speech therapy swallow evaluation : BPH Vann if indicated for accurate I's and O's in a critically ill patient Endo: Sliding-scale insulin if indicated to maintain euglycemia Renal: Monitor urine output Accurate I's and O's Heme: Microcytic anemia CBC recheck in a.m. ID: Monitor for infection MSK: PT/OT evaluate and treat FEN: Electrolytes Recheck in a.m. Access - Utilize peripheral IV. Central line if indicated Prophylaxis - GI - Protonix - DVT - SCD/heparin subcutaneous Critical Care: The totall care time was 35 minutes. Time to perform other separately billable procedures was not included in the critical care time. Level II Rickey Barraza MD Oct 14, 2016 08:21
[2016-10-14] MEDS: LISINOPRIL 5 MG TAB PO SCH (10:03)
[2016-10-14] MEDS: ASPIRIN 81 MG CHEW TAB CHEW SCH (10:03)
[2016-10-14] MEDS: QUEtiapine FUMARATE 25 MG TAB PO SCH ×2 (10:03→20:28)
[2016-10-14] MEDS: FOLIC ACID 1 MG TAB PO SCH (10:03)
[2016-10-14] MEDS: DOCUSATE SODIUM 50 MG/SENNA 8.6 MG TAB PO SCH ×2 (10:03→20:28)
[2016-10-14] MEDS: LANSOPRAZOLE SOLUTAB 30 MG TAB NG SCH (10:03)
[2016-10-14] MEDS: GABAPENTIN 250 MG/5 ML UDC NG SCH ×3 (10:04→16:00)
[2016-10-14] MEDS: SODIUM CHLORIDE 0.9% FLUSH 10 ML FLUSH IV FLUSH SCH (10:04)
[2016-10-14] MEDS: amLODIPine BESYLATE 5 MG TAB PO SCH ×2 (10:04→20:28)
[2016-10-14] MEDS: HEPARIN SODIUM - SQ 10,000 UNITS/ML VIAL SQ SCH ×2 (10:05→20:28)
[2016-10-14] MEDS: PARoxetine HCL SUSP 20 MG/10 ML UDC NG SCH (10:07)
--- NOTE | 2016-10-14 11:04 | HHI.FPPN ---
Subjective Remarks Patient seen and examined this morning. No acute events overnight. Vital signs stable. Patient's brother is at bedside who reports no status change. He continues to have left facial drooping with minimal left arm and leg function. Per nursing report patient had one episode of agitation last night. Currently Precedex running and 0.4 per hour. Patient is awake and alert. He communicates with his brother and myself through body language and right upper extremity motions. He is able to follow commands and suction his mouth independently. Dobbhoff tube in place with tube feeds currently running. When asked about complaints he motions to his abdomen, but does indicate he is not in pain. He denied any chest pain, shortness of breath, or extremity pain. (Odin Todd MD R1) Objective Vitals Vital Signs Date Time Temp Pulse Resp B/P Pulse Ox O2 Delivery O2 Flow Rate FiO2 10/14/16 09:01 96 Nasal Cannula 3.00 10/14/16 08:59 100 21 10/14/16 06:00 62 10/14/16 04:00 79 10/14/16 04:00 98.3 79 18 122/78 100 10/14/16 02:00 66 10/14/16 00:00 67 10/14/16 00:00 98.5 69 14 115/82 97 10/13/16 22:00 69 10/13/16 21:12 99 10/13/16 20:00 83 10/13/16 20:00 98.6 83 16 138/92 100 10/13/16 19:00 99 Room Air 10/13/16 18:00 63 10/13/16 16:00 83 10/13/16 16:00 98.7 81 25 168/109 100 10/13/16 14:00 91 10/13/16 12:00 64 10/13/16 12:00 98.2 66 18 143/71 100 10/13/16 11:02 100 21 I/O 10/13/16 10/13/16 10/13/16 10/14/16 10/14/16 10/14/16 07:00 15:00 23:00 07:00 15:00 23:00 Intake Total 664 ml 560 ml 1681 ml 797 ml Output Total 400 ml 500 ml 450 ml 400 ml Balance 264 ml 60 ml 1231 ml 397 ml IV Total 262 ml 717 ml 329 ml Tube Feeding 342 ml 440 ml 904 ml 408 ml Other 60 ml 120 ml 60 ml 60 ml Output Urine Total 400 ml 500 ml 450 ml 400 ml # Bowel Movements 0 0 1 1 (Odin Todd MD R1) Result Diagram: 10/14/1640110/14/16401 Objective Remarks GENERAL: 71-year-old male lying in bed in no acute distress. He is tracking with eyes on right side, some on the left side now, following commands, writes to communicate, using body language. SKIN: Warm and dry. No rashes. HEENT: Atraumatic, normocephalic with EOMI. Left-sided facial droop without change. Oropharynx clear. No LAD or JVD appreciated. CARDIOVASCULAR:RRR without murmurs rubs or gallops RESPIRATORY: Clear to auscultation bilaterally. Transmitted upper airway sounds. GASTROINTESTINAL: Abdomen nondistended, nontender with +BS. MUSCULOSKELETAL: Left facial droop. Left arm and left leg weakness that is significant. NEURO/PSYCH: Awake, alert, and oriented x3. PERRLA. Tracking with eyes. Not verbalizing unless instructed to. Left side upper and lower extremity not moving much, strength 1/5. Left facial droop persistent. Minimal twitching of left foot. Not moving left arm. Following commands. (Odin Todd MD R1) A/P Assessment and Plan 71-year-old male with acute CVA and left sided weakness. Discharge Planning Pending clinical improvement and neurology recommendations, will likely require intensive rehab. (Odin Todd MD R1) Attending Attestation Patient seen and examined. Case reviewed and discussed with the resident team. Agree with plan of care as discussed with me and documented in the resident note. (Nicole Ash MD) Problem List: (1) Acute ischemic stroke Status: Acute Plan: Evidence of left facial droop and left hemiparesis on exam. CT head 2 negative for acute bleed. CTA carotids within normal limits. Unable to perform MRI due to metallic plate in cranium. ECHO with grade 1 diastolic dysfunction. Lipid profile only significant for 33.2 HDL, triglycerides, cholesterol, and LDL cholesterol WNL. A1C 5.4. - Neurology consulted - Critical care consulted - Cardiology consulted - Regular neuro checks - Cardiac telemetry - Aspirin 81 mg by mouth daily - Started beta [place], lisinopril, amlodipine. Titrate up to effect. - Requiring Dobhoff for feeding due to swallowing difficulties. Speech therapy on board. - Aspiration precautions - Avoid restraints as much as possible - Blinds open in day, dark and quiet at night - Precedex drip to be weaned off today pending clinical course - Increased Seroquel (50 mg bid) for agitation (history of PTSD, also some delirium) - Delirium precautions - THC withdrawal protocol with Neurontin - Likely rehab at discharge, case management consulted (2) Chronic Medical Problems Status: Acute Plan: Hepatitis C: Hepatitis C positive PTSD/anxiety: Paroxetine 20mg NG daily when tolerating by mouth, Seroquel, Geodon (3) FEN/DVT PPX/GI PPX/Nursing Orders Status: Acute Plan: Fluids: NS @ 75 mls/hr IV Electrolytes: Will monitor and replace as needed. On ICU electrolyte replacement protocol Nutrition: Dobhoff tube due to aspiration risk running at 55/hr, speech therapy on board DVT Prophylaxis: Bilateral SCDs GI Prophylaxis: Lansoprazole 30mg QD Cannabis withdrawal: Neurontin 300 mg every morning and 600 mg at 1600 Case management has been consulted to assist with disposition needs PT has been consulted to assist with mobility and disposition needs Likely will need PT at rehab (Odin Todd MD R1) Odin Todd MD R1 Oct 14, 2016 11:04 Nicole Ash MD Oct 14, 2016 13:32
[2016-10-14] MEDS: LABETALOL HCL 100 MG/20 ML VIAL IV PUSH PRN (19:26)
[2016-10-14] MEDS: ATORVASTATIN 80 MG TAB PO SCH (20:28)
[2016-10-14] MEDS: ACETAMINOPHEN/HYDROcodone 325 MG/10 MG TAB PO PRN (20:29)
[2016-10-14] MEDS: TEMAZEPAM 15 MG CAP PO PRN (22:25)
[2016-10-15] VITALS (13 sets, daily range): BP systolic 145–175; BP diastolic 83–99; PULSE 58–81; RESP 14–26; TEMP 98–99.5; O2SAT 97–99
[2016-10-15] MEDS: ACETAMINOPHEN/HYDROcodone 325 MG/10 MG TAB PO PRN ×2 (02:34→20:46)
[2016-10-15] MEDS: LABETALOL HCL 100 MG/20 ML VIAL IV PUSH PRN ×3 (04:34→17:44)
--- NOTE | 2016-10-15 08:02 | HHI.CCPN ---
Subjective Remarks/Hospital Course 71-year-old male with a poorly managed hypertension, hepatitis C, depression, PTSD, memory loss, and BPH that presents as a stroke alert. He was sitting out on his back porch with a friend, who noticed that something was not quite right with him. The friend called out to the patient's and she saw that he was trying to get up from the chair but was unable to do so, his speech was slurred and the left side of his body appeared weak. He was recently diagnosed with hypertension at the [facility] about 2-3 weeks ago. He was started on antihypertensive medication which she thinks is lisinopril. 10/08: Flaccid left arm, weak left leg, left facial droop. Out of window for tPA and BP not easily controlled last night apparently. 10/09: Transmitted upper airway sounds noted. He is suctioning himself using Yankauer with right hand. Continues flaccid left upper extremity, weak left lower extremity and left facial droop. 10/10: Required additional Precedex overnight due to agitation but slept well. Protecting airway adequately. Denies chest pain. Seen by Dr. Chaidez/ cardiology this AM. Added Norvasc. 10/11: Continues on low-dose Precedex at 0.3. Left upper extremity s remains o flaccid. Flat affect. Tolerating tube feeding. 10/12: Continues on low-dose Precedex. Mentation improved today. He was agitated yesterday lasting out requiring Geodon IM 10 milligrams 1. Family convinced going to cannabis withdrawal. 10/13: Afebrile. Precedex reinitiated last night due to severe agitation. Seroquel increased to 50 twice a day. 1 dose of Geodon last night. Remains on Neurontin for cannabis withdrawal protocol. Tolerating tube feeding. Positive BM. 10/14: Afebrile. Precedex at 0.4. Becomes agitated intermittently with systolic blood pressure rising to the 200s. We'll attempt again to wean office Precedex as he did yesterday for short period of time. Tolerating tube feeding. Positive BM. Subjective 10/15: Afebrile. Off Precedex overnight. Tolerating tube feeds. Up to chair yesterday with a brighter affect. Objective Vital Signs Date Time Temp Pulse Resp B/P Pulse Ox O2 Delivery O2 Flow Rate FiO2 10/15/16 04:00 66 10/15/16 04:00 98.2 20 168/83 97 10/15/16 00:00 Bi-Pap 10/14/16 21:24 21 10/14/16 09:01 3.00 Intake and Output 10/14/16 10/14/16 10/15/16 08:00 16:00 00:00 Intake Total 797 ml 420 ml 775 ml Output Total 400 ml 450 ml 350 ml Balance 397 ml -30 ml 425 ml Result Diagram: 10/14/16 0402 10/14/16 0402 Imaging Last Impressions Abdomen X-Ray 10/12/16 0000 Signed Impressions: Service Date/Time: October 10:24 - CONCLUSION: Dobbhoff catheter tip remains within the stomach. Mio Coulter MD Chest X-Ray 10/11/16 0600 Signed Impressions: Service Date/Time: Tuesday, October 11, 2016 04:28 - CONCLUSION: Normal examination. Feeding tube in good position Apolinar Koch MD Head CT 10/08/16 1600 Signed Impressions: Service Date/Time: Saturday, October 08, 2016 16:10 - CONCLUSION: 1. Prominent nonspecific white matter changes. 2. Old area of encephalomalacia in the occipital/parietal lobe. 3. No hemorrhage. Morales Pendleton MD CT Angiography 10/08/16 0000 Signed Impressions: Service Date/Time: Saturday, October 08, 2016 03:02 - CONCLUSION: There is no evidence for PE for technique. KMatt Jacobson MD Neck CTA 10/07/16 1454 Signed Impressions: Service Date/Time: Friday, October 07, 2016 15:12 - CONCLUSION: Negative CTA of the carotids. Mio Coulter MD Head CTA 10/07/16 1454 Signed Impressions: Service Date/Time: Friday, October 07, 2016 15:12 - CONCLUSION: 1. No evidence of central truncation or aneurysm. 2. The largest intracranial metallic density , located near the left brain stem obscures a portion of the left posterior cerebral artery. The diameter of the left posterior cerebral artery distal to the metallic density is normal. Mio Coulter MD Objective Remarks GENERAL: 71-year-old male, critically ill currently resting in bed SKIN: Warm and dry. HEAD: Normocephalic. EYES: Pupils are equally reactive 3 mm bilaterally. Right deviation of right eye No scleral icterus. No injection or drainage. NECK: Supple, trachea midline. Airway open but some secretions. CARDIOVASCULAR: Regular rate and rhythm without murmurs, gallops, or rubs. RESPIRATORY: Breath sounds equal bilaterally. Transmitted upper airway sounds. Few scattered rhonchi. GASTROINTESTINAL: Abdomen soft, non-tender, nondistended. MUSCULOSKELETAL: No significant peripheral edema. BACK: Nontender without obvious deformity. No CVA tenderness. EXTREMITIES: No clubbing cyanosis or edema, left upper extremity weakness, NEURO: Flaccid left arm, weak left leg, left facial droop. Vision field cut left-sided. Speech slurred. Follows commands. Toes down right, up left. DTRs patellar 3+ deepa. No clonus. 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 No acute intra-abnormality CTA head and neck 10/07 revealed no focal stenosis or aneurysms Followed by Dr. Ponce/neurology On Paxil 20 mg by mouth daily for anxiety Currently off Precedex drip Aspirin 81 mg by mouth daily [place] 5/325-10/325 every 6 hours as needed for pain management Acetaminophen for fever/headache Discussed with neurology. Started low-dose Seroquel started 25 twice a day for agitation attempt to wean off Precedex on 10/11. Increased to 50 milligrams twice a day on 10/13 On Neurontin 300 mg a.m., 300 mg at noon and 600 mg at night for cannabis withdrawal CV: Hypertensive urgency History dyslipidemia Likely chronic diastolic heart failure Elevated troponin 0.12 On Norvasc 5 twice a day and lisinopril 2.5 twice daily. With CVA gentle decrease in blood pressure. 2-D echocardiogram revealed EF 50-55%. Grade 1 diastolic dysfunction. Left atrium mildly dilated. DAYAN 32 mmHg Elevated troponin likely straindemand ischemia secondary to hypertension. No indication for intervention at this time Seen by Dr. Chaidez.cardiology. Continue Lipitor 80 mg at night for dyslipidemia Resp: Nasal cannula to maintain saturations currently 92% Incentive or on entry while awake Strict aspiration precautions GI: Hepatitis C Gastroesophageal reflux disease Continue Dobbhoff tube to initiate tube feedings vital 1.5 goal 55 cc an hour Dietary consultation tube feed recommendations. As above Prevacid for GI prophylaxis Gilda-Colace for bowel regimen. Adequate bowel movements Speech therapy swallow evaluation : BPH Vann if indicated for accurate I's and O's in a critically ill patient Endo: Sliding-scale insulin if indicated to maintain euglycemia Renal: Monitor urine output Accurate I's and O's Heme: Microcytic anemia CBC recheck in a.m. ID: Monitor for infection MSK: PT/OT evaluate and treat FEN: Electrolytes Recheck in a.m. Access - Utilize peripheral IV. Central line if indicated Prophylaxis - GI -Prevacid - DVT - SCD/heparin subcutaneous Critical Care: The totall care time was 35 minutes. Time to perform other separately billable procedures was not included in the critical care time. Level II Lab holiday today. Recheck laboratories in AM. Rickey Barraza MD Oct 15, 2016 08:02
[2016-10-15] MEDS: SODIUM CHLORIDE 0.9% FLUSH 10 ML FLUSH IV FLUSH SCH ×2 (08:34→20:48)
[2016-10-15] MEDS: QUEtiapine FUMARATE 25 MG TAB PO SCH ×2 (08:34→20:47)
[2016-10-15] MEDS: FOLIC ACID 1 MG TAB PO SCH (08:34)
[2016-10-15] MEDS: ASPIRIN 81 MG CHEW TAB CHEW SCH (08:35)
[2016-10-15] MEDS: DOCUSATE SODIUM 50 MG/SENNA 8.6 MG TAB PO SCH ×2 (08:35→20:47)
[2016-10-15] MEDS: amLODIPine BESYLATE 5 MG TAB PO SCH ×2 (08:35→20:47)
[2016-10-15] MEDS: LANSOPRAZOLE SOLUTAB 30 MG TAB NG SCH (08:35)
[2016-10-15] MEDS: GABAPENTIN 250 MG/5 ML UDC NG SCH ×3 (08:36→17:45)
[2016-10-15] MEDS: PARoxetine HCL SUSP 20 MG/10 ML UDC NG SCH (08:36)
[2016-10-15] MEDS: HEPARIN SODIUM - SQ 10,000 UNITS/ML VIAL SQ SCH ×2 (08:37→20:46)
--- NOTE | 2016-10-15 08:51 | HHI.FPPN ---
Subjective Remarks No acute events. Blood pressures running high. Still not moving the left side. Left leg and arm have virtually no movement. He has NG tube in for feeding. He is not verbalizing but does communicate well nonverbally. He is following all commands. He is not agitated in the day but gets agitated in the night. He is on Precedex with plan to wean as tolerated. (Javier Canseco MD R2) Objective Vitals Vital Signs Date Time Temp Pulse Resp B/P Pulse Ox O2 Delivery O2 Flow Rate FiO2 10/15/16 04:00 66 10/15/16 04:00 98.2 66 20 168/83 97 10/15/16 03:34 20 10/15/16 02:00 58 10/15/16 00:00 Bi-Pap 10/15/16 00:00 98.0 68 20 175/87 97 10/15/16 00:00 68 10/14/16 22:00 84 10/14/16 21:24 98 21 10/14/16 21:00 131/88 10/14/16 20:00 98.0 82 20 192/114 100 10/14/16 20:00 82 10/14/16 20:00 98 Room Air 10/14/16 18:00 78 10/14/16 16:00 98.0 95 20 158/81 99 10/14/16 16:00 95 10/14/16 14:00 63 10/14/16 12:00 98.3 58 17 107/66 99 10/14/16 12:00 58 10/14/16 10:00 65 10/14/16 09:01 96 Nasal Cannula 3.00 10/14/16 08:59 100 21 I/O 10/14/16 10/14/16 10/14/16 10/15/16 10/15/16 10/15/16 07:00 15:00 23:00 07:00 15:00 23:00 Intake Total 797 ml 420 ml 775 ml 443 ml Output Total 400 ml 450 ml 350 ml Balance 397 ml -30 ml 425 ml 443 ml IV Total 329 ml Tube Feeding 408 ml 420 ml 655 ml 343 ml Other 60 ml 120 ml 100 ml Output Urine Total 400 ml 450 ml 350 ml # Voids 3 # Bowel Movements 1 1 (Javier Canseco MD R2) Result Diagram: 6/02/20 40210/14/16401 Objective Remarks GENERAL: 71-year-old male lying in bed in no acute distress. He is tracking well with eyes, some on the left side now, following commands, writes to communicate, using body language. NG tube in place. SKIN: Warm and dry. No rashes. Dry lips. HEENT: Atraumatic, normocephalic with EOMI. Left-sided facial droop without change. Oropharynx clear. No LAD or JVD appreciated. CARDIOVASCULAR:RRR without murmurs rubs or gallops RESPIRATORY: Clear to auscultation bilaterally. Transmitted upper airway sounds. GASTROINTESTINAL: Abdomen nondistended, nontender with +BS. MUSCULOSKELETAL: Left facial droop. Left arm and left leg weakness that is significant. 0-1/5 strength in left upper and lower extremity. NEURO/PSYCH: Awake, alert, and oriented x3. PERRLA. Tracking with eyes. Not verbalizing unless instructed to. Left side upper and lower extremity not moving much, strength 0-1/5. Left facial droop persistent. Minimal twitching of left foot. Not moving left arm. Following commands. (Javier Canseco MD R2) A/P Assessment and Plan 71-year-old male with acute CVA and left sided weakness. Discharge Planning Pending clinical improvement and neurology recommendations, will likely require intensive rehab. (Javier Canseco MD R2) Attending Attestation Patient seen and examined. Case reviewed and discussed with the resident team. Agree with plan of care as discussed with me and documented in the resident note. (Nicole Ash MD) Problem List: (1) Acute ischemic stroke Status: Acute Plan: Evidence of left facial droop and left hemiparesis on exam. CT head 2 negative for acute bleed. CTA carotids within normal limits. Unable to perform MRI due to metallic plate in cranium. ECHO with grade 1 diastolic dysfunction. Lipid profile only significant for 33.2 HDL, triglycerides, cholesterol, and LDL cholesterol WNL. A1C 5.4. - Neurology consulted - Critical care consulted - Cardiology consulted - Regular neuro checks - Cardiac telemetry - Aspirin 81 mg by mouth daily - Started beta mariposa, lisinopril, amlodipine. Titrate up to effect. - Increased lisinopril from 2.5 bid to 5 bid - Requiring Dobhoff for feeding due to swallowing difficulties. Speech therapy on board. - Aspiration precautions - Avoid restraints as much as possible - Blinds open in day, dark and quiet at night - Precedex drip to be weaned as tolerated (on for agitation) - Increased Seroquel (50 mg bid) for agitation (history of PTSD, also some delirium) - Delirium precautions - THC withdrawal protocol with Neurontin - Likely rehab at discharge, case management consulted (2) Chronic Medical Problems Status: Acute Plan: Hepatitis C: Hepatitis C positive PTSD/anxiety: Paroxetine 20mg NG daily when tolerating by mouth, Seroquel, Geodon (3) FEN/DVT PPX/GI PPX/Nursing Orders Status: Acute Plan: Fluids: NS @ 75 mls/hr IV Electrolytes: Will monitor and replace as needed. On ICU electrolyte replacement protocol Nutrition: Dobhoff tube due to aspiration risk running at 55/hr, speech therapy on board DVT Prophylaxis: Bilateral SCDs GI Prophylaxis: Lansoprazole 30mg QD Cannabis withdrawal: Neurontin 300 mg every morning and 600 mg at 1600 Case management has been consulted to assist with disposition needs PT has been consulted to assist with mobility and disposition needs Likely will need PT at rehab (Javier Canseco MD R2) Javier Canseco MD R2 Oct 15, 2016 08:51 Nicole Ash MD Oct 15, 2016 14:37
[2016-10-15] MEDS: LISINOPRIL 5 MG TAB PO SCH ×2 (08:57→20:47)
[2016-10-15] MEDS ORDERED: LISINOPRIL 5 MG TAB PO SCH (09:00)
[2016-10-15] MEDS: ACETAMINOPHEN/HYDROcodone 325 MG/5 MG TAB PO PRN (10:57)
[2016-10-15] MEDS: ATORVASTATIN 80 MG TAB PO SCH (20:47)
[2016-10-15] MEDS: TEMAZEPAM 15 MG CAP PO PRN (20:47)
[2016-10-16] VITALS (14 sets, daily range): BP systolic 109–154; BP diastolic 69–99; PULSE 80–106; RESP 18–28; TEMP 97.5–99.3; O2SAT 96–100
[2016-10-16 04:41] LABS: AUTOMATED NEUTROPHIL # 7.3 TH/MM3 (1.8-7.7); BASOPHIL # 0.1 TH/MM3 (0-0.2); BASOPHIL % 0.5 % (0.0-2.0); EOSINOPHIL # 0.2 TH/MM3 (0-0.4); EOSINOPHIL % 1.6 % (0.0-4.0); HEMO FLAGS DIFF FINAL; LYMPH % 13.9 % (9.0-44.0); LYMPHOCYTE # 1.4 TH/MM3 (1.0-4.8); MEAN CELL VOLUME 74.4 FL (80.0-100.0); MEAN CORPUSCULAR HEMOGLOBIN 23.6 PG (27.0-34.0); MEAN CORPUSCULAR HGB CONC 31.7 % (32.0-36.0); MONO % 10.2 % (0.0-8.0); NEUT % 73.8 % (16.0-70.0); PLATELET COUNT 175 TH/MM3 (150-450); RED BLOOD COUNT 5.24 MIL/MM3 (4.50-5.90); RED CELL DISTRIBUTION WIDTH 14.8 % (11.6-17.2)
[2016-10-16 04:48] LABS: ANION GAP 9 MEQ/L (5-15); AST (GOT) 46 U/L (15-37); BICARBONATE 24.6 MEQ/L (21.0-32.0); BLOOD UREA NITROGEN 18 MG/DL (7-18); CHLORIDE 112 MEQ/L (98-107); GLOMERULAR FILTRATION RATE 94 ML/MIN (>89); MAGNESIUM 2.3 MG/DL (1.5-2.5); SODIUM (NA) 146 MEQ/L (136-145)
[2016-10-16 04:51] LABS: ALKALINE PHOSPHATASE 67 U/L (45-117); ALT (GPT) 32 U/L (12-78); TOTAL BILIRUBIN ADULT 0.3 MG/DL (0.2-1.0)
[2016-10-16] MEDS: LABETALOL HCL 100 MG/20 ML VIAL IV PUSH PRN (05:24)
[2016-10-16] MEDS: SODIUM CHLORIDE 0.9% FLUSH 10 ML FLUSH IV FLUSH SCH ×2 (09:00→21:00)
--- NOTE | 2016-10-16 09:12 | HHI.PR ---
Review/Management Diagnosis Acute ischemic stroke Hypertensive urgency, resolved. TIA. History of craniotomy, status post traumatic brain injury Cannabis Withdrawal Plan Neuro checks q. 1 hourly. Continue antihypertensive medications B mariposa and Lisinopril, Amlodipine Swallow and speech evaluation, may consider PEG if he continues to fails swallow test DVT prophylaxis, Heprain 5000 units Q 12h Aspirin 81mg daily Seroquel 50mg bid D/C Precedex Gabapentin 300mg am, 300 mg noon, 600mg pm GI prophylaxis. PT/OT, recommendations are appreciated Diagnosis/Plan: Subjective Subjective Comments No acute events reported Stable neurologic status BP and HR under control during the weekend Active Medications Current Medications Medications (Trade) Dose Ordered Sig/Percy Route Start Time Stop Time Status Last Admin (NS Flush) 2 ml UNSCH PRN IV FLUSH 10/07/16 16:45 (NS Flush) 2 ml BID IV FLUSH 10/07/16 21:00 10/15/16 20:48 (Folate) 1 mg DAILY PO 10/08/16 09:00 10/15/16 08:34 (Tylenol) 650 mg Q4H PRN PO 10/07/16 16:45 ([place] 5-325 Mg) 1 tab Q6HR PRN PO 10/07/16 16:45 10/15/16 10:57 ([place] 10-325 Mg) 1 tab Q6H PRN PO 10/07/16 16:45 10/15/16 20:46 (Zofran Inj) 4 mg Q6H PRN IVP 10/07/16 17:00 10/15/16 03:03 (Restoril) 15 mg HS PRN PO 10/07/16 17:00 10/15/16 20:47 (Gilda-Colace) 1 tab BID PO 10/07/16 21:00 10/15/16 20:47 (Milk Of Magnesia Liq) 30 ml Q12H PRN PO 10/07/16 17:00 (Senokot) 17.2 mg Q12H PRN PO 10/07/16 17:00 (Dulcolax Supp) 10 mg DAILY PRN RECTAL 10/07/16 17:00 (Lactulose Liq) 30 ml DAILY PRN PO 10/07/16 17:00 Clonidine 0.1 mg 0.1 mg Q6H PRN PO 10/08/16 00:30 (Precedex Inj/NS Inj) 52 ml @ 0 mls/hr TITRATE IV 10/08/16 05:30 10/14/16 07:09 Paroxetine HCl 20 mg 20 mg DAILY NG 10/08/16 09:00 10/15/16 08:36 Potassium Chloride 100 ml @ 50 mls/hr Q2H PRN IV 10/08/16 06:45 (KCl 20 Meq Premix Inj) 100 ml @ 50 mls/hr Q2H PRN IV 10/08/16 06:45 10/13/16 15:12 Potassium Bicarb/ Potassium Chloride 50 meq 50 meq UNSCH PRN PO 10/08/16 06:45 Potassium Chloride 100 ml @ 25 mls/hr UNSCH PRN IV 10/08/16 06:45 Potassium Chloride 100 ml @ 50 mls/hr Q2H PRN IV 10/08/16 06:45 (Magnesium Sulfate Inj/NS Inj) 100 ml @ 50 mls/hr UNSCH PRN IV 10/08/16 06:45 Magnesium Oxide 800 mg 800 mg UNSCH PRN PO 10/08/16 06:45 (Magnesium Sulfate Inj/NS Inj) 100 ml @ 50 mls/hr UNSCH PRN IV 10/08/16 06:45 Potassium Phosphate 2000 mg 2,000 mg Q4H PRN PO 10/08/16 06:45 (Sodium Phosphate Inj/NS 250 ml Inj) 250 ml @ 42 mls/hr UNSCH PRN IV 10/08/16 06:45 Potassium Phosphate 2000 mg 2,000 mg UNSCH PRN PO/TUBE 10/08/16 06:45 (Potassium Phosphate Inj/NS 250 ml Inj) 260 ml @ 42 mls/hr UNSCH PRN IV 10/08/16 06:45 10/11/16 10:14 (Heparin Inj) 5,000 units BID SQ 10/08/16 13:00 10/15/16 20:46 (Trandate Inj) 10 mg Q1HR PRN IV PUSH 10/09/16 11:00 10/16/16 05:24 Hydralazine HCl 10 mg 10 mg Q1HR PRN IV PUSH 10/09/16 10:30 10/13/16 15:09 (Cardene Inj/NS 250 ml Inj) 260 ml @ 0 mls/hr TITRATE IV 10/09/16 13:30 10/12/16 17:21 (Aspirin Chew) 81 mg DAILY CHEW 10/09/16 15:00 10/15/16 08:35 (Pill Splitter) 1 ea UNSCH PRN OTHER 10/09/16 18:00 (Lipitor) 80 mg HS PO 10/10/16 21:00 10/15/16 20:47 (Neurontin Liq) 600 mg DAILY@1600 NG 10/11/16 16:00 10/15/16 17:45 (Neurontin Liq) 300 mg DAILY NG 10/12/16 09:00 10/15/16 08:36 (Neurontin Liq) 300 mg DAILY@12 NG 10/12/16 12:00 10/15/16 12:00 (Norvasc) 5 mg BID PO 10/12/16 21:00 10/15/16 20:47 (Prevacid Odt) 30 mg DAILY NG 10/13/16 09:00 10/15/16 08:35 (SEROquel) 50 mg BID PO 10/12/16 21:00 10/15/16 20:47 (Nitroglycerin 2% Oint) 2 inch Q6HR PRN TOPICAL 10/13/16 06:30 (Prinivil) 5 mg BID PO 10/15/16 09:00 10/15/16 20:47 Allergies Allergies Coded Allergies No Known Allergies (Unverified11/17/14) Exam I&O / VS 10/15/16 10/15/16 10/16/16 15:00 23:00 07:00 Intake Total 450 ml 426 ml 535 ml Output Total 500 ml 850 ml Balance -50 ml -424 ml 535 ml Intake Oral 0 ml IV Total 10 ml Tube Feeding 440 ml 276 ml 435 ml Other 150 ml 100 ml Output Urine Total 500 ml 850 ml # Voids 3 # Bowel Movements 1 1 Vital Signs Date Time Temp Pulse Resp B/P Pulse Ox O2 Delivery O2 Flow Rate FiO2 10/16/16 07:00 97 Room Air 10/16/16 06:00 80 10/16/16 04:00 97.5 80 18 146/92 98 10/16/16 02:00 80 10/16/16 00:00 80 10/16/16 00:00 98.6 80 18 109/69 96 10/15/16 22:00 78 10/15/16 20:51 99 10/15/16 20:00 Room Air 10/15/16 20:00 72 10/15/16 20:00 98.9 72 18 145/87 99 10/15/16 18:00 75 10/15/16 16:00 81 10/15/16 16:00 99.5 81 14 164/99 98 10/15/16 14:00 80 10/15/16 12:00 65 10/15/16 12:00 98.7 76 20 159/99 99 10/15/16 11:57 20 10/15/16 10:00 70 Exam Comments General: awake, alert, voices a few words,Dobhoff tube in place HEENT: Atraumatic, normocephalic. Injected eyes, intact hearing. Intact vision. Neck: Supple. No signs of meningeal irritation. Cardiovascular: Regular rate and rhythm, tachycardia. Respiratory: Clear to auscultation. No wheezes. Gastrointestinal: Soft abdomen, nontender. Musculoskeletal: Moves extremities on the right side, hemiplegic on the right. Neurological: awake, alert, speaks and voices words, soft voice, mild dysarthria , dysphagia, less pronounced left facial weakness, left sided hemiparesis, right side is normal. Objective Micro and Labs Laboratory Tests Test 10/16/16 04:00 White Blood Count 10.0 Red Blood Count 5.24 Hemoglobin 12.4 Hematocrit 39.0 Mean Corpuscular Volume 74.4 Mean Corpuscular Hemoglobin 23.6 Mean Corpuscular Hemoglobin 31.7 Concent Red Cell Distribution Width 14.8 Platelet Count 175 Mean Platelet Volume 9.1 Neutrophils (%) (Auto) 73.8 Lymphocytes (%) (Auto) 13.9 Monocytes (%) (Auto) 10.2 Eosinophils (%) (Auto) 1.6 Basophils (%) (Auto) 0.5 Neutrophils # (Auto) 7.3 Lymphocytes # (Auto) 1.4 Monocytes # (Auto) 1.0 Eosinophils # (Auto) 0.2 Basophils # (Auto) 0.1 CBC Comment DIFF FINAL Differential Comment Hematology Comments Sodium Level 146 Potassium Level 4.0 Chloride Level 112 Carbon Dioxide Level 24.6 Anion Gap 9 Blood Urea Nitrogen 18 Creatinine 0.96 Estimat Glomerular Filtration 94 Rate Random Glucose 124 Calcium Level 9.0 Phosphorus Level 2.5 Magnesium Level 2.3 Total Bilirubin 0.3 Aspartate Amino Transf 46 (AST/SGOT) Alanine Aminotransferase 32 (ALT/SGPT) Alkaline Phosphatase 67 Total Protein 7.2 Albumin 3.0 Alla Ponce MD Oct 16, 2016 09:12
[2016-10-16] MEDS: QUEtiapine FUMARATE 25 MG TAB PO SCH ×2 (09:40→21:07)
[2016-10-16] MEDS: LANSOPRAZOLE SOLUTAB 30 MG TAB NG SCH (09:40)
[2016-10-16] MEDS: ASPIRIN 81 MG CHEW TAB CHEW SCH (09:40)
[2016-10-16] MEDS: FOLIC ACID 1 MG TAB PO SCH (09:41)
[2016-10-16] MEDS: HEPARIN SODIUM - SQ 10,000 UNITS/ML VIAL SQ SCH ×2 (09:41→21:08)
[2016-10-16] MEDS: DOCUSATE SODIUM 50 MG/SENNA 8.6 MG TAB PO SCH ×2 (09:41→21:00)
[2016-10-16] MEDS: amLODIPine BESYLATE 5 MG TAB PO SCH ×2 (09:41→21:08)
[2016-10-16] MEDS: LISINOPRIL 5 MG TAB PO SCH ×2 (09:41→21:08)
[2016-10-16] MEDS: PARoxetine HCL SUSP 20 MG/10 ML UDC NG SCH (09:42)
[2016-10-16] MEDS: GABAPENTIN 250 MG/5 ML UDC NG SCH ×3 (09:42→17:00)
--- NOTE | 2016-10-16 11:16 | HHI.CCPN ---
Subjective Remarks/Hospital Course 71-year-old male with a poorly managed hypertension, hepatitis C, depression, PTSD, memory loss, and BPH that presents as a stroke alert. He was sitting out on his back porch with a friend, who noticed that something was not quite right with him. The friend called out to the patient's and she saw that he was trying to get up from the chair but was unable to do so, his speech was slurred and the left side of his body appeared weak. He was recently diagnosed with hypertension at the [facility] about 2-3 weeks ago. He was started on antihypertensive medication which she thinks is lisinopril. 10/08: Flaccid left arm, weak left leg, left facial droop. Out of window for tPA and BP not easily controlled last night apparently. 10/09: Transmitted upper airway sounds noted. He is suctioning himself using [place] with right hand. Continues flaccid left upper extremity, weak left lower extremity and left facial droop. 10/10: Required additional Precedex overnight due to agitation but slept well. Protecting airway adequately. Denies chest pain. Seen by Dr. Chaidez/ cardiology this AM. Added Norvasc. 10/11: Continues on low-dose Precedex at 0.3. Left upper extremity s remains o flaccid. Flat affect. Tolerating tube feeding. 10/12: Continues on low-dose Precedex. Mentation improved today. He was agitated yesterday lasting out requiring Geodon IM 10 milligrams 1. Family convinced going to cannabis withdrawal. 10/13: Afebrile. Precedex reinitiated last night due to severe agitation. Seroquel increased to 50 twice a day. 1 dose of Geodon last night. Remains on Neurontin for cannabis withdrawal protocol. Tolerating tube feeding. Positive BM. 10/14: Afebrile. Precedex at 0.4. Becomes agitated intermittently with systolic blood pressure rising to the 200s. We'll attempt again to wean office Precedex as he did yesterday for short period of time. Tolerating tube feeding. Positive BM. Subjective 10/15: Afebrile. Off Precedex overnight. Tolerating tube feeds. Up to chair yesterday with a brighter affect. 10/16: Awake and alert. Awaiting swallow eval. Following commands.. Left-sided weakness persists. Objective Vital Signs Date Time Temp Pulse Resp B/P Pulse Ox O2 Delivery O2 Flow Rate FiO2 10/16/16 07:00 97 Room Air 10/16/16 06:00 80 10/16/16 04:00 97.5 18 146/92 10/15/16 07:00 21 10/14/16 09:01 3.00 Intake and Output 10/15/16 10/15/16 10/16/16 08:00 16:00 00:00 Intake Total 443 ml 450 ml 426 ml Output Total 500 ml 850 ml Balance 443 ml -50 ml -424 ml Result Diagram: 10/16/16 0400 10/16/16 0400 Imaging Last Impressions Abdomen X-Ray 10/12/16 0000 Signed Impressions: Service Date/Time: October 10:24 - CONCLUSION: Dobbhoff catheter tip remains within the stomach. Mio Coulter MD Chest X-Ray 10/11/16 0600 Signed Impressions: Service Date/Time: Tuesday, October 11, 2016 04:28 - CONCLUSION: Normal examination. Feeding tube in good position Apolinar Koch MD Head CT 10/08/16 1600 Signed Impressions: Service Date/Time: Saturday, October 08, 2016 16:10 - CONCLUSION: 1. Prominent nonspecific white matter changes. 2. Old area of encephalomalacia in the occipital/parietal lobe. 3. No hemorrhage. Morales Pendleton MD CT Angiography 10/08/16 0000 Signed Impressions: Service Date/Time: Saturday, October 08, 2016 03:02 - CONCLUSION: There is no evidence for PE for technique. K. Dg Jacobson MD Neck CTA 10/07/16 1454 Signed Impressions: Service Date/Time: Friday, October 07, 2016 15:12 - CONCLUSION: Negative CTA of the carotids. Mio Coulter MD Head CTA 10/07/16 1454 Signed Impressions: Service Date/Time: Friday, October 07, 2016 15:12 - CONCLUSION: 1. No evidence of central truncation or aneurysm. 2. The largest intracranial metallic density , located near the left brain stem obscures a portion of the left posterior cerebral artery. The diameter of the left posterior cerebral artery distal to the metallic density is normal. Mio Coulter MD Objective Remarks GENERAL: 71-year-old male, critically ill currently resting in bed SKIN: Warm and dry. HEAD: Normocephalic. EYES: Pupils are equally reactive 3 mm bilaterally. Right deviation of right eye No scleral icterus. No injection or drainage. NECK: Supple, trachea midline. Airway open but some secretions. CARDIOVASCULAR: Regular rate and rhythm without murmurs, gallops, or rubs. RESPIRATORY: Breath sounds equal bilaterally. Transmitted upper airway sounds. Few scattered rhonchi. GASTROINTESTINAL: Abdomen soft, non-tender, nondistended. MUSCULOSKELETAL: No significant peripheral edema. BACK: Nontender without obvious deformity. No CVA tenderness. EXTREMITIES: No clubbing cyanosis or edema, left upper extremity weakness, NEURO: Flaccid left arm, weak left leg, left facial droop. Vision field cut left-sided. Speech slurred. Follows commands. Toes down right, up left. DTRs patellar 3+ deepa. No clonus. 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 No acute intra-abnormality CTA head and neck 10/07 revealed no focal stenosis or aneurysms Followed by Dr. Ponce/neurology On Paxil 20 mg by mouth daily for anxiety Currently off Precedex drip Aspirin 81 mg by mouth daily [place] 5/325-10/325 every 6 hours as needed for pain management Acetaminophen for fever/headache Discussed with neurology. Started low-dose Seroquel started 25 twice a day for agitation attempt to wean off Precedex on 10/11. Increased to 50 milligrams twice a day on 10/13 On Neurontin 300 mg a.m., 300 mg at noon and 600 mg at night for cannabis withdrawal CV: Hypertensive urgency History dyslipidemia Likely chronic diastolic heart failure Elevated troponin 0.12 On Norvasc 5 twice a day and lisinopril 2.5 twice daily. With CVA gentle decrease in blood pressure. 2-D echocardiogram revealed EF 50-55%. Grade 1 diastolic dysfunction. Left atrium mildly dilated. DAYAN 32 mmHg Elevated troponin likely straindemand ischemia secondary to hypertension. No indication for intervention at this time Seen by Dr. Chaidez.cardiology. Continue Lipitor 80 mg at night for dyslipidemia Resp: Nasal cannula to maintain saturations currently 92% Incentive or on entry while awake Strict aspiration precautions GI: Hepatitis C Gastroesophageal reflux disease Continue Dobbhoff tube to initiate tube feedings vital 1.5 goal 55 cc an hour Dietary consultation tube feed recommendations. As above Prevacid for GI prophylaxis Gilda-Colace for bowel regimen. Adequate bowel movements Speech therapy swallow evaluation - if patient failed swallow eval today will consider PEG tube placement. : BPH Vann if indicated for accurate I's and O's in a critically ill patient Endo: Sliding-scale insulin if indicated to maintain euglycemia Renal: Monitor urine output Accurate I's and O's Heme: Microcytic anemia Follow CBC ID: Monitor for infection MSK: PT/OT evaluate and treat FEN: Monitor and replete electrolytes Access - Utilize peripheral IV. Central line if indicated Prophylaxis - GI -Prevacid - DVT - SCD/heparin subcutaneous Justin Bell MD Oct 16, 2016 11:16
--- NOTE | 2016-10-16 15:40 | HHI.FPPN ---
Subjective Remarks Patient seen and examined this morning by medical team. No acute events overnight with vital signs stable. Patient appears less arousable today, however does respond to stimulation and able to follow commands. Patient asked if he was in pain or if there were any other issues, however patient falls and out of sleep and does not respond to questioning. Left upper and lower extremities remain unresponsive. (Odin Todd MD R1) Objective Vitals Vital Signs Date Time Temp Pulse Resp B/P Pulse Ox O2 Delivery O2 Flow Rate FiO2 10/16/16 14:00 88 10/16/16 12:35 97 21 10/16/16 12:00 90 10/16/16 12:00 98.3 90 24 117/77 98 10/16/16 10:00 88 10/16/16 08:00 87 10/16/16 08:00 97.8 87 18 154/94 98 10/16/16 07:00 97 Room Air 10/16/16 06:00 80 10/16/16 04:00 97.5 80 18 146/92 98 10/16/16 02:00 80 10/16/16 00:00 80 10/16/16 00:00 98.6 80 18 109/69 96 10/15/16 22:00 78 10/15/16 20:51 99 10/15/16 20:00 Room Air 10/15/16 20:00 72 10/15/16 20:00 98.9 72 18 145/87 99 10/15/16 18:00 75 10/15/16 16:00 81 10/15/16 16:00 99.5 81 14 164/99 98 I/O 10/15/16 10/15/16 10/15/16 10/16/16 10/16/16 10/16/16 07:00 15:00 23:00 07:00 15:00 23:00 Intake Total 443 ml 450 ml 426 ml 535 ml 518 ml Output Total 500 ml 850 ml 450 ml Balance 443 ml -50 ml -424 ml 535 ml 68 ml Intake Oral 0 ml IV Total 10 ml Tube Feeding 343 ml 440 ml 276 ml 435 ml 418 ml Other 100 ml 150 ml 100 ml 100 ml Output Urine Total 500 ml 850 ml 450 ml # Voids 3 3 # Bowel Movements 1 1 1 (Odin Todd MD R1) Result Diagram: 6/04/22 40010/16/16399 Objective Remarks GENERAL: 71-year-old male lying in bed in no acute distress. Patient was arousable this morning as he is falling in and out of sleep. Does respond to tactile and verbal stimulation, but does not participate in questioning. NG tube in place. SKIN: Warm and dry. No rashes. Dry lips. HEENT: Atraumatic, normocephalic with EOMI. Left-sided facial droop without change. Oropharynx clear. No LAD or JVD appreciated. NG tube in place with tube feeds running at goal. CARDIOVASCULAR: RRR without murmurs rubs or gallops RESPIRATORY: Clear to auscultation bilaterally. Transmitted upper airway sounds. GASTROINTESTINAL: Abdomen nondistended, nontender with +BS. MUSCULOSKELETAL: Left facial droop. Left arm and left leg weakness that is significant. 0-1/5 strength in left upper and lower extremity. NEURO/PSYCH: Awake, alert, and oriented x3. PERRLA. Tracking with eyes. Not verbalizing unless instructed to. Left side upper and lower extremity not moving much, strength 0-1/5. Left facial droop persistent. Minimal twitching of left foot. Not moving left arm. (Odin Todd MD R1) A/P Assessment and Plan 71-year-old male with acute CVA and left sided weakness. Discharge Planning Pending clinical improvement and neurology recommendations, will likely require intensive rehab. Medical team discussed with case management need for rehabilitation placement. Proximal rehabilitation is considering patient, however patient must be off chemical restraints and NG tube. However patient can have PEG tube upon discharge to [place] rehabilitation. (Odin Todd MD R1) Attending Attestation Patient seen and examined. Case reviewed and discussed with the resident team. Agree with plan of care as discussed with me and documented in the resident note. (Nicole Ash MD) Problem List: (1) Acute ischemic stroke Status: Acute Plan: Evidence of left facial droop and left hemiparesis on exam. CT head 2 negative for acute bleed. CTA carotids within normal limits. Unable to perform MRI due to metallic plate in cranium. ECHO with grade 1 diastolic dysfunction. Lipid profile only significant for 33.2 HDL, triglycerides, cholesterol, and LDL cholesterol WNL. A1C 5.4. - Neurology consulted - Critical care consulted - Cardiology consulted - Regular neuro checks - Cardiac telemetry - Aspirin 81 mg by mouth daily - Started beta mariposa, lisinopril, amlodipine. Titrated up to effect. - Increased lisinopril from 2.5 bid to 5 bid - Requiring Dobhoff for feeding due to swallowing difficulties. Speech therapy on board. - Aspiration precautions - Avoid restraints as much as possible - Blinds open in day, dark and quiet at night - Precedex drip to be weaned as tolerated (on for agitation) - Increased Seroquel (50 mg bid) for agitation (history of PTSD, also some delirium) - Delirium precautions - THC withdrawal protocol with Neurontin - Likely rehab at discharge, case management consulted (2) Chronic Medical Problems Status: Acute Plan: Hepatitis C: Hepatitis C positive PTSD/anxiety: Paroxetine 20mg NG daily when tolerating by mouth, Seroquel, Geodon (3) FEN/DVT PPX/GI PPX/Nursing Orders Status: Acute Plan: Fluids: NS @ 75 mls/hr IV Electrolytes: Will monitor and replace as needed. On ICU electrolyte replacement protocol Nutrition: Dobhoff tube due to aspiration risk running at 55/hr, speech therapy on board will discuss with [employer] Director possibility of PEG tube. DVT Prophylaxis: Bilateral SCDs GI Prophylaxis: Lansoprazole 30mg QD Cannabis withdrawal: Neurontin 300 mg every morning and 600 mg at 1600 Case management has been consulted to assist with disposition needs PT has been consulted to assist with mobility and disposition needs Likely will need PT at rehab (Odin Todd MD R1) Odin Todd MD R1 Oct 16, 2016 15:40 Nicole Ash MD Oct 17, 2016 08:23
[2016-10-16] MEDS: ATORVASTATIN 80 MG TAB PO SCH (21:07)
[2016-10-16] MEDS: TEMAZEPAM 15 MG CAP PO PRN (21:08)
[2016-10-17] VITALS (12 sets, daily range): BP systolic 130–178; BP diastolic 82–96; PULSE 86–102; RESP 18–24; TEMP 98.2–99.6; O2SAT 92–100
[2016-10-17] MEDS: PARoxetine HCL SUSP 20 MG/10 ML UDC NG SCH (08:37)
[2016-10-17] MEDS: LANSOPRAZOLE SOLUTAB 30 MG TAB NG SCH (08:37)
[2016-10-17] MEDS: amLODIPine BESYLATE 5 MG TAB PO SCH ×2 (08:37→22:25)
[2016-10-17] MEDS: QUEtiapine FUMARATE 25 MG TAB PO SCH ×2 (08:37→22:25)
[2016-10-17] MEDS: LISINOPRIL 5 MG TAB PO SCH ×2 (08:37→22:24)
[2016-10-17] MEDS: ASPIRIN 81 MG CHEW TAB CHEW SCH (08:37)
[2016-10-17] MEDS: FOLIC ACID 1 MG TAB PO SCH (08:37)
[2016-10-17] MEDS: DOCUSATE SODIUM 50 MG/SENNA 8.6 MG TAB PO SCH ×2 (08:38→22:24)
[2016-10-17] MEDS: HEPARIN SODIUM - SQ 10,000 UNITS/ML VIAL SQ SCH ×2 (08:38→22:25)
[2016-10-17] MEDS: GABAPENTIN 250 MG/5 ML UDC NG SCH ×3 (08:38→18:22)
[2016-10-17] MEDS: SODIUM CHLORIDE 0.9% FLUSH 10 ML FLUSH IV FLUSH SCH ×2 (08:38→22:25)
[2016-10-17] MEDS: hydrALAZINE HCL 20 MG/ML VIAL IV PUSH PRN (08:39)
--- NOTE | 2016-10-17 09:32 | HHI.FPPN ---
Subjective Remarks Patient seen and examined this morning. No acute events overnight with vital signs stable. Patient appears uncomfortable upon entering the room this morning. He remains nonverbal, but does communicate through her body language and riding on dry [employer] board. When asked about complaints, he writes that "I am so uncomfortable." He denied any fevers, chest pain, shortness of breath, or abdominal pain. He did indicate pain in his right lower extremity which is concerning due to his immobility. Of note, per nursing report last night patient and patient's family indicated to overnight nurse refusal of PEG tube. Discussed with patient this morning who indicated he understood the necessity for PEG tube given his swallow status. He will also require PEG tube to be placed for rehabilitation. (Odin Todd MD R1) Objective Vitals Vital Signs Date Time Temp Pulse Resp B/P Pulse Ox O2 Delivery O2 Flow Rate FiO2 10/17/16 06:00 95 10/17/16 04:00 94 10/17/16 04:00 99.6 94 22 143/89 97 10/17/16 02:00 92 10/17/16 00:00 99.4 100 19 130/82 100 10/17/16 00:00 102 10/16/16 22:00 106 10/16/16 21:03 98 10/16/16 20:00 98.7 98 28 147/99 99 10/16/16 20:00 98 10/16/16 19:00 99 Room Air 10/16/16 18:00 89 10/16/16 16:00 93 10/16/16 16:00 99.3 93 22 138/89 100 10/16/16 14:00 88 10/16/16 12:35 97 21 10/16/16 12:00 90 10/16/16 12:00 98.3 90 24 117/77 98 10/16/16 10:00 88 I/O 10/16/16 10/16/16 10/16/16 10/17/16 10/17/16 10/17/16 07:00 15:00 23:00 07:00 15:00 23:00 Intake Total 535 ml 518 ml 464 ml 161 ml Output Total 450 ml 325 ml 400 ml Balance 535 ml 68 ml 139 ml -239 ml Tube Feeding 435 ml 418 ml 404 ml 161 ml Other 100 ml 100 ml 60 ml Output Urine Total 450 ml 325 ml 400 ml # Voids 3 # Bowel Movements 1 1 (Odin Todd MD R1) Result Diagram: 10/16/1639910/16/16399 Objective Remarks GENERAL: 71-year-old male lying in bed in no acute distress. Patient is restless during exam. Does respond to tactile and verbal stimulation. Participates with questioning by writing on dry respiratory and body language.. NG tube in place. SKIN: Warm and dry. No rashes. Dry lips. HEENT: Atraumatic, normocephalic with EOMI. Left-sided facial droop without change. Oropharynx clear. No LAD or JVD appreciated. NG tube in place with tube feeds running at goal. CARDIOVASCULAR: RRR without murmurs rubs or gallops RESPIRATORY: Clear to auscultation bilaterally. Transmitted upper airway sounds. Currently on RA. GASTROINTESTINAL: Abdomen nondistended, nontender with +BS. MUSCULOSKELETAL: Left facial droop. Left arm and left leg weakness that is significant. 0-1/5 strength in left upper and lower extremity. RLE: Patient indicates pain in the RLE. No visible skin changes. No erythema. Mild tenderness to palpation at the knee and upper calf. 2+ pulses throughout the extremity. ROM intact. Homans sign negative. NEURO/PSYCH: Awake, alert, and oriented x3. PERRLA. Tracking with eyes. Not verbalizing unless instructed to. Left side upper and lower extremity not moving much, strength 0-1/5. Left facial droop persistent. Minimal twitching of left foot. Not moving left arm. (Odin Todd MD R1) A/P Assessment and Plan 71-year-old male with acute CVA and left sided weakness. Discharge Planning Pending clinical improvement and neurology recommendations, will likely require intensive rehab. Medical team discussed with case management need for rehabilitation placement. [facility] is considering patient, however patient must be off chemical restraints and NG tube. However patient can have PEG tube upon discharge to [facility]. Medical team consulted gastroenterology for PEG tube placement, however nursing staff indicated patient and family currently refusing NG tube. Medical team to return to family to discuss further options as patient will require PEG tube for any rehabilitation placement and will not be allowed anything by mouth while hospitalized. We will also discuss possible palliative/hospice consult at that time. (Odin Todd MD R1) Attending Attestation Patient seen and examined. Case reviewed and discussed with the resident team. Agree with plan of care as discussed with me and documented in the resident note. (Nicole Ash MD) Problem List: (1) Acute ischemic stroke Status: Acute Plan: Evidence of left facial droop and left hemiparesis on exam. CT head 2 negative for acute bleed. CTA carotids within normal limits. Unable to perform MRI due to metallic plate in cranium. ECHO with grade 1 diastolic dysfunction. Lipid profile only significant for 33.2 HDL, triglycerides, cholesterol, and LDL cholesterol WNL. A1C 5.4. - Neurology consulted - Critical care consulted - Cardiology consulted - Regular neuro checks - Cardiac telemetry - Aspirin 81 mg by mouth daily - Started beta mariposa, lisinopril, amlodipine. Titrated up to effect. - Increased lisinopril from 2.5 bid to 5 bid - Requiring Dobhoff for feeding due to swallowing difficulties. Speech therapy on board who recommends PEG tube placement. -GI consulted for possible PEG tube placement -Per overnight nurse, patient and patient's family refusing PEG tube, however patient will require PEG tube for rehabilitation placement. Medical team to reach out to family to discuss options. - Aspiration precautions - Avoid restraints as much as possible - Blinds open in day, dark and quiet at night - Precedex drip to be weaned as tolerated (on for agitation) - Increased Seroquel (50 mg bid) for agitation (history of PTSD, also some delirium) - Delirium precautions - THC withdrawal protocol with Neurontin - Likely rehab at discharge, case management consulted (2) Chronic Medical Problems Status: Acute Plan: Hepatitis C: Hepatitis C positive PTSD/anxiety: Paroxetine 20mg NG daily when tolerating by mouth, Seroquel, Geodon (3) FEN/DVT PPX/GI PPX/Nursing Orders Status: Acute Plan: Fluids: Accounted for in tube feeds. Electrolytes: Will monitor and replace as needed. On ICU electrolyte replacement protocol Nutrition: Currently NPO for possible NG tube placement. DVT Prophylaxis: Bilateral SCDs GI Prophylaxis: Lansoprazole 30mg QD Cannabis withdrawal: Neurontin 300 mg every morning and 600 mg at 1600 Case management has been consulted to assist with disposition needs PT has been consulted to assist with mobility and disposition needs Likely will need PT at rehab (Odin Todd MD R1) Odin Todd MD R1 Oct 17, 2016 09:32 Nicole Ash MD Oct 17, 2016 16:27
--- NOTE | 2016-10-17 10:20 | RADRPT ---
EXAM DATE/TIME: 10/17/2016 08:58 [facility] COMPARISON: No previous studies available for comparison. INDICATIONS : Bilateral leg swelling. MEDICAL HISTORY : Hepatitis C. Hypercholesterolemia. Acute ischemic stroke. Syncope. Anticoagula nt therapy. Hypertension. BPH. PTSD. SURGICAL HISTORY : Head trama surgery. Left shoulder dislocations. ENCOUNTER: Initial ACUITY: 1 day PAIN SCORE: 1/10 LOCATION: Bilateral legs. TECHNIQUE: Venous ultrasound of the left and right leg was performed from the inguinal ligament t o the proximal calf. Real-time, color Doppler and spectral tracing, compression and augmentation abida hniques were used. FINDINGS: RIGHT LEG: There is normal compressibility of the deep venous system from the inguinal region to the proximal calf. No echogenic clot is seen in the lumen of the common femoral, femoral, popliteal, and posterior tibial veins. There is a normal response of the venous system to proximal and distal augmentation and respiration. LEFT LEG: There is normal compressibility of the deep venous system from the inguinal region to t he proximal calf. No echogenic clot is seen in the lumen of the common femoral, femoral, popliteal, and posterior tibial veins. There is a normal response of the venous system to proximal and distal a ugmentation and respiration. CONCLUSION: No evidence of deep venous thrombosis within the lower extremities. Miki Rankin MD on October 17, 2016 at 10:17 Board Certified Radiologist. This report was verified electronically.
--- NOTE | 2016-10-17 11:54 | PD.CONS ---
HPI History of Present Illness This is a 71 year old male who suffered CVA with left sided weakness and will need rehab. GI has been consulted for PEG tube placement. It is unlikely that pt will be able to do rehab with dobhoff. Pt is nonverbal but alert and indicated that he was agreeable to having PEG placed. HIs was unsure and wants to consult other family members. Pt denies abd pain, n/v. (Joslyn Rojas) PFSH Past Medical History per EMR HTN depression PTSD BPH hep C Past Surgical History craniectomy (Joslyn Rojas) Coded Allergies: No Known Allergies (Unverified , 11/17/14) Family History HTN Social History per EMR former smoker regular use Marijuana (Joslyn Rojas) Review of Systems ROS nonverbal (Joslyn Rojas) GI Exam Vitals I&O Vital Signs Date Time Temp Pulse Resp B/P Pulse Ox O2 Delivery O2 Flow Rate FiO2 10/17/16 10:00 142/85 10/17/16 10:00 91 10/17/16 08:00 90 10/17/16 08:00 99.4 90 24 162/96 98 10/17/16 07:00 99 Room Air 10/17/16 06:00 95 10/17/16 04:00 94 10/17/16 04:00 99.6 94 22 143/89 97 10/17/16 02:00 92 10/17/16 00:00 99.4 100 19 130/82 100 10/17/16 00:00 102 10/16/16 22:00 106 10/16/16 21:03 98 10/16/16 20:00 98.7 98 28 147/99 99 10/16/16 20:00 98 10/16/16 19:00 99 Room Air 10/16/16 18:00 89 10/16/16 16:00 93 10/16/16 16:00 99.3 93 22 138/89 100 10/16/16 14:00 88 10/16/16 12:35 97 21 10/16/16 12:00 90 10/16/16 12:00 98.3 90 24 117/77 98 I/O 10/16/16 10/16/16 10/16/16 10/17/16 10/17/1610/17/17 07:00 15:00 23:00 07:00 15:00 23:00 Intake Total 535 ml 518 ml 464 ml 161 ml Output Total 450 ml 325 ml 400 ml Balance 535 ml 68 ml 139 ml -239 ml Tube Feeding 435 ml 418 ml 404 ml 161 ml Other 100 ml 100 ml 60 ml Output Urine Total 450 ml 325 ml 400 ml # Voids 3 # Bowel Movements 1 1 Imaging Last Impressions Lower Extremity Ultrasound 10/17/16 0000 Signed Impressions: Service Date/Time: Monday, October 17, 2016 08:58 - CONCLUSION: No evidence of deep venous thrombosis within the lower extremities. Miki Rankin MD Abdomen X-Ray 10/12/16 0000 Signed Impressions: Service Date/Time: October 10:24 - CONCLUSION: Dobbhoff catheter tip remains within the stomach. Mio Coulter MD Chest X-Ray 10/11/16 0600 Signed Impressions: Service Date/Time: Tuesday, October 11, 2016 04:28 - CONCLUSION: Normal examination. Feeding tube in good position Apolinar Koch MD Head CT 10/08/16 1600 Signed Impressions: Service Date/Time: Saturday, October 08, 2016 16:10 - CONCLUSION: 1. Prominent nonspecific white matter changes. 2. Old area of encephalomalacia in the occipital/parietal lobe. 3. No hemorrhage. Morales Pendleton MD CT Angiography 10/08/16 0000 Signed Impressions: Service Date/Time: Saturday, October 08, 2016 03:02 - CONCLUSION: There is no evidence for PE for technique. K. Dg Jacobson MD Neck CTA 10/07/16 1454 Signed Impressions: Service Date/Time: Friday, October 07, 2016 15:12 - CONCLUSION: Negative CTA of the carotids. Mio Coulter MD Head CTA 10/07/16 1454 Signed Impressions: Service Date/Time: Friday, October 07, 2016 15:12 - CONCLUSION: 1. No evidence of central truncation or aneurysm. 2. The largest intracranial metallic density , located near the left brain stem obscures a portion of the left posterior cerebral artery. The diameter of the left posterior cerebral artery distal to the metallic density is normal. Mio Coulter MD Physical Examination HEENT: EOMI; normocephalic; atraumatic; no jaundice. CHEST: CTA CARDIAC: RRR ABDOMEN: Soft, nondistended, nontender; no hepatosplenomegaly; bowel sounds are present in all four quadrants. EXTREMITIES: No clubbing, cyanosis, or edema. SKIN: Normal; no rash; no jaundice. CHANGE MANAGEMENT: nonverbal but alert. (Joslyn Rojas) Assessment and Plan Plan ASSESSMENT - dysphagia - failed swallow eval. currently has dobhoff, needs PEG for rehab placement. Pt indicated agreement with PEG placement after d/w him. D/w also with who is inclined to wait b/c "its only been a week". wants to talk to other family member and they will make decision today. - CVA - per primary PLAN - EGD/peg placement in am - NPO after midnight - obtain consents - hold heparin 0600 10/18/16 - further recommendations to follow THis pt seen by myself and Dr Madrigal and this note is written on his behalf ( Joslyn Rojas) Physician Comments Seen and examined with KEVIN, egd/peg planned for tomorrow if all family agreeable to this and consents obtained. Pre procedure antibiotics. Will follow , thank you (Vignesh Madrigal MD) Joslyn Rojas Oct 17, 2016 11:54 Vignesh Madrigal MD Oct 17, 2016 15:29
--- NOTE | 2016-10-17 17:12 | HHI.PR ---
Review/Management Diagnosis Acute ischemic stroke Hypertensive urgency, resolved. TIA. History of craniotomy, status post traumatic brain injury Cannabis Withdrawal Plan Neuro checks q. 4 hourly. Continue antihypertensive medications Needs PEG placement DVT prophylaxis, Heprain 5000 units Q 12h Aspirin 81mg daily Seroquel 50mg bid Gabapentin 300mg am, 300 mg noon, 600mg pm GI prophylaxis. PT/OT, recommendations are appreciated Needs rehab placement Diagnosis/Plan: Subjective Subjective Comments No acute events reported Stable neurologic status Family at bed side, they are unsure whether they want to consent regarding PEG placement, Patient is calm Active Medications Current Medications Medications (Trade) Dose Ordered Sig/Percy Route Start Time Stop Time Status Last Admin (NS Flush) 2 ml UNSCH PRN IV FLUSH 10/07/16 16:45 (NS Flush) 2 ml BID IV FLUSH 10/07/16 21:00 10/17/16 08:38 (Folate) 1 mg DAILY PO 10/08/16 09:00 10/17/16 08:37 (Tylenol) 650 mg Q4H PRN PO 10/07/16 16:45 (Gideon 5-325 Mg) 1 tab Q6HR PRN PO 10/07/16 16:45 10/15/16 10:57 (Gideon 10-325 Mg) 1 tab Q6H PRN PO 10/07/16 16:45 10/15/16 20:46 (Zofran Inj) 4 mg Q6H PRN IVP 10/07/16 17:00 10/15/16 03:03 (Restoril) 15 mg HS PRN PO 10/07/16 17:00 10/16/16 21:08 (Gilda-Colace) 1 tab BID PO 10/07/16 21:00 10/16/16 09:41 (Milk Of Magnesia Liq) 30 ml Q12H PRN PO 10/07/16 17:00 (Senokot) 17.2 mg Q12H PRN PO 10/07/16 17:00 (Dulcolax Supp) 10 mg DAILY PRN RECTAL 10/07/16 17:00 (Lactulose Liq) 30 ml DAILY PRN PO 10/07/16 17:00 Clonidine 0.1 mg 0.1 mg Q6H PRN PO 10/08/16 00:30 (Precedex Inj/NS Inj) 52 ml @ 0 mls/hr TITRATE IV 10/08/16 05:30 10/14/16 07:09 Paroxetine HCl 20 mg 20 mg DAILY NG 10/08/16 09:00 10/17/16 08:37 Potassium Chloride 100 ml @ 50 mls/hr Q2H PRN IV 10/08/16 06:45 (KCl 20 Meq Premix Inj) 100 ml @ 50 mls/hr Q2H PRN IV 10/08/16 06:45 10/13/16 15:12 Potassium Bicarb/ Potassium Chloride 50 meq 50 meq UNSCH PRN PO 10/08/16 06:45 Potassium Chloride 100 ml @ 25 mls/hr UNSCH PRN IV 10/08/16 06:45 Potassium Chloride 100 ml @ 50 mls/hr Q2H PRN IV 10/08/16 06:45 (Magnesium Sulfate Inj/NS Inj) 100 ml @ 50 mls/hr UNSCH PRN IV 10/08/16 06:45 Magnesium Oxide 800 mg 800 mg UNSCH PRN PO 10/08/16 06:45 (Magnesium Sulfate Inj/NS Inj) 100 ml @ 50 mls/hr UNSCH PRN IV 10/08/16 06:45 Potassium Phosphate 2000 mg 2,000 mg Q4H PRN PO 10/08/16 06:45 (Sodium Phosphate Inj/NS 250 ml Inj) 250 ml @ 42 mls/hr UNSCH PRN IV 10/08/16 06:45 Potassium Phosphate 2000 mg 2,000 mg UNSCH PRN PO/TUBE 10/08/16 06:45 (Potassium Phosphate Inj/NS 250 ml Inj) 260 ml @ 42 mls/hr UNSCH PRN IV 10/08/16 06:45 10/11/16 10:14 (Heparin Inj) 5,000 units BID SQ 10/08/16 13:00 Future Hold 10/17/16 08:38 (Trandate Inj) 10 mg Q1HR PRN IV PUSH 10/09/16 11:00 10/16/16 05:24 Hydralazine HCl 10 mg 10 mg Q1HR PRN IV PUSH 10/09/16 10:30 10/17/16 08:39 (Cardene Inj/NS 250 ml Inj) 260 ml @ 0 mls/hr TITRATE IV 10/09/16 13:30 10/12/16 17:21 (Aspirin Chew) 81 mg DAILY CHEW 10/09/16 15:00 10/17/16 08:37 (Pill Splitter) 1 ea UNSCH PRN OTHER 10/09/16 18:00 (Lipitor) 80 mg HS PO 10/10/16 21:00 10/16/16 21:07 (Neurontin Liq) 600 mg DAILY@1600 NG 10/11/16 16:00 10/16/16 17:00 (Neurontin Liq) 300 mg DAILY NG 10/12/16 09:00 10/17/16 08:38 (Neurontin Liq) 300 mg DAILY@12 NG 10/12/16 12:00 10/17/16 12:00 (Norvasc) 5 mg BID PO 10/12/16 21:00 10/17/16 08:37 (Prevacid Odt) 30 mg DAILY NG 10/13/16 09:00 10/17/16 08:37 (SEROquel) 50 mg BID PO 10/12/16 21:00 10/17/16 08:37 (Nitroglycerin 2% Oint) 2 inch Q6HR PRN TOPICAL 10/13/16 06:30 (Prinivil) 5 mg BID PO 10/15/16 09:00 10/17/16 08:37 Allergies Allergies Coded Allergies No Known Allergies (Unverified11/17/14) Exam I&O / VS 10/16/16 10/16/16 10/17/16 15:00 23:00 07:00 Intake Total 518 ml 464 ml 161 ml Output Total 450 ml 325 ml 400 ml Balance 68 ml 139 ml -239 ml Tube Feeding 418 ml 404 ml 161 ml Other 100 ml 60 ml Output Urine Total 450 ml 325 ml 400 ml # Bowel Movements 1 Vital Signs Date Time Temp Pulse Resp B/P Pulse Ox O2 Delivery O2 Flow Rate FiO2 10/17/16 15:58 99.5 95 18 154/96 96 10/17/16 14:15 99.3 86 18 159/92 97 10/17/16 12:00 96 10/17/16 12:00 99.5 96 24 147/93 98 10/17/16 10:00 142/85 10/17/16 10:00 91 10/17/16 08:00 90 10/17/16 08:00 99.4 90 24 162/96 98 10/17/16 07:00 99 Room Air 10/17/16 06:00 95 10/17/16 04:00 94 10/17/16 04:00 99.6 94 22 143/89 97 10/17/16 02:00 92 10/17/16 00:00 99.4 100 19 130/82 100 10/17/16 00:00 102 10/16/16 22:00 106 10/16/16 21:03 98 10/16/16 20:00 98.7 98 28 147/99 99 10/16/16 20:00 98 10/16/16 19:00 99 Room Air 10/16/16 18:00 89 Exam Comments General: awake, alert, voices a few words, Dobhoff tube in place HEENT: Atraumatic, normocephalic. Injected eyes, intact hearing. Intact vision. Neck: Supple. No signs of meningeal irritation. Cardiovascular: Regular rate and rhythm, tachycardia. Respiratory: Clear to auscultation. No wheezes. Gastrointestinal: Soft abdomen, nontender. Musculoskeletal: Moves extremities on the right side, hemiplegic on the left. Neurological: awake, alert, speaks and voices words, soft voice, mild dysarthria , dysphagia, less pronounced left facial weakness, left sided hemiplegia, right side is normal. Objective Radiology Results Last 72 hours Impressions Lower Extremity Ultrasound 10/17/16 0000 Signed Impressions: Service Date/Time: Monday, October 17, 2016 08:58 - CONCLUSION: No evidence of deep venous thrombosis within the lower extremities. MD Rosario House Raid G. MD Oct 17, 2016 17:12
[2016-10-17] MEDS: ATORVASTATIN 80 MG TAB PO SCH (22:25)
[2016-10-17] MEDS: TEMAZEPAM 15 MG CAP PO PRN (23:39)
[2016-10-17] MEDS: ACETAMINOPHEN/HYDROcodone 325 MG/10 MG TAB PO PRN (23:40)
[2016-10-18] VITALS (8 sets, daily range): BP systolic 117–165; BP diastolic 65–97; PULSE 86–116; RESP 16–22; TEMP 95.8–98.7; O2SAT 86–100
[2016-10-18 08:47] LABS: HEMATOCRIT 38.5 % (39.0-51.0); MEAN CELL VOLUME 74.6 FL (80.0-100.0); MEAN CORPUSCULAR HEMOGLOBIN 23.2 PG (27.0-34.0); MEAN CORPUSCULAR HGB CONC 31.1 % (32.0-36.0); PLATELET COUNT 197 TH/MM3 (150-450); RED BLOOD COUNT 5.16 MIL/MM3 (4.50-5.90); RED CELL DISTRIBUTION WIDTH 14.2 % (11.6-17.2); REVIEW FLAG FINAL; WHITE BLOOD COUNT 12.5 TH/MM3 (4.0-11.0)
[2016-10-18] MEDS: DOCUSATE SODIUM 50 MG/SENNA 8.6 MG TAB PO SCH ×2 (09:00→22:26)
[2016-10-18 09:21] LABS: BICARBONATE 23.6 MEQ/L (21.0-32.0); POTASSIUM 3.4 MEQ/L (3.5-5.1)
[2016-10-18] MEDS ORDERED: ENALAPRILAT 1.25 MG/ML VIAL IV PUSH PRN (09:30)
[2016-10-18] MEDS: LISINOPRIL 5 MG TAB PO SCH ×2 (09:58→22:26)
[2016-10-18] MEDS: PARoxetine HCL SUSP 20 MG/10 ML UDC NG SCH (09:58)
[2016-10-18] MEDS: amLODIPine BESYLATE 5 MG TAB PO SCH ×2 (09:58→22:26)
[2016-10-18] MEDS: ASPIRIN 81 MG CHEW TAB CHEW SCH (09:59)
[2016-10-18] MEDS: LANSOPRAZOLE SOLUTAB 30 MG TAB NG SCH (09:59)
[2016-10-18] MEDS: SODIUM CHLORIDE 0.9% FLUSH 10 ML FLUSH IV FLUSH SCH ×2 (09:59→22:25)
[2016-10-18] MEDS: QUEtiapine FUMARATE 25 MG TAB PO SCH ×2 (09:59→22:26)
[2016-10-18] MEDS: FOLIC ACID 1 MG TAB PO SCH (09:59)
[2016-10-18] MEDS: GABAPENTIN 250 MG/5 ML UDC NG SCH ×3 (09:59→16:35)
--- NOTE | 2016-10-18 10:55 | HHI.FPPN ---
Subjective Remarks No acute events. Still not moving left side of body. Still not able to swallow. Patient's and daughter by bedside. Patient is following all commands and following conversations. He is nonverbal but communicates with body language. He is awake and alert. Plan was for PEG tube this morning but and daughter have many questions and further discussion about risks and benefits will occur today. (Javier Canseco MD R2) Objective Vitals Vital Signs Date Time Temp Pulse Resp B/P Pulse Ox O2 Delivery O2 Flow Rate FiO2 10/18/16 09:52 Room Air 10/18/16 08:20 97.1 95 18 165/97 96 10/18/16 08:11 100 10/18/16 04:00 95.8 86 20 126/82 86 10/18/16 01:24 Room Air 10/18/16 00:00 97.4 113 20 121/74 100 10/17/16 20:00 98.2 101 20 178/89 92 10/17/16 17:44 96 21 10/17/16 15:58 99.5 95 18 154/96 96 10/17/16 15:00 97 10/17/16 14:15 99.3 86 18 159/92 97 10/17/16 12:00 96 10/17/16 12:00 99.5 96 24 147/93 98 I/O 10/17/16 10/17/16 10/17/16 10/18/16 10/18/16 10/18/16 07:00 15:00 23:00 07:00 15:00 23:00 Intake Total 161 ml 505 ml Output Total 400 ml Balance -239 ml 505 ml Tube Feeding 161 ml 385 ml Other 120 ml Output Urine Total 400 ml # Voids 2 2 # Bowel Movements 1 1 (Javier Canseco MD R2) Result Diagram: 10/18/16 0726 10/18/16 0726 Imaging Last 72 hours Impressions Lower Extremity Ultrasound 10/17/16 0000 Signed Impressions: Service Date/Time: Monday, October 17, 2016 08:58 - CONCLUSION: No evidence of deep venous thrombosis within the lower extremities. Miki Rankin MD Objective Remarks GENERAL: 71-year-old male lying in bed in no acute distress. Resting, appears comfortable, asking for water. Communicating non-verbally. SKIN: Warm and dry. No rashes. Using mouth swabs to moisten mucous membranes. HEENT: Atraumatic, normocephalic with EOMI. Left-sided facial droop without change. Oropharynx clear. No LAD or JVD appreciated. NG tube in place. CARDIOVASCULAR: RRR without murmurs rubs or gallops RESPIRATORY: Clear to auscultation bilaterally. Transmitted upper airway sounds. Currently on RA. GASTROINTESTINAL: Abdomen nondistended, nontender with +BS. MUSCULOSKELETAL: Left facial droop. Left arm and left leg weakness that is significant. 0-1/5 strength in left upper and lower extremity. RLE: Patient indicates pain in the RLE. No visible skin changes. No erythema. Mild tenderness to palpation at the knee and upper calf. 2+ pulses throughout the extremity. ROM intact. Homans sign negative. NEURO/PSYCH: Awake, alert, and oriented x3. PERRLA. Tracking with eyes. Not verbalizing unless instructed to. Left side upper and lower extremity not moving much, strength 0-1/5. Left facial droop persistent. Minimal twitching of left foot. Not moving left arm. (Javier Canseco MD R2) A/P Assessment and Plan 71-year-old male with acute CVA and left sided weakness. Discharge Planning Pending clinical improvement and neurology recommendations, will likely require intensive rehab. Medical team discussed with case management need for rehabilitation placement. [facility] is considering patient, however patient must be off chemical restraints and NG tube. However patient can have PEG tube upon discharge to [facility]. Medical team consulted gastroenterology for possible PEG tube placement. Continue dialogue with family regarding risks/benefits of PEG tube placement. ( Javier Canseco MD R2) Attending Attestation Family had to leave before speaking with Dr. Madrigal today, but will return later and he will speak to them re PEG. This is the only barrier to his being in rehabilitation at [facility]. Patient seen and examined. Case reviewed and discussed with the resident team. Agree with plan of care as discussed with me and documented in the resident note. (Nicole Ash MD) Problem List: (1) Acute ischemic stroke Status: Acute Plan: Evidence of left facial droop and left hemiparesis on exam. CT head 2 negative for acute bleed. CTA carotids within normal limits. Unable to perform MRI due to metallic plate in cranium. ECHO with grade 1 diastolic dysfunction. Lipid profile only significant for 33.2 HDL, triglycerides, cholesterol, and LDL cholesterol WNL. A1C 5.4. - Neurology consulted - Cardiology consulted - Aspirin 81 mg by mouth daily - Started beta mariposa, lisinopril, amlodipine. Titrate up to effect. - Requiring Dobhoff for feeding due to swallowing difficulties. Speech therapy on board who recommends PEG tube placement. -GI consulted for possible PEG tube placement - Aspiration precautions - Avoid restraints as much as possible - Blinds open in day, dark and quiet at night - Seroquel (50 mg bid) for agitation (history of PTSD, also some delirium) - Delirium precautions - THC withdrawal protocol with Neurontin - Likely rehab at discharge, case management consulted (2) Chronic Medical Problems Status: Acute Plan: Hepatitis C: Hepatitis C positive PTSD/anxiety: Paroxetine 20mg NG daily when tolerating by mouth, Seroquel, Geodon (3) FEN/DVT PPX/GI PPX/Nursing Orders Status: Acute Plan: Fluids: Accounted for in tube feeds. Electrolytes: Will monitor and replace as needed. On ICU electrolyte replacement protocol Nutrition: Currently NPO for possible NG tube placement. DVT Prophylaxis: Bilateral SCDs GI Prophylaxis: Lansoprazole 30mg QD Cannabis withdrawal: Neurontin 300 mg every morning and 600 mg at 1600 Case management has been consulted to assist with disposition needs PT has been consulted to assist with mobility and disposition needs Likely will need PT at rehab (Javier Canseco MD R2) Javier Canseco MD R2 Oct 18, 2016 10:55 Nicole Ash MD Oct 18, 2016 11:58
[2016-10-18] MEDS: TEMAZEPAM 15 MG CAP PO PRN (22:25)
[2016-10-18] MEDS: ATORVASTATIN 80 MG TAB PO SCH (22:26)
[2016-10-19] VITALS (11 sets, daily range): BP systolic 111–185; BP diastolic 58–98; PULSE 79–108; RESP 16–20; TEMP 96.8–99.1; O2SAT 95–99
[2016-10-19] MEDS: SODIUM CHLORIDE 0.9% FLUSH 10 ML FLUSH IV FLUSH SCH ×2 (09:00→21:24)
--- NOTE | 2016-10-19 09:13 | HHI.PR ---
Review/Management Diagnosis Acute ischemic stroke Hypertensive urgency, resolved. TIA. History of craniotomy, status post traumatic brain injury Cannabis Withdrawal Plan Neuro checks q. 4 hourly. Continue antihypertensive medications PEG placement DVT prophylaxis, Heprain 5000 units Q 12h Aspirin 81mg daily Seroquel 50mg bid Gabapentin 300mg am, 300 mg noon, 600mg pm GI prophylaxis. PT/OT, recommendations are appreciated Needs rehab placement I explained to the family the current neurologic status, and prognosis, they understand Diagnosis/Plan: Subjective Subjective Comments Stable neurologic exam No acute events are reported PEG placement is scheduled today Family at bed side Active Medications Current Medications Medications (Trade) Dose Ordered Sig/Percy Route Start Time Stop Time Status Last Admin (NS Flush) 2 ml UNSCH PRN IV FLUSH 10/07/16 16:45 (NS Flush) 2 ml BID IV FLUSH 10/07/16 21:00 10/18/16 22:25 (Folate) 1 mg DAILY PO 10/08/16 09:00 10/18/16 09:59 (Tylenol) 650 mg Q4H PRN PO 10/07/16 16:45 ([place] 5-325 Mg) 1 tab Q6HR PRN PO 10/07/16 16:45 10/15/16 10:57 ([place] 10-325 Mg) 1 tab Q6H PRN PO 10/07/16 16:45 10/17/16 23:40 (Zofran Inj) 4 mg Q6H PRN IVP 10/07/16 17:00 10/15/16 03:03 (Restoril) 15 mg HS PRN PO 10/07/16 17:00 10/18/16 22:25 (Gilda-Colace) 1 tab BID PO 10/07/16 21:00 10/18/16 22:26 (Milk Of Magnesia Liq) 30 ml Q12H PRN PO 10/07/16 17:00 (Senokot) 17.2 mg Q12H PRN PO 10/07/16 17:00 (Dulcolax Supp) 10 mg DAILY PRN RECTAL 10/07/16 17:00 (Lactulose Liq) 30 ml DAILY PRN PO 10/07/16 17:00 Clonidine 0.1 mg 0.1 mg Q6H PRN PO 10/08/16 00:30 (Precedex Inj/NS Inj) 52 ml @ 0 mls/hr TITRATE IV 10/08/16 05:30 10/14/16 07:09 (Paxil Liq) 20 mg DAILY NG 10/08/16 09:00 10/18/16 09:58 (Heparin Inj) 5,000 units BID SQ 10/08/16 13:00 10/17/16 22:25 (Trandate Inj) 10 mg Q1HR PRN IV PUSH 10/09/16 11:00 10/16/16 05:24 Hydralazine HCl 10 mg 10 mg Q1HR PRN IV PUSH 10/09/16 10:30 10/17/16 08:39 (Cardene Inj/NS 250 ml Inj) 260 ml @ 0 mls/hr TITRATE IV 10/09/16 13:30 10/12/16 17:21 (Aspirin Chew) 81 mg DAILY CHEW 10/09/16 15:00 10/18/16 09:59 (Pill Splitter) 1 ea UNSCH PRN OTHER 10/09/16 18:00 (Lipitor) 80 mg HS PO 10/10/16 21:00 10/18/16 22:26 (Neurontin Liq) 600 mg DAILY@1600 NG 10/11/16 16:00 10/18/16 16:35 (Neurontin Liq) 300 mg DAILY NG 10/12/16 09:00 10/18/16 09:59 (Neurontin Liq) 300 mg DAILY@12 NG 10/12/16 12:00 10/18/16 13:11 (Norvasc) 5 mg BID PO 10/12/16 21:00 10/18/16 22:26 (Prevacid Odt) 30 mg DAILY NG 10/13/16 09:00 10/18/16 09:59 (SEROquel) 50 mg BID PO 10/12/16 21:00 10/18/16 22:26 (Nitroglycerin 2% Oint) 2 inch Q6HR PRN TOPICAL 10/13/16 06:30 (Prinivil) 5 mg BID PO 10/15/16 09:00 10/18/16 22:26 (Vasotec Inj) 1.25 mg Q6H PRN IV PUSH 10/18/16 09:30 Allergies Allergies Coded Allergies No Known Allergies (Unverified11/17/14) Exam I&O / VS 10/18/16 10/18/16 10/19/16 15:00 23:00 07:00 Intake Total 705 ml Balance 705 ml Tube Feeding 385 ml Tube Irrigant 200 ml Other 120 ml # Voids 3 2 3 # Bowel Movements 2 Vital Signs Date Time Temp Pulse Resp B/P Pulse Ox O2 Delivery O2 Flow Rate FiO2 10/19/16 08:08 99.1 88 18 137/98 96 10/19/16 04:00 98.5 108 20 138/96 98 10/19/16 00:00 98.7 93 18 131/93 97 10/18/16 20:00 90 10/18/16 20:00 98.5 92 16 158/85 98 10/18/16 16:00 97.4 86 18 137/80 97 10/18/16 12:02 98.7 116 18 126/77 96 10/18/16 11:35 96 10/18/16 09:52 Room Air Exam Comments General: awake, alert, voices a few words, Dobhoff tube in place HEENT: Atraumatic, normocephalic. Injected eyes, intact hearing. Intact vision. Neck: Supple. No signs of meningeal irritation. Cardiovascular: Regular rate and rhythm, tachycardia. Respiratory: Clear to auscultation. No wheezes. Gastrointestinal: Soft abdomen, nontender. Musculoskeletal: Moves extremities on the right side, hemiplegic on the left. Neurological: awake, alert, speaks and voices words, soft voice, mild dysarthria , dysphagia, less pronounced left facial weakness, left sided hemiplegia, right side is normal. Objective Radiology Results Last 72 hours Impressions Lower Extremity Ultrasound 10/17/16 0000 Signed Impressions: Service Date/Time: Monday, October 17, 2016 08:58 - CONCLUSION: No evidence of deep venous thrombosis within the lower extremities. Miki Rankin MD Ossi,Alla Rowland MD Oct 19, 2016 09:13
[2016-10-19] MEDS: LANSOPRAZOLE SOLUTAB 30 MG TAB NG SCH (09:25)
[2016-10-19] MEDS: QUEtiapine FUMARATE 25 MG TAB PO SCH ×2 (09:25→21:23)
[2016-10-19] MEDS: amLODIPine BESYLATE 5 MG TAB PO SCH ×2 (09:25→21:23)
[2016-10-19] MEDS: ASPIRIN 81 MG CHEW TAB CHEW SCH (09:25)
[2016-10-19] MEDS: PARoxetine HCL SUSP 20 MG/10 ML UDC NG SCH (09:25)
[2016-10-19] MEDS: DOCUSATE SODIUM 50 MG/SENNA 8.6 MG TAB PO SCH ×2 (09:25→21:00)
[2016-10-19] MEDS: FOLIC ACID 1 MG TAB PO SCH (09:25)
[2016-10-19] MEDS: LISINOPRIL 5 MG TAB PO SCH ×2 (09:25→21:23)
[2016-10-19] MEDS: GABAPENTIN 250 MG/5 ML UDC NG SCH ×3 (09:25→16:24)
--- NOTE | 2016-10-19 10:55 | HHI.FPPN ---
Subjective Remarks Patient seen and examined this morning by medical team. No acute events overnight with vital signs stable. Patient's and daughter at bedside who reports they will proceed with PEG tube placement today. His and daughter state that they are evaluating possible rehabilitation placement's will be in touch with case management with her decision. They have noticed no change in his left-sided paresis at this time. The patient indicates he currently is not in pain, but otherwise does not participate in interview. (Odin Todd MD R1) Objective Vitals Vital Signs Date Time Temp Pulse Resp B/P Pulse Ox O2 Delivery O2 Flow Rate FiO2 10/19/16 10:29 96 21 10/19/16 08:08 99.1 88 18 137/98 96 10/19/16 07:15 99 10/19/16 04:00 98.5 108 20 138/96 98 10/19/16 00:00 98.7 93 18 131/93 97 10/18/16 20:00 90 10/18/16 20:00 98.5 92 16 158/85 98 10/18/16 16:00 97.4 86 18 137/80 97 10/18/16 12:02 98.7 116 18 126/77 96 10/18/16 11:35 96 I/O 10/18/16 10/18/16 10/18/16 10/19/16 10/19/16 10/19/16 07:00 15:00 23:00 07:00 15:00 23:00 Intake Total 705 ml Balance 705 ml Tube Feeding 385 ml Tube Irrigant 200 ml Other 120 ml # Voids 2 3 2 3 # Bowel Movements 1 2 (Odin Todd MD R1) Result Diagram: 10/18/16 0726 10/18/16725 Objective Remarks GENERAL: 71-year-old male lying in bed in no acute distress. Resting, appears comfortable. Communicating non-verbally. and daughter at bedside. SKIN: Warm and dry. No rashes. Using mouth swabs to moisten mucous membranes. HEENT: Atraumatic, normocephalic with EOMI. Left-sided facial droop without change. Oropharynx clear. No LAD or JVD appreciated. NG tube in place, currently clamped for procedure. CARDIOVASCULAR: RRR without murmurs rubs or gallops RESPIRATORY: Clear to auscultation bilaterally. Transmitted upper airway sounds. Currently on RA. GASTROINTESTINAL: Abdomen nondistended, nontender with +BS. No masses appreciated MUSCULOSKELETAL: Left facial droop. Left arm and left leg weakness that is significant. 0-1/5 strength in left upper and lower extremity. Right upper and lower extremity without abnormality. NEURO/PSYCH: Awake, alert, and oriented x3. PERRLA. Tracking with eyes. Not verbalizing unless instructed to. Left side upper and lower extremity not moving much, strength 0-1/5. Left facial droop persistent. Minimal twitching of left foot. Not moving left arm. (Odin Todd MD R1) A/P Assessment and Plan 71-year-old male with acute CVA and left sided weakness. Discharge Planning Medical team discussed with case management need for rehabilitation placement. [facility] is considering patient, however patient must be off chemical restraints and NG tube. However patient can have PEG tube upon discharge to [facility]. Medical team consulted gastroenterology for possible PEG tube placement today in preparation for discharge to rehab. (Odin Todd MD R1) Attending Attestation Patient seen and examined. Case reviewed and discussed with the resident team. Agree with plan of care as discussed with me and documented in the resident note. (Nicole Ash MD) Problem List: (1) Acute ischemic stroke Status: Acute Plan: Evidence of left facial droop and left hemiparesis on exam. CT head 2 negative for acute bleed. CTA carotids within normal limits. Unable to perform MRI due to metallic plate in cranium. ECHO with grade 1 diastolic dysfunction. Lipid profile only significant for 33.2 HDL, triglycerides, cholesterol, and LDL cholesterol WNL. A1C 5.4. - Neurology consulted - Cardiology consulted - Aspirin 81 mg by mouth daily - Started beta mariposa, lisinopril, amlodipine. Titrate up to effect. - Requiring Dobhoff for feeding due to swallowing difficulties. Speech therapy on board who recommends PEG tube placement. -GI consulted for PEG tube placement today. Patient currently NPO for procedure. - Aspiration precautions - Avoid restraints as much as possible - Blinds open in day, dark and quiet at night - Seroquel (50 mg bid) for agitation (history of PTSD, also some delirium) - Delirium precautions - THC withdrawal protocol with Neurontin - Likely rehab at discharge, case management consulted (2) Chronic Medical Problems Status: Acute Plan: Hepatitis C: Hepatitis C positive PTSD/anxiety: Paroxetine 20mg NG daily when tolerating by mouth, SerojacquelIrena (3) FEN/DVT PPX/GI PPX/Nursing Orders Status: Acute Plan: Fluids: Accounted for in tube feeds. Electrolytes: Will monitor and replace as needed. Nutrition: Currently NPO for NG tube placement. Plans to restart feeds gradually with PEG tube in place. DVT Prophylaxis: Bilateral SCDs GI Prophylaxis: Lansoprazole 30mg QD Cannabis withdrawal: Neurontin 300 mg every morning and 600 mg at 1600 Case management has been consulted to assist with disposition needs PT has been consulted to assist with mobility and disposition needs Likely will need PT at rehab (Odin Todd MD R1) Odin Todd MD R1 Oct 19, 2016 10:55 Nicole Ash MD Oct 20, 2016 08:08
[2016-10-19] MEDS ORDERED: PROPOFOL 200 MG/20 ML AMP IV ONE (11:27)
[2016-10-19] MEDS ORDERED: ceFAZolin INJ 1,000 MG VIAL IV ONE (11:28)
--- NOTE | 2016-10-19 11:45 | GIPROC ---
[facility] [address] [facility]. [facility], [address] EGD WITH PEG PROCEDURE REPORT EXAM DATE: 10/19/2016 PATIENT NAME: Cb Garcia MR#: [id number] BIRTHDATE: 1945 ATTENDING: Vignesh Madrigal MD ORDER #: [id number] METEOROLOGICAL EQUIPMENT REPAIRER: Lei Almeida and Megan Ortiz STATUS: inpatient INDICATIONS: The patient is a 71 yr old male here for an EGD with PEG due to placement of PEG PROCEDURE PERFORMED: EGD with PEG placement MEDICATIONS: None and Per Anesthesia. TOPICAL ANESTHETIC: CONSENT: The patient understands the risks and benefits of the procedure and understands that these risks include, but are not limited to: sedation, allergic reaction, infection, perforation and/or bleeding. Alternative means of evaluation and treatment include, among others: physical exam, x-rays, and/or surgical intervention. The patient elects to proceed with this endoscopic procedure. medical equipment was checked for proper function. Hand hygiene and appropriate measures for infection prevention was taken. After the risks, benefits and alternatives of the procedure were thoroughly explained, Informed consent was verified, confirmed and timeout was successfully executed by the treatment team. The patient was anesthetized with topical anesthesia and the Pentax [id number] endoscope was introduced through the mouth and advanced to the descending duodenum. The instrument was slowly withdrawn as the mucosa was fully examined. The upper, middle, and distal third of the esophagus were carefully inspected and no abnormalities were noted. The z-line was well seen at the GEJ. The endoscope was pushed into the fundus which was normal including a retroflexed view. The antrum, first and second part of the duodenum were unremarkable. The stomach was then inflated with air, and by a combination of transillumination and manual palpation, the site for the gastrostomy tube placement was selected and marked on the anterior abdominal wall. The skin of the anterior abdomen was surgically prepped and draped with sterile towels. Utilizing strict sterile technique, the selected site was then anesthetized with 1% xylocaine by injection into the skin and subcutaneous tissue. A 1 cm incision was made through the skin and subcutaneous tissue, and the needle/cannula assembly was then passed through the abdominal wall and through the anterior wall of the stomach, maintaining visualization with the endoscope. A snare device previously placed through the instrument channel was then opened and placed around the cannula, the needle was removed, and the insertion wire was passed through the cannula and into the stomach lumen. The snare was then loosened from the cannula, and repositioned to snare the insertion wire. The snare was then pulled up to the endoscope distal tip, and the scope was then withdrawn bringing with it the snare and insertion wire. The insertion wire was then released from the snare, and then loop-attached to the Bard 20 Fr gastrostomy tube. Using the "pull technique", the G-tube was then pulled into place by traction on the insertion wire at the abdominal wall end. The G-tube insertion site was then cleansed once again, and the external bolster was placed over the tube to secure it to the abdominal wall. A sterile dressing was then applied, and the procedure terminated. no abnormalities The gastroscope was then slowly withdrawn and removed. ADVERSE EVENT: There were no complications. IMPRESSIONS: 1. The upper, middle, and distal third of the esophagus were carefully inspected and no abnormalities were noted. The z-line was well seen at the GEJ. The endoscope was pushed into the fundus which was normal including a retroflexed view. The antrum, first and second part of the duodenum were unremarkable. 2. No abnormalities RECOMMENDATIONS: PEG recomendations: 1- NPO for 6 hours except for meds 2- Flush PEG tube every 6 hours with water and after each PEG feeding 3- May resume regular diet in the morning 4- May use Ensure or Boost etc. for PEG tube feeding REPEAT EXAM: Return as needed for EGD Vignesh Madrigal MD eSigned: Vignesh Madrigal MD 10/19/2016 11:45 AM cc: PATIENT NAME: Cb Garcia MR#: [id number]
[2016-10-19 13:09] LABS: HEMATOCRIT 41.2 % (39.0-51.0); MEAN CORPUSCULAR HEMOGLOBIN 23.7 PG (27.0-34.0); PLATELET COUNT 234 TH/MM3 (150-450); RED BLOOD COUNT 5.56 MIL/MM3 (4.50-5.90); RED CELL DISTRIBUTION WIDTH 14.4 % (11.6-17.2); REVIEW FLAG FINAL; WHITE BLOOD COUNT 13.5 TH/MM3 (4.0-11.0)
[2016-10-19 13:26] LABS: BICARBONATE 25.8 MEQ/L (21.0-32.0); POTASSIUM 3.9 MEQ/L (3.5-5.1)
[2016-10-19] MEDS: ACETAMINOPHEN/HYDROcodone 325 MG/10 MG TAB PO PRN (14:21)
[2016-10-19] MEDS: ACETAMINOPHEN/HYDROcodone 325 MG/5 MG TAB PO PRN (17:52)
[2016-10-19] MEDS: ATORVASTATIN 80 MG TAB PO SCH (21:23)
[2016-10-20] VITALS: BP 147/95; PULSE 80; RESP 18; TEMP 97.7; O2SAT 97
[2016-10-20] MEDS: ACETAMINOPHEN/HYDROcodone 325 MG/10 MG TAB PO PRN ×2 (02:03→12:37)
[2016-10-20 04:00] VITALS: BP 128/76; PULSE 77; RESP 18; TEMP 96.8; O2SAT 95
[2016-10-20 07:15] VITALS: PULSE 82
[2016-10-20 08:07] VITALS: BP 118/87; PULSE 82; RESP 20; TEMP 97.5; O2SAT 95
[2016-10-20] MEDS: QUEtiapine FUMARATE 25 MG TAB PO SCH (08:49)
[2016-10-20] MEDS: LANSOPRAZOLE SOLUTAB 30 MG TAB NG SCH (08:49)
[2016-10-20] MEDS: DOCUSATE SODIUM 50 MG/SENNA 8.6 MG TAB PO SCH (08:49)
[2016-10-20] MEDS: LISINOPRIL 5 MG TAB PO SCH (08:49)
[2016-10-20] MEDS: ASPIRIN 81 MG CHEW TAB CHEW SCH (08:49)
[2016-10-20] MEDS: FOLIC ACID 1 MG TAB PO SCH (08:50)
[2016-10-20] MEDS: PARoxetine HCL SUSP 20 MG/10 ML UDC NG SCH (08:50)
[2016-10-20] MEDS: amLODIPine BESYLATE 5 MG TAB PO SCH (08:50)
[2016-10-20] MEDS: SODIUM CHLORIDE 0.9% FLUSH 10 ML FLUSH IV FLUSH SCH (08:50)
[2016-10-20] MEDS: GABAPENTIN 250 MG/5 ML UDC NG SCH ×2 (08:50→12:34)
--- NOTE | 2016-10-20 09:23 | HHI.PR ---
Review/Management Diagnosis Acute ischemic stroke Hypertensive urgency, resolved. TIA. History of craniotomy, status post traumatic brain injury Cannabis Withdrawal, resolved Plan Neuro checks q. 4 hourly. Continue antihypertensive medications S/P PEG placement DVT prophylaxis, Heprain 5000 units Q 12h Aspirin 81mg daily Seroquel 50mg bid Gabapentin 300mg am, 300 mg noon, 600mg pm GI prophylaxis. PT/OT, recommendations are appreciated Needs rehab placement I explained to the family the current neurologic status, and prognosis, they understand Please call for questions Diagnosis/Plan: Subjective Subjective Comments Stable neurologic exam No acute events are reported S/P PEG tube placement Family at bed side Active Medications Current Medications Medications (Trade) Dose Ordered Sig/Percy Route Start Time Stop Time Status Last Admin (NS Flush) 2 ml UNSCH PRN IV FLUSH 10/07/16 16:45 (NS Flush) 2 ml BID IV FLUSH 10/07/16 21:00 10/20/16 08:50 (Folate) 1 mg DAILY PO 10/08/16 09:00 10/20/16 08:50 (Tylenol) 650 mg Q4H PRN PO 10/07/16 16:45 ([place] 5-325 Mg) 1 tab Q6HR PRN PO 10/07/16 16:45 10/19/16 17:52 ([place] 10-325 Mg) 1 tab Q6H PRN PO 10/07/16 16:45 10/20/16 02:03 (Zofran Inj) 4 mg Q6H PRN IVP 10/07/16 17:00 10/15/16 03:03 (Restoril) 15 mg HS PRN PO 10/07/16 17:00 10/18/16 22:25 (Gilda-Colace) 1 tab BID PO 10/07/16 21:00 10/20/16 08:49 (Milk Of Magnesia Liq) 30 ml Q12H PRN PO 10/07/16 17:00 (Senokot) 17.2 mg Q12H PRN PO 10/07/16 17:00 (Dulcolax Supp) 10 mg DAILY PRN RECTAL 10/07/16 17:00 (Lactulose Liq) 30 ml DAILY PRN PO 10/07/16 17:00 Clonidine 0.1 mg 0.1 mg Q6H PRN PO 10/08/16 00:30 (Precedex Inj/NS Inj) 52 ml @ 0 mls/hr TITRATE IV 10/08/16 05:30 10/14/16 07:09 (Paxil Liq) 20 mg DAILY NG 10/08/16 09:00 10/20/16 08:50 (Heparin Inj) 5,000 units BID SQ 10/08/16 13:00 10/17/16 22:25 (Trandate Inj) 10 mg Q1HR PRN IV PUSH 10/09/16 11:00 10/16/16 05:24 Hydralazine HCl 10 mg 10 mg Q1HR PRN IV PUSH 10/09/16 10:30 10/17/16 08:39 (Cardene Inj/NS 250 ml Inj) 260 ml @ 0 mls/hr TITRATE IV 10/09/16 13:30 10/12/16 17:21 (Aspirin Chew) 81 mg DAILY CHEW 10/09/16 15:00 10/20/16 08:49 (Pill Splitter) 1 ea UNSCH PRN OTHER 10/09/16 18:00 (Lipitor) 80 mg HS PO 10/10/16 21:00 10/19/16 21:23 (Neurontin Liq) 600 mg DAILY@1600 NG 10/11/16 16:00 10/19/16 16:24 (Neurontin Liq) 300 mg DAILY NG 10/12/16 09:00 10/20/16 08:50 (Neurontin Liq) 300 mg DAILY@12 NG 10/12/16 12:00 10/18/16 13:11 (Norvasc) 5 mg BID PO 10/12/16 21:00 10/20/16 08:50 (Prevacid Odt) 30 mg DAILY NG 10/13/16 09:00 10/20/16 08:49 (SEROquel) 50 mg BID PO 10/12/16 21:00 10/20/16 08:49 (Nitroglycerin 2% Oint) 2 inch Q6HR PRN TOPICAL 10/13/16 06:30 (Prinivil) 5 mg BID PO 10/15/16 09:00 10/20/16 08:49 (Vasotec Inj) 1.25 mg Q6H PRN IV PUSH 10/18/16 09:30 Allergies Allergies Coded Allergies No Known Allergies (Unverified11/17/14) Exam I&O / VS 10/19/16 10/19/16 10/20/16 15:00 23:00 07:00 Intake Total 100 ml Balance 100 ml Other 100 ml # Voids 3 5 Vital Signs Date Time Temp Pulse Resp B/P Pulse Ox O2 Delivery O2 Flow Rate FiO2 10/20/16 08:07 97.5 82 20 118/87 95 10/20/16 05:00 Room Air 10/20/16 04:00 96.8 77 18 128/76 95 10/20/16 03:03 18 10/20/16 00:00 97.7 80 18 147/95 97 10/19/16 22:15 91 10/19/16 21:01 Room Air 10/19/16 20:00 98.7 92 16 148/68 97 10/19/16 19:58 18 10/19/16 17:45 99 21 10/19/16 16:05 96.8 79 18 111/80 99 10/19/16 13:07 135/91 10/19/16 13:00 97.4 93 20 185/90 95 10/19/16 12:05 102 18 129/91 99 10/19/16 11:55 110 18 117/85 96 10/19/16 11:44 98.2 119 18 119/77 96 10/19/16 10:29 96 21 Exam Comments General: awake, alert, voices a few words, calm HEENT: Atraumatic, normocephalic. Injected eyes, intact hearing. Intact vision. Neck: Supple. No signs of meningeal irritation. Cardiovascular: Regular rate and rhythm, tachycardia. Respiratory: Clear to auscultation. No wheezes. Gastrointestinal: Soft abdomen, nontender, PEG in place. Musculoskeletal: Moves extremities on the right side, hemiplegic on the left. Neurological: awake, alert, speaks and voices few words, soft voice, mild dysarthria, dysphagia, less pronounced left facial weakness, left sided hemiplegia, right side is normal. Objective Micro and Labs Laboratory Tests Test 10/19/16 12:53 White Blood Count 13.5 Red Blood Count 5.56 Hemoglobin 13.2 Hematocrit 41.2 Mean Corpuscular Volume 74.0 Mean Corpuscular Hemoglobin 23.7 Mean Corpuscular Hemoglobin 32.0 Concent Red Cell Distribution Width 14.4 Platelet Count 234 Mean Platelet Volume 8.6 Sodium Level 144 Potassium Level 3.9 Chloride Level 109 Carbon Dioxide Level 25.8 Anion Gap 9 Blood Urea Nitrogen 18 Creatinine 0.94 Estimat Glomerular Filtration 96 Rate Random Glucose 81 Calcium Level 9.6 Alla Ponce MD Oct 20, 2016 09:23
[2016-10-20 12:17] VITALS: BP 126/81; PULSE 99; RESP 20; TEMP 98.7; O2SAT 96
--- NOTE | 2016-10-20 13:26 | HHI.DCPOC ---
Discharge Care Plan Diagnosis: (1) Hypertensive emergency (2) Chronic Medical Problems (3) BPH (benign prostatic hyperplasia) (4) Acute left hemiparesis (5) Acute ischemic stroke (6) Altered mental status Goals to Promote Your Health * To prevent worsening of your condition and complications * To maintain your health at the optimal level Directions to Meet Your Goals Take your medications as prescribed Follow your dietary instruction Follow activity as directed Keep your appointments as scheduled Take your immunizations and boosters as scheduled If your symptoms worsen call your PCP, if no PCP go to Urgent Care Center or Emergency Room Smoking is Dangerous to Your Health. Avoid second hand smoke Call the 24-hour hour crisis hotline for domestic abuse at Odin Todd MD R1 Oct 20, 2016 13:26
[2016-10-20] MEDS ORDERED: ATOR1TAB18 PO (13:37)
[2016-10-20] MEDS ORDERED: HYDR-3516 PO (13:37)
[2016-10-20] MEDS ORDERED: GABA250S NG ×3 (13:37)
[2016-10-20] MEDS ORDERED: PARO10S NG (13:37)
[2016-10-20] MEDS ORDERED: PREV30TA3 NG (13:37)
[2016-10-20] MEDS ORDERED: AMLO5 PO (13:37)
[2016-10-20] MEDS ORDERED: QUET1TAB7 PO (13:37)
[2016-10-20] MEDS ORDERED: SENN1TAB PO (13:37)
[2016-10-20] MEDS ORDERED: REST15CA PO ×2 (13:37→13:59)
[2016-10-20] MEDS ORDERED: LISI-519 PO (13:37)
[2016-10-20] MEDS ORDERED: ASPI81CH25 CHEW (14:13)
--- NOTE | 2016-10-20 15:12 | HHI.GIFU ---
Subjective Remarks Resting in bed. PEG tube was placed yesterday. Tolerating TF. No abdominal pain. Objective Vitals I&O Vital Signs Date Time Temp Pulse Resp B/P Pulse Ox O2 Delivery O2 Flow Rate FiO2 10/20/16 12:17 98.7 99 20 126/81 96 10/20/16 08:07 97.5 82 20 118/87 95 10/20/16 07:15 82 10/20/16 05:00 Room Air 10/20/16 04:00 96.8 77 18 128/76 95 10/20/16 03:03 18 10/20/16 00:00 97.7 80 18 147/95 97 10/19/16 22:15 91 10/19/16 21:01 Room Air 10/19/16 20:00 98.7 92 16 148/68 97 10/19/16 19:58 18 10/19/16 17:45 99 21 10/19/16 16:05 96.8 79 18 111/80 99 I/O 10/19/16 10/19/16 10/19/16 10/20/16 10/20/16 10/20/16 07:00 15:00 23:00 07:00 15:00 23:00 Intake Total 100 ml Balance 100 ml Other 100 ml # Voids 3 3 5 2 # Bowel Movements 0 Imaging Last Impressions Lower Extremity Ultrasound 10/17/16 0000 Signed Impressions: Service Date/Time: Monday, October 17, 2016 08:58 - CONCLUSION: No evidence of deep venous thrombosis within the lower extremities. Miki Rankin MD Abdomen X-Ray 10/12/16 0000 Signed Impressions: Service Date/Time: October 10:24 - CONCLUSION: Dobbhoff catheter tip remains within the stomach. Mio Coulter MD Chest X-Ray 10/11/16 0600 Signed Impressions: Service Date/Time: Tuesday, October 11, 2016 04:28 - CONCLUSION: Normal examination. Feeding tube in good position Apolinar Koch MD Head CT 10/08/16 1600 Signed Impressions: Service Date/Time: Saturday, October 08, 2016 16:10 - CONCLUSION: 1. Prominent nonspecific white matter changes. 2. Old area of encephalomalacia in the occipital/parietal lobe. 3. No hemorrhage. Morales Pendleton MD CT Angiography 10/08/16 0000 Signed Impressions: Service Date/Time: Saturday, October 08, 2016 03:02 - CONCLUSION: There is no evidence for PE for technique. Jed Jacobson MD Neck CTA 10/07/16 1454 Signed Impressions: Service Date/Time: Friday, October 07, 2016 15:12 - CONCLUSION: Negative CTA of the carotids. Mio Coulter MD Head CTA 10/07/16 1454 Signed Impressions: Service Date/Time: Friday, October 07, 2016 15:12 - CONCLUSION: 1. No evidence of central truncation or aneurysm. 2. The largest intracranial metallic density , located near the left brain stem obscures a portion of the left posterior cerebral artery. The diameter of the left posterior cerebral artery distal to the metallic density is normal. Mio Coulter MD Physical Exam HEENT: Normocephalic; atraumatic; no jaundice. CHEST: CTA. CARDIAC: RRR ABDOMEN: Soft, nondistended, nontender; no hepatosplenomegaly; bowel sounds are present in all four quadrants. EXTREMITIES: No clubbing, cyanosis, or edema. SKIN: Normal; no rash; no jaundice. FACULTY HEAD: Left sided hemiparalysis Assessment and Plan Plan ASSESSMENT - Dysphagia. S/P EGD (10/19/16)-----> 1. The upper, middle, and distal third of the esophagus were carefully inspected and no abnormalities were noted. The z-line was well seen at the GEJ. The endoscope was pushed into the fundus which was normal including a retroflexed view. The antrum, first and second part of the duodenum were unremarkable. 2. No abnormalities - CVA - per primary PLAN - S/P PEG tube placement - Vital 1.5 @ 55 mls/hr goal - Okay to transfer to rehab - GI will sign off, please reconsult as needed - This pt seen by myself and Dr Madrigal and this note is written on his behalf Vale Crow Oct 20, 2016 15:12
--- NOTE | 2016-10-20 17:06 | HHI.FPPN ---
Subjective Remarks Patient seen and examined this morning by medical team. No acute events overnight with vital signs stable. Patient remains nonverbal and communicates via body language. He indicates that he is not in pain and nonsustained yes when asked if his PEG tube procedure went well. He also indicates he has no complaints. Upon discussion with case management, patient will be accepted to [facility] this afternoon. (Odin Todd MD R1) Objective Vitals Vital Signs Date Time Temp Pulse Resp B/P Pulse Ox O2 Delivery O2 Flow Rate FiO2 10/20/16 12:17 98.7 99 20 126/81 96 10/20/16 08:07 97.5 82 20 118/87 95 10/20/16 07:15 82 10/20/16 05:00 Room Air 10/20/16 04:00 96.8 77 18 128/76 95 10/20/16 03:03 18 10/20/16 00:00 97.7 80 18 147/95 97 10/19/16 22:15 91 10/19/16 21:01 Room Air 10/19/16 20:00 98.7 92 16 148/68 97 10/19/16 19:58 18 10/19/16 17:45 99 21 I/O 10/19/16 10/19/16 10/19/16 10/20/16 10/20/16 10/20/16 07:00 15:00 23:00 07:00 15:00 23:00 Intake Total 100 ml Balance 100 ml Other 100 ml # Voids 3 3 5 2 # Bowel Movements 0 (Odin Todd MD R1) Result Diagram: 10/19/16 1253 10/19/16 1253 Objective Remarks GENERAL: 71-year-old male lying in bed in no acute distress. Resting, appears comfortable. Communicating non-verbally. SKIN: Warm and dry. No rashes. Using mouth swabs to moisten mucous membranes. HEENT: Atraumatic, normocephalic with EOMI. Left-sided facial droop without change. Oropharynx clear. No LAD or JVD appreciated. NG tube in place, currently clamped for procedure. CARDIOVASCULAR: RRR without murmurs rubs or gallops RESPIRATORY: Clear to auscultation bilaterally. Transmitted upper airway sounds. Currently on RA. GASTROINTESTINAL: Abdomen nondistended, nontender with +BS. No masses appreciated. PEG tube in place running at 20 minutes per hour covered by abdominal binder. MUSCULOSKELETAL: Left facial droop. Left arm and left leg weakness that is significant. 0-1/5 strength in left upper and lower extremity. Right upper and lower extremity without abnormality. NEURO/PSYCH: Awake, alert, and oriented x3. PERRLA. Tracking with eyes. Not verbalizing unless instructed to. Left side upper and lower extremity not moving much, strength 0-1/5. Left facial droop persistent. Minimal twitching of left foot. Not moving left arm. (Odin Todd MD R1) A/P Assessment and Plan 71-year-old male with acute CVA with resulting left-sided hemiparesis and left facial droop. Discharge Planning Plan to discharge to [facility]. (Odin Todd MD R1) Attending Attestation Patient seen and examined. Case reviewed and discussed with the resident team. Agree with plan of care as discussed with me and documented in the resident note. (Nicole Ash MD) Problem List: (1) Acute ischemic stroke Status: Acute Plan: Evidence of left facial droop and left hemiparesis on exam. CT head 2 negative for acute bleed. CTA carotids within normal limits. Unable to perform MRI due to metallic plate in cranium. ECHO with grade 1 diastolic dysfunction. Lipid profile only significant for 33.2 HDL, triglycerides, cholesterol, and LDL cholesterol WNL. A1C 5.4. - Neurology consulted - Cardiology consulted - Aspirin 81 mg by mouth daily - Atorvastatin daily - Started beta mariposa, lisinopril, amlodipine. To be continued at discharge - Requiring Dobhoff for feeding due to swallowing difficulties. Speech therapy on board who recommends PEG tube placement. -GI consulted for PEG tube placement today. Patient currently NPO for procedure. - Aspiration precautions - Avoid restraints as much as possible - Blinds open in day, dark and quiet at night - Seroquel (50 mg bid) for agitation (history of PTSD, also some delirium) - Delirium precautions - THC withdrawal protocol with Neurontin -Patient to be discharged to [facility] (2) Chronic Medical Problems Status: Acute Plan: Hepatitis C: Hepatitis C positive PTSD/anxiety: Paroxetine 20mg NG daily when tolerating by mouth, Seroquel, Geodon (3) FEN/DVT PPX/GI PPX/Nursing Orders Status: Acute Plan: Fluids: 180 mL of free water flushes every 4 hours via PEG tube. Electrolytes: Will monitor and replace as needed. Nutrition: Strict nothing by mouth. PEG tube in place for feeding. DVT Prophylaxis: Bilateral SCDs, discontinued on discharge GI Prophylaxis: Lansoprazole 30mg QD Cannabis withdrawal: Neurontin 300 mg every morning and 600 mg at 1600 Case management has been consulted to assist with disposition needs PT has been consulted to assist with mobility and disposition needs Likely will need PT at rehab (Odin Todd MD R1) Odin Todd MD R1 Oct 20, 2016 17:06 Nicole Ash MD Oct 20, 2016 18:45
--- NOTE | 2016-10-26 16:32 | HHI.DS ---
Discharge Summary Admission Date Oct 07, 2016 at 16:26 Discharge Date: Oct 20, 2016 Admitting Diagnosis Hypertensive Emergency/TIA (1) Acute ischemic stroke Diagnosis: Principal Plan: Evidence of left facial droop and left hemiparesis on exam. CT head 2 negative for acute bleed. CTA carotids within normal limits. Unable to perform MRI due to metallic plate in cranium. ECHO with grade 1 diastolic dysfunction. Lipid profile only significant for 33.2 HDL, triglycerides, cholesterol, and LDL cholesterol WNL. A1C 5.4. - Neurology consulted - Cardiology consulted - Aspirin 81 mg by mouth daily - Atorvastatin daily - Started beta mariposa, lisinopril, amlodipine. To be continued at discharge - Requiring Dobhoff for feeding due to swallowing difficulties. Speech therapy on board who recommends PEG tube placement. -GI consulted for PEG tube placement today. Patient currently NPO for procedure. - Aspiration precautions - Avoid restraints as much as possible - Blinds open in day, dark and quiet at night - Seroquel (50 mg bid) for agitation (history of PTSD, also some delirium) - Delirium precautions - THC withdrawal protocol with Neurontin -Patient to be discharged to [facility] (2) Chronic Medical Problems Diagnosis: Secondary Plan: Hepatitis C: Hepatitis C positive PTSD/anxiety: Paroxetine 20mg NG daily when tolerating by mouth, SerIrena zimmerman (3) FEN/DVT PPX/GI PPX/Nursing Orders Diagnosis: Principal Plan: Fluids: 180 mL of free water flushes every 4 hours via PEG tube. Electrolytes: Will monitor and replace as needed. Nutrition: Strict nothing by mouth. PEG tube in place for feeding. DVT Prophylaxis: Bilateral SCDs, discontinued on discharge GI Prophylaxis: Lansoprazole 30mg QD Cannabis withdrawal: Neurontin 300 mg every morning and 600 mg at 1600 Case management has been consulted to assist with disposition needs PT has been consulted to assist with mobility and disposition needs Likely will need PT at rehab Brief History Patient is a 71-year-old male with a past medical history of poorly managed hypertension, hepatitis C, depression, PTSD, memory loss, and BPH that presents to the [place] ED by [facility] as a stroke alert. Patient is a poor historian but based on history provided by him and his family members were at bedside, we understand that he was sitting out on his back porch with a friend, who noticed that something was not quite right with him. The friend called out to the pt's and when she came to the back porch, she saw that he was trying to get up from the chair but was unable to, his speech was slurred and the left side of his body appeared weak. The patient states that he did not black out or lose consciousness, but the weather was very hot. He denies feeling ill in the days leading up to this event and denied any complaints. Patient's states that he was recently diagnosed with hypertension at the [facility] about 2-3 weeks ago. He was started on antihypertensive medication which she thinks is lisinopril but she is not sure. The medications are supposed to arrive in the mail but they haven't seen them yet. Patient does not have a clear PCP, he sees multiple people at the [facility] - basically whoever is available. PE at Discharge GENERAL: 71-year-old male lying in bed in no acute distress. Resting, appears comfortable. Communicating non-verbally. SKIN: Warm and dry. No rashes. Using mouth swabs to moisten mucous membranes. HEENT: Atraumatic, normocephalic with EOMI. Left-sided facial droop without change. Oropharynx clear. No LAD or JVD appreciated. NG tube in place, currently clamped for procedure. CARDIOVASCULAR: RRR without murmurs rubs or gallops RESPIRATORY: Clear to auscultation bilaterally. Transmitted upper airway sounds. Currently on RA. GASTROINTESTINAL: Abdomen nondistended, nontender with +BS. No masses appreciated. PEG tube in place running at 20 minutes per hour covered by abdominal binder. MUSCULOSKELETAL: Left facial droop. Left arm and left leg weakness that is significant. 0-1/5 strength in left upper and lower extremity. Right upper and lower extremity without abnormality. NEURO/PSYCH: Awake, alert, and oriented x3. PERRLA. Tracking with eyes. Not verbalizing unless instructed to. Left side upper and lower extremity not moving much, strength 0-1/5. Left facial droop persistent. Minimal twitching of left foot. Not moving left arm. Hospital Course Patient originally evaluated in the emergency department for stroke alert by ED staff. In preparation to possibly administer TPA, the patient's blood pressure was lowered. However upon decreasing his blood pressure is neuro deficits resolved. Therefore the patient was admitted for hypertensive emergency initially the patient was placed on nicardipine drip with permissive hypertension. Both neurology and critical care consultation at that time for assistance in management. Upon evaluation by medical team on hospital day 2, the patient was found to have left-sided hemiparesis and left-sided facial drooping. Stroke alert was called, however patient was not a candidate at that time for TPA and was therefore medically managed. Patient was weaned off the Cardene drip and transitioned to amlodipine and lisinopril for blood pressure control. He was also started on aspirin as well as atorvastatin. The patient's left-sided paralysis and left facial droop persisted. Physical, occupational, and speech therapy were all consulted to assist with the patient's rehabilitation. The patient was unable to swallow appropriately and therefore received his nutrition via Dobbhoff tube. Due to the elevated risk for possible aspiration on hospital day 12 the patient had a PEG tube placed without complication for continued feeds. After PEG tube placement, the patient was accepted to [facility] for continued care. He was discharged on hospital day 14. He was given prescriptions for amlodipine and lisinopril for blood pressure control as well as and daily aspirin and atorvastatin. He was also given prescriptions for gabapentin, hydrocodone, lansoprazole, paroxetine, quetiapine, and Restoril for his chronic medical problems as listed above. He was also advised all a BMP in 1 week to evaluate for electrolyte status as he will continue tube feeds. He was also advised to follow-up with his PCP in 2 weeks. Pt Condition on Discharge: Stable Discharge Disposition: Rehab Inpatient Discharge Instructions DIET: Follow Instructions for: On Tube Feeding Additional Diet Instructions: Strict NPO Tube feed orders per Dietary: Pt remains strictly NPO per ST. Vital 1.5 @ 55mls/hr x 24hrs. This provides 1980kcals, 89g protein, and 1008mls free water. Free water flushes 180ml every 4 hours. Activities you can perform: See Additionl Instruction Other Activity Instructions: Patient on bedrest secondary to L sided hemiplegia s/p acute ischemic stroke. Patient is a high fall risk. Follow up Referrals: PCP Follow-up - 2 Weeks New Orders: BASIC METABOLIC PROF - 1 Week New Medications: Amlodipine (Norvasc) 5 Mg Tab 5 MG PO BID #60 Ref 1 TAB Aspirin (Aspirin Low Strength) 81 Mg Chew 81 MG CHEW DAILY #30 Ref 1 EA Atorvastatin (Atorvastatin) 80 Mg Tab 80 MG PO HS #30 Ref 1 TAB Gabapentin Liq (Neurontin Liq) 250 Mg/5 Ml Soln 300 MG NG DAILY #180 Ref 1 ML Gabapentin Liq (Neurontin Liq) 250 Mg/5 Ml Soln 600 MG NG DAILY@1600 #180 Ref 1 ML Gabapentin Liq (Neurontin Liq) 250 Mg/5 Ml Soln 300 MG NG DAILY@12 #180 ML Hydrocodone-Acetaminophen (Hydrocodone-Acetaminophen) 5-325 mg Tab 1 TAB PO Q6HR PRN PAIN SCALE 1 TO 5 #20 TAB Lansoprazole ODT (Prevacid Solutab ODT) 30 Mg Tab 30 MG NG DAILY #30 Ref 1 TAB Lisinopril (Lisinopril) 5 Mg Tab 5 MG PO BID #30 Ref 1 TAB Paroxetine Liq (Paxil Liq) 10 Mg/5 Ml [place] 20 MG NG DAILY #30 Ref 1 TAB Quetiapine (Quetiapine) 25 Mg Tab 50 MG PO BID #60 Ref 1 TAB Temazepam (Restoril) 15 Mg Cap 15 MG PO HS . PRN INSOMNIA #30 Ref 1 CAP Continued Medications: Folic Acid (Folic Acid) 1 Mg Tablet 1 MG PO DAILY Discontinued Medications: Aspirin (Aspirin Low Dose) 81 Mg Chew 81 MG PO DAILY Ref 0 TAB Odin Todd MD R1 Oct 26, 2016 16:32
[2016-11-01] MEDS ORDERED: WHEEMIS3 (16:58)
[2016-11-01] MEDS ORDERED: WALKER/FOLDING1 MIS (16:58)
[2016-11-01] MEDS ORDERED: TUB TRANSFER BO1 MIS (16:58)
[2016-11-01] MEDS ORDERED: COMMODE 3-IN-11 MIS (16:58)
== END 2016-10-20 16:38 | DRG 65 ==
LOC: NEPC 14:46 → NEDA 16:26 → N03B 18:29 → N05A 10-17 13:21
PROVIDERS: ADMIT Family Medicine; ATTEND Family Medicine
PROC: 0DH63UZ Insertion of Feeding Device into Stomach, Percutaneous Approach (ICD-10-PCS; 2016-10-19)
PROC: 0DJ08ZZ Inspection of Upper Intestinal Tract, Via Natural or Artificial Opening Endoscopic (ICD-10-PCS; principal; 2016-10-19 11:05)
DX: I63.519 Cerebral infarction due to unspecified occlusion or stenosis of unspecified middle cerebral artery (principal); I16.1 Hypertensive emergency; I24.8 Other forms of acute ischemic heart disease; G81.94 Hemiplegia, unspecified affecting left nondominant side; R13.10 Dysphagia, unspecified; I11.0 Hypertensive heart disease with heart failure; I50.32 Chronic diastolic (congestive) heart failure; E83.39 Other disorders of phosphorus metabolism; G93.89 Other specified disorders of brain; B19.20 Unspecified viral hepatitis C without hepatic coma; R47.81 Slurred speech; R29.810 Facial weakness; R41.3 Other amnesia; I49.3 Ventricular premature depolarization; E78.5 Hyperlipidemia, unspecified; K21.9 Gastro-esophageal reflux disease without esophagitis; R00.0 Tachycardia, unspecified; N40.1 Benign prostatic hyperplasia with lower urinary tract symptoms; N39.41 Urge incontinence; D50.9 Iron deficiency anemia, unspecified; F12.288 Cannabis dependence with other cannabis-induced disorder; F32.9 Major depressive disorder, single episode, unspecified; F43.10 Post-traumatic stress disorder, unspecified; R29.711 NIHSS score 11; Z72.0 Tobacco use; Z82.49 Family history of ischemic heart disease and other diseases of the circulatory system; Z87.820 Personal history of traumatic brain injury
CPT/HCPCS: 51702; 70450; 70496; 70498; 71010; 71275; 74000; 76937; 80048; 80053; 80061; 80074; 80076; 80307; 81001; 82435; 82550; 82565; 82947; 83036; 83735; 84100; 84132; 84295; 84484; 84520; 85025; 85027; 85384; 85610; 85730; 86850; 86900; 86901; 87641; 93005; 93306; 93970; 94664; 96365; 96375; J0360; J0690; J1630; J1644; J2060; J2405; J3480; J3486; J7030; J7050; Q9967

== ENCOUNTER 2016-11-22 19:49 | Observation (INO) | payer MEDICARE, OTHER ==
[~2016-11-22 19:49] MED LIST changes: +ACET1TAB86 PEG; +ALPR.25 PEG; -ALUM5LIQ PO; -ASPI1TAB7 PO; +ASPI81CH25 PEG; +ATOR1TAB18 PEG; -CLIN1CAP5 PO; +COMMODE 3-IN-11 MIS; -DOCU1CAP39 PO; -FINA5TAB77 PO; -FOLI1 PO; +FOLI1TAB6 PEG; +Free Water G-TUBE; +GABA250S PEG; +HYDR-3583 PEG; -IBUP600T26 PO; +LANSO15 PEG; -LISI-366 PO; +NAME5TAB2 PEG; +PARO10S PEG; +SCOP1PAT2 T-DERMAL; +SENN1TAB PEG; -SIME80CH CHEW; -TERA10CA3 PO; +TUB TRANSFER BO1 MIS; -TYLE3 PO; -VIAG100T PO; +WALKER/FOLDING1 MIS; +WHEEMIS3; +[UNRECOGNIZED DRUG - SUPPLY]; +[UNRECOGNIZED DRUG - SUPPLY]
[2016-11-22 19:52] VITALS: BP 152/98; PULSE 119; RESP 24; TEMP 98.8; O2SAT 99
[2016-11-22] MEDS ORDERED: SODIUM CHLORIDE 0.9% FLUSH 10 ML FLUSH IVF PRN (20:15)
[2016-11-22] MEDS ORDERED: SODIUM CHLOR 0.9% 1000 ML INJ 1,000 ML IV ONE (20:15)
[2016-11-22] MEDS ORDERED: RESP: ALBUTEROL 2.5 MG/IPRATROPIUM 0.5 MG NEB (SCH) INH ONE (20:15)
[2016-11-22 20:17] VITALS: RESP 19; O2SAT 98
[2016-11-22 20:39] LABS: BLOOD GAS BASE EXCESS 0.2 mmol/L (-2-2); BLOOD GAS HCO3 24 mmol/L (22-26); BLOOD GAS METHEMOGLOBIN 0.6 % (0-2); BLOOD GAS O2 HGB SATURATION 96 % (90-100); BLOOD GAS OXYGEN CONTENT 16.3 Vol % (12.0-20.0); BLOOD GAS PCO2 33 mmHg (38-42); BLOOD GAS PO2 94 mmHG (61-120); CRITICAL VALUE NO; FIO2 21 %; TEMP CORR TO 98.6
[2016-11-22 20:40] LABS: DRAW SITE RT RADIAL; NUMBER OF ARTERIAL PUNCTURES 1; STAT YES; ULNAR PULSE PRESENT
[2016-11-22 20:45] LABS: AUTOMATED NEUTROPHIL # 5.9 TH/MM3 (1.8-7.7); BASOPHIL # 0.1 TH/MM3 (0-0.2); BASOPHIL % 0.9 % (0.0-2.0); EOSINOPHIL # 0.1 TH/MM3 (0-0.4); EOSINOPHIL % 0.8 % (0.0-4.0); HEMATOCRIT 39.5 % (39.0-51.0); HEMO FLAGS DIFF FINAL; MEAN CELL VOLUME 74.2 FL (80.0-100.0); MEAN CORPUSCULAR HEMOGLOBIN 24.4 PG (27.0-34.0); MEAN CORPUSCULAR HGB CONC 32.9 % (32.0-36.0); MONO % 6.2 % (0.0-8.0); NEUT % 69.1 % (16.0-70.0); PLATELET COUNT 212 TH/MM3 (150-450); RED BLOOD COUNT 5.33 MIL/MM3 (4.50-5.90); RED CELL DISTRIBUTION WIDTH 14.5 % (11.6-17.2); WHITE BLOOD COUNT 8.5 TH/MM3 (4.0-11.0)
[2016-11-22 21:01] LABS: APTT (PATIENT) 25.5 SEC (24.3-30.1); PROTHROMBIN TIME - PATIENT 10.8 SEC (9.8-11.6)
--- NOTE | 2016-11-22 21:01 | PD ---
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 Patient had a recent MCA CVA, has left- sided deficits. As per patient's family, patient was discharged from rehabilitation on November 18, 2016. Reports that since he has been home, patient has not been able to sleep. Reports that he has been feeling short of breath, reports shortness of breath at night as well as daytime. Reports that they have been making him his tube feeds as well as his medications and it has not helped "settle him down." Reports concerns as today, patient complains of shortness of breath and chest pain. Patient does have speech difficulty after his stroke, family at bedside reports the patient was able to verbalize his complaints. PFSH Past Medical History Hx Anticoagulant Therapy: Yes (ASA) Arthritis: No Asthma: No Autoimmune Disease: No Anxiety: Yes Depression: No Heart Rhythm Problems: No Cancer: No Cardiovascular Problems: Yes (HTN) High Cholesterol: Yes Chemotherapy: No Chest Pain: No Congestive Heart Failure: No COPD: No Cerebrovascular Accident: No Diabetes: No Diminished Hearing: No Endocrine: No Gastrointestinal Disorders: Yes (hep c) GERD: No Genitourinary: Yes (BPH ) Headaches: Yes Hiatal Hernia: No Hypertension: Yes Immune Disorder: No Implanted Vascular Access Dvce: Yes Musculoskeletal: Yes (left shoulder occasionally dislocates) Neurologic: Yes Psychiatric: Yes Reproductive: No Respiratory: No Migraines: No Radiation Therapy: No Renal Failure: No Seizures: No Sickle Cell Disease: No Sleep Apnea: No Thyroid Disease: No Ulcer: No ?: Not Past Surgical History Abdominal Surgery: No AICD: No Arteriovenous Shunt: Yes Body Medical Devices: metal plate in head Cardiac Surgery: No Ear Surgery: No Endocrine Surgery: No Eye Surgery: No Genitourinary Surgery: No Gynecologic Surgery: No Insulin Pump: No Joint Replacement: No Neurologic Surgery: Yes (HEAD SX 1969) Oral Surgery: Yes Pacemaker: No Thoracic Surgery: No Other Surgery: Yes Social History Alcohol Use: No Tobacco Use: No Substance Use: Yes (MARIJUANA DAILY) Allergies-Medications (Allergen,Severity, Reaction): Coded Allergies: No Known Allergies (Unverified , 10/20/16) Reported Meds & Prescriptions Reported Meds & Active Scripts Active Senna Plus 8.6-50 mg (Sennosides-Docusate Sodium) 1 Tab Tab 1 Tab PEG BID 30 Days Transderm-Scop (Scopolamine) 1 Mg/3 Days Dis 1 Patch T-DERMAL Q3D Paxil Liq (Paroxetine HCl) 10 Mg/5 Ml [place] 20 Mg PEG DAILY 30 Days Namenda (Memantine) 5 Mg Tab 5 Mg PEG DAILY 30 Days Prevacid Solutab ODT (Lansoprazole) 15 Mg Tab 30 Mg PEG DAILY 30 Days Hydrocodone-Acetaminophen 10-325 mg Tab 1 Tab PEG Q4H PRN Neurontin Liq (Gabapentin) 250 Mg/5 Ml Soln 300 Mg PEG DAILY 30 Days Folic Acid 1 Mg Tablet 1 Mg PEG DAILY 30 Days Atorvastatin (Atorvastatin Calcium) 80 Mg Tab 80 Mg PEG HS 30 Days Aspirin Low Strength (Aspirin) 81 Mg Chew 81 Mg PEG DAILY 30 Days Xanax (Alprazolam) 0.25 Mg Tab 0.25 Mg PEG Q8H PRN Eq Acetaminophen (Acetaminophen) 325 Mg Tab 650 Mg PEG Q4H PRN 30 Days [transferboard] Ea Gait/Transfer Belt 1 Mis Mis 1 Ea .ROUTE DIRECTED Tub Transfer Board (Device) 1 Mis Mis 1 Ea .ROUTE DIRECTED Wheelchair (Device) 1 Mis Mis 1 Ea .ROUTE DIRECTED Commode 3-in-1 (Device) 1 Mis Mis 1 Ea .ROUTE DIRECTED Walker/Folding Daryl (Device) 1 Mis Mis 1 Ea .ROUTE DIRECTED Review of Systems General / Constitutional: No: Fever Eyes: No: Visual changes HENT: No: Headaches Cardiovascular: Positive: Chest Pain or Discomfort Respiratory: Positive: Cough, Shortness of Breath Gastrointestinal: No: Abdominal Pain Genitourinary: No: Dysuria Musculoskeletal: No: Pain Skin: No Rash Neurologic: No: Weakness Psychiatric: No: Depression Endocrine: No: Polydipsia Hematologic/Lymphatic: No: Easy Bruising Physical Exam Narrative GENERAL: Moderate distress SKIN: Focused skin assessment warm/dry. HEAD: Atraumatic. Normocephalic. EYES: Pupils equal and round. No scleral icterus. No injection or drainage. ENT: No nasal bleeding or discharge. Mucous membranes pink and moist. NECK: Trachea midline. No JVD. CARDIOVASCULAR: Tachycardic. No murmur appreciated. RESPIRATORY: No accessory muscle use. rhonchi. Breath sounds equal bilaterally. GASTROINTESTINAL: Abdomen soft, non-tender, nondistended. Hepatic and splenic margins not palpable. G-tube in place MUSCULOSKELETAL: No obvious deformities. No clubbing. No cyanosis. No edema. NEUROLOGICAL: Awake and alert. Patient with left sided deficits PSYCHIATRIC: Anxious Data Data Last Documented VS Vital Signs Date Time Temp Pulse Resp B/P Pulse Ox O2 Delivery O2 Flow Rate FiO2 11/22/16:17 19 98 Room Air 11/22/16 19:52 98.8 119 152/98 Orders B-Type Natriuretic Peptide (11/22/16 20:13) Ckmb (Isoenzyme) Profile (11/22/16 20:13) Complete Blood Count With Diff (11/22/16 20:13) Comprehensive Metabolic Panel (11/22/16 20:13) Magnesium (Mg) (11/22/16 20:13) Prothrombin Time / Inr (Pt) (11/22/16 20:13) Act Partial Throm Time (Ptt) (11/22/16 20:13) Troponin I (11/22/16 20:13) Lipase (11/22/16 20:13) Chest, Single Ap (11/22/16 20:13) Ecg Monitoring (11/22/16 20:13) Iv Access Insert/Monitor (11/22/16 20:13) Oximetry (11/22/16 20:13) Sodium Chloride 0.9% Flush (Ns Flush) (11/22/16 20:15) Ct Pulmonary Angiogram (11/22/16 20:13) Arterial Blood Gas (Abg) (11/22/16 20:13) Blood Culture (11/22/16 20:13) Albuterol-Ipratropium Neb (Duoneb Neb) (11/22/16 20:15) Lactic Acid Sepsis Protocol (11/22/16 20:13) Influenzae A/B Antigen (11/22/16 20:13) Sodium Chlor 0.9% 1000 Ml Inj (Ns 1000 M (11/22/16 20:15) CKMB (11/22/16 20:15) CKMB% (11/22/16 20:15) Iohexol 350 Inj (Omnipaque 350 Inj) (11/22/16 22:10) Electrocardiogram (11/22/16 20:12) Aspirin (Aspirin) (11/22/16 23:00) Labs Laboratory Tests Test 11/22/16 11/22/16 20:15 20:25 White Blood Count 8.5 TH/MM3 Red Blood Count 5.33 MIL/MM3 Hemoglobin 13.0 GM/DL Hematocrit 39.5 % Mean Corpuscular Volume 74.2 FL Mean Corpuscular Hemoglobin 24.4 PG Mean Corpuscular Hemoglobin 32.9 % Concent Red Cell Distribution Width 14.5 % Platelet Count 212 TH/MM3 Mean Platelet Volume 8.8 FL Neutrophils (%) (Auto) 69.1 % Lymphocytes (%) (Auto) 23.0 % Monocytes (%) (Auto) 6.2 % Eosinophils (%) (Auto) 0.8 % Basophils (%) (Auto) 0.9 % Neutrophils # (Auto) 5.9 TH/MM3 Lymphocytes # (Auto) 2.0 TH/MM3 Monocytes # (Auto) 0.5 TH/MM3 Eosinophils # (Auto) 0.1 TH/MM3 Basophils # (Auto) 0.1 TH/MM3 CBC Comment DIFF FINAL Differential Comment Prothrombin Time 10.8 SEC Prothromb Time International 1.0 RATIO Ratio Activated Partial 25.5 SEC Thromboplast Time Sodium Level 137 MEQ/L Potassium Level 4.2 MEQ/L Chloride Level 102 MEQ/L Carbon Dioxide Level 24.2 MEQ/L Anion Gap 11 MEQ/L Blood Urea Nitrogen 21 MG/DL Creatinine 1.02 MG/DL Estimat Glomerular Filtration 88 ML/MIN Rate Random Glucose 194 MG/DL Lactic Acid Level 1.7 mmol/L Calcium Level 9.4 MG/DL Magnesium Level 2.0 MG/DL Total Bilirubin 0.4 MG/DL Aspartate Amino Transf 31 U/L (AST/SGOT) Alanine Aminotransferase 46 U/L (ALT/SGPT) Alkaline Phosphatase 125 U/L Total Creatine Kinase 163 U/L Creatine Kinase MB 1.1 NG/ML Troponin I LESS THAN 0.02 NG/ML B-Type Natriuretic Peptide 11 PG/ML Total Protein 8.0 GM/DL Albumin 3.5 GM/DL Lipase 133 U/L Blood Gas Puncture Site RT RADIAL Blood Gas Patient Temperature 98.6 Blood Gas HCO3 24 mmol/L Blood Gas Base Excess 0.2 mmol/L Blood Gas Oxygen Saturation 96 % Arterial Blood pH 7.47 Arterial Blood Partial 33 mmHg Pressure CO2 Arterial Blood Partial 94 mmHG Pressure O2 Arterial Blood Oxygen Content 16.3 Vol % Arterial Blood 1.0 % Carboxyhemoglobin Arterial Blood Methemoglobin 0.6 % Blood Gas Hemoglobin 12.0 G/DL Blood Gas Inspired Oxygen 21 % MDM Medical Decision Making Medical Screen Exam Complete: Yes Emergency Medical Condition: Yes Interpretation(s) EKG at 2011: Sinus tach at 115bpm, st seg elevation V3-V6 - early repol, ekg similar to ekg from 10/25/16 Vital Signs Date Time Temp Pulse Resp B/P Pulse Ox O2 Delivery O2 Flow Rate FiO2 11/22/16 20:17 19 98 Room Air 11/22/16 19:52 98.8 119 24 152/98 99 Room Air Differential Diagnosis Differential includes failure to thrive, electrolyte abnormality, pneumonia, aspiration, ACS, arrhythmia, PE Narrative Course Patient is a 71 year old male who presents to ER with c/o of chest pain and shortness of breath. Patient was recently admitted to the hospital for right- sided MCA CVA and was discharged from rehabilitation center on November 18. Patient 's family reports that patient has decompensated while at home, reports that he cannot get comfortable, reports that he can't sleep. Reports that 45 minutes prior to coming to the emergency room, patient became short of breath and complaint of chest pain. Patient was placed on a mortgage loan processor upon arrival to the emergency room. EKG was obtained. X-ray of the chest ordered. Lab work including troponins ordered. Patient appears to have rhonchi on exam, negative she was ordered. Laboratory Tests Test 11/22/16 11/22/16 20:15 20:25 White Blood Count 8.5 TH/MM3 (4.0-11.0) Red Blood Count 5.33 MIL/MM3 (4.50-5.90) Hemoglobin 13.0 GM/DL (13.0-17.0) Hematocrit 39.5 % (39.0-51.0) Mean Corpuscular Volume 74.2 FL (80.0-100.0) Mean Corpuscular Hemoglobin 24.4 PG (27.0-34.0) Mean Corpuscular Hemoglobin 32.9 % Concent (32.0-36.0) Red Cell Distribution Width 14.5 % (11.6-17.2) Platelet Count 212 TH/MM3 (150-450) Mean Platelet Volume 8.8 FL (7.0-11.0) Neutrophils (%) (Auto) 69.1 % (16.0-70.0) Lymphocytes (%) (Auto) 23.0 % (9.0-44.0) Monocytes (%) (Auto) 6.2 % (0.0-8.0) Eosinophils (%) (Auto) 0.8 % (0.0-4.0) Basophils (%) (Auto) 0.9 % (0.0-2.0) Neutrophils # (Auto) 5.9 TH/MM3 (1.8-7.7) Lymphocytes # (Auto) 2.0 TH/MM3 (1.0-4.8) Monocytes # (Auto) 0.5 TH/MM3 (0-0.9) Eosinophils # (Auto) 0.1 TH/MM3 (0-0.4) Basophils # (Auto) 0.1 TH/MM3 (0-0.2) CBC Comment DIFF FINAL Differential Comment Prothrombin Time 10.8 SEC (9.8-11.6) Prothromb Time International 1.0 RATIO Ratio Activated Partial 25.5 SEC Thromboplast Time (24.3-30.1) Sodium Level 137 MEQ/L (136-145) Potassium Level 4.2 MEQ/L (3.5-5.1) Chloride Level 102 MEQ/L (98-107) Carbon Dioxide Level 24.2 MEQ/L (21.0-32.0) Anion Gap 11 MEQ/L (5-15) Blood Urea Nitrogen 21 MG/DL (7-18) Creatinine 1.02 MG/DL (0.60-1.30) Estimat Glomerular Filtration 88 ML/MIN (>89) Rate Random Glucose 194 MG/DL (74-106) Lactic Acid Level 1.7 mmol/L (0.4-2.0) Calcium Level 9.4 MG/DL (8.5-10.1) Magnesium Level 2.0 MG/DL (1.5-2.5) Total Bilirubin 0.4 MG/DL (0.2-1.0) Aspartate Amino Transf 31 U/L (15-37) (AST/SGOT) Alanine Aminotransferase 46 U/L (12-78) (ALT/SGPT) Alkaline Phosphatase 125 U/L (45-117) Total Creatine Kinase 163 U/L (39-308) Creatine Kinase MB 1.1 NG/ML (0.5-3.6) Troponin I LESS THAN 0.02 NG/ML (0.02-0.05) B-Type Natriuretic Peptide 11 PG/ML (0-100) Total Protein 8.0 GM/DL (6.4-8.2) Albumin 3.5 GM/DL (3.4-5.0) Lipase 133 U/L (73-393) Blood Gas Puncture Site RT RADIAL Blood Gas Patient Temperature 98.6 Blood Gas HCO3 24 mmol/L (22-26) Blood Gas Base Excess 0.2 mmol/L (-2-2) Blood Gas Oxygen Saturation 96 % (90-100) Arterial Blood pH 7.47 (7.380-7.420) Arterial Blood Partial 33 mmHg (38-42) Pressure CO2 Arterial Blood Partial 94 mmHG Pressure O2 (61-120) Arterial Blood Oxygen Content 16.3 Vol % (12.0-20.0) Arterial Blood 1.0 % (0-4) Carboxyhemoglobin Arterial Blood Methemoglobin 0.6 % (0-2) Blood Gas Hemoglobin 12.0 G/DL (12.0-16.0) Blood Gas Inspired Oxygen 21 % Last Impressions Chest X-Ray 11/22/162012 Signed Impressions: Service Date/Time: Tuesday, November 22, 2016 20:32 - CONCLUSION: No acute disease. Scott Gregg MD CTA negative for PE. All labs and all studies reviewed with patient and his family in detail. Plan to observe for chest pain. Case reviewed with Dr. Buckley who accepts pt to service Diagnosis Primary Impression: Chest pain Additional Impression: SOB (shortness of breath) Admitting Information Admitting Physician Requests: Observation Debbie Nova DO Nov 22, 2016 21:01
[2016-11-22 21:02] LABS: ALT (GPT) 46 U/L (12-78); ANION GAP 11 MEQ/L (5-15); BICARBONATE 24.2 MEQ/L (21.0-32.0); BLOOD UREA NITROGEN 21 MG/DL (7-18); CHLORIDE 102 MEQ/L (98-107); GLOMERULAR FILTRATION RATE 88 ML/MIN (>89); POTASSIUM 4.2 MEQ/L (3.5-5.1); SODIUM (NA) 137 MEQ/L (136-145)
[2016-11-22 21:06] LABS: ALKALINE PHOSPHATASE 125 U/L (45-117); AST (GOT) 31 U/L (15-37); CREATINE KINASE 163 U/L (39-308); TOTAL BILIRUBIN ADULT 0.4 MG/DL (0.2-1.0)
--- NOTE | 2016-11-22 21:12 | RADRPT ---
EXAM DATE/TIME: 11/22/2016 20:32 [facility] COMPARISON: CHEST SINGLE AP, October 25, 2016, 14:40. INDICATIONS : Chest pain and shortness of breath. MEDICAL HISTORY : Hepatitis C. Hypertension SURGICAL HISTORY : shrapnel in head ENCOUNTER: Initial ACUITY: 4 - 6 days PAIN SCORE: 6/10 LOCATION: Bilateral upper chest FINDINGS: Hyperinflation. Cardiomegaly. No consolidation or effusion. CONCLUSION: No acute disease. Scott Gregg MD on November 22, 2016 at 21:11 Board Certified Radiologist. This report was verified electronically.
[2016-11-22 21:19] LABS: CKMB 1.1 NG/ML (0.5-3.6)
[2016-11-22] MEDS ORDERED: IOHEXOL 350 MG/ML 10 ML VIAL (for RAD DIAG) IV ONE (22:10)
--- NOTE | 2016-11-22 22:18 | RADRPT ---
EXAM DATE/TIME: 11/22/2016 22:03 [facility] COMPARISON: CT PULMONARY ANGIOGRAM, October 08, 2016, 3:02. INDICATIONS : Chest pain with shortness of breath. IV CONTRAST: 75 cc Omnipaque 350 (iohexol) IV RADIATION DOSE: 29.41 CTDIvol (mGy) MEDICAL HISTORY : Cerebrovascular disease. Hypertension. Hepatitis C. SURGICAL HISTORY : None. ENCOUNTER: Initial ACUITY: 1 day PAIN SCALE: 5/10 LOCATION: Bilateral chest TECHNIQUE: Volumetric scanning of the chest was performed using a pulmonary embolism protocol MIP images were re constructed. Using automated exposure control and adjustment of the mA and/or kV according to patien t size, radiation dose was kept as low as reasonably achievable to obtain optimal diagnostic quality images. DICOM format image data is available electronically for review and comparison. Follow-up recommendations for incidentally detected pulmonary nodules are based at a minimum on nodul e size and patient risk factors according to Fleischner Society Guidelines. FINDINGS: Mild emphysematous changes are identified. In the left posterior costophrenic angle, in the left lowe r lobe focal atelectasis and a nodular focus measuring 1.8 cm is identified. This is felt to represen t an area of nodular atelectasis. It was not present in October. There is no evidence for pulmonary embo lism. No pleural effusions. No adenopathy. CONCLUSION: 1. No evidence for pulmonary embolism. 2. Interval development of left basilar nodular atelectatic changes. 3. Mild emphysema. cSott Gregg MD on November 22, 2016 at 22:15 Board Certified Radiologist. This report was verified electronically.
[2016-11-22 22:51] VITALS: BP 138/89; PULSE 105; RESP 16; O2SAT 99
[2016-11-22] MEDS ORDERED: ASPIRIN 325 MG TAB G-TUBE ONE (23:00)
--- NOTE | 2016-11-22 23:52 | HHI.HP ---
[facility] Service Family Medicine Primary Care Physician [facility] Admission Diagnosis Chest pain Diagnoses: International Travel<30 Days: No Contact w/Intl Traveler<30days: No History of Present Illness Patient is a 71-year-old male with history of recent CVA, hyperlipidemia, depression, anxiety, dementia, PTSD who presents to the ED for chest pain and shortness of breath. Patient is unable to speak due to CVA deficits and communicates by writing. His also provide some history. These symptoms began since he got home from the inpatient rehabilitation facility on November 18. He reports feeling shortness of breath constantly. He endorsed that he had pain in the chest, occurring suddenly without any exertion. He has speech deficit and left extremity weakness which has not changed. He had a CPAP machine in the past and per is afraid to go to sleep since having the stroke. (Teresa Buckley MD R1) Review of Systems ROS Limitations: Speech Impaired, Poor Historian Constitutional: DENIES: Fever, Chills Eyes: DENIES: Blurred vision, Diplopia Ears, nose, mouth, throat: DENIES: Tinnitus, Hearing loss Respiratory: COMPLAINS OF: Cough, Shortness of breath, DENIES: Sputum production Cardiovascular: COMPLAINS OF: Chest pain, DENIES: Syncope Gastrointestinal: DENIES: Abdominal pain, Constipation, Diarrhea, Nausea, Vomiting Genitourinary: DENIES: Urgency, Dysuria, Nocturia Musculoskeletal: DENIES: Back pain, Neck pain Integumentary: DENIES: Rash Neurologic: COMPLAINS OF: Localized weakness, Speech Problems (unable to speech since stroke), Poor Balance, DENIES: Headache (Teresa Buckley MD R1) Past Family Social History Past Medical History 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 Hospital stay until October 20, rehabilitation stay in until November 18. HTN HCV, treated PTSD, depression BPH Past Surgical History Craniectomy with metal plates placement Shrapnell related surgeries in the lower extremity Reported Medications Reported Meds & Active Scripts Active Senna Plus 8.6-50 mg (Sennosides-Docusate Sodium) 1 Tab Tab 1 Tab PEG BID 30 Days Transderm-Scop (Scopolamine) 1 Mg/3 Days Dis 1 Patch T-DERMAL Q3D Paxil Liq (Paroxetine HCl) 10 Mg/5 Ml [place]lin 20 Mg PEG DAILY 30 Days Namenda (Memantine) 5 Mg Tab 5 Mg PEG DAILY 30 Days Prevacid Solutab ODT (Lansoprazole) 15 Mg Tab 30 Mg PEG DAILY 30 Days Hydrocodone-Acetaminophen 10-325 mg Tab 1 Tab PEG Q4H PRN Neurontin Liq (Gabapentin) 250 Mg/5 Ml Soln 300 Mg PEG DAILY 30 Days Folic Acid 1 Mg Tablet 1 Mg PEG DAILY 30 Days Atorvastatin (Atorvastatin Calcium) 80 Mg Tab 80 Mg PEG HS 30 Days Aspirin Low Strength (Aspirin) 81 Mg Chew 81 Mg PEG DAILY 30 Days Xanax (Alprazolam) 0.25 Mg Tab 0.25 Mg PEG Q8H PRN Eq Acetaminophen (Acetaminophen) 325 Mg Tab 650 Mg PEG Q4H PRN 30 Days [transferboard] Ea Gait/Transfer Belt 1 Mis Mis 1 Ea .ROUTE DIRECTED Tub Transfer Board (Device) 1 Mis Mis 1 Ea .ROUTE DIRECTED Wheelchair (Device) 1 Mis Mis 1 Ea .ROUTE DIRECTED Commode 3-in-1 (Device) 1 Mis Mis 1 Ea .ROUTE DIRECTED Walker/Folding Daryl (Device) 1 Mis Mis 1 Ea .ROUTE DIRECTED (Teresa Buckley MD R1) Allergies: Coded Allergies: No Known Allergies (Unverified , 10/20/16) Active Ordered Medications Inpatient Medications Acetaminophen (Tylenol) 650 mg Q4H PRN PEG PAIN SCALE 1 TO 6; Start 11/23/16 at 00:15 Acetaminophen/ Hydrocodone Bitart (Hycet 325-7.5 Mg Liq) 20 ml Q4H PRN PEG Pain 7-10 Last administered on 11/23/16 03:03; Start 11/23/16 at 02:30 Acetaminophen/ Hydrocodone Bitart (Burdett 10-325 Mg) 1 tab Q4H PRN PEG Pain 7-10 ; Start 11/23/16 at 00:15; Stop 11/23/16 at 02:07; Status DC Albuterol/ Ipratropium 1 ampule 1 ampule ONCE ONCE INH Last administered on t 20:29; Start 11/22/16 at 20:15; Stop 11/22/16 at 20:16; Status DC Alprazolam (Xanax) 0.25 mg Q8H PRN PEG anxiety ; Start 11/23/16 at 00:15 Aspirin (Aspirin Chew) 81 mg DAILY PEG ; Start 11/23/16 at 09:00 Aspirin (Aspirin) 325 mg ONCE ONCE G-TUBE Last administered on 11/22/16 23:07 ; Start 11/22/16 at 23:00; Stop 11/22/16 at 23:01; Status DC Atorvastatin Calcium (Lipitor) 80 mg HS PEG ; Start 11/23/16 at 21:00 Enoxaparin Sodium (Lovenox Inj) 40 mg Q24H SQ Last administered on 11/23/16 01 :45; Start 11/23/16 at 00:15 Gabapentin (Neurontin Liq) 300 mg DAILY PEG ; Start 11/23/16 at 09:00 Lansoprazole (Prevacid Odt) 30 mg DAILY PEG ; Start 11/23/16 at 09:00 Memantine (Namenda) 5 mg DAILY PEG ; Start 11/23/16 at 09:00 Naloxone HCl (Narcan Inj) 0.4 mg UNSCH PRN IV SEE LABEL COMMENTS; Start at 00:15; Stop 11/23/16 at 00:15; Status DC Paroxetine HCl (Paxil Liq) 20 mg DAILY PEG ; Start 11/23/16 at 09:00 Senna/Docusate Sodium (Gilda-Colace) 1 tab BID PEG ; Start 11/23/16 at 09:00 Sodium Chloride (NS 1000 ml Inj) 1,000 ml @ 999 mls/hr BOLUS ONCE IV Last administered on 11/22/16 20:15; Start 11/22/16 at 20:15; Stop 11/22/16 at 21:15 ; Status DC Sodium Chloride (NS Flush) 2 ml BID IV FLUSH ; Start 11/23/16 at 09:00 Family History Per EMR, strong family history of hypertension in siblings and mother 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 He is mute. at bedside. Communicates within a paper. SKIN: Warm and dry. No obvious rashes or bruises. HEAD: Atraumatic. Normocephalic. EYES: PERRL. No scleral icterus. No injection or drainage. ENT: No nasal bleeding or discharge. Mucous membranes pink and moist. NECK: Trachea midline. No JVD. CARDIOVASCULAR: Regular rate and rhythm. No obvious murmurs, gallops, rubs. RESPIRATORY: No accessory muscle use. Clear to auscultation without wheezes or rhonchi. Course breath sounds in the upper airways improved after cough. The cough does sound wet. GASTROINTESTINAL: Abdomen soft, non-tender, nondistended. PEG tube in place in the LUQ with no evidence of leakage, irritation, or infection. Hepatic and splenic margins not palpable. MUSCULOSKELETAL: Extremities without clubbing, cyanosis, or edema. No obvious deformities. He notes a left upper thigh spasm during exam. NEUROLOGICAL: Awake and alert. Nonverbal. He does have a left-sided facial droop. His LUE is warm to touch but strength is 0/5. He is able to wiggle toes on LLE but no other movements performed. Strength is 5/5 in right upper and lower extremities. Sensory exam difficult to perform but appears grossly intact. Patient is mute. PSYCHIATRIC: Appropriate mood and affect; insight and judgment normal. Laboratory Laboratory Tests Test 11/22/16 11/22/16 20:15 20:25 White Blood Count 8.5 Red Blood Count 5.33 Hemoglobin 13.0 Hematocrit 39.5 Mean Corpuscular Volume 74.2 Mean Corpuscular Hemoglobin 24.4 Mean Corpuscular Hemoglobin 32.9 Concent Red Cell Distribution Width 14.5 Platelet Count 212 Mean Platelet Volume 8.8 Neutrophils (%) (Auto) 69.1 Lymphocytes (%) (Auto) 23.0 Monocytes (%) (Auto) 6.2 Eosinophils (%) (Auto) 0.8 Basophils (%) (Auto) 0.9 Neutrophils # (Auto) 5.9 Lymphocytes # (Auto) 2.0 Monocytes # (Auto) 0.5 Eosinophils # (Auto) 0.1 Basophils # (Auto) 0.1 CBC Comment DIFF FINAL Differential Comment Prothrombin Time 10.8 Prothromb Time International 1.0 Ratio Activated Partial 25.5 Thromboplast Time Sodium Level 137 Potassium Level 4.2 Chloride Level 102 Carbon Dioxide Level 24.2 Anion Gap 11 Blood Urea Nitrogen 21 Creatinine 1.02 Estimat Glomerular Filtration 88 Rate Random Glucose 194 Lactic Acid Level 1.7 Calcium Level 9.4 Magnesium Level 2.0 Total Bilirubin 0.4 Aspartate Amino Transf 31 (AST/SGOT) Alanine Aminotransferase 46 (ALT/SGPT) Alkaline Phosphatase 125 Total Creatine Kinase 163 Creatine Kinase MB 1.1 Troponin I LESS THAN 0.02 B-Type Natriuretic Peptide 11 Total Protein 8.0 Albumin 3.5 Lipase 133 Blood Gas Puncture Site RT RADIAL Blood Gas Patient Temperature 98.6 Blood Gas HCO3 24 Blood Gas Base Excess 0.2 Blood Gas Oxygen Saturation 96 Arterial Blood pH 7.47 Arterial Blood Partial 33 Pressure CO2 Arterial Blood Partial 94 Pressure O2 Arterial Blood Oxygen Content 16.3 Arterial Blood 1.0 Carboxyhemoglobin Arterial Blood Methemoglobin 0.6 Blood Gas Hemoglobin 12.0 Blood Gas Inspired Oxygen 21 Date/Time Procedure Status Source Growth 11/22/16 22:45 Influenza Types A,B Antigen (CLARISA) - Final Complete Nasal Aspirate NEGATIVE FOR FLU A AND B ANTIGEN.... 11/22/16 20:20 Aerobic Blood Culture Received Blood Peripheral Pending 11/22/16 20:20 Anaerobic Blood Culture Received Blood Peripheral Pending (Teresa Buckley MD R1) Result Diagram: 11/22/16201411/22/162014 Imaging Last Impressions Chest X-Ray 11/22/162012 Signed Impressions: Service Date/Time: Tuesday, November 22, 2016 20:32 - CONCLUSION: No acute disease. Scott Gregg MD CTA: No evidence of PE, interval development of nodular atelectatic changes, mild emphysema. A nodular focus measuring 1.8 cm in the left posterior CPA in the left lower lobe. (Teresa Buckley MD R1) Assessment and Plan Assessment and Plan 71-year-old male with history of CVA to the acute onset shortness of breath and chest pain. He is on room air satting 100% and chest pain reportedly resolved at evaluation. He is admitted to observation for chest pain workup. Code Status Full code. This was discussed with patient and his at bedside. Discussed Condition With Seen and discussed with Dr. Yaron Zuluaga, PGY 1 (Teresa Buckley MD R1) Attending Attestation THIS CASE WAS DISCUSSED WITH THE RESIDENT PHYSICIAN. I HAVE REVIEWED THE RECORD AND AGREE WITH THE ABOVE NOTE AND PLAN OF CARE WAS DISCUSSED. I HAVE AUTHORIZED THE ORDER FOR PLACEMENT IN OUT-PATIENT OBSERVATION STATUS. ( Aminata Holcomb MD) Problem List: (1) Chest pain Status: Acute Plan: Patient presented with chest pain and shortness of breath. Symptoms have resolved. CXR showing no acute disease. CTA was performed without evidence of PE , showing evidence of LLL atelectasis. Vital signs unremarkable in ED and patient is on room air. EKG showed no evidence of ischemic events. Troponin 1 negative. * Cardiac enzymes and EKGs trended * Monitor on telemetry * Monitor for signs of new pain symptoms (2) SOB (shortness of breath) Status: Acute Plan: Patient with acute onset shortness of breath per report which has resolved. CT as above was negative for PE. There is no diagnoses includes COPD, pneumonia, anxiety. Patient also reported history of MELIDA for which patient was supposed to get followed up at the [facility] for new CPAP O2 sat greater than 98% at bedside * Continue to monitor patient's oxygenation with regular vital sign checks * Goal O2 sat greater than 92% (3) HTN (hypertension) Status: Chronic Plan: Per history. Patient did not appear to be on any antihypertensives at home, will monitor blood pressures and offer PRN Vasotec for BP greater than 180 /110 (4) Dysphagia due to recent cerebrovascular accident Status: Acute Plan: Patient with a PEG tube placed during his hospital stay in October 2016 due to residual dysphagia after stroke. does not report type of tube feeds patient gets but states that it should be documented his last hospital stay. * Continue diet as tolerated to PEG tube * Oxford medications effective (5) Fluids/Electrolytes/Nutrition/Prophylaxis Status: Acute Plan: Fluids: Tolerating fluids by PEG tube Electrolytes: Monitor replete as needed Nutrition: PEG tube feeds DVT Prophylaxis: Early ambulation. Lovenox 40mg subQ q24hr/bilateral SCDs GI Prophylaxis: None indicated (Teresa Buckley MD R1) Teresa Buckley MD R1 Nov 22, 2016 23:52 Aminata Holcomb MD Nov 23, 2016 13:29
[2016-11-23] MEDS ORDERED: ACETAMINOPHEN/HYDROcodone 325 MG/10 MG TAB G-TUBE PRN
[2016-11-23] MEDS ORDERED: SODIUM CHLORIDE 0.9% FLUSH 10 ML FLUSH IV FLUSH PRN (00:15)
[2016-11-23] MEDS ORDERED: ACETAMINOPHEN/HYDROcodone 325 MG/10 MG TAB PEG PRN (00:15)
[2016-11-23] MEDS ORDERED: NALOXONE HCL 0.4 MG/ML AMP IV PRN ×2 (00:15)
[2016-11-23] MEDS ORDERED: ACETAMINOPHEN 325 MG TAB PEG PRN (00:15)
[2016-11-23] MEDS ORDERED: ALPRAZolam 0.25 MG TAB PEG PRN (00:15)
[2016-11-23] MEDS ORDERED: ENOXAPARIN SODIUM 40 MG/0.4 ML SYRINGE SQ SCH (00:15)
[2016-11-23 00:59] LABS: CREATINE KINASE 160 U/L (39-308)
[2016-11-23 01:11] VITALS: BP 135/96; PULSE 106; RESP 16; TEMP 98.7; O2SAT 99
[2016-11-23] MEDS ORDERED: ACETAMINOPHEN 325MG/HYDROcodone 7.5MG/15ML UDC PEG PRN (02:30)
[2016-11-23 03:51] LABS: CREATINE KINASE 160 U/L (39-308)
[2016-11-23 04:14] VITALS: BP 119/76; PULSE 108; RESP 18; TEMP 98.5; O2SAT 97
[2016-11-23] MEDS ORDERED: ENALAPRILAT 1.25 MG/ML VIAL IV PRN (06:00)
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
[2016-11-23 07:51] VITALS: BP 141/89; PULSE 100; RESP 18; TEMP 98.4; O2SAT 98
[2016-11-23 08:00] VITALS: PULSE 105
[2016-11-23] MEDS ORDERED: ASPIRIN 81 MG CHEW TAB PEG SCH (09:00)
[2016-11-23] MEDS ORDERED: GABAPENTIN 250 MG/5 ML UDC PEG SCH (09:00)
[2016-11-23] MEDS ORDERED: SODIUM CHLORIDE 0.9% FLUSH 10 ML FLUSH IV FLUSH SCH (09:00)
[2016-11-23] MEDS ORDERED: MEMANTINE HCL 5 MG TAB PEG SCH (09:00)
[2016-11-23] MEDS ORDERED: PARoxetine HCL SUSP 20 MG/10 ML UDC PEG SCH ×2 (09:00)
[2016-11-23] MEDS ORDERED: DOCUSATE SODIUM 50 MG/SENNA 8.6 MG TAB PEG SCH (09:00)
[2016-11-23] MEDS ORDERED: LANSOPRAZOLE SOLUTAB 15 MG TAB PEG SCH (09:00)
[2016-11-23] MEDS ORDERED: LORA-474 PO (10:10)
--- NOTE | 2016-11-23 10:16 | HHI.DCPOC ---
Discharge Care Plan Diagnosis: (1) Aphasia (2) Chest pain (3) Dysphagia due to recent cerebrovascular accident (4) Anxiety Goals to Promote Your Health * To prevent worsening of your condition and complications * To maintain your health at the optimal level Directions to Meet Your Goals Take your medications as prescribed Follow your dietary instruction Follow activity as directed Keep your appointments as scheduled Take your immunizations and boosters as scheduled If your symptoms worsen call your PCP, if no PCP go to Urgent Care Center or Emergency Room Smoking is Dangerous to Your Health. Avoid second hand smoke Call the 24-hour hour crisis hotline for domestic abuse at Dary Rush MD R2 Nov 23, 2016 10:16
--- NOTE | 2016-11-23 14:07 | HHI.FPPN ---
Problem Problem List: (1) Chest pain (2) SOB (shortness of breath) (3) Anxiety (4) Dysphagia due to recent cerebrovascular accident (5) Aphasia Subjective Subjective 71 year old man that is dysphasic and immobile due to recent CVA. He was seen with his at the bedside. He is able to verbalize somewhat and communicate by writing and shaking head yes/no. Patient reports his CP and SOB resolved. He states he was anxious overnight and is worried about going to sleep as he feels he may in his sleep. He did receive 0.25mg xanax prior to my exam of this patient and he reports that his anxiety is better after the xanax. His reports that the xanax only lasts for a short time and then he is anxious again and she has not been giving this med to him a lot because she is worried about over medicating him. His is concerned that if he cannot sleep then she can't sleep to function the next day. She is able to care for him at home and he has support of a good friend as well that helps with his care. He has home health and PT set up and fu with neuro and his PCP already. Hospital Objective Objective Last 24 hours Impressions Chest X-Ray 11/22/162012 Signed Impressions: Service Date/Time: Tuesday, November 22, 2016 20:32 - CONCLUSION: No acute disease. Scott Gregg MD Laboratory Tests - Abnormals Test 11/22/16 11/22/16 11/23/16 11/23/16 20:15 20:25 00:25 03:16 Mean Corpuscular Volume 74.2 FL Mean Corpuscular Hemoglobin 24.4 PG Blood Urea Nitrogen 21 MG/DL Estimat Glomerular Filtration 88 ML/MIN Rate Random Glucose 194 MG/DL Alkaline Phosphatase 125 U/L Troponin I LESS THAN 0.02 LESS THAN 0.02 LESS THAN 0.02 NG/ML NG/ML NG/ML Arterial Blood pH 7.47 Arterial Blood Partial 33 mmHg Pressure CO2 Vital Signs 11/22/16 11/22/16 11/22/16 11/23/16 19:52 20:17 22:51 01:11 Temp 98.8 98.7 Pulse 119 105 106 Resp 24 16 16 B/P 152/98 138/89 135/96 Pulse Ox 99 98 99 99 O2 Delivery Room Air Room Air Room Air 11/23/16 11/23/16 11/23/16 04:14 07:51 08:00 Temp 98.5 98.4 Pulse 108 100 105 Resp 18 18 B/P 119/76 141/89 Pulse Ox 97 98 Assessment Assessment: (1) Chest pain Plan: This has resolved. Seriel enzymes and EKGs are normal. Feel this is related to anxiety and panic. (2) SOB (shortness of breath) Plan: This has resolved. Cardiac workup for acute process was negative, CXR negative (3) Anxiety Plan: This is the largest issue for this patient at this time. He is medically optimized for his chronic medical issues otherwise. He is on Paxil and xanax prn when his is giving this to him (4) Aphasia (5) Dysphagia due to recent cerebrovascular accident Plan: PBoth patient and report that he is already seeing some progress with improved strength in the LE and has home PT/OT/HH already set up Assessment 71 year old man that was admitted for observation with cp and SOB and risk factors for cardiovascular issues. He was monitored and did not show and acute process in his heart and these two symptoms are completely resolved. His main underlying issue appears to be anxiety and panic and he is also not sleeping. Feel that he may benefit from a longer acting sedative and something a little higher dose at night to help with sleep. The xanax 0.25mg did not sedate the patient at all. Rec that they continue the Paxil but has fu with his PCP next week -- if continued anxiety might need a higher dose of this. Change his Xanax to Ativan and schedule this instead of prn for the next few days -- Ativan 1mg in am and 2 mg in pm to see if this helps control his anxiety symptoms and helps with his sleep. They are already set up with the help he will need at home from his last hospital stay. He is stable and back to his baseline and able to be discharged to home today. PLAN PLAN see above Aminata Holcomb MD Nov 23, 2016 14:07
[2016-11-23] MEDS ORDERED: ALPRAZolam 0.25 MG TAB PEG SCH (16:00)
--- NOTE | 2016-11-23 19:03 | EKG ---
Date Performed: 11/23/2016 Time Performed: 00:10:33 PTAGE: 71 years EKG: SINUS TACHYCARDIA MODERATE VOLTAGE CRITERIA FOR LVH, CONSIDER NORMAL VARIANT Early repolari zation Baseline artifact Compared to prior tracing no significant change ABNORMAL RHYTHM ECG PREVIOUS TRACING : 11/22/2016 20.12 DOCTOR: Ping Luong Interpretating Date/Time 11/23/2016 19:02:12
--- NOTE | 2016-11-23 19:03 | EKG ---
Date Performed: 11/22/2016 Time Performed: 20:12:17 PTAGE: 71 years EKG: SINUS TACHYCARDIA EARLY REPOLARIZATION Probable LVH Compared to previous tracing, the patie nt is now tachycardic ABNORMAL RHYTHM ECG PREVIOUS TRACING : 11/11/2016 14.40 DOCTOR: Ping Luong Interpretating Date/Time 11/23/2016 19:01:51
--- NOTE | 2016-11-23 19:06 | EKG ---
Date Performed: 11/23/2016 Time Performed: 03:23:00 PTAGE: 71 years EKG: SINUS TACHYCARDIA Early repolarization Baseline artifact Compared to previous tracing, the precordial transition has changed , most likely secondary to lead placement. Patient no longer meets criteria for LVH. Likely no significant change ABNORMAL RHYTHM ECG PREVIOUS TRACING : 11/23/2016 00.10 DOCTOR: Ping Luong Interpretating Date/Time 11/23/2016 19:04:53
[2016-11-23] MEDS ORDERED: ATORVASTATIN 80 MG TAB PEG SCH (21:00)
== END 2016-11-23 11:54 | disposition home or self-care (01) ==
LOC: NEPC 19:49 → NEDA 22:52 → NEPFCDU 11-23 00:41
PROVIDERS: ADMIT Family Medicine; ATTEND Family Medicine
DX: R07.9 Chest pain, unspecified (principal); R47.01 Aphasia; I69.920 Aphasia following unspecified cerebrovascular disease; I10 Essential (primary) hypertension; I69.991 Dysphagia following unspecified cerebrovascular disease; R13.10 Dysphagia, unspecified; F41.9 Anxiety disorder, unspecified; E78.5 Hyperlipidemia, unspecified; F03.90 Unspecified dementia, unspecified severity, without behavioral disturbance, psychotic disturbance, mood disturbance, and anxiety; N40.0 Benign prostatic hyperplasia without lower urinary tract symptoms; R06.02 Shortness of breath; R00.0 Tachycardia, unspecified; F43.10 Post-traumatic stress disorder, unspecified; B19.20 Unspecified viral hepatitis C without hepatic coma; Z79.82 Long term (current) use of aspirin; Z79.899 Other long term (current) drug therapy
CPT/HCPCS: 36600; 71010; 71275; 80053; 82550; 82552; 82805; 83605; 83690; 83735; 83880; 84484; 85025; 85610; 85730; 87040; 87804; 93005; 94664; 96365; 99285; G0378; J1650; J7030; Q9967

== ENCOUNTER → 2016-11-24 19:17 | Emergency (ER) | payer MEDICARE, OTHER ==
[~2016-11-24] VITALS: Ht 182.9 cm; Wt 73.0 kg
[~2016-11-24 19:17] MED LIST changes: -ALPR.25 PEG; +BACL10TA PEG; -Free Water G-TUBE; -HYDR-3583 PEG; +LORA-474 PO; +MELA5TAB15 PEG
[2016-11-24 19:19] VITALS: BP 128/87; PULSE 114; RESP 20; TEMP 98.3; O2SAT 99
== END | disposition left against medical advice (07) ==
LOC: NED 19:17
DX: F41.1 Generalized anxiety disorder (principal)
CPT/HCPCS: 99281